=== PATIENT | male | born 1930 | race Caucasian/White ===

== ENCOUNTER 2018-02-24 16:57 | Inpatient (IN) | payer MEDICARE ==
[~2018-02-24] VITALS: Ht 167.6 cm; Wt 59.0 kg
[2018-02-24 17:44] LABS: BASO % 0 % (0-3); EOS # 0.1 x10^3/uL (0.0-0.7); EOS % 2 % (0-3); HEMOGLOBIN 12.1 g/dL (13.0-17.5); LYMPH # 0.5 x10^3/uL (1.0-4.8); LYMPH % 10 % (24-48); MEAN CORPUSCULAR HEMOGLOBIN 33 pg (25-35); MEAN CORPUSCULAR HGB CONC 34 g/dL (31-37); MEAN CORPUSCULAR VOLUME 99 fL (79-100); MONO # 0.5 x10^3/uL (0.0-1.1); MONO % 10 % (0-9); NEUT # 4.2 x10^3uL (1.8-7.7); NEUT % 78 % (31-73); PLATELET COUNT 171 x10^3/uL (140-400); RED BLOOD COUNT 3.63 x10^6/uL (4.30-5.70); RED CELL DISTRIBUTION WIDTH 13.7 % (11.5-14.5); WHITE BLOOD COUNT 5.3 x10^3/uL (4.0-11.0)
--- NOTE | 2018-02-24 17:44 | PHYS DOC ---
Adult General Chief Complaint Chief Complaint: PSYCH EVALUATION HPI HPI 88-year-old male presents for medical clearance for psychiatric admission. The patient is reportedly being admitted for behavior problems from his care facility. The patient and his family deny any medical complaints or concerns at this time. The patient is aware of his surroundings questions. He denies any pain or medical concerns other than some mild congestion. Review of Systems Review of Systems Constitutional: Denies fever or chills [] Eyes: Denies change in visual acuity, redness, or eye pain [] HENT: Denies nasal congestion or sore throat [] Respiratory: Denies cough or shortness of breath [] Cardiovascular: No additional information not addressed in HPI [] GI: Denies abdominal pain, nausea, vomiting, bloody stools or diarrhea [] : Denies dysuria or hematuria [] Musculoskeletal: Denies back pain or joint pain [] Integument: Denies rash or skin lesions [] Neurologic: Denies headache, focal weakness or sensory changes [] Endocrine: Denies polyuria or polydipsia [] All other systems were reviewed and found to be within normal limits, except as documented in this note. Allergies Allergies Allergies Coded Allergies Type Severity Reaction Last Updated Verified Penicillins Allergy Unknown 02/24/18 Yes erythromycin base Allergy Unknown 02/24/18 Yes Physical Exam Physical Exam Constitutional: Well developed, well nourished, no acute distress, non-toxic appearance. [] HENT: Normocephalic, atraumatic, bilateral external ears normal, oropharynx moist, no oral exudates, nose normal. [] Eyes: PERRLA, EOMI, conjunctiva normal, no discharge. [] Neck: Normal range of motion, no tenderness, supple, no stridor. [] Cardiovascular:Heart rate regular rhythm, no murmur [] Lungs & Thorax: Bilateral breath sounds clear to auscultation [] Abdomen: Bowel sounds normal, soft, no tenderness, no masses, no pulsatile masses. [] Skin: Warm, dry, no erythema, no rash. [] Back: No tenderness. [] Extremities: No tenderness, no cyanosis, no clubbing, ROM intact, no edema. [] Neurologic: Alert and oriented X 3, normal motor function, normal sensory function, no focal deficits noted. [] Psychologic: Affect normal, judgement normal, mood normal. [] EKG EKG Sinus rhythm, rate except G2, right bundle-branch block, no ST elevations or depressions.[] Radiology/Procedures Radiology/Procedures [] Course & Med Decision Making Course & Med Decision Making Pertinent Labs and Imaging studies reviewed. (See chart for details) Patient's labs show a UTI. The patient does not specifically mention increased symptoms, but I will treat anyway with 500mg PO of levofloxacin due to his other medication allergies. [] Dragon Disclaimer Dragon Disclaimer This electronic medical record was generated, in whole or in part, using a voice recognition dictation system. Departure Departure: Referrals: NON,STAFF (PCP) ANTELMO HARRIS DO February 24, 2018 17:44
[2018-02-24 17:54] LABS: BILIRUBIN,URINE NEG (NEG); CLARITY,URINE CLOUDY; COLOR,URINE YELLOW; GLUCOSE,URINE NEG (NEG)
[2018-02-24 17:55] LABS: BACTERIA,URINE FEW /HPF (0-FEW); NITRITE,URINE POS (NEG); SQUAMOUS EPITHELIAL CELL,UR OCC /LPF; UROBILINOGEN,URINE 0.2 mg/dL (0.2 mg/dL); WBC,URINE TNTC /HPF (0-4)
[2018-02-24 18:00] LABS: ALBUMIN 2.3 g/dL (3.4-5.0); ALBUMIN/GLOBULIN RATIO 0.5 (1.0-1.7); CALCIUM 8.8 mg/dL (8.5-10.1); CREATININE 1.5 mg/dL (0.7-1.3); GFR 44.1; POTASSIUM 5.2 mmol/L (3.5-5.1); TOTAL BILIRUBIN 0.5 mg/dL (0.2-1.0); TOTAL PROTEIN 7.1 g/dL (6.4-8.2)
[2018-02-24] MEDS ORDERED: levoFLOXacin 500 MG TABLET PO ONE (18:15)
[2018-02-24 20:01] VITALS: BP 195/75
--- NOTE | 2018-02-24 20:54 | PDOC ---
Exam Note: Stevenson Note: Please also refer to the separate dictated note~for this date of service dictated separately.~Patient seen individually. Discussed the patient with Nursing staff reviewed the chart.~Reviewed interim history and current functioning. Reviewed vital signs,~Labs/ Radiology~and current medications noted below. Continue current treatment with the changes noted in the dictated addendum note Assessment: Vital Signs: Vital Signs Date Time Temp Pulse Resp B/P (MAP) Pulse Ox O2 Delivery O2 Flow Rate FiO2 02/24/18 20:01 98.7 72 18 195/75 (115) 93 02/24/18 18:31 Room Air Labs: Laboratory Tests Test 02/24/18 17:20 02/24/18 17:28 White Blood Count 5.3 x10^3/uL (4.0-11.0) Red Blood Count 3.63 x10^6/uL (4.30-5.70) L Hemoglobin 12.1 g/dL (13.0-17.5) L Hematocrit 36.0 % (39.0-53.0) L Mean Corpuscular Volume 99 fL (79-100) Mean Corpuscular Hemoglobin 33 pg (25-35) Mean Corpuscular Hemoglobin Concent 34 g/dL (31-37) Red Cell Distribution Width 13.7 % (11.5-14.5) Platelet Count 171 x10^3/uL (140-400) Neutrophils (%) (Auto) 78 % (31-73) H Lymphocytes (%) (Auto) 10 % (24-48) L Monocytes (%) (Auto) 10 % (0-9) H Eosinophils (%) (Auto) 2 % (0-3) Basophils (%) (Auto) 0 % (0-3) Neutrophils # (Auto) 4.2 x10^3uL (1.8-7.7) Lymphocytes # (Auto) 0.5 x10^3/uL (1.0-4.8) L Monocytes # (Auto) 0.5 x10^3/uL (0.0-1.1) Eosinophils # (Auto) 0.1 x10^3/uL (0.0-0.7) Basophils # (Auto) 0.0 x10^3/uL (0.0-0.2) Sodium Level 142 mmol/L (136-145) Potassium Level 5.2 mmol/L (3.5-5.1) H Chloride Level 105 mmol/L (98-107) Carbon Dioxide Level 33 mmol/L (21-32) H Anion Gap 4 (6-14) L Blood Urea Nitrogen 44 mg/dL (8-26) H Creatinine 1.5 mg/dL (0.7-1.3) H Estimated GFR (Cockcroft-Gault) 44.1 BUN/Creatinine Ratio 29 (6-20) H Glucose Level 194 mg/dL (70-99) H Calcium Level 8.8 mg/dL (8.5-10.1) Magnesium Level 2.0 mg/dL (1.8-2.4) Total Bilirubin 0.5 mg/dL (0.2-1.0) Aspartate Amino Transferase (AST) 29 U/L (15-37) Alanine Aminotransferase (ALT) 24 U/L (16-63) Alkaline Phosphatase 54 U/L (46-116) Total Protein 7.1 g/dL (6.4-8.2) Albumin 2.3 g/dL (3.4-5.0) L Albumin/Globulin Ratio 0.5 (1.0-1.7) L Urine Collection Type Unknown Urine Color Yellow Urine Clarity Cloudy Urine pH 6.5 Urine Specific [place] 1.020 Urine Protein >100 mg/dl (NEG-TRACE) Urine Glucose (UA) Neg mg/dL (NEG) Urine Ketones (Stick) Neg mg/dL (NEG) Urine Blood Small (NEG) Urine Nitrite Pos (NEG) Urine Bilirubin Neg (NEG) Urine Urobilinogen Dipstick 0.2 mg/dL (0.2 mg/dL) Urine Leukocyte Esterase Small (NEG) Urine RBC 6-10 /HPF (0-2) Urine WBC Tntc /HPF (0-4) Urine Squamous Epithelial Cells Occ /LPF Urine Bacteria Few /HPF (0-FEW) Urine Mucus Slight /LPF Current Medications: Meds: Current Medications Levofloxacin (Levaquin) 500 mg 1X ONCE PO Last administered on 02/24/18at 18:22 ; Start 02/24/18 at 18:15; Stop 02/24/18 at 18:17; Status DC I have reviewed the current psychotropics carefully including drug interactions. Risk benefit ratio favors no change other than as noted in my dictated progress note. Diagnosis: Problems: (1) UTI (urinary tract infection) (2) Psychiatric care ABELINO BOND MD February 24, 2018 20:53
[2018-02-24] MEDS ORDERED: SERT25TA PO (23:11)
[2018-02-24] MEDS ORDERED: ACET325T21 PO (23:11)
[2018-02-24] MEDS ORDERED: POLY15DR20 OP (23:11)
[2018-02-24] MEDS ORDERED: PANT40TA3 PO (23:11)
[2018-02-24] MEDS ORDERED: ISOS30TA4 PO (23:11)
[2018-02-24] MEDS ORDERED: FINA5TAB PO (23:11)
[2018-02-24] MEDS ORDERED: POTA20TA84 PO (23:11)
[2018-02-24] MEDS ORDERED: ASPI81TA50 PO (23:11)
[2018-02-24] MEDS ORDERED: PRED5DRO16 EACHEYE (23:11)
[2018-02-24] MEDS ORDERED: HYDR26CR TP (23:11)
[2018-02-24] MEDS ORDERED: CHOL10003 PO (23:11)
[2018-02-24] MEDS ORDERED: GANC5GEL OP (23:11)
[2018-02-24] MEDS ORDERED: CARV6.252 PO (23:11)
[2018-02-24] MEDS ORDERED: LOSA50TA6 PO (23:11)
[2018-02-24] MEDS ORDERED: BETA15OI TP (23:11)
[2018-02-24] MEDS ORDERED: DIPH25CA58 PO (23:11)
[2018-02-24] MEDS ORDERED: ATOR40TA59 PO (23:11)
[2018-02-24] MEDS ORDERED: SENN-87 PO (23:11)
[2018-02-24] MEDS ORDERED: GUAI12003 PO (23:11)
[2018-02-24] MEDS ORDERED: FERR325T14 PO (23:11)
[2018-02-24] MEDS ORDERED: DONE5TAB56 PO (23:11)
[2018-02-24] MEDS ORDERED: TAMS0.4C2 PO (23:11)
[2018-02-24] MEDS ORDERED: TORS20TA2 PO (23:11)
[2018-02-24] MEDS ORDERED: POLY17PO5 PO (23:11)
[2018-02-24] MEDS ORDERED: CLOP75TA57 PO (23:11)
[2018-02-24] MEDS ORDERED: FLUT16SP21 NS (23:11)
[2018-02-24] MEDS ORDERED: MAG HYDROX/AL HYDROX/SIMETH 30 ML ORAL.SUSP PO PRN (23:15)
[2018-02-24] MEDS ORDERED: METHYL SALICYLATE/MENTHOL TOPICAL OINTMENT 29GM TUBE. TP PRN (23:15)
[2018-02-24] MEDS ORDERED: MAGNESIUM HYDROXIDE 2,400 MG/30 ML ORAL.SUSP. PO PRN (23:15)
[2018-02-25] MEDS ORDERED: POLYVINYL ALCOHOL 1.4% OPHTH SOLUTION 15ML BOTTLE. OU PRN (00:15)
[2018-02-25] MEDS ORDERED: ACETAMINOPHEN 325 MG TABLET PO PRN (00:15)
[2018-02-25] MEDS ORDERED: GANCICLOVIR OP SCH (00:15)
[2018-02-25] MEDS ORDERED: BETAMETHASONE AUGMENTED 0.05% TP PRN (00:15)
[2018-02-25] MEDS ORDERED: HYDROCORTISONE 2.5% RECTAL CREAM 30GM TUBE. RC PRN (00:30)
[2018-02-25] MEDS ORDERED: BETAMETHASONE DIPROP 0.05% TP PRN (07:45)
[2018-02-25] MEDS: CHOLECALCIFEROL (VITAMIN D3) 1,000 UNIT TABLET PO SCH (08:01)
[2018-02-25] MEDS: POLYETHYLENE GLYCOL 3350 17 GM PACKET. PO SCH ×2 (08:01→19:20)
[2018-02-25] MEDS: DONEPEZIL HCL 5 MG TABLET. PO SCH (08:01)
[2018-02-25] MEDS: TAMSULOSIN 0.4 MG CAP.ER.24H. PO SCH (08:02)
[2018-02-25] MEDS: LOSARTAN 50 MG TABLET. PO SCH (08:02)
[2018-02-25] MEDS: SENNOSIDES 8.6 MG TABLET PO SCH (08:02)
[2018-02-25] MEDS: CARVEDILOL 6.25 MG TABLET PO SCH ×2 (08:02→17:00)
[2018-02-25] MEDS: PANTOPRAZOLE 40 MG TABLET. PO SCH (08:03)
[2018-02-25] MEDS: SERTRALINE 25 MG TABLET. PO SCH (08:04)
[2018-02-25] MEDS: ASPIRIN 81 MG TAB.CHEW PO SCH (08:04)
[2018-02-25] MEDS: FERROUS SULFATE 325 MG TABLET. PO SCH (08:04)
[2018-02-25] MEDS: FINASTERIDE 5 MG TABLET PO SCH (08:04)
[2018-02-25] MEDS: ISOSORBIDE MONONITRATE ER 30 MG TAB.ER.24H PO SCH (08:04)
[2018-02-25 08:38] LABS: BASO % 0 % (0-3); EOS # 0.1 x10^3/uL (0.0-0.7); EOS % 2 % (0-3); HEMATOCRIT 33.2 % (39.0-53.0); HEMOGLOBIN 11.2 g/dL (13.0-17.5); LYMPH # 0.5 x10^3/uL (1.0-4.8); LYMPH % 11 % (24-48); MEAN CORPUSCULAR HEMOGLOBIN 33 pg (25-35); MEAN CORPUSCULAR HGB CONC 34 g/dL (31-37); MEAN CORPUSCULAR VOLUME 99 fL (79-100); MONO # 0.5 x10^3/uL (0.0-1.1); MONO % 9 % (0-9); NEUT # 3.8 x10^3uL (1.8-7.7); NEUT % 78 % (31-73); PLATELET COUNT 165 x10^3/uL (140-400); RED BLOOD COUNT 3.37 x10^6/uL (4.30-5.70); WHITE BLOOD COUNT 4.9 x10^3/uL (4.0-11.0)
[2018-02-25] MEDS: FLUTICASONE 50MCG/NASAL SPRAY 16GM BOTTLE. NS SCH (08:54)
[2018-02-25] MEDS: TORSEMIDE 20 MG TABLET. PO SCH (08:54)
[2018-02-25] MEDS: prednisoLONE ACETATE 1% OPHTH SUSPENSION 5ML BOTTLE. OU SCH (08:54)
[2018-02-25 08:57] LABS: ALBUMIN 2.2 g/dL (3.4-5.0); ALBUMIN/GLOBULIN RATIO 0.5 (1.0-1.7); CALCIUM 8.7 mg/dL (8.5-10.1); CREATININE 1.3 mg/dL (0.7-1.3); MAGNESIUM 1.9 mg/dL (1.8-2.4); POTASSIUM 4.5 mmol/L (3.5-5.1); TOTAL BILIRUBIN 0.4 mg/dL (0.2-1.0); TOTAL PROTEIN 6.8 g/dL (6.4-8.2)
[2018-02-25] MEDS ORDERED: CLOPIDOGREL BISULFATE 75 MG TABLET PO SCH (09:00)
[2018-02-25] MEDS ORDERED: FOSFOMYCIN TROMETHAMINE 3 GM PACKET PO ONE (10:00)
[2018-02-25 11:07] LABS: THYROID STIM HORMONE (TSH) 3.756 uIU/mL (0.358-3.740)
[2018-02-25 11:11] VITALS: BP 172/82
[2018-02-25 13:09] LABS: T3 TOTAL 56 ng/dL (71-180); THYROXINE 5.3 ug/dL (4.5-12.0)
--- NOTE | 2018-02-25 14:11 | PDOC1 ---
History of Present Illness Reason for Visit: Dementia w/ behaviors History of Present Illness Pt sent to [facility] for evaluation in [facility] (from [place]) due to some behaviors. He was intentionally spilling water, yelling at staff, defecating in hallway, kicked a AUTOMOTIVE [employer]IST. This was all relatively new behavior according to the report. Pt seen today at 1145. He is demented but has no complaints. Specifically denies chest pain, SOA, cough, leg pain, dizziness, or n/v. About an hour after I saw pt, his nurse called to say there was some bright red blood in his stool when he had a BM. Pt was not having any complaints. There was no report of visible external hemorrhoids. Chief Complaint: PSYCH EVALUATION Allergies: Coded Allergies: Penicillins (Verified Allergy, Unknown, 02/24/18) azithromycin (Verified Allergy, Unknown, 02/24/18) erythromycin base (Verified Allergy, Unknown, 02/24/18) Past Medical History Cardiac: CAD, syncope, Other (Vtach) Pulmonary: COPD Endocrine: Diabetes Dermatology: Other (Glaucoma, macular degeneration) Past Surgical History: No pertinent history Family History: No pertinent hx Past Social History Smoke: No Alcohol: none Drugs: None Lives: Residential Review of Systems Review Of Systems Fourteen system , review of systems has been reviewed. See HPI for pertinent positives and negative responses, other fitzgerald all other systems are negative, non pertinent or non contributory Medications Current Medications Levofloxacin (Levaquin) 500 mg 1X ONCE PO Last administered on 02/24/18at 18:22 ; Start 02/24/18 at 18:15; Stop 02/25/18 at 00:01; Status DC Acetaminophen (Tylenol) 650 mg PRN Q6HRS PRN PO PAIN / TEMP; Start 02/24/18 at 23:15 Multi-Ingredient Ointment (Analgesic [place]aman) 1 samy PRN QID PRN TP MUSCLE PAIN; Start 02/24/18 at 23:15 Al Hydroxide/Mg Hydroxide (Mylanta Plus Xs) 15 ml PRN AFTMEALHC PRN PO DYSPEPSIA; Start 02/24/18 at 23:15 Magnesium Hydroxide (Milk Of Magnesia) 2,400 mg PRN QHS PRN PO CONSTIPATION; Start 02/24/18 at 23:15 Fosfomycin Tromethamine (Monurol) 3 gm 1X ONCE PO Last administered on at 08:54; Start 02/25/18 at 10:00; Stop 02/25/18 at 10:01; Status DC Acetaminophen (Tylenol) 325 mg PRN Q6HRS PRN PO PAIN; Start 02/25/18 at 00:15 Betamethasone Dipropion Augmented (Diprolene-Af) 15 samy PRN BID PRN TP RASH; Start 02/25/18 at 00:15; Stop 02/25/18 at 07:33; Status DC Vitamin D (Vitamin D3) 1,000 unit DAILY PO Last administered on 02/25/18at 08:01 ; Start 02/25/18 at 09:00 Clopidogrel Bisulfate (Plavix) 75 mg DAILY PO Last administered on 02/25/18at 08 :02; Start 02/25/18 at 09:00 Donepezil HCl (Aricept) 5 mg DAILY PO Last administered on 02/25/18at 08:01; Start 02/25/18 at 09:00 Ferrous Sulfate (Feosol) 325 mg DAILY PO Last administered on 02/25/18at 08:04; Start 02/25/18 at 09:00 Isosorbide Mononitrate (Imdur) 15 mg DAILY PO Last administered on 02/25/18at 08 :04; Start 02/25/18 at 09:00 Losartan Potassium (Cozaar) 50 mg DAILY PO Last administered on 02/25/18at 08:02 ; Start 02/25/18 at 09:00 Artificial Tears (Artificial Tears) 1 drop PRN QID PRN OU DRY EYE; Start at 00:15 Prednisolone Acetate (Pred Forte) 1 drop DAILY OU Last administered on at 08:54; Start 02/25/18 at 09:00 Tamsulosin HCl (Flomax) 0.4 mg DAILY PO Last administered on 02/25/18at 08:02; Start 02/25/18 at 09:00 Aspirin (Children'S Aspirin) 81 mg DAILYWBKFT PO Last administered on at 08:04; Start 02/25/18 at 08:00 Atorvastatin Calcium (Lipitor) 40 mg QHS PO ; Start 02/25/18 at 21:00 Carvedilol (Coreg) 6.25 mg BIDWMEALS PO Last administered on 02/25/18at 08:02; Start 02/25/18 at 08:00 Finasteride (Proscar) 5 mg DAILY PO Last administered on 02/25/18at 08:04; Start 02/25/18 at 09:00 Fluticasone Propionate (Flonase) 2 spray DAILY NS Last administered on at 08:54; Start 02/25/18 at 09:00 Non-Formulary Medication (Ganciclovir (Zirgan)) 5 gm 5 time daily OP ; Start 10/03 at 00:15; Status UNV Guaifenesin (Mucinex Er) 1,200 mg BID PO Last administered on 02/25/18 08:03; Start 02/25/18 at 09:00 Hydrocortisone (Proctosol-Hc) 1 samy PRN BID PRN RC HEMORRHOIDS; Start 02/25/18 at 00:30 Pantoprazole Sodium (Protonix) 40 mg DAILYAC PO Last administered on 02/25/18at 08:03; Start 02/25/18 at 07:30 Polyethylene Glycol (miraLAX) 17 gm BID PO Last administered on 02/25/18at 08:01 ; Start 02/25/18 at 09:00 Sennosides (Senna) 17.2 mg DAILY PO Last administered on 02/25/18at 08:02; Start 02/25/18 at 09:00 Torsemide (Demadex) 40 mg DAILY PO Last administered on 02/25/18at 08:54; Start 02/25/18 at 09:00 Sertraline HCl (Zoloft) 25 mg DAILY PO Last administered on 02/25/18at 08:04; Start 02/25/18 at 09:00 Betamethasone Dipropionate (Diprosone) 1 samy PRN BID PRN TP RASH; Start at 07:45 Active Scripts Active Reported Losartan Potassium 50 Mg Tablet 50 Mg PO DAILY Zirgan (Ganciclovir) 5 Gm Gel..gram. 5 Gm OP 5 TIME DAILY Carvedilol 6.25 Mg Tablet 6.25 Mg PO BIDWMEALS Diprolene 0.05% Ointment (Betamethasone/Propylene Glyc) 15 Gm Oint...g. 15 Gm TP PRN BID PRN Zoloft (Sertraline Hcl) 25 Mg Tablet 25 Mg PO DAILY Polyvinyl Alcohol 15 Ml Drops 1 Drop OP PRN QID PRN K-Tab ER (Potassium Chloride) 20 Meq Tablet.er 20 Meq PO DAILY Protonix (Pantoprazole Sodium) 40 Mg Tablet.dr 40 Mg PO DAILY Atorvastatin Calcium 40 Mg Tablet 40 Mg PO DAILY Tamsulosin Hcl 0.4 Mg Cap.er.24h 0.4 Mg PO DAILY Proscar (Finasteride) 5 Mg Tablet 5 Mg PO DAILY Senna Lax (Sennosides) 8.6 Mg Tablet 17.2 Mg PO DAILY Plavix (Clopidogrel Bisulfate) 75 Mg Tablet 75 Mg PO DAILY Ferrous Sulfate 325 Mg Tablet 325 Mg PO DAILY Acetaminophen 325 Mg Tablet 325 Mg PO PRN Q6HRS PRN Vitamin D3 (Cholecalciferol (Vitamin D3)) 1,000 Unit Tablet 1,000 Unit PO DAILY Aspir-Low (Aspirin) 81 Mg Tablet.dr 81 Mg PO DAILY Miralax (Polyethylene Glycol 3350) 17 Gm Powd.pack 17 Gm PO BID Prednisolone Acetate 5 Ml Drops.susp 1 Drop EACHEYE DAILY Benadryl (Diphenhydramine Hcl) 25 Mg Capsule 25 Mg PO PRN Q6HRS PRN Mucinex (Guaifenesin) 1,200 Mg Tbmp.12hr 1,200 Mg PO BID Fluticasone Propionate Nasal [place] (Fluticasone Propionate) 16 Gm [place].susp 2 Spr NS BID Preparation H (Hydrocortisone) 26 Gm Cream..g. 26 Gm TP PRN BID PRN Isosorbide Mononitrate Er (Isosorbide Mononitrate) 30 Mg Tab.er.24h 15 Mg PO DAILY Torsemide 20 Mg Tablet 40 Mg PO DAILY Aricept (Donepezil Hcl) 5 Mg Tablet 5 Mg PO DAILY Exam Vital Signs Vital Signs Date Time Temp Pulse Resp B/P (MAP) Pulse Ox O2 Delivery O2 Flow Rate FiO2 02/25/18 11:11 97.0 100 16 172/82 (112) Room Air 02/24/18 20:01 93 General Appearance: Alert, Cooperative, No acute distress, Other (Oriented x 2 (not time)) HEENT: Atraumatic, PERRLA, EOMI, Mucous membr. moist/pink, Other (Neck without JVD or LAD) Respiratory: Clear to auscultation, Normal air movement Heart: Regular rate, Normal S1, No murmurs Abdominal: Normal bowel sounds, Soft, No tenderness, No hepatospenomegaly, No masses Extremities: No edema, Normal pulses, No tenderness/swelling Skin: No rashes Neuro: Other (No focal findings, pt wheels himself around very well w/ his feet ) Psych/Mental Status: Mood NL Assessment/Plan Assessment/Plan 1. Dementia w/ behaviors: Per Dr. Bill. 2. BRBPR: Hemoccult. Serial Hgb q 8. Hold Plavix. Pt is DNR, would need to get family approval for transfer if appears to be more significant than internal hemorrhoidal bleeding. 3. DM: Cont home meds, ACHS accuchecks. 4. CAD: Cont home meds. 5. DVT proph: No pharmacologic prophylaxis, pt is low risk due to wheeling himself w/ WC. 6. COPD: Stable, on RA. COnt home meds. 7. UTI: Culture pending. Monurol 3 g PO x 1 given already. 8. HTN: Labile. Cont home BP meds, monitor. COURSE Allergies Coded Allergies Type Severity Reaction Last Updated Verified Penicillins Allergy Unknown 02/24/18 Yes azithromycin Allergy Unknown 02/24/18 Yes erythromycin base Allergy Unknown 02/24/18 Yes Laboratory Tests Test 02/24/18 17:20 02/24/18 17:28 02/25/18 07:40 White Blood Count 5.3 x10^3/uL (4.0-11.0) 4.9 x10^3/uL (4.0-11.0) Red Blood Count 3.63 x10^6/uL (4.30-5.70) 3.37 x10^6/uL (4.30-5.70) Hemoglobin 12.1 g/dL (13.0-17.5) 11.2 g/dL (13.0-17.5) Hematocrit 36.0 % (39.0-53.0) 33.2 % (39.0-53.0) Mean Corpuscular Volume 99 fL (79-100) 99 fL (79-100) Mean Corpuscular Hemoglobin 33 pg (25-35) 33 pg (25-35) Mean Corpuscular Hemoglobin Concent 34 g/dL (31-37) 34 g/dL (31-37) Red Cell Distribution Width 13.7 % (11.5-14.5) 14.0 % (11.5-14.5) Platelet Count 171 x10^3/uL (140-400) 165 x10^3/uL (140-400) Neutrophils (%) (Auto) 78 % (31-73) 78 % (31-73) Lymphocytes (%) (Auto) 10 % (24-48) 11 % (24-48) Monocytes (%) (Auto) 10 % (0-9) 9 % (0-9) Eosinophils (%) (Auto) 2 % (0-3) 2 % (0-3) Basophils (%) (Auto) 0 % (0-3) 0 % (0-3) Neutrophils # (Auto) 4.2 x10^3uL (1.8-7.7) 3.8 x10^3uL (1.8-7.7) Lymphocytes # (Auto) 0.5 x10^3/uL (1.0-4.8) 0.5 x10^3/uL (1.0-4.8) Monocytes # (Auto) 0.5 x10^3/uL (0.0-1.1) 0.5 x10^3/uL (0.0-1.1) Eosinophils # (Auto) 0.1 x10^3/uL (0.0-0.7) 0.1 x10^3/uL (0.0-0.7) Basophils # (Auto) 0.0 x10^3/uL (0.0-0.2) 0.0 x10^3/uL (0.0-0.2) Sodium Level 142 mmol/L (136-145) 142 mmol/L (136-145) Potassium Level 5.2 mmol/L (3.5-5.1) 4.5 mmol/L (3.5-5.1) Chloride Level 105 mmol/L (98-107) 105 mmol/L (98-107) Carbon Dioxide Level 33 mmol/L (21-32) 30 mmol/L (21-32) Anion Gap 4 (6-14) 7 (6-14) Blood Urea Nitrogen 44 mg/dL (8-26) 41 mg/dL (8-26) Creatinine 1.5 mg/dL (0.7-1.3) 1.3 mg/dL (0.7-1.3) Estimated GFR (Cockcroft-Gault) 44.1 52.0 BUN/Creatinine Ratio 29 (6-20) 32 (6-20) Glucose Level 194 mg/dL (70-99) 169 mg/dL (70-99) Calcium Level 8.8 mg/dL (8.5-10.1) 8.7 mg/dL (8.5-10.1) Magnesium Level 2.0 mg/dL (1.8-2.4) 1.9 mg/dL (1.8-2.4) Total Bilirubin 0.5 mg/dL (0.2-1.0) 0.4 mg/dL (0.2-1.0) Aspartate Amino Transf (AST/SGOT) 29 U/L (15-37) 26 U/L (15-37) Alanine Aminotransferase (ALT/SGPT) 24 U/L (16-63) 22 U/L (16-63) Alkaline Phosphatase 54 U/L (46-116) 49 U/L (46-116) Total Protein 7.1 g/dL (6.4-8.2) 6.8 g/dL (6.4-8.2) Albumin 2.3 g/dL (3.4-5.0) 2.2 g/dL (3.4-5.0) Albumin/Globulin Ratio 0.5 (1.0-1.7) 0.5 (1.0-1.7) Urine Collection Type Unknown Urine Color Yellow Urine Clarity Cloudy Urine pH 6.5 Urine Specific [place] 1.020 Urine Protein >100 mg/dl (NEG-TRACE) Urine Glucose (UA) Neg mg/dL (NEG) Urine Ketones (Stick) Neg mg/dL (NEG) Urine Blood Small (NEG) Urine Nitrite Pos (NEG) Urine Bilirubin Neg (NEG) Urine Urobilinogen Dipstick 0.2 mg/dL (0.2 mg/dL) Urine Leukocyte Esterase Small (NEG) Urine RBC 6-10 /HPF (0-2) Urine WBC Tntc /HPF (0-4) Urine Squamous Epithelial Cells Occ /LPF Urine Bacteria Few /HPF (0-FEW) Urine Mucus Slight /LPF Iron Level 79 ug/dL (65-175) Total Iron Binding Capacity 145 ug/dL (250-450) Iron Saturation 54 % (15-34) Triglycerides Level 63 mg/dL (0-150) Cholesterol Level 139 mg/dL (0-200) LDL Cholesterol, Calculated 79 mg/dL (0-100) VLDL Cholesterol, Calculated 12 mg/dL (0-40) Non-HDL Cholesterol Calculated 91 mg/dL (0-129) HDL Cholesterol 48 mg/dL (40-60) Cholesterol/HDL Ratio 2.0 Thyroid Stimulating Hormone (TSH) 3.756 uIU/mL (0.358-3.740) Thyroxine (T4) 5.3 ug/dL (4.5-12.0) Total Triiodothyronine 56 ng/dL (71-180) Current Medications Medications (Trade) Dose Ordered Sig/Rusty Route PRN Reason Start Time Stop Time Status Last Admin Dose Admin Levofloxacin (Levaquin) 500 mg 1X ONCE PO 02/24/18 18:15 02/25/18 00:01 DC 02/24/18 18:22 Acetaminophen (Tylenol) 650 mg PRN Q6HRS PRN PO PAIN / TEMP 02/24/18 23:15 Multi-Ingredient Ointment (Analgesic Beaman) 1 samy PRN QID PRN TP MUSCLE PAIN 02/24/18 23:15 Al Hydroxide/Mg Hydroxide (Mylanta Plus Xs) 15 ml PRN AFTMEALHC PRN PO DYSPEPSIA 02/24/18 23:15 Magnesium Hydroxide (Milk Of Magnesia) 2,400 mg PRN QHS PRN PO CONSTIPATION 02/24/18 23:15 Fosfomycin Tromethamine (Monurol) 3 gm 1X ONCE PO 02/25/18 10:00 02/25/18 10:01 DC 02/25/18 08:54 Acetaminophen (Tylenol) 325 mg PRN Q6HRS PRN PO PAIN 02/25/18 00:15 Betamethasone Dipropion Augmented (Diprolene-Af) 15 samy PRN BID PRN TP RASH 02/25/18 00:15 02/25/18 07:33 DC Vitamin D (Vitamin D3) 1,000 unit DAILY PO 02/25/18 09:00 02/25/18 08:01 Clopidogrel Bisulfate (Plavix) 75 mg DAILY PO 02/25/18 09:00 02/25/18 08:02 Donepezil HCl (Aricept) 5 mg DAILY PO 02/25/18 09:00 02/25/18 08:01 Ferrous Sulfate (Feosol) 325 mg DAILY PO 02/25/18 09:00 02/25/18 08:04 Isosorbide Mononitrate (Imdur) 15 mg DAILY PO 02/25/18 09:00 02/25/18 08:04 Losartan Potassium (Cozaar) 50 mg DAILY PO 02/25/18 09:00 02/25/18 08:02 Artificial Tears (Artificial Tears) 1 drop PRN QID PRN OU DRY EYE 02/25/18 00:15 Prednisolone Acetate (Pred Forte) 1 drop DAILY OU 02/25/18 09:00 02/25/18 08:54 Tamsulosin HCl (Flomax) 0.4 mg DAILY PO 02/25/18 09:00 02/25/18 08:02 Aspirin (Children'S Aspirin) 81 mg DAILYWBKFT PO 02/25/18 08:00 02/25/18 08:04 Atorvastatin Calcium (Lipitor) 40 mg QHS PO 02/25/18 21:00 Carvedilol (Coreg) 6.25 mg BIDWMEALS PO 02/25/18 08:00 02/25/18 08:02 Finasteride (Proscar) 5 mg DAILY PO 02/25/18 09:00 02/25/18 08:04 Fluticasone Propionate (Flonase) 2 spray DAILY NS 02/25/18 09:00 02/25/18 08:54 Non-Formulary Medication (Ganciclovir (Zirgan)) 5 gm 5 time daily OP 02/25/18 00:15 UNV Guaifenesin (Mucinex Er) 1,200 mg BID PO 02/25/18 09:00 02/25/18 08:03 Hydrocortisone (Proctosol-Hc) 1 samy PRN BID PRN RC HEMORRHOIDS 02/25/18 00:30 Pantoprazole Sodium (Protonix) 40 mg DAILYAC PO 02/25/18 07:30 02/25/18 08:03 Polyethylene Glycol (miraLAX) 17 gm BID PO 02/25/18 09:00 02/25/18 08:01 Sennosides (Senna) 17.2 mg DAILY PO 02/25/18 09:00 02/25/18 08:02 Torsemide (Demadex) 40 mg DAILY PO 02/25/18 09:00 02/25/18 08:54 Sertraline HCl (Zoloft) 25 mg DAILY PO 02/25/18 09:00 02/25/18 08:04 Betamethasone Dipropionate (Diprosone) 1 samy PRN BID PRN TP RASH 02/25/18 07:45 Vital Signs Date Time Temp Pulse Resp B/P (MAP) Pulse Ox O2 Delivery O2 Flow Rate FiO2 02/25/18 11:11 97.0 100 16 172/82 (112) Room Air 02/24/18 20:01 93 EKG: NSR, RBBB, RVH AMINAH MESA MD February 25, 2018 14:11
[2018-02-25 16:10] VITALS: BP 156/67
[2018-02-25 17:07] LABS: HEMOGLOBIN A1C 7.6 % (4.8-5.6)
[2018-02-25] MEDS: ATORVASTATIN CALCIUM 20 MG TABLET PO SCH (19:46)
[2018-02-25] MEDS: MIRTAZAPINE 7.5 MG TABLET. PO SCH (20:28)
--- NOTE | 2018-02-25 22:34 | HP ---
ADMIT DATE: 02/24/2018 ADMISSION HISTORY AND EVALUATION The patient was referred through the Emergency Room at [facility], where he presented from the half-way. This note covers elements not covered in my initial note 02/25/2018. The patient was seen individually evening of 02/25/2018. Discussed with nursing staff, reviewed the chart. Previously had discussed the patient with the nursing staff several times on 02/24/2018 and 02/25/2018 to review symptoms prompting this referral for inpatient psychiatric hospitalization. IDENTIFYING DATA: The patient is an 88-year-old male referred to us from [facility] on account of increasing agitation, anxiety, irritability, mood lability and some short term memory deficits. The patient was urinating and defecating on the floor, cursing at staff, spilling water on purpose, kicking staff. He had failed outpatient psychiatric interventions. Behaviors were deemed dangerous, unmanageable, referred for inpatient psychiatric stabilization. CHIEF COMPLAINT: "I need something to help me sleep. I can take Benadryl." HISTORY OF PRESENT ILLNESS: The patient has a history of increasing irritability, mood lability and agitation. He appeared depressed, though he minimizes this. He has had some short term memory deficits and behaviors have included the urination and defecation on the floor, cursing at staff, spilling water on purpose, kicking staff amongst other things. No active suicidal or homicidal ideation. No clear history of bipolar disorder. PAST PSYCHIATRIC HISTORY: As above. PAST MEDICAL HISTORY: Positive for COPD, coronary artery disease, history of syncope, ventricular tachycardia, diabetes mellitus, glaucoma, CHF, BPH with urinary retention, hyperlipidemia, anemia, Accu-Cheks daily. In the ER, UA was positive and he received Levaquin and since admission, he has received a dosage of Monurol per Dr. Gallo. DIET: No added salt, thin liquids. He takes his medications whole, ambulates in wheelchair. DRUG ALLERGIES: PENICILLIN, ERYTHROMYCIN. CODE STATUS: DNR. FAMILY HISTORY: Noncontributory. SOCIAL HISTORY: No alcohol, drug abuse, physical, sexual or elder abuse history is noted. He is not known to be a perpetrator. REACTION TO HOSPITALIZATION: The patient accepting of it. ASSETS: Supportive living at the half-way. MENTAL STATUS EXAM: The patient was seen individually. He is seated in a wheelchair, oriented to self, situation. Speech has some latency, coherent. Abstraction fair, computation somewhat impaired, language function intact. Mood and affect somewhat dysphoric. Attention span short. Language function intact. No active suicidal or homicidal ideation. He does have some short-term memory deficits. IMPRESSION: Major depressive disorder, recurrent, severe; anxiety disorder, unspecified; mild cognitive impairment versus major neurocognitive disorder; early Alzheimer, vascular with depression. Rest as noted above. PLAN: Admit to Geropsychiatry Unit at [facility]. I will see the patient daily individually from a psychiatric standpoint. Medical followup per Dr. Cole/Dr. Gallo. Treat the urinary tract infection. Start Remeron 7.5 mg at bedtime to help with his insomnia. Continue Zoloft and Aricept. Make further adjustments as clinically indicated. MAN Kunal BOND MD DR: CRISTY/mechelle JOB#: [id number] / [id number]
--- NOTE | 2018-02-25 22:58 | PDOC ---
Exam Note: [place] Note: Please also refer to the separate dictated note~for this date of service dictated separately.~Patient seen individually. Discussed the patient with Nursing staff reviewed the chart.~Reviewed interim history and current functioning. Reviewed vital signs,~Labs/ Radiology~and current medications noted below. Continue current treatment with the changes noted in the dictated addendum note Assessment: Vital Signs: Vital Signs Date Time Temp Pulse Resp B/P (MAP) Pulse Ox O2 Delivery O2 Flow Rate FiO2 02/25/18 17:00 78 156/67 02/25/18 16:10 97.8 17 96 02/25/18 11:11 Room Air I&O Intake and Output 02/25/18 07:00 Intake Total 120 ml Output Total 2 ml Balance 118 ml Intake Oral 120 ml Output Urine Total 2 ml # Bowel Movements 2 Labs: Laboratory Tests Test 02/25/18 07:40 02/25/18 14:55 02/25/18 21:50 White Blood Count 4.9 x10^3/uL (4.0-11.0) Red Blood Count 3.37 x10^6/uL (4.30-5.70) L Hemoglobin 11.2 g/dL (13.0-17.5) L 10.2 g/dL (13.0-17.5) L 10.2 g/dL (13.0-17.5) L Hematocrit 33.2 % (39.0-53.0) L Mean Corpuscular Volume 99 fL (79-100) Mean Corpuscular Hemoglobin 33 pg (25-35) Mean Corpuscular Hemoglobin Concent 34 g/dL (31-37) Red Cell Distribution Width 14.0 % (11.5-14.5) Platelet Count 165 x10^3/uL (140-400) Neutrophils (%) (Auto) 78 % (31-73) H Lymphocytes (%) (Auto) 11 % (24-48) L Monocytes (%) (Auto) 9 % (0-9) Eosinophils (%) (Auto) 2 % (0-3) Basophils (%) (Auto) 0 % (0-3) Neutrophils # (Auto) 3.8 x10^3uL (1.8-7.7) Lymphocytes # (Auto) 0.5 x10^3/uL (1.0-4.8) L Monocytes # (Auto) 0.5 x10^3/uL (0.0-1.1) Eosinophils # (Auto) 0.1 x10^3/uL (0.0-0.7) Basophils # (Auto) 0.0 x10^3/uL (0.0-0.2) Sodium Level 142 mmol/L (136-145) Potassium Level 4.5 mmol/L (3.5-5.1) Chloride Level 105 mmol/L (98-107) Carbon Dioxide Level 30 mmol/L (21-32) Anion Gap 7 (6-14) Blood Urea Nitrogen 41 mg/dL (8-26) H Creatinine 1.3 mg/dL (0.7-1.3) Estimated GFR (Cockcroft-Gault) 52.0 BUN/Creatinine Ratio 32 (6-20) H Glucose Level 169 mg/dL (70-99) H Hemoglobin A1c 7.6 % (4.8-5.6) H Calcium Level 8.7 mg/dL (8.5-10.1) Magnesium Level 1.9 mg/dL (1.8-2.4) Iron Level 79 ug/dL (65-175) Total Iron Binding Capacity 145 ug/dL (250-450) L Iron Saturation 54 % (15-34) H Total Bilirubin 0.4 mg/dL (0.2-1.0) Aspartate Amino Transferase (AST) 26 U/L (15-37) Alanine Aminotransferase (ALT) 22 U/L (16-63) Alkaline Phosphatase 49 U/L (46-116) Total Protein 6.8 g/dL (6.4-8.2) Albumin 2.2 g/dL (3.4-5.0) L Albumin/Globulin Ratio 0.5 (1.0-1.7) L Triglycerides Level 63 mg/dL (0-150) Cholesterol Level 139 mg/dL (0-200) LDL Cholesterol, Calculated 79 mg/dL (0-100) VLDL Cholesterol, Calculated 12 mg/dL (0-40) Non-HDL Cholesterol Calculated 91 mg/dL (0-129) HDL Cholesterol 48 mg/dL (40-60) Cholesterol/HDL Ratio 2.0 Thyroid Stimulating Hormone (TSH) 3.756 uIU/mL (0.358-3.740) Thyroxine (T4) 5.3 ug/dL (4.5-12.0) Total Triiodothyronine (TT3) 56 ng/dL (71-180) L Rapid Plasma Reagin Pending Current Medications: Meds: Current Medications Levofloxacin (Levaquin) 500 mg 1X ONCE PO Last administered on 02/24/18at 18:22 ; Start 02/24/18 at 18:15; Stop 02/25/18 at 00:01; Status DC Acetaminophen (Tylenol) 650 mg PRN Q6HRS PRN PO PAIN / TEMP; Start 02/24/18 at 23:15 Multi-Ingredient Ointment (Analgesic [place]) 1 samy PRN QID PRN TP MUSCLE PAIN; Start 02/24/18 at 23:15 Al Hydroxide/Mg Hydroxide (Mylanta Plus Xs) 15 ml PRN AFTMEALHC PRN PO DYSPEPSIA; Start 02/24/18 at 23:15 Magnesium Hydroxide (Milk Of Magnesia) 2,400 mg PRN QHS PRN PO CONSTIPATION; Start 02/24/18 at 23:15 Fosfomycin Tromethamine (Monurol) 3 gm 1X ONCE PO Last administered on at 08:54; Start 02/25/18 at 10:00; Stop 02/25/18 at 10:01; Status DC Acetaminophen (Tylenol) 325 mg PRN Q6HRS PRN PO PAIN; Start 02/25/18 at 00:15 Betamethasone Dipropion Augmented (Diprolene-Af) 15 samy PRN BID PRN TP RASH; Start 02/25/18 at 00:15; Stop 02/25/18 at 07:33; Status DC Vitamin D (Vitamin D3) 1,000 unit DAILY PO Last administered on 02/25/18at 08:01 ; Start 02/25/18 at 09:00 Clopidogrel Bisulfate (Plavix) 75 mg DAILY PO Last administered on 02/25/18at 08 :02; Start 02/25/18 at 09:00; Stop 02/25/18 at 14:01; Status DC Donepezil HCl (Aricept) 5 mg DAILY PO Last administered on 02/25/18at 08:01; Start 02/25/18 at 09:00 Ferrous Sulfate (Feosol) 325 mg DAILY PO Last administered on 02/25/18at 08:04; Start 02/25/18 at 09:00 Isosorbide Mononitrate (Imdur) 15 mg DAILY PO Last administered on 02/25/18 08 :04; Start 02/25/18 at 09:00 Losartan Potassium (Cozaar) 50 mg DAILY PO Last administered on 02/25/18at 08:02 ; Start 02/25/18 at 09:00 Artificial Tears (Artificial Tears) 1 drop PRN QID PRN OU DRY EYE; Start at 00:15 Prednisolone Acetate (Pred Forte) 1 drop DAILY OU Last administered on at 08:54; Start 02/25/18 at 09:00 Tamsulosin HCl (Flomax) 0.4 mg DAILY PO Last administered on 02/25/18at 08:02; Start 02/25/18 at 09:00 Aspirin (Children'S Aspirin) 81 mg DAILYWBKFT PO Last administered on at 08:04; Start 02/25/18 at 08:00 Atorvastatin Calcium (Lipitor) 40 mg QHS PO Last administered on 02/25/18at 19: 46; Start 02/25/18 at 21:00 Carvedilol (Coreg) 6.25 mg BIDWMEALS PO Last administered on 02/25/18 17:00; Start 02/25/18 at 08:00 Finasteride (Proscar) 5 mg DAILY PO Last administered on 02/25/18at 08:04; Start 02/25/18 at 09:00 Fluticasone Propionate (Flonase) 2 spray DAILY NS Last administered on at 08:54; Start 02/25/18 at 09:00 Non-Formulary Medication (Ganciclovir (Zirgan)) 5 gm 5 time daily OP ; Start 10/03 at 00:15; Status UNV Guaifenesin (Mucinex Er) 1,200 mg BID PO Last administered on 02/25/18 19:20; Start 02/25/18 at 09:00 Hydrocortisone (Proctosol-Hc) 1 samy PRN BID PRN RC HEMORRHOIDS; Start 02/25/18 at 00:30 Pantoprazole Sodium (Protonix) 40 mg DAILYAC PO Last administered on 02/25/18at 08:03; Start 02/25/18 at 07:30 Polyethylene Glycol (miraLAX) 17 gm BID PO Last administered on 02/25/18at 19:20 ; Start 02/25/18 at 09:00 Sennosides (Senna) 17.2 mg DAILY PO Last administered on 02/25/18at 08:02; Start 02/25/18 at 09:00 Torsemide (Demadex) 40 mg DAILY PO Last administered on 02/25/18at 08:54; Start 02/25/18 at 09:00 Sertraline HCl (Zoloft) 25 mg DAILY PO Last administered on 02/25/18at 08:04; Start 02/25/18 at 09:00 Betamethasone Dipropionate (Diprosone) 1 samy PRN BID PRN TP RASH; Start at 07:45 Mirtazapine (Remeron) 7.5 mg QHS PO Last administered on 02/25/18at 20:28; Start 02/25/18 at 21:00 Active Scripts Active Reported Losartan Potassium 50 Mg Tablet 50 Mg PO DAILY Zirgan (Ganciclovir) 5 Gm Gel..gram. 5 Gm OP 5 TIME DAILY Carvedilol 6.25 Mg Tablet 6.25 Mg PO BIDWMEALS Diprolene 0.05% Ointment (Betamethasone/Propylene Glyc) 15 Gm Oint...g. 15 Gm TP PRN BID PRN Zoloft (Sertraline Hcl) 25 Mg Tablet 25 Mg PO DAILY Polyvinyl Alcohol 15 Ml Drops 1 Drop OP PRN QID PRN K-Tab ER (Potassium Chloride) 20 Meq Tablet.er 20 Meq PO DAILY Protonix (Pantoprazole Sodium) 40 Mg Tablet.dr 40 Mg PO DAILY Atorvastatin Calcium 40 Mg Tablet 40 Mg PO DAILY Tamsulosin Hcl 0.4 Mg Cap.er.24h 0.4 Mg PO DAILY Proscar (Finasteride) 5 Mg Tablet 5 Mg PO DAILY Senna Lax (Sennosides) 8.6 Mg Tablet 17.2 Mg PO DAILY Plavix (Clopidogrel Bisulfate) 75 Mg Tablet 75 Mg PO DAILY Ferrous Sulfate 325 Mg Tablet 325 Mg PO DAILY Acetaminophen 325 Mg Tablet 325 Mg PO PRN Q6HRS PRN Vitamin D3 (Cholecalciferol (Vitamin D3)) 1,000 Unit Tablet 1,000 Unit PO DAILY Aspir-Low (Aspirin) 81 Mg Tablet.dr 81 Mg PO DAILY Miralax (Polyethylene Glycol 3350) 17 Gm Powd.pack 17 Gm PO BID Prednisolone Acetate 5 Ml Drops.susp 1 Drop EACHEYE DAILY Benadryl (Diphenhydramine Hcl) 25 Mg Capsule 25 Mg PO PRN Q6HRS PRN Mucinex (Guaifenesin) 1,200 Mg Tbmp.12hr 1,200 Mg PO BID Fluticasone Propionate Nasal [place] (Fluticasone Propionate) 16 Gm [place].susp 2 Spr NS BID Preparation H (Hydrocortisone) 26 Gm Cream..g. 26 Gm TP PRN BID PRN Isosorbide Mononitrate Er (Isosorbide Mononitrate) 30 Mg Tab.er.24h 15 Mg PO DAILY Torsemide 20 Mg Tablet 40 Mg PO DAILY Aricept (Donepezil Hcl) 5 Mg Tablet 5 Mg PO DAILY I have reviewed the current psychotropics carefully including drug interactions. Risk benefit ratio favors no change other than as noted in my dictated progress note. 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
[2018-02-26 05:18] VITALS: BP 145/58
[2018-02-26] MEDS: PANTOPRAZOLE 40 MG TABLET. PO SCH ×2 (07:30→07:59)
[2018-02-26] MEDS: SERTRALINE 25 MG TABLET. PO SCH ×2 (07:57→09:00)
[2018-02-26] MEDS: ISOSORBIDE MONONITRATE ER 30 MG TAB.ER.24H PO SCH ×2 (07:58→09:00)
[2018-02-26] MEDS: SENNOSIDES 8.6 MG TABLET PO SCH ×2 (07:59→09:00)
[2018-02-26] MEDS: FINASTERIDE 5 MG TABLET PO SCH ×2 (07:59→09:00)
[2018-02-26] MEDS: CARVEDILOL 6.25 MG TABLET PO SCH ×3 (07:59→17:00)
[2018-02-26] MEDS: LOSARTAN 50 MG TABLET. PO SCH (07:59)
[2018-02-26] MEDS: CHOLECALCIFEROL (VITAMIN D3) 1,000 UNIT TABLET PO SCH ×2 (08:00→09:00)
[2018-02-26] MEDS: FERROUS SULFATE 325 MG TABLET. PO SCH ×2 (08:00→09:00)
[2018-02-26] MEDS: ASPIRIN 81 MG TAB.CHEW PO SCH (08:00)
[2018-02-26] MEDS: TORSEMIDE 20 MG TABLET. PO SCH ×2 (08:00→09:00)
[2018-02-26] MEDS: DONEPEZIL HCL 5 MG TABLET. PO SCH ×2 (08:00→09:00)
[2018-02-26] MEDS: TAMSULOSIN 0.4 MG CAP.ER.24H. PO SCH ×2 (08:00→09:00)
[2018-02-26] MEDS: POLYETHYLENE GLYCOL 3350 17 GM PACKET. PO SCH ×2 (08:01→20:24)
[2018-02-26] MEDS: prednisoLONE ACETATE 1% OPHTH SUSPENSION 5ML BOTTLE. OU SCH (09:00)
[2018-02-26] MEDS: FLUTICASONE 50MCG/NASAL SPRAY 16GM BOTTLE. NS SCH (09:00)
[2018-02-26] MEDS: ATORVASTATIN CALCIUM 20 MG TABLET PO SCH (20:23)
[2018-02-26] MEDS: DOXYCYCLINE HYCLATE 100 MG TABLET PO SCH (20:23)
[2018-02-26] MEDS: MIRTAZAPINE 7.5 MG TABLET. PO SCH (20:24)
--- NOTE | 2018-02-26 20:56 | PDOC ---
Exam Note: [place] Note: Please also refer to the separate dictated note~for this date of service dictated separately.~Patient seen individually. Discussed the patient with Nursing staff reviewed the chart.~Reviewed interim history and current functioning. Reviewed vital signs,~Labs/ Radiology~and current medications noted below. Continue current treatment with the changes noted in the dictated addendum note Assessment: Vital Signs: Vital Signs Date Time Temp Pulse Resp B/P (MAP) Pulse Ox O2 Delivery O2 Flow Rate FiO2 02/26/18 16:51 98.3 68 16 97 02/26/18 08:00 145/58 02/25/18 11:11 Room Air I&O Intake and Output 02/26/18 07:00 Intake Total 840 ml Balance 840 ml Intake Oral 840 ml # Voids 1 Labs: Laboratory Tests Test 02/25/18 21:50 02/26/18 08:14 02/26/18 14:37 Hemoglobin 10.2 g/dL (13.0-17.5) L 10.7 g/dL (13.0-17.5) L 11.1 g/dL (13.0-17.5) L Current Medications: Meds: Current Medications Levofloxacin (Levaquin) 500 mg 1X ONCE PO Last administered on 02/24/18at 18:22 ; Start 02/24/18 at 18:15; Stop 02/25/18 at 00:01; Status DC Acetaminophen (Tylenol) 650 mg PRN Q6HRS PRN PO PAIN / TEMP; Start 02/24/18 at 23:15 Multi-Ingredient Ointment (Analgesic [place]) 1 samy PRN QID PRN TP MUSCLE PAIN; Start 02/24/18 at 23:15 Al Hydroxide/Mg Hydroxide (Mylanta Plus Xs) 15 ml PRN AFTMEALHC PRN PO DYSPEPSIA; Start 02/24/18 at 23:15 Magnesium Hydroxide (Milk Of Magnesia) 2,400 mg PRN QHS PRN PO CONSTIPATION; Start 02/24/18 at 23:15 Fosfomycin Tromethamine (Monurol) 3 gm 1X ONCE PO Last administered on at 08:54; Start 02/25/18 at 10:00; Stop 02/25/18 at 10:01; Status DC Acetaminophen (Tylenol) 325 mg PRN Q6HRS PRN PO PAIN; Start 02/25/18 at 00:15 Betamethasone Dipropion Augmented (Diprolene-Af) 15 samy PRN BID PRN TP RASH; Start 02/25/18 at 00:15; Stop 02/25/18 at 07:33; Status DC Vitamin D (Vitamin D3) 1,000 unit DAILY PO Last administered on 02/25/18at 08:01 ; Start 02/25/18 at 09:00 Clopidogrel Bisulfate (Plavix) 75 mg DAILY PO Last administered on 02/25/18at 08 :02; Start 02/25/18 at 09:00; Stop 02/25/18 at 14:01; Status DC Donepezil HCl (Aricept) 5 mg DAILY PO Last administered on 02/25/18at 08:01; Start 02/25/18 at 09:00 Ferrous Sulfate (Feosol) 325 mg DAILY PO Last administered on 02/25/18at 08:04; Start 02/25/18 at 09:00 Isosorbide Mononitrate (Imdur) 15 mg DAILY PO Last administered on 02/25/18at 08 :04; Start 02/25/18 at 09:00 Losartan Potassium (Cozaar) 50 mg DAILY PO Last administered on 02/26/18at 07:59 ; Start 02/25/18 at 09:00 Artificial Tears (Artificial Tears) 1 drop PRN QID PRN OU DRY EYE; Start at 00:15 Prednisolone Acetate (Pred Forte) 1 drop DAILY OU Last administered on at 08:54; Start 02/25/18 at 09:00 Tamsulosin HCl (Flomax) 0.4 mg DAILY PO Last administered on 02/25/18at 08:02; Start 02/25/18 at 09:00 Aspirin (Children'S Aspirin) 81 mg DAILYWBKFT PO Last administered on 08:04; Start 02/25/18 at 08:00 Atorvastatin Calcium (Lipitor) 40 mg QHS PO Last administered on 02/26/18at 20: 23; Start 02/25/18 at 21:00 Carvedilol (Coreg) 6.25 mg BIDWMEALS PO Last administered on 02/25/18at 17:00; Start 02/25/18 at 08:00 Finasteride (Proscar) 5 mg DAILY PO Last administered on 02/25/18at 08:04; Start 02/25/18 at 09:00 Fluticasone Propionate (Flonase) 2 spray DAILY NS Last administered on at 08:54; Start 02/25/18 at 09:00 Non-Formulary Medication (Ganciclovir (Zirgan)) 5 gm 5 time daily OP ; Start 10/03 at 00:15; Status UNV Guaifenesin (Mucinex Er) 1,200 mg BID PO Last administered on 02/26/18 20:23; Start 02/25/18 at 09:00 Hydrocortisone (Proctosol-Hc) 1 samy PRN BID PRN RC HEMORRHOIDS; Start 02/25/18 at 00:30 Pantoprazole Sodium (Protonix) 40 mg DAILYAC PO Last administered on 02/25/18at 08:03; Start 02/25/18 at 07:30 Polyethylene Glycol (miraLAX) 17 gm BID PO Last administered on 02/25/18 19:20 ; Start 02/25/18 at 09:00 Sennosides (Senna) 17.2 mg DAILY PO Last administered on 02/25/18at 08:02; Start 02/25/18 at 09:00 Torsemide (Demadex) 40 mg DAILY PO Last administered on 02/25/18at 08:54; Start 02/25/18 at 09:00 Sertraline HCl (Zoloft) 25 mg DAILY PO Last administered on 02/25/18at 08:04; Start 02/25/18 at 09:00 Betamethasone Dipropionate (Diprosone) 1 samy PRN BID PRN TP RASH; Start at 07:45 Mirtazapine (Remeron) 7.5 mg QHS PO Last administered on 02/26/18 20:24; Start 02/25/18 at 21:00 Doxycycline Hyclate (Vibra-Tab) 100 mg BID PO Last administered on 02/26/18at 20 :23; Start 02/26/18 at 21:00; Stop 03/05/18 at 23:59 Active Scripts Active Reported Losartan Potassium 50 Mg Tablet 50 Mg PO DAILY Zirgan (Ganciclovir) 5 Gm Gel..gram. 5 Gm OP 5 TIME DAILY Carvedilol 6.25 Mg Tablet 6.25 Mg PO BIDWMEALS Diprolene 0.05% Ointment (Betamethasone/Propylene Glyc) 15 Gm Oint...g. 15 Gm TP PRN BID PRN Zoloft (Sertraline Hcl) 25 Mg Tablet 25 Mg PO DAILY Polyvinyl Alcohol 15 Ml Drops 1 Drop OP PRN QID PRN K-Tab ER (Potassium Chloride) 20 Meq Tablet.er 20 Meq PO DAILY Protonix (Pantoprazole Sodium) 40 Mg Tablet.dr 40 Mg PO DAILY Atorvastatin Calcium 40 Mg Tablet 40 Mg PO DAILY Tamsulosin Hcl 0.4 Mg Cap.er.24h 0.4 Mg PO DAILY Proscar (Finasteride) 5 Mg Tablet 5 Mg PO DAILY Senna Lax (Sennosides) 8.6 Mg Tablet 17.2 Mg PO DAILY Plavix (Clopidogrel Bisulfate) 75 Mg Tablet 75 Mg PO DAILY Ferrous Sulfate 325 Mg Tablet 325 Mg PO DAILY Acetaminophen 325 Mg Tablet 325 Mg PO PRN Q6HRS PRN Vitamin D3 (Cholecalciferol (Vitamin D3)) 1,000 Unit Tablet 1,000 Unit PO DAILY Aspir-Low (Aspirin) 81 Mg Tablet.dr 81 Mg PO DAILY Miralax (Polyethylene Glycol 3350) 17 Gm Powd.pack 17 Gm PO BID Prednisolone Acetate 5 Ml Drops.susp 1 Drop EACHEYE DAILY Benadryl (Diphenhydramine Hcl) 25 Mg Capsule 25 Mg PO PRN Q6HRS PRN Mucinex (Guaifenesin) 1,200 Mg Tbmp.12hr 1,200 Mg PO BID Fluticasone Propionate Nasal [place] (Fluticasone Propionate) 16 Gm [place].susp 2 Spr NS BID Preparation H (Hydrocortisone) 26 Gm Cream..g. 26 Gm TP PRN BID PRN Isosorbide Mononitrate Er (Isosorbide Mononitrate) 30 Mg Tab.er.24h 15 Mg PO DAILY Torsemide 20 Mg Tablet 40 Mg PO DAILY Aricept (Donepezil Hcl) 5 Mg Tablet 5 Mg PO DAILY I have reviewed the current psychotropics carefully including drug interactions. Risk benefit ratio favors no change other than as noted in my dictated progress note. 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
[2018-02-27 05:55] VITALS: BP 158/61
[2018-02-27] MEDS: PANTOPRAZOLE 40 MG TABLET. PO SCH (10:35)
[2018-02-27] MEDS: FERROUS SULFATE 325 MG TABLET. PO SCH (10:35)
[2018-02-27] MEDS: POLYETHYLENE GLYCOL 3350 17 GM PACKET. PO SCH ×2 (10:35→21:00)
[2018-02-27] MEDS: FLUTICASONE 50MCG/NASAL SPRAY 16GM BOTTLE. NS SCH (10:35)
[2018-02-27] MEDS: prednisoLONE ACETATE 1% OPHTH SUSPENSION 5ML BOTTLE. OU SCH (10:35)
[2018-02-27] MEDS: DONEPEZIL HCL 5 MG TABLET. PO SCH (10:36)
[2018-02-27] MEDS: CHOLECALCIFEROL (VITAMIN D3) 1,000 UNIT TABLET PO SCH (10:36)
[2018-02-27] MEDS: DOXYCYCLINE HYCLATE 100 MG TABLET PO SCH ×2 (10:36→21:00)
[2018-02-27] MEDS: TORSEMIDE 20 MG TABLET. PO SCH (10:36)
[2018-02-27] MEDS: FINASTERIDE 5 MG TABLET PO SCH (10:36)
[2018-02-27] MEDS: SERTRALINE 25 MG TABLET. PO SCH (10:36)
[2018-02-27] MEDS: TAMSULOSIN 0.4 MG CAP.ER.24H. PO SCH (10:37)
[2018-02-27] MEDS: ASPIRIN 81 MG TAB.CHEW PO SCH (10:37)
[2018-02-27] MEDS: SENNOSIDES 8.6 MG TABLET PO SCH (10:37)
[2018-02-27 10:43] VITALS: BP 136/51
[2018-02-27] MEDS: CARVEDILOL 6.25 MG TABLET PO SCH ×3 (10:44→17:13)
[2018-02-27] MEDS: LOSARTAN 50 MG TABLET. PO SCH (10:45)
[2018-02-27] MEDS: ISOSORBIDE MONONITRATE ER 30 MG TAB.ER.24H PO SCH (10:46)
[2018-02-27 15:54] VITALS: BP 175/70
--- NOTE | 2018-02-27 20:55 | PDOC ---
Exam Note: [place] Note: Please also refer to the separate dictated note~for this date of service dictated separately.~Patient seen individually. Discussed the patient with Nursing staff reviewed the chart.~Reviewed interim history and current functioning. Reviewed vital signs,~Labs/ Radiology~and current medications noted below. Continue current treatment with the changes noted in the dictated addendum note Assessment: Vital Signs: Vital Signs Date Time Temp Pulse Resp B/P (MAP) Pulse Ox O2 Delivery O2 Flow Rate FiO2 02/27/18 17:00 60 175/70 02/27/18 15:54 97.8 20 100 02/25/18 11:11 Room Air I&O Intake and Output 02/27/18 07:00 Intake Total 120 ml Balance 120 ml Intake Oral 120 ml Labs: Laboratory Tests Test 02/26/18 22:32 Hemoglobin 10.9 g/dL (13.0-17.5) L Current Medications: Meds: Current Medications Levofloxacin (Levaquin) 500 mg 1X ONCE PO Last administered on 02/24/18at 18:22 ; Start 02/24/18 at 18:15; Stop 02/25/18 at 00:01; Status DC Acetaminophen (Tylenol) 650 mg PRN Q6HRS PRN PO PAIN / TEMP; Start 02/24/18 at 23:15 Multi-Ingredient Ointment (Analgesic [place]) 1 samy PRN QID PRN TP MUSCLE PAIN; Start 02/24/18 at 23:15 Al Hydroxide/Mg Hydroxide (Mylanta Plus Xs) 15 ml PRN AFTMEALHC PRN PO DYSPEPSIA; Start 02/24/18 at 23:15 Magnesium Hydroxide (Milk Of Magnesia) 2,400 mg PRN QHS PRN PO CONSTIPATION; Start 02/24/18 at 23:15 Fosfomycin Tromethamine (Monurol) 3 gm 1X ONCE PO Last administered on at 08:54; Start 02/25/18 at 10:00; Stop 02/25/18 at 10:01; Status DC Acetaminophen (Tylenol) 325 mg PRN Q6HRS PRN PO PAIN; Start 02/25/18 at 00:15 Betamethasone Dipropion Augmented (Diprolene-Af) 15 samy PRN BID PRN TP RASH; Start 02/25/18 at 00:15; Stop 02/25/18 at 07:33; Status DC Vitamin D (Vitamin D3) 1,000 unit DAILY PO Last administered on 02/27/18 10:36 ; Start 02/25/18 at 09:00 Clopidogrel Bisulfate (Plavix) 75 mg DAILY PO Last administered on 02/25/18at 08 :02; Start 02/25/18 at 09:00; Stop 02/25/18 at 14:01; Status DC Donepezil HCl (Aricept) 5 mg DAILY PO Last administered on 02/27/18 10:36; Start 02/25/18 at 09:00 Ferrous Sulfate (Feosol) 325 mg DAILY PO Last administered on 02/27/18 10:35; Start 02/25/18 at 09:00 Isosorbide Mononitrate (Imdur) 15 mg DAILY PO Last administered on 02/27/18 10 :46; Start 02/25/18 at 09:00 Losartan Potassium (Cozaar) 50 mg DAILY PO Last administered on 02/27/18 10:45 ; Start 02/25/18 at 09:00 Artificial Tears (Artificial Tears) 1 drop PRN QID PRN OU DRY EYE; Start at 00:15 Prednisolone Acetate (Pred Forte) 1 drop DAILY OU Last administered on 10:35; Start 02/25/18 at 09:00 Tamsulosin HCl (Flomax) 0.4 mg DAILY PO Last administered on 02/27/18 10:37; Start 02/25/18 at 09:00 Aspirin (Children'S Aspirin) 81 mg DAILYWBKFT PO Last administered on 10:37; Start 02/25/18 at 08:00 Atorvastatin Calcium (Lipitor) 40 mg QHS PO Last administered on 02/26/18 20: 23; Start 02/25/18 at 21:00 Carvedilol (Coreg) 6.25 mg BIDWMEALS PO Last administered on 02/27/18 10:44; Start 02/25/18 at 08:00 Finasteride (Proscar) 5 mg DAILY PO Last administered on 02/27/18 10:36; Start 02/25/18 at 09:00 Fluticasone Propionate (Flonase) 2 spray DAILY NS Last administered on 5/14/ 18at 10:35; Start 02/25/18 at 09:00 Non-Formulary Medication (Ganciclovir (Zirgan)) 5 gm 5 time daily OP ; Start 10/03 at 00:15; Status UNV Guaifenesin (Mucinex Er) 1,200 mg BID PO Last administered on 02/27/18at 10:36; Start 02/25/18 at 09:00 Hydrocortisone (Proctosol-Hc) 1 samy PRN BID PRN RC HEMORRHOIDS; Start 02/25/18 at 00:30 Pantoprazole Sodium (Protonix) 40 mg DAILYAC PO Last administered on 02/27/18at 10:35; Start 02/25/18 at 07:30 Polyethylene Glycol (miraLAX) 17 gm BID PO Last administered on 02/27/18 10:35 ; Start 02/25/18 at 09:00 Sennosides (Senna) 17.2 mg DAILY PO Last administered on 02/27/18at 10:37; Start 02/25/18 at 09:00 Torsemide (Demadex) 40 mg DAILY PO Last administered on 02/27/18at 10:36; Start 02/25/18 at 09:00 Sertraline HCl (Zoloft) 25 mg DAILY PO Last administered on 02/27/18at 10:36; Start 02/25/18 at 09:00 Betamethasone Dipropionate (Diprosone) 1 samy PRN BID PRN TP RASH; Start at 07:45 Mirtazapine (Remeron) 7.5 mg QHS PO Last administered on 02/26/18at 20:24; Start 02/25/18 at 21:00 Doxycycline Hyclate (Vibra-Tab) 100 mg BID PO Last administered on 02/27/18at 10 :36; Start 02/26/18 at 21:00; Stop 03/05/18 at 23:59 Lactobacillus Rhamnosus (Culturelle) 1 cap BID PO ; Start 02/27/18 at 21:00 Active Scripts Active Reported Losartan Potassium 50 Mg Tablet 50 Mg PO DAILY Zirgan (Ganciclovir) 5 Gm Gel..gram. 5 Gm OP 5 TIME DAILY Carvedilol 6.25 Mg Tablet 6.25 Mg PO BIDWMEALS Diprolene 0.05% Ointment (Betamethasone/Propylene Glyc) 15 Gm Oint...g. 15 Gm TP PRN BID PRN Zoloft (Sertraline Hcl) 25 Mg Tablet 25 Mg PO DAILY Polyvinyl Alcohol 15 Ml Drops 1 Drop OP PRN QID PRN K-Tab ER (Potassium Chloride) 20 Meq Tablet.er 20 Meq PO DAILY Protonix (Pantoprazole Sodium) 40 Mg Tablet.dr 40 Mg PO DAILY Atorvastatin Calcium 40 Mg Tablet 40 Mg PO DAILY Tamsulosin Hcl 0.4 Mg Cap.er.24h 0.4 Mg PO DAILY Proscar (Finasteride) 5 Mg Tablet 5 Mg PO DAILY Senna Lax (Sennosides) 8.6 Mg Tablet 17.2 Mg PO DAILY Plavix (Clopidogrel Bisulfate) 75 Mg Tablet 75 Mg PO DAILY Ferrous Sulfate 325 Mg Tablet 325 Mg PO DAILY Acetaminophen 325 Mg Tablet 325 Mg PO PRN Q6HRS PRN Vitamin D3 (Cholecalciferol (Vitamin D3)) 1,000 Unit Tablet 1,000 Unit PO DAILY Aspir-Low (Aspirin) 81 Mg Tablet.dr 81 Mg PO DAILY Miralax (Polyethylene Glycol 3350) 17 Gm Powd.pack 17 Gm PO BID Prednisolone Acetate 5 Ml Drops.susp 1 Drop EACHEYE DAILY Benadryl (Diphenhydramine Hcl) 25 Mg Capsule 25 Mg PO PRN Q6HRS PRN Mucinex (Guaifenesin) 1,200 Mg Tbmp.12hr 1,200 Mg PO BID Fluticasone Propionate Nasal [place] (Fluticasone Propionate) 16 Gm [place].susp 2 Spr NS BID Preparation H (Hydrocortisone) 26 Gm Cream..g. 26 Gm TP PRN BID PRN Isosorbide Mononitrate Er (Isosorbide Mononitrate) 30 Mg Tab.er.24h 15 Mg PO DAILY Torsemide 20 Mg Tablet 40 Mg PO DAILY Aricept (Donepezil Hcl) 5 Mg Tablet 5 Mg PO DAILY I have reviewed the current psychotropics carefully including drug interactions. Risk benefit ratio favors no change other than as noted in my dictated progress note. 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
[2018-02-27] MEDS: ATORVASTATIN CALCIUM 20 MG TABLET PO SCH (21:00)
[2018-02-27] MEDS: LACTOBACILLUS RHAMNOSUS GG 1 CAPSULE. PO SCH (21:00)
[2018-02-27] MEDS: MIRTAZAPINE 7.5 MG TABLET. PO SCH (21:00)
--- NOTE | 2018-02-28 00:48 | PN ---
DATE: 02/26/2018 This is a late entry, 02/26/2018, covers the elements not covered in my initial note, 02/26/2018. SUBJECTIVE: I met with the patient in the evening. The patient has had a difficult and horrible day per nursing report. Hemoglobin is around 10. He has been keeping his head on the table refusing to interact, refused his a.m. medications, repeatedly stating family does not care about him. Slept well at night. REVIEW OF SYSTEMS: Ambulation impaired, in wheelchair. No CV, , pulmonary, eye, ENT system symptoms on review. Reliability poor. MENTAL STATUS EXAM: Oriented to himself. Insight, judgment, recent memory is impaired. Otherwise, orientation is reasonable. No suicidal or homicidal ideation. Mood and affect are depressed. LABORATORY DATA: Reviewed. IMPRESSION: Major depressive disorder, recurrent with psychotic features; anxiety disorder, unspecified, mild cognitive impairment versus major neurocognitive disorder, Alzheimer, vascular with depression. PLAN: Continue current psychotropics from initial note, may need to increase Zoloft gradually, currently at 25 mg a day. MAN Kunal BOND MD DR: CRISTY/mechelle JOB#: [id number] / [id number]
[2018-02-28 07:58] VITALS: BP 139/65
[2018-02-28] MEDS: FLUTICASONE 50MCG/NASAL SPRAY 16GM BOTTLE. NS SCH ×2 (09:00→09:30)
[2018-02-28] MEDS: FERROUS SULFATE 325 MG TABLET. PO SCH (09:18)
[2018-02-28] MEDS: POLYETHYLENE GLYCOL 3350 17 GM PACKET. PO SCH ×2 (09:18→21:37)
[2018-02-28] MEDS: TORSEMIDE 20 MG TABLET. PO SCH (09:18)
[2018-02-28] MEDS: DOXYCYCLINE HYCLATE 100 MG TABLET PO SCH ×2 (09:18→21:36)
[2018-02-28] MEDS: PANTOPRAZOLE 40 MG TABLET. PO SCH (09:18)
[2018-02-28] MEDS: SERTRALINE 25 MG TABLET. PO SCH (09:18)
[2018-02-28] MEDS: CHOLECALCIFEROL (VITAMIN D3) 1,000 UNIT TABLET PO SCH (09:18)
[2018-02-28] MEDS: DONEPEZIL HCL 5 MG TABLET. PO SCH (09:18)
[2018-02-28] MEDS: FINASTERIDE 5 MG TABLET PO SCH (09:18)
[2018-02-28] MEDS: TAMSULOSIN 0.4 MG CAP.ER.24H. PO SCH (09:20)
[2018-02-28] MEDS: SENNOSIDES 8.6 MG TABLET PO SCH (09:20)
[2018-02-28] MEDS: ISOSORBIDE MONONITRATE ER 30 MG TAB.ER.24H PO SCH (09:20)
[2018-02-28] MEDS: LACTOBACILLUS RHAMNOSUS GG 1 CAPSULE. PO SCH ×2 (09:20→21:37)
[2018-02-28] MEDS: ASPIRIN 81 MG TAB.CHEW PO SCH (09:20)
[2018-02-28] MEDS: CARVEDILOL 6.25 MG TABLET PO SCH ×2 (09:21→16:56)
[2018-02-28] MEDS: LOSARTAN 50 MG TABLET. PO SCH (09:21)
[2018-02-28] MEDS: prednisoLONE ACETATE 1% OPHTH SUSPENSION 5ML BOTTLE. OU SCH (09:30)
[2018-02-28 16:37] VITALS: BP 144/52
--- NOTE | 2018-02-28 20:16 | RAD ---
EXAM: Chest, single view. HISTORY: Cough. COMPARISON: None. FINDINGS: A frontal view of the chest is obtained. There are small left greater than right pleural effusions. There is trace pulmonary congestion. The heart is normal in size. There is evidence of prior CABG. There are calcified granulomas. IMPRESSION: 1. Suspected trace pulmonary congestion with small pleural effusions. 2. CABG. Electronically signed by: Luli Rios MD (02/28/2018 8:13 PM) [facility]
--- NOTE | 2018-02-28 20:23 | PDOC ---
Exam Note: Stevenson Note: Please also refer to the separate dictated note~for this date of service dictated separately.~Patient seen individually. Discussed the patient with Nursing staff reviewed the chart.~Reviewed interim history and current functioning. Reviewed vital signs,~Labs/ Radiology~and current medications noted below. Continue current treatment with the changes noted in the dictated addendum note Assessment: Vital Signs: Vital Signs Date Time Temp Pulse Resp B/P (MAP) Pulse Ox O2 Delivery O2 Flow Rate FiO2 02/28/18 16:56 63 144/52 02/28/18 16:37 97.6 22 97 02/25/18 11:11 Room Air I&O Intake and Output 02/28/18 07:00 Intake Total 600 ml Balance 600 ml Intake Oral 600 ml # Bowel Movements 1 Current Medications: Meds: Current Medications Levofloxacin (Levaquin) 500 mg 1X ONCE PO Last administered on 02/24/18at 18:22 ; Start 02/24/18 at 18:15; Stop 02/25/18 at 00:01; Status DC Acetaminophen (Tylenol) 650 mg PRN Q6HRS PRN PO PAIN / TEMP; Start 02/24/18 at 23:15 Multi-Ingredient Ointment (Analgesic [place]) 1 samy PRN QID PRN TP MUSCLE PAIN; Start 02/24/18 at 23:15 Al Hydroxide/Mg Hydroxide (Mylanta Plus Xs) 15 ml PRN AFTMEALHC PRN PO DYSPEPSIA; Start 02/24/18 at 23:15 Magnesium Hydroxide (Milk Of Magnesia) 2,400 mg PRN QHS PRN PO CONSTIPATION; Start 02/24/18 at 23:15 Fosfomycin Tromethamine (Monurol) 3 gm 1X ONCE PO Last administered on at 08:54; Start 02/25/18 at 10:00; Stop 02/25/18 at 10:01; Status DC Acetaminophen (Tylenol) 325 mg PRN Q6HRS PRN PO PAIN; Start 02/25/18 at 00:15 Betamethasone Dipropion Augmented (Diprolene-Af) 15 samy PRN BID PRN TP RASH; Start 02/25/18 at 00:15; Stop 02/25/18 at 07:33; Status DC Vitamin D (Vitamin D3) 1,000 unit DAILY PO Last administered on 02/28/18 09:18 ; Start 02/25/18 at 09:00 Clopidogrel Bisulfate (Plavix) 75 mg DAILY PO Last administered on 02/25/18 08 :02; Start 02/25/18 at 09:00; Stop 02/25/18 at 14:01; Status DC Donepezil HCl (Aricept) 5 mg DAILY PO Last administered on 02/28/18 09:18; Start 02/25/18 at 09:00 Ferrous Sulfate (Feosol) 325 mg DAILY PO Last administered on 02/28/18 09:18; Start 02/25/18 at 09:00 Isosorbide Mononitrate (Imdur) 15 mg DAILY PO Last administered on 02/28/18 09 :20; Start 02/25/18 at 09:00 Losartan Potassium (Cozaar) 50 mg DAILY PO Last administered on 02/28/18 09:21 ; Start 02/25/18 at 09:00 Artificial Tears (Artificial Tears) 1 drop PRN QID PRN OU DRY EYE; Start at 00:15 Prednisolone Acetate (Pred Forte) 1 drop DAILY OU Last administered on 09:30; Start 02/25/18 at 09:00 Tamsulosin HCl (Flomax) 0.4 mg DAILY PO Last administered on 02/28/18 09:20; Start 02/25/18 at 09:00 Aspirin (Children'S Aspirin) 81 mg DAILYWBKFT PO Last administered on 09:20; Start 02/25/18 at 08:00 Atorvastatin Calcium (Lipitor) 40 mg QHS PO Last administered on 02/26/18 20: 23; Start 02/25/18 at 21:00 Carvedilol (Coreg) 6.25 mg BIDWMEALS PO Last administered on 02/28/18 16:56; Start 02/25/18 at 08:00 Finasteride (Proscar) 5 mg DAILY PO Last administered on 02/28/18 09:18; Start 02/25/18 at 09:00 Fluticasone Propionate (Flonase) 2 spray DAILY NS Last administered on at 10:35; Start 02/25/18 at 09:00 Non-Formulary Medication (Ganciclovir (Zirgan)) 5 gm 5 time daily OP ; Start 10/03 at 00:15; Status UNV Guaifenesin (Mucinex Er) 1,200 mg BID PO Last administered on 02/28/18at 09:20; Start 02/25/18 at 09:00 Hydrocortisone (Proctosol-Hc) 1 samy PRN BID PRN RC HEMORRHOIDS; Start 02/25/18 at 00:30 Pantoprazole Sodium (Protonix) 40 mg DAILYAC PO Last administered on 02/28/18at 09:18; Start 02/25/18 at 07:30 Polyethylene Glycol (miraLAX) 17 gm BID PO Last administered on 02/28/18at 09:18 ; Start 02/25/18 at 09:00 Sennosides (Senna) 17.2 mg DAILY PO Last administered on 02/28/18at 09:20; Start 02/25/18 at 09:00 Torsemide (Demadex) 40 mg DAILY PO Last administered on 02/28/18at 09:18; Start 02/25/18 at 09:00 Sertraline HCl (Zoloft) 25 mg DAILY PO Last administered on 02/28/18at 09:18; Start 02/25/18 at 09:00; Stop 02/28/18 at 19:19; Status DC Betamethasone Dipropionate (Diprosone) 1 samy PRN BID PRN TP RASH; Start at 07:45 Mirtazapine (Remeron) 7.5 mg QHS PO Last administered on 02/26/18at 20:24; Start 02/25/18 at 21:00 Doxycycline Hyclate (Vibra-Tab) 100 mg BID PO Last administered on 02/28/18at 09 :18; Start 02/26/18 at 21:00; Stop 03/05/18 at 23:59 Lactobacillus Rhamnosus (Culturelle) 1 cap BID PO Last administered on at 09:20; Start 02/27/18 at 21:00 Sertraline HCl (Zoloft) 50 mg DAILY PO ; Start 03/01/18 at 09:00 Active Scripts Active Reported Losartan Potassium 50 Mg Tablet 50 Mg PO DAILY Zirgan (Ganciclovir) 5 Gm Gel..gram. 5 Gm OP 5 TIME DAILY Carvedilol 6.25 Mg Tablet 6.25 Mg PO BIDWMEALS Diprolene 0.05% Ointment (Betamethasone/Propylene Glyc) 15 Gm Oint...g. 15 Gm TP PRN BID PRN Zoloft (Sertraline Hcl) 25 Mg Tablet 25 Mg PO DAILY Polyvinyl Alcohol 15 Ml Drops 1 Drop OP PRN QID PRN K-Tab ER (Potassium Chloride) 20 Meq Tablet.er 20 Meq PO DAILY Protonix (Pantoprazole Sodium) 40 Mg Tablet.dr 40 Mg PO DAILY Atorvastatin Calcium 40 Mg Tablet 40 Mg PO DAILY Tamsulosin Hcl 0.4 Mg Cap.er.24h 0.4 Mg PO DAILY Proscar (Finasteride) 5 Mg Tablet 5 Mg PO DAILY Senna Lax (Sennosides) 8.6 Mg Tablet 17.2 Mg PO DAILY Plavix (Clopidogrel Bisulfate) 75 Mg Tablet 75 Mg PO DAILY Ferrous Sulfate 325 Mg Tablet 325 Mg PO DAILY Acetaminophen 325 Mg Tablet 325 Mg PO PRN Q6HRS PRN Vitamin D3 (Cholecalciferol (Vitamin D3)) 1,000 Unit Tablet 1,000 Unit PO DAILY Aspir-Low (Aspirin) 81 Mg Tablet.dr 81 Mg PO DAILY Miralax (Polyethylene Glycol 3350) 17 Gm Powd.pack 17 Gm PO BID Prednisolone Acetate 5 Ml Drops.susp 1 Drop EACHEYE DAILY Benadryl (Diphenhydramine Hcl) 25 Mg Capsule 25 Mg PO PRN Q6HRS PRN Mucinex (Guaifenesin) 1,200 Mg Tbmp.12hr 1,200 Mg PO BID Fluticasone Propionate Nasal [place] (Fluticasone Propionate) 16 Gm [place].susp 2 Spr NS BID Preparation H (Hydrocortisone) 26 Gm Cream..g. 26 Gm TP PRN BID PRN Isosorbide Mononitrate Er (Isosorbide Mononitrate) 30 Mg Tab.er.24h 15 Mg PO DAILY Torsemide 20 Mg Tablet 40 Mg PO DAILY Aricept (Donepezil Hcl) 5 Mg Tablet 5 Mg PO DAILY I have reviewed the current psychotropics carefully including drug interactions. Risk benefit ratio favors no change other than as noted in my dictated progress note. 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
[2018-02-28] MEDS: ATORVASTATIN CALCIUM 20 MG TABLET PO SCH (21:36)
[2018-02-28] MEDS: MIRTAZAPINE 7.5 MG TABLET. PO SCH (21:36)
[2018-03-01 05:58] VITALS: BP 82/34
[2018-03-01 07:46] VITALS: BP 134/69
[2018-03-01 07:56] LABS: HEMATOCRIT 28.4 % (39.0-53.0); HEMOGLOBIN 9.6 g/dL (13.0-17.5); RED BLOOD COUNT 2.84 x10^6/uL (4.30-5.70); RED CELL DISTRIBUTION WIDTH 13.8 % (11.5-14.5); WHITE BLOOD COUNT 7.2 x10^3/uL (4.0-11.0)
[2018-03-01] MEDS: CARVEDILOL 6.25 MG TABLET PO SCH ×2 (08:00→17:00)
[2018-03-01 08:17] LABS: ALBUMIN 2.2 g/dL (3.4-5.0); ALBUMIN/GLOBULIN RATIO 0.5 (1.0-1.7); CALCIUM 8.5 mg/dL (8.5-10.1); CREATININE 1.6 mg/dL (0.7-1.3); GFR 40.9; POTASSIUM 4.1 mmol/L (3.5-5.1); TOTAL BILIRUBIN 0.5 mg/dL (0.2-1.0); TOTAL PROTEIN 6.7 g/dL (6.4-8.2)
[2018-03-01] MEDS: LOSARTAN 50 MG TABLET. PO SCH (09:00)
[2018-03-01] MEDS: TORSEMIDE 20 MG TABLET. PO SCH (09:00)
[2018-03-01] MEDS: ISOSORBIDE MONONITRATE ER 30 MG TAB.ER.24H PO SCH (09:00)
[2018-03-01] MEDS: prednisoLONE ACETATE 1% OPHTH SUSPENSION 5ML BOTTLE. OU SCH (09:00)
[2018-03-01] MEDS: POLYETHYLENE GLYCOL 3350 17 GM PACKET. PO SCH ×2 (09:59→19:18)
[2018-03-01] MEDS: FLUTICASONE 50MCG/NASAL SPRAY 16GM BOTTLE. NS SCH (09:59)
[2018-03-01] MEDS: FERROUS SULFATE 325 MG TABLET. PO SCH (09:59)
[2018-03-01] MEDS: DONEPEZIL HCL 5 MG TABLET. PO SCH (10:00)
[2018-03-01] MEDS: FINASTERIDE 5 MG TABLET PO SCH (10:00)
[2018-03-01] MEDS: DOXYCYCLINE HYCLATE 100 MG TABLET PO SCH ×2 (10:00→19:17)
[2018-03-01] MEDS: TAMSULOSIN 0.4 MG CAP.ER.24H. PO SCH (10:00)
[2018-03-01] MEDS: CHOLECALCIFEROL (VITAMIN D3) 1,000 UNIT TABLET PO SCH (10:00)
[2018-03-01] MEDS: PANTOPRAZOLE 40 MG TABLET. PO SCH (10:00)
[2018-03-01] MEDS: ASPIRIN 81 MG TAB.CHEW PO SCH (10:00)
[2018-03-01] MEDS: LACTOBACILLUS RHAMNOSUS GG 1 CAPSULE. PO SCH ×2 (10:00→19:17)
[2018-03-01] MEDS: SENNOSIDES 8.6 MG TABLET PO SCH (10:00)
[2018-03-01] MEDS: SERTRALINE 50 MG TABLET. PO SCH (10:02)
[2018-03-01 18:27] VITALS: BP 124/62
[2018-03-01] MEDS: MIRTAZAPINE 7.5 MG TABLET. PO SCH (19:18)
[2018-03-01] MEDS: ATORVASTATIN CALCIUM 20 MG TABLET PO SCH (19:18)
--- NOTE | 2018-03-01 22:19 | PDOC ---
Exam Note: [place] Note: Please also refer to the separate dictated note~for this date of service dictated separately.~Patient seen individually. Discussed the patient with Nursing staff reviewed the chart.~Reviewed interim history and current functioning. Reviewed vital signs,~Labs/ Radiology~and current medications noted below. Continue current treatment with the changes noted in the dictated addendum note Assessment: Vital Signs: Vital Signs Date Time Temp Pulse Resp B/P (MAP) Pulse Ox O2 Delivery O2 Flow Rate FiO2 03/01/18 18:27 97.6 62 16 124/62 (82) 100 03/01/18 05:58 2.0 02/25/18 11:11 Room Air I&O Intake and Output 03/01/18 07:00 Intake Total 1440 ml Balance 1440 ml Intake Oral 1440 ml # Bowel Movements 2 Labs: Laboratory Tests Test 03/01/18 07:21 White Blood Count 7.2 x10^3/uL (4.0-11.0) Red Blood Count 2.84 x10^6/uL (4.30-5.70) L Hemoglobin 9.6 g/dL (13.0-17.5) L Hematocrit 28.4 % (39.0-53.0) L Mean Corpuscular Volume 100 fL (79-100) Mean Corpuscular Hemoglobin 34 pg (25-35) Mean Corpuscular Hemoglobin Concent 34 g/dL (31-37) Red Cell Distribution Width 13.8 % (11.5-14.5) Platelet Count 150 x10^3/uL (140-400) Sodium Level 139 mmol/L (136-145) Potassium Level 4.1 mmol/L (3.5-5.1) Chloride Level 101 mmol/L (98-107) Carbon Dioxide Level 34 mmol/L (21-32) H Anion Gap 4 (6-14) L Blood Urea Nitrogen 51 mg/dL (8-26) H Creatinine 1.6 mg/dL (0.7-1.3) H Estimated GFR (Cockcroft-Gault) 40.9 BUN/Creatinine Ratio 32 (6-20) H Glucose Level 264 mg/dL (70-99) H Calcium Level 8.5 mg/dL (8.5-10.1) Total Bilirubin 0.5 mg/dL (0.2-1.0) Aspartate Amino Transferase (AST) 21 U/L (15-37) Alanine Aminotransferase (ALT) 18 U/L (16-63) Alkaline Phosphatase 39 U/L (46-116) L Total Protein 6.7 g/dL (6.4-8.2) Albumin 2.2 g/dL (3.4-5.0) L Albumin/Globulin Ratio 0.5 (1.0-1.7) L Current Medications: Meds: Current Medications Levofloxacin (Levaquin) 500 mg 1X ONCE PO Last administered on 02/24/18at 18:22 ; Start 02/24/18 at 18:15; Stop 02/25/18 at 00:01; Status DC Acetaminophen (Tylenol) 650 mg PRN Q6HRS PRN PO PAIN / TEMP; Start 02/24/18 at 23:15 Multi-Ingredient Ointment (Analgesic [place]) 1 samy PRN QID PRN TP MUSCLE PAIN; Start 02/24/18 at 23:15 Al Hydroxide/Mg Hydroxide (Mylanta Plus Xs) 15 ml PRN AFTMEALHC PRN PO DYSPEPSIA; Start 02/24/18 at 23:15 Magnesium Hydroxide (Milk Of Magnesia) 2,400 mg PRN QHS PRN PO CONSTIPATION; Start 02/24/18 at 23:15 Fosfomycin Tromethamine (Monurol) 3 gm 1X ONCE PO Last administered on at 08:54; Start 02/25/18 at 10:00; Stop 02/25/18 at 10:01; Status DC Acetaminophen (Tylenol) 325 mg PRN Q6HRS PRN PO PAIN; Start 02/25/18 at 00:15 Betamethasone Dipropion Augmented (Diprolene-Af) 15 samy PRN BID PRN TP RASH; Start 02/25/18 at 00:15; Stop 02/25/18 at 07:33; Status DC Vitamin D (Vitamin D3) 1,000 unit DAILY PO Last administered on 03/01/18at 10:00 ; Start 02/25/18 at 09:00 Clopidogrel Bisulfate (Plavix) 75 mg DAILY PO Last administered on 02/25/18at 08 :02; Start 02/25/18 at 09:00; Stop 02/25/18 at 14:01; Status DC Donepezil HCl (Aricept) 5 mg DAILY PO Last administered on 03/01/18 10:00; Start 02/25/18 at 09:00 Ferrous Sulfate (Feosol) 325 mg DAILY PO Last administered on 03/01/18at 09:59; Start 02/25/18 at 09:00 Isosorbide Mononitrate (Imdur) 15 mg DAILY PO Last administered on 02/28/18 09 :20; Start 02/25/18 at 09:00 Losartan Potassium (Cozaar) 50 mg DAILY PO Last administered on 02/28/18 09:21 ; Start 02/25/18 at 09:00; Stop 03/01/18 at 18:30; Status DC Artificial Tears (Artificial Tears) 1 drop PRN QID PRN OU DRY EYE; Start at 00:15 Prednisolone Acetate (Pred Forte) 1 drop DAILY OU Last administered on at 09:00; Start 02/25/18 at 09:00 Tamsulosin HCl (Flomax) 0.4 mg DAILY PO Last administered on 03/01/18at 10:00; Start 02/25/18 at 09:00 Aspirin (Children'S Aspirin) 81 mg DAILYWBKFT PO Last administered on at 10:00; Start 02/25/18 at 08:00 Atorvastatin Calcium (Lipitor) 40 mg QHS PO Last administered on 03/01/18 19: 18; Start 02/25/18 at 21:00 Carvedilol (Coreg) 6.25 mg BIDWMEALS PO Last administered on 02/28/18at 16:56; Start 02/25/18 at 08:00 Finasteride (Proscar) 5 mg DAILY PO Last administered on 03/01/18at 10:00; Start 02/25/18 at 09:00 Fluticasone Propionate (Flonase) 2 spray DAILY NS Last administered on at 09:59; Start 02/25/18 at 09:00 Non-Formulary Medication (Ganciclovir (Zirgan)) 5 gm 5 time daily OP ; Start 10/03 at 00:15; Status UNV Guaifenesin (Mucinex Er) 1,200 mg BID PO Last administered on 03/01/18 19:18; Start 02/25/18 at 09:00 Hydrocortisone (Proctosol-Hc) 1 samy PRN BID PRN RC HEMORRHOIDS; Start 02/25/18 at 00:30 Pantoprazole Sodium (Protonix) 40 mg DAILYAC PO Last administered on 03/01/18at 10:00; Start 02/25/18 at 07:30 Polyethylene Glycol (miraLAX) 17 gm BID PO Last administered on 03/01/18 19:18 ; Start 02/25/18 at 09:00 Sennosides (Senna) 17.2 mg DAILY PO Last administered on 03/01/18at 10:00; Start 02/25/18 at 09:00 Torsemide (Demadex) 40 mg DAILY PO Last administered on 02/28/18at 09:18; Start 02/25/18 at 09:00; Stop 03/01/18 at 18:30; Status DC Sertraline HCl (Zoloft) 25 mg DAILY PO Last administered on 02/28/18at 09:18; Start 02/25/18 at 09:00; Stop 02/28/18 at 19:19; Status DC Betamethasone Dipropionate (Diprosone) 1 samy PRN BID PRN TP RASH; Start at 07:45 Mirtazapine (Remeron) 7.5 mg QHS PO Last administered on 03/01/18at 19:18; Start 02/25/18 at 21:00 Doxycycline Hyclate (Vibra-Tab) 100 mg BID PO Last administered on 03/01/18at 19 :17; Start 02/26/18 at 21:00; Stop 03/05/18 at 23:59 Lactobacillus Rhamnosus (Culturelle) 1 cap BID PO Last administered on at 19:17; Start 02/27/18 at 21:00 Sertraline HCl (Zoloft) 50 mg DAILY PO Last administered on 03/01/18at 10:02; Start 03/01/18 at 09:00 Losartan Potassium (Cozaar) 25 mg DAILY PO ; Start 03/02/18 at 09:00 Torsemide (Demadex) 20 mg DAILY PO ; Start 03/02/18 at 09:00 Active Scripts Active Reported Losartan Potassium 50 Mg Tablet 50 Mg PO DAILY Zirgan (Ganciclovir) 5 Gm Gel..gram. 5 Gm OP 5 TIME DAILY Carvedilol 6.25 Mg Tablet 6.25 Mg PO BIDWMEALS Diprolene 0.05% Ointment (Betamethasone/Propylene Glyc) 15 Gm Oint...g. 15 Gm TP PRN BID PRN Zoloft (Sertraline Hcl) 25 Mg Tablet 25 Mg PO DAILY Polyvinyl Alcohol 15 Ml Drops 1 Drop OP PRN QID PRN K-Tab ER (Potassium Chloride) 20 Meq Tablet.er 20 Meq PO DAILY Protonix (Pantoprazole Sodium) 40 Mg Tablet.dr 40 Mg PO DAILY Atorvastatin Calcium 40 Mg Tablet 40 Mg PO DAILY Tamsulosin Hcl 0.4 Mg Cap.er.24h 0.4 Mg PO DAILY Proscar (Finasteride) 5 Mg Tablet 5 Mg PO DAILY Senna Lax (Sennosides) 8.6 Mg Tablet 17.2 Mg PO DAILY Plavix (Clopidogrel Bisulfate) 75 Mg Tablet 75 Mg PO DAILY Ferrous Sulfate 325 Mg Tablet 325 Mg PO DAILY Acetaminophen 325 Mg Tablet 325 Mg PO PRN Q6HRS PRN Vitamin D3 (Cholecalciferol (Vitamin D3)) 1,000 Unit Tablet 1,000 Unit PO DAILY Aspir-Low (Aspirin) 81 Mg Tablet.dr 81 Mg PO DAILY Miralax (Polyethylene Glycol 3350) 17 Gm Powd.pack 17 Gm PO BID Prednisolone Acetate 5 Ml Drops.susp 1 Drop EACHEYE DAILY Benadryl (Diphenhydramine Hcl) 25 Mg Capsule 25 Mg PO PRN Q6HRS PRN Mucinex (Guaifenesin) 1,200 Mg Tbmp.12hr 1,200 Mg PO BID Fluticasone Propionate Nasal [place] (Fluticasone Propionate) 16 Gm [place].susp 2 Spr NS BID Preparation H (Hydrocortisone) 26 Gm Cream..g. 26 Gm TP PRN BID PRN Isosorbide Mononitrate Er (Isosorbide Mononitrate) 30 Mg Tab.er.24h 15 Mg PO DAILY Torsemide 20 Mg Tablet 40 Mg PO DAILY Aricept (Donepezil Hcl) 5 Mg Tablet 5 Mg PO DAILY I have reviewed the current psychotropics carefully including drug interactions. Risk benefit ratio favors no change other than as noted in my dictated progress note. 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
--- NOTE | 2018-03-02 04:11 | PN ---
DATE: 02/28/2018 PSYCHIATRIC PROGRESS NOTE This is a late entry of 02/28, covers elements not covered in my initial note of 02/28. SUBJECTIVE: I met with the patient in the evening. The patient refused his medications the night before, slept 9-3/4 hours. During the day, he is noted by the nursing staff to be "grouchy." He took his medications in the morning, remains somewhat depressed, angry, irritable, labile at times. REVIEW OF SYSTEMS: Ambulation impaired. No CV, , pulmonary, eye, ENT system symptoms on review. MENTAL STATUS EXAMINATION: The patient appeared somewhat tired, oriented to himself and situation. Speech, moderate latency, often responses monosyllabic. Abstraction fair. Computation impaired. Language function intact. Attention span short. Mood and affect somewhat depressed, anxious. No active suicidal or homicidal ideation. LABORATORY DATA: Reviewed. IMPRESSION: Major depressive disorder, recurrent; anxiety disorder, unspecified; cognitive disorder, unspecified; impulse control disorder, unspecified. PLAN: Increase Zoloft to 50 mg a day after 3 days of 25 mg, maintain Remeron 7.5 mg at bedtime; Aricept 5 mg a day and may increase this gradually. ABELINO OBND MD DR: CRISTY/mechelle JOB#: [id number] / [id number]
[2018-03-02 06:10] VITALS: BP 162/64
[2018-03-02] MEDS: TAMSULOSIN 0.4 MG CAP.ER.24H. PO SCH (09:02)
[2018-03-02] MEDS: DOXYCYCLINE HYCLATE 100 MG TABLET PO SCH ×4 (09:02→23:44)
[2018-03-02] MEDS: DONEPEZIL HCL 5 MG TABLET. PO SCH (09:02)
[2018-03-02] MEDS: POLYETHYLENE GLYCOL 3350 17 GM PACKET. PO SCH ×4 (09:02→23:45)
[2018-03-02] MEDS: LACTOBACILLUS RHAMNOSUS GG 1 CAPSULE. PO SCH ×3 (09:02→21:00)
[2018-03-02] MEDS: PANTOPRAZOLE 40 MG TABLET. PO SCH (09:03)
[2018-03-02] MEDS: CHOLECALCIFEROL (VITAMIN D3) 1,000 UNIT TABLET PO SCH (09:03)
[2018-03-02] MEDS: FERROUS SULFATE 325 MG TABLET. PO SCH (09:03)
[2018-03-02] MEDS: FINASTERIDE 5 MG TABLET PO SCH (09:03)
[2018-03-02] MEDS: ASPIRIN 81 MG TAB.CHEW PO SCH (09:03)
[2018-03-02] MEDS: SENNOSIDES 8.6 MG TABLET PO SCH (09:03)
[2018-03-02] MEDS: SERTRALINE 50 MG TABLET. PO SCH (09:03)
[2018-03-02] MEDS: ISOSORBIDE MONONITRATE ER 30 MG TAB.ER.24H PO SCH (09:05)
[2018-03-02] MEDS: CARVEDILOL 6.25 MG TABLET PO SCH ×3 (09:05→20:38)
[2018-03-02] MEDS: FLUTICASONE 50MCG/NASAL SPRAY 16GM BOTTLE. NS SCH (09:07)
[2018-03-02] MEDS: LOSARTAN 25 MG TABLET. PO SCH (09:07)
[2018-03-02] MEDS: TORSEMIDE 20 MG TABLET. PO SCH (09:07)
[2018-03-02] MEDS: prednisoLONE ACETATE 1% OPHTH SUSPENSION 5ML BOTTLE. OU SCH (09:07)
[2018-03-02 16:52] VITALS: BP 154/59
--- NOTE | 2018-03-02 20:21 | PDOC ---
Exam Note: [place] Note: Please also refer to the separate dictated note~for this date of service dictated separately.~Patient seen individually. Discussed the patient with Nursing staff reviewed the chart.~Reviewed interim history and current functioning. Reviewed vital signs,~Labs/ Radiology~and current medications noted below. Continue current treatment with the changes noted in the dictated addendum note Assessment: Vital Signs: Vital Signs Date Time Temp Pulse Resp B/P (MAP) Pulse Ox O2 Delivery O2 Flow Rate FiO2 03/02/18 17:00 63 154/59 03/02/18 16:52 98.5 16 100 Nasal Cannula 2.0 I&O Intake and Output 03/02/18 07:00 Intake Total 1800 ml Balance 1800 ml Intake Oral 1800 ml # Voids 1 # Bowel Movements 1 Labs: Laboratory Tests Test 03/02/18 07:34 03/02/18 12:04 Glucose (Fingerstick) 165 mg/dL (70-99) H 182 mg/dL (70-99) H Current Medications: Meds: Current Medications Levofloxacin (Levaquin) 500 mg 1X ONCE PO Last administered on 02/24/18at 18:22 ; Start 02/24/18 at 18:15; Stop 02/25/18 at 00:01; Status DC Acetaminophen (Tylenol) 650 mg PRN Q6HRS PRN PO PAIN / TEMP; Start 02/24/18 at 23:15 Multi-Ingredient Ointment (Analgesic [place]) 1 samy PRN QID PRN TP MUSCLE PAIN; Start 02/24/18 at 23:15 Al Hydroxide/Mg Hydroxide (Mylanta Plus Xs) 15 ml PRN AFTMEALHC PRN PO DYSPEPSIA; Start 02/24/18 at 23:15 Magnesium Hydroxide (Milk Of Magnesia) 2,400 mg PRN QHS PRN PO CONSTIPATION; Start 02/24/18 at 23:15 Fosfomycin Tromethamine (Monurol) 3 gm 1X ONCE PO Last administered on at 08:54; Start 02/25/18 at 10:00; Stop 02/25/18 at 10:01; Status DC Acetaminophen (Tylenol) 325 mg PRN Q6HRS PRN PO PAIN; Start 02/25/18 at 00:15 Betamethasone Dipropion Augmented (Diprolene-Af) 15 samy PRN BID PRN TP RASH; Start 02/25/18 at 00:15; Stop 02/25/18 at 07:33; Status DC Vitamin D (Vitamin D3) 1,000 unit DAILY PO Last administered on 03/02/18at 09:03 ; Start 02/25/18 at 09:00 Clopidogrel Bisulfate (Plavix) 75 mg DAILY PO Last administered on 02/25/18at 08 :02; Start 02/25/18 at 09:00; Stop 02/25/18 at 14:01; Status DC Donepezil HCl (Aricept) 5 mg DAILY PO Last administered on 03/02/18at 09:02; Start 02/25/18 at 09:00; Stop 03/02/18 at 18:42; Status DC Ferrous Sulfate (Feosol) 325 mg DAILY PO Last administered on 03/02/18at 09:03; Start 02/25/18 at 09:00 Isosorbide Mononitrate (Imdur) 15 mg DAILY PO Last administered on 03/02/18at 09 :05; Start 02/25/18 at 09:00 Losartan Potassium (Cozaar) 50 mg DAILY PO Last administered on 02/28/18at 09:21 ; Start 02/25/18 at 09:00; Stop 03/01/18 at 18:30; Status DC Artificial Tears (Artificial Tears) 1 drop PRN QID PRN OU DRY EYE; Start at 00:15 Prednisolone Acetate (Pred Forte) 1 drop DAILY OU Last administered on at 09:07; Start 02/25/18 at 09:00 Tamsulosin HCl (Flomax) 0.4 mg DAILY PO Last administered on 03/02/18at 09:02; Start 02/25/18 at 09:00 Aspirin (Children'S Aspirin) 81 mg DAILYWBKFT PO Last administered on at 09:03; Start 02/25/18 at 08:00 Atorvastatin Calcium (Lipitor) 40 mg QHS PO Last administered on 03/01/18at 19: 18; Start 02/25/18 at 21:00 Carvedilol (Coreg) 6.25 mg BIDWMEALS PO Last administered on 03/02/18at 09:05; Start 02/25/18 at 08:00 Finasteride (Proscar) 5 mg DAILY PO Last administered on 03/02/18at 09:03; Start 02/25/18 at 09:00 Fluticasone Propionate (Flonase) 2 spray DAILY NS Last administered on at 09:07; Start 02/25/18 at 09:00 Non-Formulary Medication (Ganciclovir (Zirgan)) 5 gm 5 time daily OP ; Start 10/03 at 00:15; Status UNV Guaifenesin (Mucinex Er) 1,200 mg BID PO Last administered on 03/02/18at 09:05; Start 02/25/18 at 09:00 Hydrocortisone (Proctosol-Hc) 1 samy PRN BID PRN RC HEMORRHOIDS; Start 02/25/18 at 00:30 Pantoprazole Sodium (Protonix) 40 mg DAILYAC PO Last administered on 03/02/18at 09:03; Start 02/25/18 at 07:30 Polyethylene Glycol (miraLAX) 17 gm BID PO Last administered on 03/02/18at 09:02 ; Start 02/25/18 at 09:00 Sennosides (Senna) 17.2 mg DAILY PO Last administered on 03/02/18at 09:03; Start 02/25/18 at 09:00 Torsemide (Demadex) 40 mg DAILY PO Last administered on 02/28/18at 09:18; Start 02/25/18 at 09:00; Stop 03/01/18 at 18:30; Status DC Sertraline HCl (Zoloft) 25 mg DAILY PO Last administered on 02/28/18at 09:18; Start 02/25/18 at 09:00; Stop 02/28/18 at 19:19; Status DC Betamethasone Dipropionate (Diprosone) 1 samy PRN BID PRN TP RASH; Start at 07:45 Mirtazapine (Remeron) 7.5 mg QHS PO Last administered on 03/01/18at 19:18; Start 02/25/18 at 21:00 Doxycycline Hyclate (Vibra-Tab) 100 mg BID PO Last administered on 03/02/18at 09 :02; Start 02/26/18 at 21:00; Stop 03/05/18 at 23:59 Lactobacillus Rhamnosus (Culturelle) 1 cap BID PO Last administered on at 09:02; Start 02/27/18 at 21:00 Sertraline HCl (Zoloft) 50 mg DAILY PO Last administered on 03/02/18at 09:03; Start 03/01/18 at 09:00 Losartan Potassium (Cozaar) 25 mg DAILY PO Last administered on 03/02/18at 09:07 ; Start 03/02/18 at 09:00 Torsemide (Demadex) 20 mg DAILY PO Last administered on 03/02/18at 09:07; Start 03/02/18 at 09:00 Donepezil HCl (Aricept) 10 mg DAILY PO ; Start 03/03/18 at 09:00 Active Scripts Active Reported Losartan Potassium 50 Mg Tablet 50 Mg PO DAILY Zirgan (Ganciclovir) 5 Gm Gel..gram. 5 Gm OP 5 TIME DAILY Carvedilol 6.25 Mg Tablet 6.25 Mg PO BIDWMEALS Diprolene 0.05% Ointment (Betamethasone/Propylene Glyc) 15 Gm Oint...g. 15 Gm TP PRN BID PRN Zoloft (Sertraline Hcl) 25 Mg Tablet 25 Mg PO DAILY Polyvinyl Alcohol 15 Ml Drops 1 Drop OP PRN QID PRN K-Tab ER (Potassium Chloride) 20 Meq Tablet.er 20 Meq PO DAILY Protonix (Pantoprazole Sodium) 40 Mg Tablet.dr 40 Mg PO DAILY Atorvastatin Calcium 40 Mg Tablet 40 Mg PO DAILY Tamsulosin Hcl 0.4 Mg Cap.er.24h 0.4 Mg PO DAILY Proscar (Finasteride) 5 Mg Tablet 5 Mg PO DAILY Senna Lax (Sennosides) 8.6 Mg Tablet 17.2 Mg PO DAILY Plavix (Clopidogrel Bisulfate) 75 Mg Tablet 75 Mg PO DAILY Ferrous Sulfate 325 Mg Tablet 325 Mg PO DAILY Acetaminophen 325 Mg Tablet 325 Mg PO PRN Q6HRS PRN Vitamin D3 (Cholecalciferol (Vitamin D3)) 1,000 Unit Tablet 1,000 Unit PO DAILY Aspir-Low (Aspirin) 81 Mg Tablet.dr 81 Mg PO DAILY Miralax (Polyethylene Glycol 3350) 17 Gm Powd.pack 17 Gm PO BID Prednisolone Acetate 5 Ml Drops.susp 1 Drop EACHEYE DAILY Benadryl (Diphenhydramine Hcl) 25 Mg Capsule 25 Mg PO PRN Q6HRS PRN Mucinex (Guaifenesin) 1,200 Mg Tbmp.12hr 1,200 Mg PO BID Fluticasone Propionate Nasal [place] (Fluticasone Propionate) 16 Gm [place].susp 2 Spr NS BID Preparation H (Hydrocortisone) 26 Gm Cream..g. 26 Gm TP PRN BID PRN Isosorbide Mononitrate Er (Isosorbide Mononitrate) 30 Mg Tab.er.24h 15 Mg PO DAILY Torsemide 20 Mg Tablet 40 Mg PO DAILY Aricept (Donepezil Hcl) 5 Mg Tablet 5 Mg PO DAILY I have reviewed the current psychotropics carefully including drug interactions. Risk benefit ratio favors no change other than as noted in my dictated progress note. 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
[2018-03-02] MEDS: MIRTAZAPINE 7.5 MG TABLET. PO SCH ×3 (20:23→23:45)
[2018-03-02] MEDS: ATORVASTATIN CALCIUM 20 MG TABLET PO SCH ×2 (20:23→23:45)
[2018-03-03 05:39] VITALS: BP 142/60
[2018-03-03] MEDS: SENNOSIDES 8.6 MG TABLET PO SCH (10:19)
[2018-03-03] MEDS: DOXYCYCLINE HYCLATE 100 MG TABLET PO SCH ×2 (10:19→20:59)
[2018-03-03] MEDS: FERROUS SULFATE 325 MG TABLET. PO SCH (10:19)
[2018-03-03] MEDS: FINASTERIDE 5 MG TABLET PO SCH (10:19)
[2018-03-03] MEDS: PANTOPRAZOLE 40 MG TABLET. PO SCH (10:19)
[2018-03-03] MEDS: POLYETHYLENE GLYCOL 3350 17 GM PACKET. PO SCH ×2 (10:19→21:00)
[2018-03-03] MEDS: TAMSULOSIN 0.4 MG CAP.ER.24H. PO SCH (10:19)
[2018-03-03] MEDS: LACTOBACILLUS RHAMNOSUS GG 1 CAPSULE. PO SCH ×2 (10:19→20:59)
[2018-03-03] MEDS: CHOLECALCIFEROL (VITAMIN D3) 1,000 UNIT TABLET PO SCH (10:19)
[2018-03-03] MEDS: SERTRALINE 50 MG TABLET. PO SCH (10:20)
[2018-03-03] MEDS: TORSEMIDE 20 MG TABLET. PO SCH (10:20)
[2018-03-03] MEDS: ASPIRIN 81 MG TAB.CHEW PO SCH (10:20)
[2018-03-03] MEDS: CARVEDILOL 6.25 MG TABLET PO SCH ×2 (10:20→16:48)
[2018-03-03] MEDS: ISOSORBIDE MONONITRATE ER 30 MG TAB.ER.24H PO SCH (10:22)
[2018-03-03] MEDS: LOSARTAN 25 MG TABLET. PO SCH (10:23)
[2018-03-03] MEDS: FLUTICASONE 50MCG/NASAL SPRAY 16GM BOTTLE. NS SCH (10:25)
[2018-03-03] MEDS: prednisoLONE ACETATE 1% OPHTH SUSPENSION 5ML BOTTLE. OU SCH (10:25)
[2018-03-03] MEDS: DONEPEZIL HCL 10 MG TABLET PO SCH (10:47)
[2018-03-03 16:25] VITALS: BP 93/50
[2018-03-03] MEDS: MIRTAZAPINE 7.5 MG TABLET. PO SCH (20:59)
[2018-03-03 21:06] LABS: FECAL OB PT POSITIVE (NEG)
--- NOTE | 2018-03-04 03:06 | PN ---
DATE: 02/27/2018 This late entry 02/27/2018 covers elements not covered in my initial note 02/27/2018. SUBJECTIVE: I met with the patient in the evening. The patient slept 7-1/4 hours, remains irritable, grouchy, demanding per nursing report. REVIEW OF SYSTEMS: Positive for tiredness. No CV, , pulmonary, eye system symptoms on review. MENTAL STATUS EXAM: Oriented to himself and situation. Speech moderate latency, often responses monosyllabic. Abstraction fair, computation impaired, language function intact, attention span short. Mood and affect remain somewhat labile, withdrawn. LABORATORY DATA: Reviewed. IMPRESSION: Major depressive disorder; anxiety disorder, unspecified; major neurocognitive disorder, early Alzheimer, vascular with depression. PLAN: Continue psychotropics mentioned in my initial note, may need to increase Zoloft gradually. MAN Kunal BOND MD DR: CRISTY/mechelle JOB#: [id number] / [id number]
--- NOTE | 2018-03-04 03:19 | PN ---
DATE: 03/02/2018 This is a late entry for 03/02/2018 covers elements not covered in my initial note of 03/02/2018. SUBJECTIVE: I met with the patient in the evening. The patient slept 8-1/2 hours, was more compliant with treatment the night before and the morning he was demanding, irritable, stayed in bed, refused to eat all day. REVIEW OF SYSTEMS: No CV, , pulmonary, eye system symptoms on review. Complains of being tired. MENTAL STATUS EXAM: Oriented to himself and situation. Speech has some latency, coherent, often responses monosyllabic. Abstraction fair, computation impaired. Mood and affect remains depressed. LABORATORY DATA: Reviewed. IMPRESSION: Unchanged from initial note. PLAN: Increase Aricept to 10 mg a day. Continue rest unchanged including Zoloft 50 mg a day. MAN Kunal BOND MD DR: CRISTY/mechelle JOB#: [id number] / [id number]
--- NOTE | 2018-03-04 03:40 | PN ---
DATE: 03/01/2018 This late entry of 03/01/2018 covers elements not covered in my initial note 03/01/2018. SUBJECTIVE: I met with the patient in the evening. The patient remains somewhat withdrawn. He was staffed at a treatment team meeting with the entire team and the patient's son, Jonathon, and daughter, Leonarda, attended the conference. Sleeping about 8 hours. Appetite 60%. He has been demanding at times, irritable, BP was low at 80/40, repeat was 130/69, refused his bedtime medications. Reviewed his history of being hospitalized in December and then being in a prison care, then was in assisted living and long-term care. He was inpatient at [facility] in January of this year. Family believes he gets more irritable when he is incontinent and not taken to the restroom. We will start him on two hour toileting schedule. REVIEW OF SYSTEMS: Positive for tiredness, impaired ambulation. No CV, , pulmonary, eye, ENT system symptoms on review. MENTAL STATUS EXAM: Oriented to himself and situation. Speech moderate latency, often responses monosyllabic. Abstraction fair, computation impaired. Mood and affect is depressed. LABORATORY DATA: Reviewed. IMPRESSION: Unchanged from initial note. PLAN: Continue current psychotropics. Adjust as clinically indicated with changes noted above. MAN Kunal BOND MD DR: CRISTY/mechelle JOB#: [id number] / [id number]
[2018-03-04 06:15] VITALS: BP 140/53
[2018-03-04] MEDS: CARVEDILOL 6.25 MG TABLET PO SCH ×2 (08:00→17:00)
[2018-03-04] MEDS: ASPIRIN 81 MG TAB.CHEW PO SCH (08:00)
[2018-03-04] MEDS: PANTOPRAZOLE 40 MG TABLET. PO SCH (08:15)
[2018-03-04] MEDS: LACTOBACILLUS RHAMNOSUS GG 1 CAPSULE. PO SCH ×2 (08:16→19:49)
[2018-03-04] MEDS: FLUTICASONE 50MCG/NASAL SPRAY 16GM BOTTLE. NS SCH (08:16)
[2018-03-04] MEDS: DONEPEZIL HCL 10 MG TABLET PO SCH (08:17)
[2018-03-04] MEDS: TAMSULOSIN 0.4 MG CAP.ER.24H. PO SCH (08:18)
[2018-03-04] MEDS: CHOLECALCIFEROL (VITAMIN D3) 1,000 UNIT TABLET PO SCH (08:18)
[2018-03-04] MEDS: FINASTERIDE 5 MG TABLET PO SCH (08:19)
[2018-03-04] MEDS: POLYETHYLENE GLYCOL 3350 17 GM PACKET. PO SCH ×2 (08:21→19:49)
[2018-03-04] MEDS: SENNOSIDES 8.6 MG TABLET PO SCH (08:21)
[2018-03-04] MEDS: FERROUS SULFATE 325 MG TABLET. PO SCH (08:22)
[2018-03-04] MEDS: ISOSORBIDE MONONITRATE ER 30 MG TAB.ER.24H PO SCH (08:22)
[2018-03-04] MEDS: LOSARTAN 25 MG TABLET. PO SCH (08:23)
[2018-03-04] MEDS: DOXYCYCLINE HYCLATE 100 MG TABLET PO SCH ×2 (08:24→19:49)
[2018-03-04] MEDS: buPROPion XL 150 MG TAB.ER.24H PO SCH (08:28)
[2018-03-04] MEDS: prednisoLONE ACETATE 1% OPHTH SUSPENSION 5ML BOTTLE. OU SCH (08:28)
[2018-03-04] MEDS: TORSEMIDE 20 MG TABLET. PO SCH (08:28)
[2018-03-04 19:31] VITALS: BP 149/65
[2018-03-04] MEDS: MIRTAZAPINE 7.5 MG TABLET. PO SCH (19:49)
[2018-03-04] MEDS: ATORVASTATIN CALCIUM 20 MG TABLET PO SCH (19:49)
--- NOTE | 2018-03-04 22:52 | PDOC ---
Exam Note: Stevenson Note: Late entry for date of service March 03, 2018. Please also refer to the separate dictated note~for this date of service dictated separately.~Patient seen individually. Discussed the patient with Nursing staff reviewed the chart.~ Reviewed interim history and current functioning. Reviewed vital signs,~Labs/ Radiology~and current medications noted below. Continue current treatment with the changes noted in the dictated addendum note Assessment: Vital Signs: VS - Last 72 Hours, by Label Date Time Temp Pulse Resp B/P (MAP) Pulse Ox O2 Delivery O2 Flow Rate FiO2 03/04/18 19:31 61 149/65 (93) 03/04/18 17:00 51 90/58 03/04/18 16:40 97.2 51 20 100 03/04/18 08:23 51 90/58 03/04/18 08:22 51 90/58 03/04/18 08:00 51 90/58 03/04/18 06:15 98.6 56 16 140/53 (82) 99 2.0 03/03/18 16:48 65 93/50 03/03/18 16:25 97.8 65 16 93/50 (64) 100 2.0 03/03/18 10:23 62 142/60 03/03/18 10:22 62 142/60 03/03/18 10:20 62 142/60 03/03/18 05:39 97.8 62 16 142/60 (87) 99 03/02/18 16:52 98.5 63 16 154/59 (90) 100 Nasal Cannula 2.0 03/02/18 09:07 64 162/64 03/02/18 09:05 64 162/64 03/02/18 09:05 64 162/64 03/02/18 06:10 97.3 64 18 162/64 (96) 97 Vital Signs Date Time Temp Pulse Resp B/P (MAP) Pulse Ox O2 Delivery O2 Flow Rate FiO2 03/04/18 19:31 61 149/65 (93) 03/04/18 16:40 97.2 20 100 03/04/18 06:15 2.0 03/02/18 16:52 Nasal Cannula I&O Intake and Output 03/04/18 07:00 Intake Total 960 ml Balance 960 ml Intake Oral 960 ml # Bowel Movements 4 Labs: Laboratory Tests Test 03/04/18 07:47 Glucose (Fingerstick) 140 mg/dL (70-99) H Current Medications: Meds: Current Medications Levofloxacin (Levaquin) 500 mg 1X ONCE PO Last administered on 02/24/18at 18:22 ; Start 02/24/18 at 18:15; Stop 02/25/18 at 00:01; Status DC Acetaminophen (Tylenol) 650 mg PRN Q6HRS PRN PO PAIN / TEMP; Start 02/24/18 at 23:15 Multi-Ingredient Ointment (Analgesic [place]) 1 samy PRN QID PRN TP MUSCLE PAIN; Start 02/24/18 at 23:15 Al Hydroxide/Mg Hydroxide (Mylanta Plus Xs) 15 ml PRN AFTMEALHC PRN PO DYSPEPSIA; Start 02/24/18 at 23:15 Magnesium Hydroxide (Milk Of Magnesia) 2,400 mg PRN QHS PRN PO CONSTIPATION; Start 02/24/18 at 23:15 Fosfomycin Tromethamine (Monurol) 3 gm 1X ONCE PO Last administered on at 08:54; Start 02/25/18 at 10:00; Stop 02/25/18 at 10:01; Status DC Acetaminophen (Tylenol) 325 mg PRN Q6HRS PRN PO PAIN; Start 02/25/18 at 00:15 Betamethasone Dipropion Augmented (Diprolene-Af) 15 samy PRN BID PRN TP RASH; Start 02/25/18 at 00:15; Stop 02/25/18 at 07:33; Status DC Vitamin D (Vitamin D3) 1,000 unit DAILY PO Last administered on 03/04/18at 08:18 ; Start 02/25/18 at 09:00 Clopidogrel Bisulfate (Plavix) 75 mg DAILY PO Last administered on 02/25/18at 08 :02; Start 02/25/18 at 09:00; Stop 02/25/18 at 14:01; Status DC Donepezil HCl (Aricept) 5 mg DAILY PO Last administered on 03/02/18at 09:02; Start 02/25/18 at 09:00; Stop 03/02/18 at 18:42; Status DC Ferrous Sulfate (Feosol) 325 mg DAILY PO Last administered on 03/04/18at 08:22; Start 02/25/18 at 09:00 Isosorbide Mononitrate (Imdur) 15 mg DAILY PO Last administered on 03/03/18at 10 :22; Start 02/25/18 at 09:00 Losartan Potassium (Cozaar) 50 mg DAILY PO Last administered on 02/28/18at 09:21 ; Start 02/25/18 at 09:00; Stop 03/01/18 at 18:30; Status DC Artificial Tears (Artificial Tears) 1 drop PRN QID PRN OU DRY EYE; Start at 00:15 Prednisolone Acetate (Pred Forte) 1 drop DAILY OU Last administered on at 08:28; Start 02/25/18 at 09:00 Tamsulosin HCl (Flomax) 0.4 mg DAILY PO Last administered on 03/04/18at 08:18; Start 02/25/18 at 09:00 Aspirin (Children'S Aspirin) 81 mg DAILYWBKFT PO Last administered on 10:20; Start 02/25/18 at 08:00 Atorvastatin Calcium (Lipitor) 40 mg QHS PO Last administered on 03/04/18at 19: 49; Start 02/25/18 at 21:00 Carvedilol (Coreg) 6.25 mg BIDWMEALS PO Last administered on 03/03/18 10:20; Start 02/25/18 at 08:00 Finasteride (Proscar) 5 mg DAILY PO Last administered on 03/04/18at 08:19; Start 02/25/18 at 09:00 Fluticasone Propionate (Flonase) 2 spray DAILY NS Last administered on at 08:16; Start 02/25/18 at 09:00 Non-Formulary Medication (Ganciclovir (Zirgan)) 5 gm 5 time daily OP ; Start 10/03 at 00:15; Status UNV Guaifenesin (Mucinex Er) 1,200 mg BID PO Last administered on 03/04/18at 19:49; Start 02/25/18 at 09:00 Hydrocortisone (Proctosol-Hc) 1 samy PRN BID PRN RC HEMORRHOIDS; Start 02/25/18 at 00:30 Pantoprazole Sodium (Protonix) 40 mg DAILYAC PO Last administered on 03/04/18at 08:15; Start 02/25/18 at 07:30 Polyethylene Glycol (miraLAX) 17 gm BID PO Last administered on 03/04/18at 19:49 ; Start 02/25/18 at 09:00 Sennosides (Senna) 17.2 mg DAILY PO Last administered on 03/03/18 10:19; Start 02/25/18 at 09:00 Torsemide (Demadex) 40 mg DAILY PO Last administered on 02/28/18 09:18; Start 02/25/18 at 09:00; Stop 03/01/18 at 18:30; Status DC Sertraline HCl (Zoloft) 25 mg DAILY PO Last administered on 02/28/18 09:18; Start 02/25/18 at 09:00; Stop 02/28/18 at 19:19; Status DC Betamethasone Dipropionate (Diprosone) 1 samy PRN BID PRN TP RASH; Start at 07:45 Mirtazapine (Remeron) 7.5 mg QHS PO Last administered on 03/04/18at 19:49; Start 02/25/18 at 21:00 Doxycycline Hyclate (Vibra-Tab) 100 mg BID PO Last administered on 03/04/18at 19 :49; Start 02/26/18 at 21:00; Stop 03/05/18 at 23:59 Lactobacillus Rhamnosus (Culturelle) 1 cap BID PO Last administered on at 19:49; Start 02/27/18 at 21:00 Sertraline HCl (Zoloft) 50 mg DAILY PO Last administered on 03/03/18at 10:20; Start 03/01/18 at 09:00; Stop 03/03/18 at 19:31; Status DC Losartan Potassium (Cozaar) 25 mg DAILY PO Last administered on 03/03/18at 10:23 ; Start 03/02/18 at 09:00 Torsemide (Demadex) 20 mg DAILY PO Last administered on 03/04/18at 08:28; Start 03/02/18 at 09:00 Donepezil HCl (Aricept) 10 mg DAILY PO Last administered on 03/04/18at 08:17; Start 03/03/18 at 09:00 Bupropion HCl (Wellbutrin Xl) 150 mg DAILY PO Last administered on 03/04/18at 08 :28; Start 03/04/18 at 09:00 Olanzapine (ZyPREXA ZYDIS) 1.25 mg PRN Q2HR PRN PO PSYCHOSIS; Start 03/04/18 at 19:30 Active Scripts Active Reported Losartan Potassium 50 Mg Tablet 50 Mg PO DAILY Zirgan (Ganciclovir) 5 Gm Gel..gram. 5 Gm OP 5 TIME DAILY Carvedilol 6.25 Mg Tablet 6.25 Mg PO BIDWMEALS Diprolene 0.05% Ointment (Betamethasone/Propylene Glyc) 15 Gm Oint...g. 15 Gm TP PRN BID PRN Zoloft (Sertraline Hcl) 25 Mg Tablet 25 Mg PO DAILY Polyvinyl Alcohol 15 Ml Drops 1 Drop OP PRN QID PRN K-Tab ER (Potassium Chloride) 20 Meq Tablet.er 20 Meq PO DAILY Protonix (Pantoprazole Sodium) 40 Mg Tablet.dr 40 Mg PO DAILY Atorvastatin Calcium 40 Mg Tablet 40 Mg PO DAILY Tamsulosin Hcl 0.4 Mg Cap.er.24h 0.4 Mg PO DAILY Proscar (Finasteride) 5 Mg Tablet 5 Mg PO DAILY Senna Lax (Sennosides) 8.6 Mg Tablet 17.2 Mg PO DAILY Plavix (Clopidogrel Bisulfate) 75 Mg Tablet 75 Mg PO DAILY Ferrous Sulfate 325 Mg Tablet 325 Mg PO DAILY Acetaminophen 325 Mg Tablet 325 Mg PO PRN Q6HRS PRN Vitamin D3 (Cholecalciferol (Vitamin D3)) 1,000 Unit Tablet 1,000 Unit PO DAILY Aspir-Low (Aspirin) 81 Mg Tablet.dr 81 Mg PO DAILY Miralax (Polyethylene Glycol 3350) 17 Gm Powd.pack 17 Gm PO BID Prednisolone Acetate 5 Ml Drops.susp 1 Drop EACHEYE DAILY Benadryl (Diphenhydramine Hcl) 25 Mg Capsule 25 Mg PO PRN Q6HRS PRN Mucinex (Guaifenesin) 1,200 Mg Tbmp.12hr 1,200 Mg PO BID Fluticasone Propionate Nasal [place] (Fluticasone Propionate) 16 Gm [place].susp 2 Spr NS BID Preparation H (Hydrocortisone) 26 Gm Cream..g. 26 Gm TP PRN BID PRN Isosorbide Mononitrate Er (Isosorbide Mononitrate) 30 Mg Tab.er.24h 15 Mg PO DAILY Torsemide 20 Mg Tablet 40 Mg PO DAILY Aricept (Donepezil Hcl) 5 Mg Tablet 5 Mg PO DAILY I have reviewed the current psychotropics carefully including drug interactions. Risk benefit ratio favors no change other than as noted in my dictated progress note. 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
--- NOTE | 2018-03-04 23:21 | PDOC ---
Exam Note: [place] Note: Please also refer to the separate dictated note~for this date of service dictated separately.~Patient seen individually. Discussed the patient with Nursing staff reviewed the chart.~Reviewed interim history and current functioning. Reviewed vital signs,~Labs/ Radiology~and current medications noted below. Continue current treatment with the changes noted in the dictated addendum note Assessment: Vital Signs: Vital Signs Date Time Temp Pulse Resp B/P (MAP) Pulse Ox O2 Delivery O2 Flow Rate FiO2 03/04/18 19:31 61 149/65 (93) 03/04/18 16:40 97.2 20 100 03/04/18 06:15 2.0 03/02/18 16:52 Nasal Cannula I&O Intake and Output 03/04/18 07:00 Intake Total 960 ml Balance 960 ml Intake Oral 960 ml # Bowel Movements 4 Labs: Laboratory Tests Test 03/04/18 07:47 Glucose (Fingerstick) 140 mg/dL (70-99) H Current Medications: Meds: Current Medications Levofloxacin (Levaquin) 500 mg 1X ONCE PO Last administered on 02/24/18at 18:22 ; Start 02/24/18 at 18:15; Stop 02/25/18 at 00:01; Status DC Acetaminophen (Tylenol) 650 mg PRN Q6HRS PRN PO PAIN / TEMP; Start 02/24/18 at 23:15 Multi-Ingredient Ointment (Analgesic [place]) 1 samy PRN QID PRN TP MUSCLE PAIN; Start 02/24/18 at 23:15 Al Hydroxide/Mg Hydroxide (Mylanta Plus Xs) 15 ml PRN AFTMEALHC PRN PO DYSPEPSIA; Start 02/24/18 at 23:15 Magnesium Hydroxide (Milk Of Magnesia) 2,400 mg PRN QHS PRN PO CONSTIPATION; Start 02/24/18 at 23:15 Fosfomycin Tromethamine (Monurol) 3 gm 1X ONCE PO Last administered on at 08:54; Start 02/25/18 at 10:00; Stop 02/25/18 at 10:01; Status DC Acetaminophen (Tylenol) 325 mg PRN Q6HRS PRN PO PAIN; Start 02/25/18 at 00:15 Betamethasone Dipropion Augmented (Diprolene-Af) 15 samy PRN BID PRN TP RASH; Start 02/25/18 at 00:15; Stop 02/25/18 at 07:33; Status DC Vitamin D (Vitamin D3) 1,000 unit DAILY PO Last administered on 03/04/18at 08:18 ; Start 02/25/18 at 09:00 Clopidogrel Bisulfate (Plavix) 75 mg DAILY PO Last administered on 02/25/18at 08 :02; Start 02/25/18 at 09:00; Stop 02/25/18 at 14:01; Status DC Donepezil HCl (Aricept) 5 mg DAILY PO Last administered on 03/02/18at 09:02; Start 02/25/18 at 09:00; Stop 03/02/18 at 18:42; Status DC Ferrous Sulfate (Feosol) 325 mg DAILY PO Last administered on 03/04/18at 08:22; Start 02/25/18 at 09:00 Isosorbide Mononitrate (Imdur) 15 mg DAILY PO Last administered on 03/03/18at 10 :22; Start 02/25/18 at 09:00 Losartan Potassium (Cozaar) 50 mg DAILY PO Last administered on 02/28/18at 09:21 ; Start 02/25/18 at 09:00; Stop 03/01/18 at 18:30; Status DC Artificial Tears (Artificial Tears) 1 drop PRN QID PRN OU DRY EYE; Start at 00:15 Prednisolone Acetate (Pred Forte) 1 drop DAILY OU Last administered on at 08:28; Start 02/25/18 at 09:00 Tamsulosin HCl (Flomax) 0.4 mg DAILY PO Last administered on 03/04/18at 08:18; Start 02/25/18 at 09:00 Aspirin (Children'S Aspirin) 81 mg DAILYWBKFT PO Last administered on at 10:20; Start 02/25/18 at 08:00 Atorvastatin Calcium (Lipitor) 40 mg QHS PO Last administered on 03/04/18at 19: 49; Start 02/25/18 at 21:00 Carvedilol (Coreg) 6.25 mg BIDWMEALS PO Last administered on 03/03/18at 10:20; Start 02/25/18 at 08:00 Finasteride (Proscar) 5 mg DAILY PO Last administered on 03/04/18 08:19; Start 02/25/18 at 09:00 Fluticasone Propionate (Flonase) 2 spray DAILY NS Last administered on at 08:16; Start 02/25/18 at 09:00 Non-Formulary Medication (Ganciclovir (Zirgan)) 5 gm 5 time daily OP ; Start 10/03 at 00:15; Status UNV Guaifenesin (Mucinex Er) 1,200 mg BID PO Last administered on 03/04/18at 19:49; Start 02/25/18 at 09:00 Hydrocortisone (Proctosol-Hc) 1 samy PRN BID PRN RC HEMORRHOIDS; Start 02/25/18 at 00:30 Pantoprazole Sodium (Protonix) 40 mg DAILYAC PO Last administered on 03/04/18at 08:15; Start 02/25/18 at 07:30 Polyethylene Glycol (miraLAX) 17 gm BID PO Last administered on 03/04/18at 19:49 ; Start 02/25/18 at 09:00 Sennosides (Senna) 17.2 mg DAILY PO Last administered on 03/03/18at 10:19; Start 02/25/18 at 09:00 Torsemide (Demadex) 40 mg DAILY PO Last administered on 02/28/18at 09:18; Start 02/25/18 at 09:00; Stop 03/01/18 at 18:30; Status DC Sertraline HCl (Zoloft) 25 mg DAILY PO Last administered on 02/28/18at 09:18; Start 02/25/18 at 09:00; Stop 02/28/18 at 19:19; Status DC Betamethasone Dipropionate (Diprosone) 1 samy PRN BID PRN TP RASH; Start at 07:45 Mirtazapine (Remeron) 7.5 mg QHS PO Last administered on 03/04/18at 19:49; Start 02/25/18 at 21:00 Doxycycline Hyclate (Vibra-Tab) 100 mg BID PO Last administered on 03/04/18at 19 :49; Start 02/26/18 at 21:00; Stop 03/05/18 at 23:59 Lactobacillus Rhamnosus (Culturelle) 1 cap BID PO Last administered on at 19:49; Start 02/27/18 at 21:00 Sertraline HCl (Zoloft) 50 mg DAILY PO Last administered on 03/03/18at 10:20; Start 03/01/18 at 09:00; Stop 03/03/18 at 19:31; Status DC Losartan Potassium (Cozaar) 25 mg DAILY PO Last administered on 03/03/18at 10:23 ; Start 03/02/18 at 09:00 Torsemide (Demadex) 20 mg DAILY PO Last administered on 03/04/18at 08:28; Start 03/02/18 at 09:00 Donepezil HCl (Aricept) 10 mg DAILY PO Last administered on 03/04/18at 08:17; Start 03/03/18 at 09:00 Bupropion HCl (Wellbutrin Xl) 150 mg DAILY PO Last administered on 03/04/18at 08 :28; Start 03/04/18 at 09:00 Olanzapine (ZyPREXA ZYDIS) 1.25 mg PRN Q2HR PRN PO PSYCHOSIS; Start 03/04/18 at 19:30 Active Scripts Active Reported Losartan Potassium 50 Mg Tablet 50 Mg PO DAILY Zirgan (Ganciclovir) 5 Gm Gel..gram. 5 Gm OP 5 TIME DAILY Carvedilol 6.25 Mg Tablet 6.25 Mg PO BIDWMEALS Diprolene 0.05% Ointment (Betamethasone/Propylene Glyc) 15 Gm Oint...g. 15 Gm TP PRN BID PRN Zoloft (Sertraline Hcl) 25 Mg Tablet 25 Mg PO DAILY Polyvinyl Alcohol 15 Ml Drops 1 Drop OP PRN QID PRN K-Tab ER (Potassium Chloride) 20 Meq Tablet.er 20 Meq PO DAILY Protonix (Pantoprazole Sodium) 40 Mg Tablet.dr 40 Mg PO DAILY Atorvastatin Calcium 40 Mg Tablet 40 Mg PO DAILY Tamsulosin Hcl 0.4 Mg Cap.er.24h 0.4 Mg PO DAILY Proscar (Finasteride) 5 Mg Tablet 5 Mg PO DAILY Senna Lax (Sennosides) 8.6 Mg Tablet 17.2 Mg PO DAILY Plavix (Clopidogrel Bisulfate) 75 Mg Tablet 75 Mg PO DAILY Ferrous Sulfate 325 Mg Tablet 325 Mg PO DAILY Acetaminophen 325 Mg Tablet 325 Mg PO PRN Q6HRS PRN Vitamin D3 (Cholecalciferol (Vitamin D3)) 1,000 Unit Tablet 1,000 Unit PO DAILY Aspir-Low (Aspirin) 81 Mg Tablet.dr 81 Mg PO DAILY Miralax (Polyethylene Glycol 3350) 17 Gm Powd.pack 17 Gm PO BID Prednisolone Acetate 5 Ml Drops.susp 1 Drop EACHEYE DAILY Benadryl (Diphenhydramine Hcl) 25 Mg Capsule 25 Mg PO PRN Q6HRS PRN Mucinex (Guaifenesin) 1,200 Mg Tbmp.12hr 1,200 Mg PO BID Fluticasone Propionate Nasal [place] (Fluticasone Propionate) 16 Gm [place].susp 2 Spr NS BID Preparation H (Hydrocortisone) 26 Gm Cream..g. 26 Gm TP PRN BID PRN Isosorbide Mononitrate Er (Isosorbide Mononitrate) 30 Mg Tab.er.24h 15 Mg PO DAILY Torsemide 20 Mg Tablet 40 Mg PO DAILY Aricept (Donepezil Hcl) 5 Mg Tablet 5 Mg PO DAILY I have reviewed the current psychotropics carefully including drug interactions. Risk benefit ratio favors no change other than as noted in my dictated progress note. 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
[2018-03-05 06:09] VITALS: BP 172/74
[2018-03-05] MEDS: PANTOPRAZOLE 40 MG TABLET. PO SCH ×2 (07:30→13:15)
[2018-03-05] MEDS: CARVEDILOL 6.25 MG TABLET PO SCH ×3 (08:00→14:06)
[2018-03-05] MEDS: ASPIRIN 81 MG TAB.CHEW PO SCH ×2 (08:00→13:14)
[2018-03-05] MEDS: DOXYCYCLINE HYCLATE 100 MG TABLET PO SCH ×3 (09:00→19:28)
[2018-03-05] MEDS: LACTOBACILLUS RHAMNOSUS GG 1 CAPSULE. PO SCH ×3 (09:00→19:29)
[2018-03-05] MEDS: FLUTICASONE 50MCG/NASAL SPRAY 16GM BOTTLE. NS SCH ×2 (09:00→13:18)
[2018-03-05] MEDS: TORSEMIDE 20 MG TABLET. PO SCH ×2 (09:00→13:14)
[2018-03-05] MEDS: DONEPEZIL HCL 10 MG TABLET PO SCH ×2 (09:00→13:13)
[2018-03-05] MEDS: SENNOSIDES 8.6 MG TABLET PO SCH ×2 (09:00→13:14)
[2018-03-05] MEDS: LOSARTAN 25 MG TABLET. PO SCH ×2 (09:00→13:15)
[2018-03-05] MEDS: TAMSULOSIN 0.4 MG CAP.ER.24H. PO SCH ×2 (09:00→13:14)
[2018-03-05] MEDS: prednisoLONE ACETATE 1% OPHTH SUSPENSION 5ML BOTTLE. OU SCH ×2 (09:00→13:17)
[2018-03-05] MEDS: POLYETHYLENE GLYCOL 3350 17 GM PACKET. PO SCH ×3 (09:00→19:29)
[2018-03-05] MEDS: FERROUS SULFATE 325 MG TABLET. PO SCH ×2 (09:00→13:14)
[2018-03-05] MEDS: FINASTERIDE 5 MG TABLET PO SCH ×2 (09:00→13:14)
[2018-03-05] MEDS: CHOLECALCIFEROL (VITAMIN D3) 1,000 UNIT TABLET PO SCH (13:15)
[2018-03-05] MEDS: buPROPion XL 150 MG TAB.ER.24H PO SCH (13:15)
[2018-03-05] MEDS: ISOSORBIDE MONONITRATE ER 30 MG TAB.ER.24H PO SCH (13:16)
[2018-03-05 15:42] VITALS: BP 118/55
[2018-03-05] MEDS: ATORVASTATIN CALCIUM 20 MG TABLET PO SCH (19:29)
[2018-03-05] MEDS: MIRTAZAPINE 7.5 MG TABLET. PO SCH (19:29)
--- NOTE | 2018-03-05 20:52 | PDOC ---
Exam Note: [place] Note: Please also refer to the separate dictated note~for this date of service dictated separately.~Patient seen individually. Discussed the patient with Nursing staff reviewed the chart.~Reviewed interim history and current functioning. Reviewed vital signs,~Labs/ Radiology~and current medications noted below. Continue current treatment with the changes noted in the dictated addendum note Assessment: Vital Signs: Vital Signs Date Time Temp Pulse Resp B/P (MAP) Pulse Ox O2 Delivery O2 Flow Rate FiO2 03/05/18 15:42 97.8 64 18 118/55 (76) 96 03/05/18 06:09 2.0 03/02/18 16:52 Nasal Cannula I&O Intake and Output 03/05/18 07:00 Intake Total 840 ml Balance 840 ml Intake Oral 840 ml # Voids 2 Labs: Laboratory Tests Test 03/05/18 07:33 Glucose (Fingerstick) 170 mg/dL (70-99) H Current Medications: Meds: Current Medications Levofloxacin (Levaquin) 500 mg 1X ONCE PO Last administered on 02/24/18at 18:22 ; Start 02/24/18 at 18:15; Stop 02/25/18 at 00:01; Status DC Acetaminophen (Tylenol) 650 mg PRN Q6HRS PRN PO PAIN / TEMP; Start 02/24/18 at 23:15 Multi-Ingredient Ointment (Analgesic [place]) 1 samy PRN QID PRN TP MUSCLE PAIN; Start 02/24/18 at 23:15 Al Hydroxide/Mg Hydroxide (Mylanta Plus Xs) 15 ml PRN AFTMEALHC PRN PO DYSPEPSIA; Start 02/24/18 at 23:15 Magnesium Hydroxide (Milk Of Magnesia) 2,400 mg PRN QHS PRN PO CONSTIPATION; Start 02/24/18 at 23:15 Fosfomycin Tromethamine (Monurol) 3 gm 1X ONCE PO Last administered on at 08:54; Start 02/25/18 at 10:00; Stop 02/25/18 at 10:01; Status DC Acetaminophen (Tylenol) 325 mg PRN Q6HRS PRN PO PAIN; Start 02/25/18 at 00:15 Betamethasone Dipropion Augmented (Diprolene-Af) 15 samy PRN BID PRN TP RASH; Start 02/25/18 at 00:15; Stop 02/25/18 at 07:33; Status DC Vitamin D (Vitamin D3) 1,000 unit DAILY PO Last administered on 03/05/18at 13:15 ; Start 02/25/18 at 09:00 Clopidogrel Bisulfate (Plavix) 75 mg DAILY PO Last administered on 02/25/18at 08 :02; Start 02/25/18 at 09:00; Stop 02/25/18 at 14:01; Status DC Donepezil HCl (Aricept) 5 mg DAILY PO Last administered on 03/02/18at 09:02; Start 02/25/18 at 09:00; Stop 03/02/18 at 18:42; Status DC Ferrous Sulfate (Feosol) 325 mg DAILY PO Last administered on 03/04/18at 08:22; Start 02/25/18 at 09:00 Isosorbide Mononitrate (Imdur) 15 mg DAILY PO Last administered on 03/05/18at 13 :16; Start 02/25/18 at 09:00 Losartan Potassium (Cozaar) 50 mg DAILY PO Last administered on 02/28/18at 09:21 ; Start 02/25/18 at 09:00; Stop 03/01/18 at 18:30; Status DC Artificial Tears (Artificial Tears) 1 drop PRN QID PRN OU DRY EYE; Start at 00:15 Prednisolone Acetate (Pred Forte) 1 drop DAILY OU Last administered on at 08:28; Start 02/25/18 at 09:00 Tamsulosin HCl (Flomax) 0.4 mg DAILY PO Last administered on 03/04/18at 08:18; Start 02/25/18 at 09:00 Aspirin (Children'S Aspirin) 81 mg DAILYWBKFT PO Last administered on at 10:20; Start 02/25/18 at 08:00 Atorvastatin Calcium (Lipitor) 40 mg QHS PO Last administered on 03/05/18at 19: 29; Start 02/25/18 at 21:00 Carvedilol (Coreg) 6.25 mg BIDWMEALS PO Last administered on 03/03/18at 10:20; Start 02/25/18 at 08:00 Finasteride (Proscar) 5 mg DAILY PO Last administered on 03/04/18 08:19; Start 02/25/18 at 09:00 Fluticasone Propionate (Flonase) 2 spray DAILY NS Last administered on at 08:16; Start 02/25/18 at 09:00 Non-Formulary Medication (Ganciclovir (Zirgan)) 5 gm 5 time daily OP ; Start 10/03 at 00:15; Status UNV Guaifenesin (Mucinex Er) 1,200 mg BID PO Last administered on 03/05/18 19:29; Start 02/25/18 at 09:00 Hydrocortisone (Proctosol-Hc) 1 samy PRN BID PRN RC HEMORRHOIDS; Start 02/25/18 at 00:30 Pantoprazole Sodium (Protonix) 40 mg DAILYAC PO Last administered on 03/04/18at 08:15; Start 02/25/18 at 07:30 Polyethylene Glycol (miraLAX) 17 gm BID PO Last administered on 03/05/18 19:29 ; Start 02/25/18 at 09:00 Sennosides (Senna) 17.2 mg DAILY PO Last administered on 03/03/18at 10:19; Start 02/25/18 at 09:00 Torsemide (Demadex) 40 mg DAILY PO Last administered on 02/28/18 09:18; Start 02/25/18 at 09:00; Stop 03/01/18 at 18:30; Status DC Sertraline HCl (Zoloft) 25 mg DAILY PO Last administered on 02/28/18 09:18; Start 02/25/18 at 09:00; Stop 02/28/18 at 19:19; Status DC Betamethasone Dipropionate (Diprosone) 1 samy PRN BID PRN TP RASH; Start at 07:45 Mirtazapine (Remeron) 7.5 mg QHS PO Last administered on 03/05/18 19:29; Start 02/25/18 at 21:00 Doxycycline Hyclate (Vibra-Tab) 100 mg BID PO Last administered on 03/05/18 19 :28; Start 02/26/18 at 21:00; Stop 03/05/18 at 23:59 Lactobacillus Rhamnosus (Culturelle) 1 cap BID PO Last administered on 5/20/ 18at 19:29; Start 02/27/18 at 21:00 Sertraline HCl (Zoloft) 50 mg DAILY PO Last administered on 03/03/18at 10:20; Start 03/01/18 at 09:00; Stop 03/03/18 at 19:31; Status DC Losartan Potassium (Cozaar) 25 mg DAILY PO Last administered on 03/03/18at 10:23 ; Start 03/02/18 at 09:00 Torsemide (Demadex) 20 mg DAILY PO Last administered on 03/04/18at 08:28; Start 03/02/18 at 09:00 Donepezil HCl (Aricept) 10 mg DAILY PO Last administered on 03/04/18at 08:17; Start 03/03/18 at 09:00 Bupropion HCl (Wellbutrin Xl) 150 mg DAILY PO Last administered on 03/05/18at 13 :15; Start 03/04/18 at 09:00 Olanzapine (ZyPREXA ZYDIS) 1.25 mg PRN Q2HR PRN PO PSYCHOSIS; Start 03/04/18 at 19:30 Active Scripts Active Reported Losartan Potassium 50 Mg Tablet 50 Mg PO DAILY Zirgan (Ganciclovir) 5 Gm Gel..gram. 5 Gm OP 5 TIME DAILY Carvedilol 6.25 Mg Tablet 6.25 Mg PO BIDWMEALS Diprolene 0.05% Ointment (Betamethasone/Propylene Glyc) 15 Gm Oint...g. 15 Gm TP PRN BID PRN Zoloft (Sertraline Hcl) 25 Mg Tablet 25 Mg PO DAILY Polyvinyl Alcohol 15 Ml Drops 1 Drop OP PRN QID PRN K-Tab ER (Potassium Chloride) 20 Meq Tablet.er 20 Meq PO DAILY Protonix (Pantoprazole Sodium) 40 Mg Tablet.dr 40 Mg PO DAILY Atorvastatin Calcium 40 Mg Tablet 40 Mg PO DAILY Tamsulosin Hcl 0.4 Mg Cap.er.24h 0.4 Mg PO DAILY Proscar (Finasteride) 5 Mg Tablet 5 Mg PO DAILY Senna Lax (Sennosides) 8.6 Mg Tablet 17.2 Mg PO DAILY Plavix (Clopidogrel Bisulfate) 75 Mg Tablet 75 Mg PO DAILY Ferrous Sulfate 325 Mg Tablet 325 Mg PO DAILY Acetaminophen 325 Mg Tablet 325 Mg PO PRN Q6HRS PRN Vitamin D3 (Cholecalciferol (Vitamin D3)) 1,000 Unit Tablet 1,000 Unit PO DAILY Aspir-Low (Aspirin) 81 Mg Tablet.dr 81 Mg PO DAILY Miralax (Polyethylene Glycol 3350) 17 Gm Powd.pack 17 Gm PO BID Prednisolone Acetate 5 Ml Drops.susp 1 Drop EACHEYE DAILY Benadryl (Diphenhydramine Hcl) 25 Mg Capsule 25 Mg PO PRN Q6HRS PRN Mucinex (Guaifenesin) 1,200 Mg Tbmp.12hr 1,200 Mg PO BID Fluticasone Propionate Nasal [place] (Fluticasone Propionate) 16 Gm [place].susp 2 Spr NS BID Preparation H (Hydrocortisone) 26 Gm Cream..g. 26 Gm TP PRN BID PRN Isosorbide Mononitrate Er (Isosorbide Mononitrate) 30 Mg Tab.er.24h 15 Mg PO DAILY Torsemide 20 Mg Tablet 40 Mg PO DAILY Aricept (Donepezil Hcl) 5 Mg Tablet 5 Mg PO DAILY I have reviewed the current psychotropics carefully including drug interactions. Risk benefit ratio favors no change other than as noted in my dictated progress note. 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
[2018-03-06 06:09] VITALS: BP 108/53
--- NOTE | 2018-03-06 07:32 | PN ---
DATE: 03/03/2018 This late entry 03/03/2018 covers elements not covered in my initial note 03/03/2018. Met with the patient in the evening. The patient was quite noncompliant with antibiotics the previous night, and at night, he was demanding. Refused all medications during the day on 03/03/2018. Behaviors have been waxing and waning. He has been withdrawn at times. REVIEW OF SYSTEMS: Ambulation impaired, in wheelchair. No CV, , pulmonary, eye, ENT system symptoms on review. Reliability poor. MENTAL STATUS EXAM: Oriented to herself and situation. Speech moderate latency, often responses monosyllabic. Abstraction fair, computation impaired, language function intact. Mood and affect withdrawn. LABORATORY DATA: Reviewed. IMPRESSION: Unchanged from initial note. PLAN: Change Zoloft to Wellbutrin XL 150 mg a day. Rest unchanged. MAN Kunal BOND MD DR: CRISTY/mechelle JOB#: [id number] / [id number]
[2018-03-06] MEDS: CARVEDILOL 6.25 MG TABLET PO SCH ×2 (08:00→17:00)
[2018-03-06] MEDS: PANTOPRAZOLE 40 MG TABLET. PO SCH (08:03)
[2018-03-06] MEDS: POLYETHYLENE GLYCOL 3350 17 GM PACKET. PO SCH ×2 (08:03→20:15)
[2018-03-06] MEDS: buPROPion XL 150 MG TAB.ER.24H PO SCH (08:04)
[2018-03-06] MEDS: ASPIRIN 81 MG TAB.CHEW PO SCH (08:04)
[2018-03-06] MEDS: SENNOSIDES 8.6 MG TABLET PO SCH (08:04)
[2018-03-06] MEDS: FINASTERIDE 5 MG TABLET PO SCH (08:04)
[2018-03-06] MEDS: LACTOBACILLUS RHAMNOSUS GG 1 CAPSULE. PO SCH ×2 (08:05→20:15)
[2018-03-06] MEDS: TAMSULOSIN 0.4 MG CAP.ER.24H. PO SCH (08:05)
[2018-03-06] MEDS: DONEPEZIL HCL 10 MG TABLET PO SCH (08:05)
[2018-03-06] MEDS: FERROUS SULFATE 325 MG TABLET. PO SCH (08:05)
[2018-03-06] MEDS: CHOLECALCIFEROL (VITAMIN D3) 1,000 UNIT TABLET PO SCH (08:05)
[2018-03-06] MEDS: TORSEMIDE 20 MG TABLET. PO SCH (08:05)
[2018-03-06] MEDS: LOSARTAN 25 MG TABLET. PO SCH (08:07)
[2018-03-06] MEDS: ISOSORBIDE MONONITRATE ER 30 MG TAB.ER.24H PO SCH (08:07)
[2018-03-06] MEDS: FLUTICASONE 50MCG/NASAL SPRAY 16GM BOTTLE. NS SCH (08:08)
[2018-03-06] MEDS: prednisoLONE ACETATE 1% OPHTH SUSPENSION 5ML BOTTLE. OU SCH (08:09)
[2018-03-06 11:30] LABS: BASO % 1 % (0-3); EOS # 0.1 x10^3/uL (0.0-0.7); EOS % 3 % (0-3); HEMATOCRIT 28.7 % (39.0-53.0); HEMOGLOBIN 9.7 g/dL (13.0-17.5); LYMPH # 0.5 x10^3/uL (1.0-4.8); LYMPH % 10 % (24-48); MEAN CORPUSCULAR HEMOGLOBIN 34 pg (25-35); MEAN CORPUSCULAR HGB CONC 34 g/dL (31-37); MEAN CORPUSCULAR VOLUME 99 fL (79-100); MONO # 0.5 x10^3/uL (0.0-1.1); MONO % 9 % (0-9); NEUT # 4.3 x10^3uL (1.8-7.7); NEUT % 78 % (31-73); PLATELET COUNT 191 x10^3/uL (140-400); RED BLOOD COUNT 2.89 x10^6/uL (4.30-5.70); RED CELL DISTRIBUTION WIDTH 13.6 % (11.5-14.5); WHITE BLOOD COUNT 5.5 x10^3/uL (4.0-11.0)
[2018-03-06 11:43] LABS: ALBUMIN 2.1 g/dL (3.4-5.0); ALBUMIN/GLOBULIN RATIO 0.5 (1.0-1.7); CALCIUM 8.7 mg/dL (8.5-10.1); CREATININE 1.5 mg/dL (0.7-1.3); GFR 44.1; POTASSIUM 4.8 mmol/L (3.5-5.1); TOTAL BILIRUBIN 0.6 mg/dL (0.2-1.0); TOTAL PROTEIN 6.7 g/dL (6.4-8.2)
--- NOTE | 2018-03-06 13:13 | PN ---
DATE: 03/04/2018 PSYCHIATRIC PROGRESS NOTE This is a late entry 03/04/2018, covers elements not covered in my initial note. SUBJECTIVE: I met with the patient in the evening. The patient slept 8 hours, trying to stand up, anxious, had blood in the stool. Defer to Dr. Cole. Blood pressure was somewhat low, pushing his wheelchair backward, gets agitated. REVIEW OF SYSTEMS: Ambulation impaired, in wheelchair. No CV, , pulmonary, eye, ENT system symptoms on review. Reliability poor. MENTAL STATUS EXAM: Oriented to himself situation. Insight limited, judgment marginal, language function intact. Mood and affect somewhat depressed. No suicidal or homicidal ideation. LABORATORY DATA: Reviewed. IMPRESSION: Major depressive disorder, recurrent; major neurocognitive disorder, early Alzheimer, vascular with depression, delusions. PLAN: Continue current psychotropics, Wellbutrin, Aricept and Remeron. Start Zyprexa 1.25 mg q.2 hours p.r.n. psychosis, agitation 7.5 mg in 24 hours. MAN Kunal BOND MD DR: CRISTY/mechelle JOB#: [id number] / [id number]
[2018-03-06 14:17] LABS: FECAL OB PT POSITIVE (NEG)
[2018-03-06 16:21] VITALS: BP 133/58
[2018-03-06] MEDS: MIRTAZAPINE 7.5 MG TABLET. PO SCH (20:15)
[2018-03-06] MEDS: ATORVASTATIN CALCIUM 20 MG TABLET PO SCH (20:15)
--- NOTE | 2018-03-06 20:51 | PDOC ---
Exam Note: [place] Note: Please also refer to the separate dictated note~for this date of service dictated separately.~Patient seen individually. Discussed the patient with Nursing staff reviewed the chart.~Reviewed interim history and current functioning. Reviewed vital signs,~Labs/ Radiology~and current medications noted below. Continue current treatment with the changes noted in the dictated addendum note Assessment: Vital Signs: Vital Signs Date Time Temp Pulse Resp B/P (MAP) Pulse Ox O2 Delivery O2 Flow Rate FiO2 03/06/18 17:00 63 133/58 03/06/18 16:21 97.7 16 93 03/06/18 06:09 Room Air 03/05/18 06:09 2.0 I&O Intake and Output 03/06/18 07:00 Intake Total 860 ml Output Total 200 ml Balance 660 ml Intake Oral 860 ml Output Urine Total 200 ml # Bowel Movements 1 Labs: Laboratory Tests Test 03/06/18 07:27 03/06/18 11:22 03/06/18 14:00 Glucose (Fingerstick) 163 mg/dL (70-99) H White Blood Count 5.5 x10^3/uL (4.0-11.0) Red Blood Count 2.89 x10^6/uL (4.30-5.70) L Hemoglobin 9.7 g/dL (13.0-17.5) L Hematocrit 28.7 % (39.0-53.0) L Mean Corpuscular Volume 99 fL (79-100) Mean Corpuscular Hemoglobin 34 pg (25-35) Mean Corpuscular Hemoglobin Concent 34 g/dL (31-37) Red Cell Distribution Width 13.6 % (11.5-14.5) Platelet Count 191 x10^3/uL (140-400) Neutrophils (%) (Auto) 78 % (31-73) H Lymphocytes (%) (Auto) 10 % (24-48) L Monocytes (%) (Auto) 9 % (0-9) Eosinophils (%) (Auto) 3 % (0-3) Basophils (%) (Auto) 1 % (0-3) Neutrophils # (Auto) 4.3 x10^3uL (1.8-7.7) Lymphocytes # (Auto) 0.5 x10^3/uL (1.0-4.8) L Monocytes # (Auto) 0.5 x10^3/uL (0.0-1.1) Eosinophils # (Auto) 0.1 x10^3/uL (0.0-0.7) Basophils # (Auto) 0.0 x10^3/uL (0.0-0.2) Sodium Level 142 mmol/L (136-145) Potassium Level 4.8 mmol/L (3.5-5.1) Chloride Level 103 mmol/L (98-107) Carbon Dioxide Level 36 mmol/L (21-32) H Anion Gap 3 (6-14) L Blood Urea Nitrogen 56 mg/dL (8-26) H Creatinine 1.5 mg/dL (0.7-1.3) H Estimated GFR (Cockcroft-Gault) 44.1 BUN/Creatinine Ratio 37 (6-20) H Glucose Level 218 mg/dL (70-99) H Calcium Level 8.7 mg/dL (8.5-10.1) Total Bilirubin 0.6 mg/dL (0.2-1.0) Aspartate Amino Transferase (AST) 26 U/L (15-37) Alanine Aminotransferase (ALT) 22 U/L (16-63) Alkaline Phosphatase 50 U/L (46-116) Total Protein 6.7 g/dL (6.4-8.2) Albumin 2.1 g/dL (3.4-5.0) L Albumin/Globulin Ratio 0.5 (1.0-1.7) L Stool Occult Blood Positive (NEG) Current Medications: Meds: Current Medications Levofloxacin (Levaquin) 500 mg 1X ONCE PO Last administered on 02/24/18at 18:22 ; Start 02/24/18 at 18:15; Stop 02/25/18 at 00:01; Status DC Acetaminophen (Tylenol) 650 mg PRN Q6HRS PRN PO PAIN / TEMP; Start 02/24/18 at 23:15 Multi-Ingredient Ointment (Analgesic [place]) 1 samy PRN QID PRN TP MUSCLE PAIN; Start 02/24/18 at 23:15 Al Hydroxide/Mg Hydroxide (Mylanta Plus Xs) 15 ml PRN AFTMEALHC PRN PO DYSPEPSIA; Start 02/24/18 at 23:15 Magnesium Hydroxide (Milk Of Magnesia) 2,400 mg PRN QHS PRN PO CONSTIPATION; Start 02/24/18 at 23:15 Fosfomycin Tromethamine (Monurol) 3 gm 1X ONCE PO Last administered on at 08:54; Start 02/25/18 at 10:00; Stop 02/25/18 at 10:01; Status DC Acetaminophen (Tylenol) 325 mg PRN Q6HRS PRN PO PAIN; Start 02/25/18 at 00:15 Betamethasone Dipropion Augmented (Diprolene-Af) 15 samy PRN BID PRN TP RASH; Start 02/25/18 at 00:15; Stop 02/25/18 at 07:33; Status DC Vitamin D (Vitamin D3) 1,000 unit DAILY PO Last administered on 03/06/18at 08:05 ; Start 02/25/18 at 09:00 Clopidogrel Bisulfate (Plavix) 75 mg DAILY PO Last administered on 02/25/18at 08 :02; Start 02/25/18 at 09:00; Stop 02/25/18 at 14:01; Status DC Donepezil HCl (Aricept) 5 mg DAILY PO Last administered on 03/02/18at 09:02; Start 02/25/18 at 09:00; Stop 03/02/18 at 18:42; Status DC Ferrous Sulfate (Feosol) 325 mg DAILY PO Last administered on 03/06/18at 08:05; Start 02/25/18 at 09:00 Isosorbide Mononitrate (Imdur) 15 mg DAILY PO Last administered on 03/05/18at 13 :16; Start 02/25/18 at 09:00 Losartan Potassium (Cozaar) 50 mg DAILY PO Last administered on 02/28/18at 09:21 ; Start 02/25/18 at 09:00; Stop 03/01/18 at 18:30; Status DC Artificial Tears (Artificial Tears) 1 drop PRN QID PRN OU DRY EYE; Start at 00:15 Prednisolone Acetate (Pred Forte) 1 drop DAILY OU Last administered on at 08:09; Start 02/25/18 at 09:00 Tamsulosin HCl (Flomax) 0.4 mg DAILY PO Last administered on 03/06/18at 08:05; Start 02/25/18 at 09:00 Aspirin (Children'S Aspirin) 81 mg DAILYWBKFT PO Last administered on at 08:04; Start 02/25/18 at 08:00; Stop 03/06/18 at 16:42; Status DC Atorvastatin Calcium (Lipitor) 40 mg QHS PO Last administered on 03/06/18at 20: 15; Start 02/25/18 at 21:00 Carvedilol (Coreg) 6.25 mg BIDWMEALS PO Last administered on 03/06/18at 17:00; Start 02/25/18 at 08:00 Finasteride (Proscar) 5 mg DAILY PO Last administered on 03/06/18at 08:04; Start 02/25/18 at 09:00 Fluticasone Propionate (Flonase) 2 spray DAILY NS Last administered on at 08:08; Start 02/25/18 at 09:00 Non-Formulary Medication (Ganciclovir (Zirgan)) 5 gm 5 time daily OP ; Start 10/03 at 00:15; Status UNV Guaifenesin (Mucinex Er) 1,200 mg BID PO Last administered on 03/06/18at 20:14; Start 02/25/18 at 09:00 Hydrocortisone (Proctosol-Hc) 1 samy PRN BID PRN RC HEMORRHOIDS; Start 02/25/18 at 00:30 Pantoprazole Sodium (Protonix) 40 mg DAILYAC PO Last administered on 03/06/18at 08:03; Start 02/25/18 at 07:30 Polyethylene Glycol (miraLAX) 17 gm BID PO Last administered on 03/06/18at 20:15 ; Start 02/25/18 at 09:00 Sennosides (Senna) 17.2 mg DAILY PO Last administered on 03/06/18at 08:04; Start 02/25/18 at 09:00 Torsemide (Demadex) 40 mg DAILY PO Last administered on 02/28/18at 09:18; Start 02/25/18 at 09:00; Stop 03/01/18 at 18:30; Status DC Sertraline HCl (Zoloft) 25 mg DAILY PO Last administered on 02/28/18at 09:18; Start 02/25/18 at 09:00; Stop 02/28/18 at 19:19; Status DC Betamethasone Dipropionate (Diprosone) 1 samy PRN BID PRN TP RASH; Start at 07:45 Mirtazapine (Remeron) 7.5 mg QHS PO Last administered on 03/06/18at 20:15; Start 02/25/18 at 21:00 Doxycycline Hyclate (Vibra-Tab) 100 mg BID PO Last administered on 03/05/18at 19 :28; Start 02/26/18 at 21:00; Stop 03/05/18 at 23:59; Status DC Lactobacillus Rhamnosus (Culturelle) 1 cap BID PO Last administered on at 20:15; Start 02/27/18 at 21:00 Sertraline HCl (Zoloft) 50 mg DAILY PO Last administered on 03/03/18at 10:20; Start 03/01/18 at 09:00; Stop 03/03/18 at 19:31; Status DC Losartan Potassium (Cozaar) 25 mg DAILY PO Last administered on 03/03/18at 10:23 ; Start 03/02/18 at 09:00; Stop 03/06/18 at 16:42; Status DC Torsemide (Demadex) 20 mg DAILY PO Last administered on 03/06/18at 08:05; Start 03/02/18 at 09:00; Stop 03/06/18 at 16:42; Status DC Donepezil HCl (Aricept) 10 mg DAILY PO Last administered on 03/06/18at 08:05; Start 03/03/18 at 09:00 Bupropion HCl (Wellbutrin Xl) 150 mg DAILY PO Last administered on 03/06/18at 08 :04; Start 03/04/18 at 09:00 Olanzapine (ZyPREXA ZYDIS) 1.25 mg PRN Q2HR PRN PO PSYCHOSIS; Start 03/04/18 at 19:30 Active Scripts Active Reported Losartan Potassium 50 Mg Tablet 50 Mg PO DAILY Zirgan (Ganciclovir) 5 Gm Gel..gram. 5 Gm OP 5 TIME DAILY Carvedilol 6.25 Mg Tablet 6.25 Mg PO BIDWMEALS Diprolene 0.05% Ointment (Betamethasone/Propylene Glyc) 15 Gm Oint...g. 15 Gm TP PRN BID PRN Zoloft (Sertraline Hcl) 25 Mg Tablet 25 Mg PO DAILY Polyvinyl Alcohol 15 Ml Drops 1 Drop OP PRN QID PRN K-Tab ER (Potassium Chloride) 20 Meq Tablet.er 20 Meq PO DAILY Protonix (Pantoprazole Sodium) 40 Mg Tablet.dr 40 Mg PO DAILY Atorvastatin Calcium 40 Mg Tablet 40 Mg PO DAILY Tamsulosin Hcl 0.4 Mg Cap.er.24h 0.4 Mg PO DAILY Proscar (Finasteride) 5 Mg Tablet 5 Mg PO DAILY Senna Lax (Sennosides) 8.6 Mg Tablet 17.2 Mg PO DAILY Plavix (Clopidogrel Bisulfate) 75 Mg Tablet 75 Mg PO DAILY Ferrous Sulfate 325 Mg Tablet 325 Mg PO DAILY Acetaminophen 325 Mg Tablet 325 Mg PO PRN Q6HRS PRN Vitamin D3 (Cholecalciferol (Vitamin D3)) 1,000 Unit Tablet 1,000 Unit PO DAILY Aspir-Low (Aspirin) 81 Mg Tablet.dr 81 Mg PO DAILY Miralax (Polyethylene Glycol 3350) 17 Gm Powd.pack 17 Gm PO BID Prednisolone Acetate 5 Ml Drops.susp 1 Drop EACHEYE DAILY Benadryl (Diphenhydramine Hcl) 25 Mg Capsule 25 Mg PO PRN Q6HRS PRN Mucinex (Guaifenesin) 1,200 Mg Tbmp.12hr 1,200 Mg PO BID Fluticasone Propionate Nasal [place] (Fluticasone Propionate) 16 Gm [place].susp 2 Spr NS BID Preparation H (Hydrocortisone) 26 Gm Cream..g. 26 Gm TP PRN BID PRN Isosorbide Mononitrate Er (Isosorbide Mononitrate) 30 Mg Tab.er.24h 15 Mg PO DAILY Torsemide 20 Mg Tablet 40 Mg PO DAILY Aricept (Donepezil Hcl) 5 Mg Tablet 5 Mg PO DAILY I have reviewed the current psychotropics carefully including drug interactions. Risk benefit ratio favors no change other than as noted in my dictated progress note. 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
--- NOTE | 2018-03-07 00:18 | PN ---
DATE: 03/05/2018 PSYCHIATRIC PROGRESS NOTE This late entry 03/05/2018 covers elements not covered in my initial note of 03/05/2018. SUBJECTIVE: Met with the patient in the evening. The patient slept 6 hours previous evening. We will repeat a UA after his doxycycline has done for the MRSA UTI. The day before, he had a very difficult day with marked agitation, but on 03/05/2018, he has spent much time in bed, has done better, less aggressive. REVIEW OF SYSTEMS: No CV, , pulmonary, eye, ENT system symptoms on review. He does admit to being tired, met with him in his room. MENTAL STATUS EXAM: The patient is oriented to himself, situation. Speech moderate latency, often responses monosyllabic. Abstraction fair, computation is impaired, language function intact. Short term memory is impaired. Mood and affect is somewhat withdrawn, but less irritable. LABORATORY DATA: Reviewed. IMPRESSION: Major depressive disorder with possible psychotic features; major neurocognitive disorder, Alzheimer, vascular with delusion, depression. Rest unchanged. PLAN: Continue current psychotropics including Wellbutrin 150 mg p.o. a.m. ____ which we may need to increase. ABELINO BOND MD DR: CRISTY/mechelle JOB#: [id number] / [id number]
--- NOTE | 2018-03-07 04:00 | PN ---
DATE: 03/06/2018 SUBJECTIVE: The patient was seen today, met with the staff, chart reviewed and also covering for Dr. Bill. The patient continues to have problems with increased confusion, depression, irritability and multiple physical complaints. The patient also exhibits increased psychomotor activity and restlessness. OBSERVATION: VITAL SIGNS: Temperature 97.8, blood pressure 108/53, pulse 64, respiration 18, O2 sat 98% and slept about 5 hours last night. MEDICATIONS: Reviewed. Currently on Zyprexa 1.25 mg every 2 hours p.r.n., bupropion 150 mg daily, Aricept 10 mg daily, mirtazapine 7.5 mg at night. The patient is also receiving Coreg, aspirin, Protonix, ferrous sulfate, Flomax, Proscar, Imdur, Flonase, Lipitor and torsemide. The patient is not having any side effects. The patient is able to hold a conversation, tend to ramble at times with tangential thinking and high level of anxiety. The patient is not expressing any suicidal or homicidal thoughts and no overt psychotic symptoms. ASSESSMENT: Major depression, single episode, moderate and major neurocognitive disorder, most likely Alzheimer's and vascular with depression. PLAN: To continue with the treatment. MANOLO MCDUFFIE MD DR: MANDA/mechelle JOB#: [id number] / [id number]
[2018-03-07 06:29] VITALS: BP 136/59
[2018-03-07] MEDS: POLYETHYLENE GLYCOL 3350 17 GM PACKET. PO SCH ×3 (09:00→19:58)
[2018-03-07] MEDS: TAMSULOSIN 0.4 MG CAP.ER.24H. PO SCH (09:06)
[2018-03-07] MEDS: LACTOBACILLUS RHAMNOSUS GG 1 CAPSULE. PO SCH ×2 (09:09→19:58)
[2018-03-07] MEDS: FERROUS SULFATE 325 MG TABLET. PO SCH (09:10)
[2018-03-07] MEDS: DONEPEZIL HCL 10 MG TABLET PO SCH (09:10)
[2018-03-07] MEDS: FINASTERIDE 5 MG TABLET PO SCH (09:10)
[2018-03-07] MEDS: SENNOSIDES 8.6 MG TABLET PO SCH (09:10)
[2018-03-07] MEDS: buPROPion XL 150 MG TAB.ER.24H PO SCH (09:12)
[2018-03-07] MEDS: FLUTICASONE 50MCG/NASAL SPRAY 16GM BOTTLE. NS SCH (09:12)
[2018-03-07] MEDS: CHOLECALCIFEROL (VITAMIN D3) 1,000 UNIT TABLET PO SCH (09:12)
[2018-03-07] MEDS: prednisoLONE ACETATE 1% OPHTH SUSPENSION 5ML BOTTLE. OU SCH (09:13)
[2018-03-07] MEDS: PANTOPRAZOLE 40 MG TABLET. PO SCH (09:13)
[2018-03-07 09:46] LABS: FECAL OB PT NEGATIVE (NEG)
[2018-03-07 10:07] VITALS: BP 130/52
[2018-03-07 14:23] VITALS: BP 158/61
[2018-03-07] MEDS: CARVEDILOL 6.25 MG TABLET PO SCH ×2 (14:29→17:00)
[2018-03-07] MEDS: ISOSORBIDE MONONITRATE ER 30 MG TAB.ER.24H PO SCH (14:30)
[2018-03-07 16:50] VITALS: BP 124/55
--- NOTE | 2018-03-07 17:17 | EKG ---
[address] [address] Test Date: 2018-02-24 Test Time: 17:13:58 Pat Name: ABDIRASHID GALARZA Department: Room: [facility] Gender: Nipple Maker: : [id number] Requested By: ANTELMO HARRIS Order Number: [id number] Reading MD: Mariano Pierson MD Measurements Intervals [place] Rate: P: VA: QRS: QRSD: T: QT: QTc: Interpretive Statements POOR QUALITY STUDY SR RBBB PAC'S PVC Electronically Signed On 03-08-2018 13:40:00 CDT by Mariano Pierson MD
[2018-03-07] MEDS: MIRTAZAPINE 7.5 MG TABLET. PO SCH (19:58)
[2018-03-07] MEDS: ATORVASTATIN CALCIUM 20 MG TABLET PO SCH (19:58)
[2018-03-08] MEDS: CHOLECALCIFEROL (VITAMIN D3) 1,000 UNIT TABLET PO SCH (07:58)
[2018-03-08] MEDS: DONEPEZIL HCL 10 MG TABLET PO SCH (07:58)
[2018-03-08] MEDS: CARVEDILOL 6.25 MG TABLET PO SCH ×2 (07:59→17:27)
[2018-03-08] MEDS: FINASTERIDE 5 MG TABLET PO SCH (07:59)
[2018-03-08] MEDS: ISOSORBIDE MONONITRATE ER 30 MG TAB.ER.24H PO SCH (08:00)
[2018-03-08] MEDS: buPROPion XL 150 MG TAB.ER.24H PO SCH (08:00)
[2018-03-08] MEDS: LACTOBACILLUS RHAMNOSUS GG 1 CAPSULE. PO SCH ×2 (08:00→20:06)
[2018-03-08] MEDS: TAMSULOSIN 0.4 MG CAP.ER.24H. PO SCH (08:00)
[2018-03-08] MEDS: PANTOPRAZOLE 40 MG TABLET. PO SCH (08:00)
[2018-03-08] MEDS: POLYETHYLENE GLYCOL 3350 17 GM PACKET. PO SCH ×2 (08:01→20:08)
[2018-03-08] MEDS: SENNOSIDES 8.6 MG TABLET PO SCH (08:01)
[2018-03-08] MEDS: prednisoLONE ACETATE 1% OPHTH SUSPENSION 5ML BOTTLE. OU SCH (08:04)
[2018-03-08] MEDS: FERROUS SULFATE 325 MG TABLET. PO SCH (08:04)
[2018-03-08] MEDS: FLUTICASONE 50MCG/NASAL SPRAY 16GM BOTTLE. NS SCH (08:04)
[2018-03-08 12:48] LABS: BACTERIA,URINE 0 /HPF (0-FEW); BILIRUBIN,URINE NEG (NEG); CLARITY,URINE CLEAR; COLOR,URINE YELLOW; GLUCOSE,URINE NEG (NEG); NITRITE,URINE NEG (NEG); RBC,URINE 0 /HPF (0-2); UROBILINOGEN,URINE 0.2 mg/dL (0.2 mg/dL); WBC,URINE 0 /HPF (0-4)
[2018-03-08 16:46] VITALS: BP 113/63
[2018-03-08] MEDS: ATORVASTATIN CALCIUM 20 MG TABLET PO SCH (20:06)
[2018-03-08] MEDS: MIRTAZAPINE 7.5 MG TABLET. PO SCH (20:07)
--- NOTE | 2018-03-08 20:12 | PDOC ---
Exam Note: Stevenson Note: Late entry for date of service March 07, 2018. Please also refer to the separate dictated note~for this date of service dictated separately.~Patient seen individually. Discussed the patient with Nursing staff reviewed the chart.~ Reviewed interim history and current functioning. Reviewed vital signs,~Labs/ Radiology~and current medications noted below. Continue current treatment with the changes noted in the dictated addendum note Assessment: Vital Signs: VS - Last 72 Hours, by Label Date Time Temp Pulse Resp B/P (MAP) Pulse Ox O2 Delivery O2 Flow Rate FiO2 03/08/18 17:27 52 113/63 03/08/18 16:46 97.9 52 16 113/63 (80) 95 03/08/18 08:00 60 124/55 03/08/18 07:59 60 124/55 03/07/18 17:00 60 124/55 03/07/18 16:50 97.2 60 16 124/55 (78) 98 Room Air 03/07/18 14:30 61 158/61 03/07/18 14:29 61 158/61 03/07/18 14:23 61 158/61 (93) 2.0 03/07/18 10:07 68 130/52 (78) Nasal Cannula 2.0 03/07/18 06:29 97.3 53 18 136/59 (84) 03/06/18 17:00 63 133/58 03/06/18 16:21 97.7 63 16 133/58 (83) 93 03/06/18 08:07 64 108/53 03/06/18 08:07 64 108/53 03/06/18 08:00 64 108/53 03/06/18 06:09 97.8 64 18 108/53 (71) 93 Room Air Vital Signs Date Time Temp Pulse Resp B/P (MAP) Pulse Ox O2 Delivery O2 Flow Rate FiO2 03/08/18 17:27 52 113/63 03/08/18 16:46 97.9 16 95 03/07/18 16:50 Room Air 03/07/18 14:23 2.0 I&O Intake and Output 03/08/18 07:00 Intake Total 1080 ml Balance 1080 ml Intake Oral 1080 ml # Bowel Movements 2 Labs: Laboratory Tests Test 03/08/18 07:46 03/08/18 12:00 Glucose (Fingerstick) 156 mg/dL (70-99) H Urine Collection Type Unknown Urine Color Yellow Urine Clarity Clear Urine pH 6.0 Urine Specific [place] 1.010 Urine Protein 100 mg/dl (NEG-TRACE) Urine Glucose (UA) Neg mg/dL (NEG) Urine Ketones (Stick) Neg mg/dL (NEG) Urine Blood Neg (NEG) Urine Nitrite Neg (NEG) Urine Bilirubin Neg (NEG) Urine Urobilinogen Dipstick 0.2 mg/dL (0.2 mg/dL) Urine Leukocyte Esterase Neg (NEG) Urine RBC 0 /HPF (0-2) Urine WBC 0 /HPF (0-4) Urine Squamous Epithelial Cells None /LPF Urine Bacteria 0 /HPF (0-FEW) Current Medications: Meds: Current Medications Levofloxacin (Levaquin) 500 mg 1X ONCE PO Last administered on 02/24/18at 18:22 ; Start 02/24/18 at 18:15; Stop 02/25/18 at 00:01; Status DC Acetaminophen (Tylenol) 650 mg PRN Q6HRS PRN PO PAIN / TEMP; Start 02/24/18 at 23:15 Multi-Ingredient Ointment (Analgesic [place]) 1 samy PRN QID PRN TP MUSCLE PAIN; Start 02/24/18 at 23:15 Al Hydroxide/Mg Hydroxide (Mylanta Plus Xs) 15 ml PRN AFTMEALHC PRN PO DYSPEPSIA; Start 02/24/18 at 23:15 Magnesium Hydroxide (Milk Of Magnesia) 2,400 mg PRN QHS PRN PO CONSTIPATION; Start 02/24/18 at 23:15 Fosfomycin Tromethamine (Monurol) 3 gm 1X ONCE PO Last administered on at 08:54; Start 02/25/18 at 10:00; Stop 02/25/18 at 10:01; Status DC Acetaminophen (Tylenol) 325 mg PRN Q6HRS PRN PO PAIN; Start 02/25/18 at 00:15 Betamethasone Dipropion Augmented (Diprolene-Af) 15 samy PRN BID PRN TP RASH; Start 02/25/18 at 00:15; Stop 02/25/18 at 07:33; Status DC Vitamin D (Vitamin D3) 1,000 unit DAILY PO Last administered on 03/08/18at 07:58 ; Start 02/25/18 at 09:00 Clopidogrel Bisulfate (Plavix) 75 mg DAILY PO Last administered on 02/25/18at 08 :02; Start 02/25/18 at 09:00; Stop 02/25/18 at 14:01; Status DC Donepezil HCl (Aricept) 5 mg DAILY PO Last administered on 03/02/18at 09:02; Start 02/25/18 at 09:00; Stop 03/02/18 at 18:42; Status DC Ferrous Sulfate (Feosol) 325 mg DAILY PO Last administered on 03/08/18at 08:04; Start 02/25/18 at 09:00 Isosorbide Mononitrate (Imdur) 15 mg DAILY PO Last administered on 03/08/18at 08 :00; Start 02/25/18 at 09:00 Losartan Potassium (Cozaar) 50 mg DAILY PO Last administered on 02/28/18at 09:21 ; Start 02/25/18 at 09:00; Stop 03/01/18 at 18:30; Status DC Artificial Tears (Artificial Tears) 1 drop PRN QID PRN OU DRY EYE; Start at 00:15 Prednisolone Acetate (Pred Forte) 1 drop DAILY OU Last administered on at 08:04; Start 02/25/18 at 09:00 Tamsulosin HCl (Flomax) 0.4 mg DAILY PO Last administered on 03/08/18at 08:00; Start 02/25/18 at 09:00 Aspirin (Children'S Aspirin) 81 mg DAILYWBKFT PO Last administered on at 08:04; Start 02/25/18 at 08:00; Stop 03/06/18 at 16:42; Status DC Atorvastatin Calcium (Lipitor) 40 mg QHS PO Last administered on 03/08/18at 20: 06; Start 02/25/18 at 21:00 Carvedilol (Coreg) 6.25 mg BIDWMEALS PO Last administered on 03/08/18at 17:27; Start 02/25/18 at 08:00 Finasteride (Proscar) 5 mg DAILY PO Last administered on 03/08/18at 07:59; Start 02/25/18 at 09:00 Fluticasone Propionate (Flonase) 2 spray DAILY NS Last administered on at 08:04; Start 02/25/18 at 09:00 Non-Formulary Medication (Ganciclovir (Zirgan)) 5 gm 5 time daily OP ; Start 10/03 at 00:15; Status UNV Guaifenesin (Mucinex Er) 1,200 mg BID PO Last administered on 03/08/18at 20:06; Start 02/25/18 at 09:00 Hydrocortisone (Proctosol-Hc) 1 samy PRN BID PRN RC HEMORRHOIDS; Start 02/25/18 at 00:30 Pantoprazole Sodium (Protonix) 40 mg DAILYAC PO Last administered on 03/08/18at 08:00; Start 02/25/18 at 07:30 Polyethylene Glycol (miraLAX) 17 gm BID PO Last administered on 03/08/18at 08:01 ; Start 02/25/18 at 09:00 Sennosides (Senna) 17.2 mg DAILY PO Last administered on 03/08/18at 08:01; Start 02/25/18 at 09:00 Torsemide (Demadex) 40 mg DAILY PO Last administered on 02/28/18at 09:18; Start 02/25/18 at 09:00; Stop 03/01/18 at 18:30; Status DC Sertraline HCl (Zoloft) 25 mg DAILY PO Last administered on 02/28/18at 09:18; Start 02/25/18 at 09:00; Stop 02/28/18 at 19:19; Status DC Betamethasone Dipropionate (Diprosone) 1 samy PRN BID PRN TP RASH; Start at 07:45 Mirtazapine (Remeron) 7.5 mg QHS PO Last administered on 03/08/18at 20:07; Start 02/25/18 at 21:00 Doxycycline Hyclate (Vibra-Tab) 100 mg BID PO Last administered on 03/05/18at 19 :28; Start 02/26/18 at 21:00; Stop 03/05/18 at 23:59; Status DC Lactobacillus Rhamnosus (Culturelle) 1 cap BID PO Last administered on at 20:06; Start 02/27/18 at 21:00 Sertraline HCl (Zoloft) 50 mg DAILY PO Last administered on 03/03/18at 10:20; Start 03/01/18 at 09:00; Stop 03/03/18 at 19:31; Status DC Losartan Potassium (Cozaar) 25 mg DAILY PO Last administered on 03/03/18at 10:23 ; Start 03/02/18 at 09:00; Stop 03/06/18 at 16:42; Status DC Torsemide (Demadex) 20 mg DAILY PO Last administered on 03/06/18at 08:05; Start 03/02/18 at 09:00; Stop 03/06/18 at 16:42; Status DC Donepezil HCl (Aricept) 10 mg DAILY PO Last administered on 03/08/18at 07:58; Start 03/03/18 at 09:00 Bupropion HCl (Wellbutrin Xl) 150 mg DAILY PO Last administered on 03/08/18at 08 :00; Start 03/04/18 at 09:00; Stop 03/08/18 at 18:43; Status DC Olanzapine (ZyPREXA ZYDIS) 1.25 mg PRN Q2HR PRN PO PSYCHOSIS Last administered on 03/08/18at 13:11; Start 03/04/18 at 19:30 Bupropion HCl (Wellbutrin Xl) 300 mg DAILY PO ; Start 03/09/18 at 09:00 Active Scripts Active Reported Losartan Potassium 50 Mg Tablet 50 Mg PO DAILY Zirgan (Ganciclovir) 5 Gm Gel..gram. 5 Gm OP 5 TIME DAILY Carvedilol 6.25 Mg Tablet 6.25 Mg PO BIDWMEALS Diprolene 0.05% Ointment (Betamethasone/Propylene Glyc) 15 Gm Oint...g. 15 Gm TP PRN BID PRN Zoloft (Sertraline Hcl) 25 Mg Tablet 25 Mg PO DAILY Polyvinyl Alcohol 15 Ml Drops 1 Drop OP PRN QID PRN K-Tab ER (Potassium Chloride) 20 Meq Tablet.er 20 Meq PO DAILY Protonix (Pantoprazole Sodium) 40 Mg Tablet.dr 40 Mg PO DAILY Atorvastatin Calcium 40 Mg Tablet 40 Mg PO DAILY Tamsulosin Hcl 0.4 Mg Cap.er.24h 0.4 Mg PO DAILY Proscar (Finasteride) 5 Mg Tablet 5 Mg PO DAILY Senna Lax (Sennosides) 8.6 Mg Tablet 17.2 Mg PO DAILY Plavix (Clopidogrel Bisulfate) 75 Mg Tablet 75 Mg PO DAILY Ferrous Sulfate 325 Mg Tablet 325 Mg PO DAILY Acetaminophen 325 Mg Tablet 325 Mg PO PRN Q6HRS PRN Vitamin D3 (Cholecalciferol (Vitamin D3)) 1,000 Unit Tablet 1,000 Unit PO DAILY Aspir-Low (Aspirin) 81 Mg Tablet.dr 81 Mg PO DAILY Miralax (Polyethylene Glycol 3350) 17 Gm Powd.pack 17 Gm PO BID Prednisolone Acetate 5 Ml Drops.susp 1 Drop EACHEYE DAILY Benadryl (Diphenhydramine Hcl) 25 Mg Capsule 25 Mg PO PRN Q6HRS PRN Mucinex (Guaifenesin) 1,200 Mg Tbmp.12hr 1,200 Mg PO BID Fluticasone Propionate Nasal [place] (Fluticasone Propionate) 16 Gm [place].susp 2 Spr NS BID Preparation H (Hydrocortisone) 26 Gm Cream..g. 26 Gm TP PRN BID PRN Isosorbide Mononitrate Er (Isosorbide Mononitrate) 30 Mg Tab.er.24h 15 Mg PO DAILY Torsemide 20 Mg Tablet 40 Mg PO DAILY Aricept (Donepezil Hcl) 5 Mg Tablet 5 Mg PO DAILY I have reviewed the current psychotropics carefully including drug interactions. Risk benefit ratio favors no change other than as noted in my dictated progress note. 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
--- NOTE | 2018-03-08 20:37 | PDOC ---
Exam Note: [place] Note: Please also refer to the separate dictated note~for this date of service dictated separately.~Patient seen individually. Discussed the patient with Nursing staff reviewed the chart.~Reviewed interim history and current functioning. Reviewed vital signs,~Labs/ Radiology~and current medications noted below. Continue current treatment with the changes noted in the dictated addendum note Assessment: Vital Signs: Vital Signs Date Time Temp Pulse Resp B/P (MAP) Pulse Ox O2 Delivery O2 Flow Rate FiO2 03/08/18 17:27 52 113/63 03/08/18 16:46 97.9 16 95 03/07/18 16:50 Room Air 03/07/18 14:23 2.0 I&O Intake and Output 03/08/18 07:00 Intake Total 1080 ml Balance 1080 ml Intake Oral 1080 ml # Bowel Movements 2 Labs: Laboratory Tests Test 03/08/18 07:46 03/08/18 12:00 Glucose (Fingerstick) 156 mg/dL (70-99) H Urine Collection Type Unknown Urine Color Yellow Urine Clarity Clear Urine pH 6.0 Urine Specific [place] 1.010 Urine Protein 100 mg/dl (NEG-TRACE) Urine Glucose (UA) Neg mg/dL (NEG) Urine Ketones (Stick) Neg mg/dL (NEG) Urine Blood Neg (NEG) Urine Nitrite Neg (NEG) Urine Bilirubin Neg (NEG) Urine Urobilinogen Dipstick 0.2 mg/dL (0.2 mg/dL) Urine Leukocyte Esterase Neg (NEG) Urine RBC 0 /HPF (0-2) Urine WBC 0 /HPF (0-4) Urine Squamous Epithelial Cells None /LPF Urine Bacteria 0 /HPF (0-FEW) Current Medications: Meds: Current Medications Levofloxacin (Levaquin) 500 mg 1X ONCE PO Last administered on 02/24/18at 18:22 ; Start 02/24/18 at 18:15; Stop 02/25/18 at 00:01; Status DC Acetaminophen (Tylenol) 650 mg PRN Q6HRS PRN PO PAIN / TEMP; Start 02/24/18 at 23:15 Multi-Ingredient Ointment (Analgesic [place]) 1 samy PRN QID PRN TP MUSCLE PAIN; Start 02/24/18 at 23:15 Al Hydroxide/Mg Hydroxide (Mylanta Plus Xs) 15 ml PRN AFTMEALHC PRN PO DYSPEPSIA; Start 02/24/18 at 23:15 Magnesium Hydroxide (Milk Of Magnesia) 2,400 mg PRN QHS PRN PO CONSTIPATION; Start 02/24/18 at 23:15 Fosfomycin Tromethamine (Monurol) 3 gm 1X ONCE PO Last administered on at 08:54; Start 02/25/18 at 10:00; Stop 02/25/18 at 10:01; Status DC Acetaminophen (Tylenol) 325 mg PRN Q6HRS PRN PO PAIN; Start 02/25/18 at 00:15 Betamethasone Dipropion Augmented (Diprolene-Af) 15 samy PRN BID PRN TP RASH; Start 02/25/18 at 00:15; Stop 02/25/18 at 07:33; Status DC Vitamin D (Vitamin D3) 1,000 unit DAILY PO Last administered on 03/08/18at 07:58 ; Start 02/25/18 at 09:00 Clopidogrel Bisulfate (Plavix) 75 mg DAILY PO Last administered on 02/25/18at 08 :02; Start 02/25/18 at 09:00; Stop 02/25/18 at 14:01; Status DC Donepezil HCl (Aricept) 5 mg DAILY PO Last administered on 03/02/18at 09:02; Start 02/25/18 at 09:00; Stop 03/02/18 at 18:42; Status DC Ferrous Sulfate (Feosol) 325 mg DAILY PO Last administered on 03/08/18at 08:04; Start 02/25/18 at 09:00 Isosorbide Mononitrate (Imdur) 15 mg DAILY PO Last administered on 03/08/18at 08 :00; Start 02/25/18 at 09:00 Losartan Potassium (Cozaar) 50 mg DAILY PO Last administered on 02/28/18at 09:21 ; Start 02/25/18 at 09:00; Stop 03/01/18 at 18:30; Status DC Artificial Tears (Artificial Tears) 1 drop PRN QID PRN OU DRY EYE; Start at 00:15 Prednisolone Acetate (Pred Forte) 1 drop DAILY OU Last administered on at 08:04; Start 02/25/18 at 09:00 Tamsulosin HCl (Flomax) 0.4 mg DAILY PO Last administered on 03/08/18 08:00; Start 02/25/18 at 09:00 Aspirin (Children'S Aspirin) 81 mg DAILYWBKFT PO Last administered on at 08:04; Start 02/25/18 at 08:00; Stop 03/06/18 at 16:42; Status DC Atorvastatin Calcium (Lipitor) 40 mg QHS PO Last administered on 03/08/18 20: 06; Start 02/25/18 at 21:00 Carvedilol (Coreg) 6.25 mg BIDWMEALS PO Last administered on 03/08/18 17:27; Start 02/25/18 at 08:00 Finasteride (Proscar) 5 mg DAILY PO Last administered on 03/08/18 07:59; Start 02/25/18 at 09:00 Fluticasone Propionate (Flonase) 2 spray DAILY NS Last administered on 08:04; Start 02/25/18 at 09:00 Non-Formulary Medication (Ganciclovir (Zirgan)) 5 gm 5 time daily OP ; Start 10/03 at 00:15; Status UNV Guaifenesin (Mucinex Er) 1,200 mg BID PO Last administered on 03/08/18 20:06; Start 02/25/18 at 09:00 Hydrocortisone (Proctosol-Hc) 1 samy PRN BID PRN RC HEMORRHOIDS; Start 02/25/18 at 00:30 Pantoprazole Sodium (Protonix) 40 mg DAILYAC PO Last administered on 03/08/18 08:00; Start 02/25/18 at 07:30 Polyethylene Glycol (miraLAX) 17 gm BID PO Last administered on 03/08/18 08:01 ; Start 02/25/18 at 09:00 Sennosides (Senna) 17.2 mg DAILY PO Last administered on 03/08/18at 08:01; Start 02/25/18 at 09:00 Torsemide (Demadex) 40 mg DAILY PO Last administered on 02/28/18 09:18; Start 02/25/18 at 09:00; Stop 03/01/18 at 18:30; Status DC Sertraline HCl (Zoloft) 25 mg DAILY PO Last administered on 5/15/18at 09:18; Start 02/25/18 at 09:00; Stop 02/28/18 at 19:19; Status DC Betamethasone Dipropionate (Diprosone) 1 samy PRN BID PRN TP RASH; Start at 07:45 Mirtazapine (Remeron) 7.5 mg QHS PO Last administered on 03/08/18at 20:07; Start 02/25/18 at 21:00 Doxycycline Hyclate (Vibra-Tab) 100 mg BID PO Last administered on 03/05/18at 19 :28; Start 02/26/18 at 21:00; Stop 03/05/18 at 23:59; Status DC Lactobacillus Rhamnosus (Culturelle) 1 cap BID PO Last administered on at 20:06; Start 02/27/18 at 21:00 Sertraline HCl (Zoloft) 50 mg DAILY PO Last administered on 03/03/18at 10:20; Start 03/01/18 at 09:00; Stop 03/03/18 at 19:31; Status DC Losartan Potassium (Cozaar) 25 mg DAILY PO Last administered on 03/03/18at 10:23 ; Start 03/02/18 at 09:00; Stop 03/06/18 at 16:42; Status DC Torsemide (Demadex) 20 mg DAILY PO Last administered on 03/06/18at 08:05; Start 03/02/18 at 09:00; Stop 03/06/18 at 16:42; Status DC Donepezil HCl (Aricept) 10 mg DAILY PO Last administered on 03/08/18at 07:58; Start 03/03/18 at 09:00 Bupropion HCl (Wellbutrin Xl) 150 mg DAILY PO Last administered on 03/08/18at 08 :00; Start 03/04/18 at 09:00; Stop 03/08/18 at 18:43; Status DC Olanzapine (ZyPREXA ZYDIS) 1.25 mg PRN Q2HR PRN PO PSYCHOSIS Last administered on 03/08/18at 13:11; Start 03/04/18 at 19:30 Bupropion HCl (Wellbutrin Xl) 300 mg DAILY PO ; Start 03/09/18 at 09:00 Active Scripts Active Reported Losartan Potassium 50 Mg Tablet 50 Mg PO DAILY Zirgan (Ganciclovir) 5 Gm Gel..gram. 5 Gm OP 5 TIME DAILY Carvedilol 6.25 Mg Tablet 6.25 Mg PO BIDWMEALS Diprolene 0.05% Ointment (Betamethasone/Propylene Glyc) 15 Gm Oint...g. 15 Gm TP PRN BID PRN Zoloft (Sertraline Hcl) 25 Mg Tablet 25 Mg PO DAILY Polyvinyl Alcohol 15 Ml Drops 1 Drop OP PRN QID PRN K-Tab ER (Potassium Chloride) 20 Meq Tablet.er 20 Meq PO DAILY Protonix (Pantoprazole Sodium) 40 Mg Tablet.dr 40 Mg PO DAILY Atorvastatin Calcium 40 Mg Tablet 40 Mg PO DAILY Tamsulosin Hcl 0.4 Mg Cap.er.24h 0.4 Mg PO DAILY Proscar (Finasteride) 5 Mg Tablet 5 Mg PO DAILY Senna Lax (Sennosides) 8.6 Mg Tablet 17.2 Mg PO DAILY Plavix (Clopidogrel Bisulfate) 75 Mg Tablet 75 Mg PO DAILY Ferrous Sulfate 325 Mg Tablet 325 Mg PO DAILY Acetaminophen 325 Mg Tablet 325 Mg PO PRN Q6HRS PRN Vitamin D3 (Cholecalciferol (Vitamin D3)) 1,000 Unit Tablet 1,000 Unit PO DAILY Aspir-Low (Aspirin) 81 Mg Tablet.dr 81 Mg PO DAILY Miralax (Polyethylene Glycol 3350) 17 Gm Powd.pack 17 Gm PO BID Prednisolone Acetate 5 Ml Drops.susp 1 Drop EACHEYE DAILY Benadryl (Diphenhydramine Hcl) 25 Mg Capsule 25 Mg PO PRN Q6HRS PRN Mucinex (Guaifenesin) 1,200 Mg Tbmp.12hr 1,200 Mg PO BID Fluticasone Propionate Nasal [place] (Fluticasone Propionate) 16 Gm [place].susp 2 Spr NS BID Preparation H (Hydrocortisone) 26 Gm Cream..g. 26 Gm TP PRN BID PRN Isosorbide Mononitrate Er (Isosorbide Mononitrate) 30 Mg Tab.er.24h 15 Mg PO DAILY Torsemide 20 Mg Tablet 40 Mg PO DAILY Aricept (Donepezil Hcl) 5 Mg Tablet 5 Mg PO DAILY I have reviewed the current psychotropics carefully including drug interactions. Risk benefit ratio favors no change other than as noted in my dictated progress note. 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
[2018-03-08 22:28] LABS: FECAL OB PT NEGATIVE (NEG)
--- NOTE | 2018-03-08 23:14 | PN ---
DATE: 03/07/2018 This is a late entry, 03/07/2018, covers the elements not covered in my initial note, 03/07/2018. SUBJECTIVE: I met with the patient in the evening. The patient slept 6-1/2 hours previous evening. I have received further information from the daughter about the patient's history and she describes his personality as being "manipulative." Often on the unit, he professes that he cannot do things for himself, but in fact, when nurses challenge him to do it and withdraw preferring him to do it himself, he is able to do it quite well. He was able to put his shoes on, sat himself up, able to do other ADLs as well. REVIEW OF SYSTEMS: Ambulation impaired, in wheelchair. Hearing is poor. Has hearing aids. No CV, , pulmonary, eye system symptoms on review. MENTAL STATUS EXAM: Oriented to himself and situation. Speech has some latency, often responses monosyllabic. Abstraction fair, computation impaired, language function intact, attention span short. Mood and affect showing improvement. LABORATORY DATA: Reviewed. IMPRESSION: Major depressive disorder with psychotic features in partial remission; cognitive disorder, unspecified; these are his current diagnoses. Rest unchanged from admission. PLAN: Continue current psychotropics including Wellbutrin-XL 150 mg a day. We will increase the Aricept from 5 mg a day to 10 mg a day. Continue Remeron 7.5 mg at bedtime, Zyprexa p.r.n. Per information from social service staff, consideration is being given to transferring him to an assisted living or skilled care. MAN Kunal BOND MD DR: CRISTY/mechelle JOB#: [id number] / [id number]
[2018-03-09 05:52] VITALS: BP 124/45
[2018-03-09 09:00] VITALS: BP 100/60
[2018-03-09] MEDS: POLYETHYLENE GLYCOL 3350 17 GM PACKET. PO SCH ×2 (09:00→21:29)
[2018-03-09] MEDS: LACTOBACILLUS RHAMNOSUS GG 1 CAPSULE. PO SCH ×2 (09:22→21:26)
[2018-03-09] MEDS: FERROUS SULFATE 325 MG TABLET. PO SCH (09:22)
[2018-03-09] MEDS: DONEPEZIL HCL 10 MG TABLET PO SCH (09:22)
[2018-03-09] MEDS: SENNOSIDES 8.6 MG TABLET PO SCH (09:23)
[2018-03-09] MEDS: TAMSULOSIN 0.4 MG CAP.ER.24H. PO SCH (09:24)
[2018-03-09] MEDS: CARVEDILOL 6.25 MG TABLET PO SCH ×2 (09:24→16:18)
[2018-03-09] MEDS: FINASTERIDE 5 MG TABLET PO SCH (09:24)
[2018-03-09] MEDS: ISOSORBIDE MONONITRATE ER 30 MG TAB.ER.24H PO SCH (09:24)
[2018-03-09] MEDS: CHOLECALCIFEROL (VITAMIN D3) 1,000 UNIT TABLET PO SCH (09:24)
[2018-03-09] MEDS: PANTOPRAZOLE 40 MG TABLET. PO SCH (09:25)
[2018-03-09] MEDS: FLUTICASONE 50MCG/NASAL SPRAY 16GM BOTTLE. NS SCH (09:25)
[2018-03-09] MEDS: prednisoLONE ACETATE 1% OPHTH SUSPENSION 5ML BOTTLE. OU SCH (09:26)
[2018-03-09] MEDS: buPROPion XL 300 MG TAB.ER.24H. PO SCH (09:26)
--- NOTE | 2018-03-09 14:39 | PN ---
DATE: 03/07/2018 PSYCHIATRIC PROGRESS NOTE This late entry 03/07/2018 covers elements not covered in my initial note. MAN Kunal BOND MD DR: Adelina JOB#: [id number] / [id number]
[2018-03-09] MEDS ORDERED: VITS A & D/LANOLIN TOPICAL OINTMENT 56GM TUBE. TP PRN (15:45)
[2018-03-09 16:11] VITALS: BP 112/48
--- NOTE | 2018-03-09 20:53 | PDOC ---
Exam Note: [place] Note: Please also refer to the separate dictated note~for this date of service dictated separately.~Patient seen individually. Discussed the patient with Nursing staff reviewed the chart.~Reviewed interim history and current functioning. Reviewed vital signs,~Labs/ Radiology~and current medications noted below. Continue current treatment with the changes noted in the dictated addendum note Assessment: Vital Signs: Vital Signs Date Time Temp Pulse Resp B/P (MAP) Pulse Ox O2 Delivery O2 Flow Rate FiO2 03/09/18 16:18 61 112/48 03/09/18 16:11 97.4 18 99 2.0 03/09/18 09:00 Room Air I&O Intake and Output 03/09/18 07:00 Intake Total 240 ml Balance 240 ml Intake Oral 240 ml Labs: Laboratory Tests Test 03/08/18 22:15 03/09/18 07:24 Stool Occult Blood Negative (NEG) Glucose (Fingerstick) 146 mg/dL (70-99) H Current Medications: Meds: Current Medications Levofloxacin (Levaquin) 500 mg 1X ONCE PO Last administered on 02/24/18at 18:22 ; Start 02/24/18 at 18:15; Stop 02/25/18 at 00:01; Status DC Acetaminophen (Tylenol) 650 mg PRN Q6HRS PRN PO PAIN / TEMP; Start 02/24/18 at 23:15 Multi-Ingredient Ointment (Analgesic [place]) 1 samy PRN QID PRN TP MUSCLE PAIN; Start 02/24/18 at 23:15 Al Hydroxide/Mg Hydroxide (Mylanta Plus Xs) 15 ml PRN AFTMEALHC PRN PO DYSPEPSIA; Start 02/24/18 at 23:15 Magnesium Hydroxide (Milk Of Magnesia) 2,400 mg PRN QHS PRN PO CONSTIPATION; Start 02/24/18 at 23:15 Fosfomycin Tromethamine (Monurol) 3 gm 1X ONCE PO Last administered on at 08:54; Start 02/25/18 at 10:00; Stop 02/25/18 at 10:01; Status DC Acetaminophen (Tylenol) 325 mg PRN Q6HRS PRN PO PAIN; Start 02/25/18 at 00:15 Betamethasone Dipropion Augmented (Diprolene-Af) 15 samy PRN BID PRN TP RASH; Start 02/25/18 at 00:15; Stop 02/25/18 at 07:33; Status DC Vitamin D (Vitamin D3) 1,000 unit DAILY PO Last administered on 03/09/18 09:24 ; Start 02/25/18 at 09:00 Clopidogrel Bisulfate (Plavix) 75 mg DAILY PO Last administered on 02/25/18at 08 :02; Start 02/25/18 at 09:00; Stop 02/25/18 at 14:01; Status DC Donepezil HCl (Aricept) 5 mg DAILY PO Last administered on 03/02/18 09:02; Start 02/25/18 at 09:00; Stop 03/02/18 at 18:42; Status DC Ferrous Sulfate (Feosol) 325 mg DAILY PO Last administered on 03/09/18 09:22; Start 02/25/18 at 09:00 Isosorbide Mononitrate (Imdur) 15 mg DAILY PO Last administered on 03/09/18 09 :24; Start 02/25/18 at 09:00 Losartan Potassium (Cozaar) 50 mg DAILY PO Last administered on 02/28/18 09:21 ; Start 02/25/18 at 09:00; Stop 03/01/18 at 18:30; Status DC Artificial Tears (Artificial Tears) 1 drop PRN QID PRN OU DRY EYE; Start at 00:15 Prednisolone Acetate (Pred Forte) 1 drop DAILY OU Last administered on at 09:26; Start 02/25/18 at 09:00 Tamsulosin HCl (Flomax) 0.4 mg DAILY PO Last administered on 03/09/18 09:24; Start 02/25/18 at 09:00 Aspirin (Children'S Aspirin) 81 mg DAILYWBKFT PO Last administered on at 08:04; Start 02/25/18 at 08:00; Stop 03/06/18 at 16:42; Status DC Atorvastatin Calcium (Lipitor) 40 mg QHS PO Last administered on 03/08/18 20: 06; Start 02/25/18 at 21:00 Carvedilol (Coreg) 6.25 mg BIDWMEALS PO Last administered on 03/09/18 09:24; Start 02/25/18 at 08:00 Finasteride (Proscar) 5 mg DAILY PO Last administered on 03/09/18 09:24; Start 02/25/18 at 09:00 Fluticasone Propionate (Flonase) 2 spray DAILY NS Last administered on 09:25; Start 02/25/18 at 09:00 Non-Formulary Medication (Ganciclovir (Zirgan)) 5 gm 5 time daily OP ; Start 10/03 at 00:15; Status UNV Guaifenesin (Mucinex Er) 1,200 mg BID PO Last administered on 03/09/18 09:24; Start 02/25/18 at 09:00 Hydrocortisone (Proctosol-Hc) 1 samy PRN BID PRN RC HEMORRHOIDS; Start 02/25/18 at 00:30 Pantoprazole Sodium (Protonix) 40 mg DAILYAC PO Last administered on 03/09/18at 09:25; Start 02/25/18 at 07:30 Polyethylene Glycol (miraLAX) 17 gm BID PO Last administered on 03/08/18at 08:01 ; Start 02/25/18 at 09:00 Sennosides (Senna) 17.2 mg DAILY PO Last administered on 03/09/18at 09:23; Start 02/25/18 at 09:00 Torsemide (Demadex) 40 mg DAILY PO Last administered on 02/28/18at 09:18; Start 02/25/18 at 09:00; Stop 03/01/18 at 18:30; Status DC Sertraline HCl (Zoloft) 25 mg DAILY PO Last administered on 02/28/18at 09:18; Start 02/25/18 at 09:00; Stop 02/28/18 at 19:19; Status DC Betamethasone Dipropionate (Diprosone) 1 samy PRN BID PRN TP RASH; Start at 07:45 Mirtazapine (Remeron) 7.5 mg QHS PO Last administered on 03/08/18at 20:07; Start 02/25/18 at 21:00 Doxycycline Hyclate (Vibra-Tab) 100 mg BID PO Last administered on 03/05/18at 19 :28; Start 02/26/18 at 21:00; Stop 03/05/18 at 23:59; Status DC Lactobacillus Rhamnosus (Culturelle) 1 cap BID PO Last administered on at 09:22; Start 02/27/18 at 21:00 Sertraline HCl (Zoloft) 50 mg DAILY PO Last administered on 03/03/18at 10:20; Start 03/01/18 at 09:00; Stop 03/03/18 at 19:31; Status DC Losartan Potassium (Cozaar) 25 mg DAILY PO Last administered on 03/03/18at 10:23 ; Start 03/02/18 at 09:00; Stop 03/06/18 at 16:42; Status DC Torsemide (Demadex) 20 mg DAILY PO Last administered on 03/06/18at 08:05; Start 03/02/18 at 09:00; Stop 03/06/18 at 16:42; Status DC Donepezil HCl (Aricept) 10 mg DAILY PO Last administered on 03/09/18at 09:22; Start 03/03/18 at 09:00 Bupropion HCl (Wellbutrin Xl) 150 mg DAILY PO Last administered on 03/08/18at 08 :00; Start 03/04/18 at 09:00; Stop 03/08/18 at 18:43; Status DC Olanzapine (ZyPREXA ZYDIS) 1.25 mg PRN Q2HR PRN PO PSYCHOSIS Last administered on 03/08/18at 13:11; Start 03/04/18 at 19:30 Bupropion HCl (Wellbutrin Xl) 300 mg DAILY PO Last administered on 03/09/18at 09 :26; Start 03/09/18 at 09:00 Vitamin A/Vitamin D (Vitamin A & D Ointment) 1 samy BID TP ; Start 03/09/18 at 21 :00 Vitamin A/Vitamin D (Vitamin A & D Ointment) 1 samy PRN Q1HR PRN TP SKIN PROTECTION; Start 03/09/18 at 15:45 Active Scripts Active Reported Losartan Potassium 50 Mg Tablet 50 Mg PO DAILY Zirgan (Ganciclovir) 5 Gm Gel..gram. 5 Gm OP 5 TIME DAILY Carvedilol 6.25 Mg Tablet 6.25 Mg PO BIDWMEALS Diprolene 0.05% Ointment (Betamethasone/Propylene Glyc) 15 Gm Oint...g. 15 Gm TP PRN BID PRN Zoloft (Sertraline Hcl) 25 Mg Tablet 25 Mg PO DAILY Polyvinyl Alcohol 15 Ml Drops 1 Drop OP PRN QID PRN K-Tab ER (Potassium Chloride) 20 Meq Tablet.er 20 Meq PO DAILY Protonix (Pantoprazole Sodium) 40 Mg Tablet.dr 40 Mg PO DAILY Atorvastatin Calcium 40 Mg Tablet 40 Mg PO DAILY Tamsulosin Hcl 0.4 Mg Cap.er.24h 0.4 Mg PO DAILY Proscar (Finasteride) 5 Mg Tablet 5 Mg PO DAILY Senna Lax (Sennosides) 8.6 Mg Tablet 17.2 Mg PO DAILY Plavix (Clopidogrel Bisulfate) 75 Mg Tablet 75 Mg PO DAILY Ferrous Sulfate 325 Mg Tablet 325 Mg PO DAILY Acetaminophen 325 Mg Tablet 325 Mg PO PRN Q6HRS PRN Vitamin D3 (Cholecalciferol (Vitamin D3)) 1,000 Unit Tablet 1,000 Unit PO DAILY Aspir-Low (Aspirin) 81 Mg Tablet.dr 81 Mg PO DAILY Miralax (Polyethylene Glycol 3350) 17 Gm Powd.pack 17 Gm PO BID Prednisolone Acetate 5 Ml Drops.susp 1 Drop EACHEYE DAILY Benadryl (Diphenhydramine Hcl) 25 Mg Capsule 25 Mg PO PRN Q6HRS PRN Mucinex (Guaifenesin) 1,200 Mg Tbmp.12hr 1,200 Mg PO BID Fluticasone Propionate Nasal [place] (Fluticasone Propionate) 16 Gm [place].susp 2 Spr NS BID Preparation H (Hydrocortisone) 26 Gm Cream..g. 26 Gm TP PRN BID PRN Isosorbide Mononitrate Er (Isosorbide Mononitrate) 30 Mg Tab.er.24h 15 Mg PO DAILY Torsemide 20 Mg Tablet 40 Mg PO DAILY Aricept (Donepezil Hcl) 5 Mg Tablet 5 Mg PO DAILY I have reviewed the current psychotropics carefully including drug interactions. Risk benefit ratio favors no change other than as noted in my dictated progress note. 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
[2018-03-09] MEDS: VITS A & D/LANOLIN TOPICAL OINTMENT 56GM TUBE. TP SCH (21:00)
[2018-03-09] MEDS: ATORVASTATIN CALCIUM 20 MG TABLET PO SCH (21:26)
[2018-03-09] MEDS: MIRTAZAPINE 7.5 MG TABLET. PO SCH (21:27)
[2018-03-10 05:58] VITALS: BP 159/66
[2018-03-10] MEDS: ISOSORBIDE MONONITRATE ER 30 MG TAB.ER.24H PO SCH (08:02)
[2018-03-10] MEDS: FERROUS SULFATE 325 MG TABLET. PO SCH (08:02)
[2018-03-10] MEDS: buPROPion XL 300 MG TAB.ER.24H. PO SCH (08:02)
[2018-03-10] MEDS: POLYETHYLENE GLYCOL 3350 17 GM PACKET. PO SCH ×2 (08:02→19:39)
[2018-03-10] MEDS: PANTOPRAZOLE 40 MG TABLET. PO SCH (08:02)
[2018-03-10] MEDS: FINASTERIDE 5 MG TABLET PO SCH (08:03)
[2018-03-10] MEDS: LACTOBACILLUS RHAMNOSUS GG 1 CAPSULE. PO SCH ×2 (08:03→19:39)
[2018-03-10] MEDS: DONEPEZIL HCL 10 MG TABLET PO SCH (08:03)
[2018-03-10] MEDS: SENNOSIDES 8.6 MG TABLET PO SCH (08:03)
[2018-03-10] MEDS: CARVEDILOL 6.25 MG TABLET PO SCH ×2 (08:03→17:00)
[2018-03-10] MEDS: TAMSULOSIN 0.4 MG CAP.ER.24H. PO SCH (08:03)
[2018-03-10] MEDS: CHOLECALCIFEROL (VITAMIN D3) 1,000 UNIT TABLET PO SCH (08:03)
[2018-03-10] MEDS: prednisoLONE ACETATE 1% OPHTH SUSPENSION 5ML BOTTLE. OU SCH (08:15)
[2018-03-10] MEDS: FLUTICASONE 50MCG/NASAL SPRAY 16GM BOTTLE. NS SCH (08:16)
[2018-03-10] MEDS: VITS A & D/LANOLIN TOPICAL OINTMENT 56GM TUBE. TP SCH ×2 (09:00→19:39)
[2018-03-10 16:27] VITALS: BP 106/56
[2018-03-10] MEDS: MIRTAZAPINE 7.5 MG TABLET. PO SCH (19:39)
[2018-03-10] MEDS: ATORVASTATIN CALCIUM 20 MG TABLET PO SCH (19:39)
--- NOTE | 2018-03-10 19:57 | PDOC ---
Exam Note: [place] Note: Please also refer to the separate dictated note~for this date of service dictated separately.~Patient seen individually. Discussed the patient with Nursing staff reviewed the chart.~Reviewed interim history and current functioning. Reviewed vital signs,~Labs/ Radiology~and current medications noted below. Continue current treatment with the changes noted in the dictated addendum note Assessment: Vital Signs: Vital Signs Date Time Temp Pulse Resp B/P (MAP) Pulse Ox O2 Delivery O2 Flow Rate FiO2 03/10/18 17:00 58 106/56 03/10/18 16:27 97.6 16 93 Room Air 2.0 I&O Intake and Output 03/10/18 07:00 Intake Total 1800 ml Balance 1800 ml Intake Oral 1800 ml # Bowel Movements 1 Labs: Laboratory Tests Test 03/10/18 07:24 03/10/18 11:32 Glucose (Fingerstick) 173 mg/dL (70-99) H 254 mg/dL (70-99) H Current Medications: Meds: Current Medications Levofloxacin (Levaquin) 500 mg 1X ONCE PO Last administered on 02/24/18at 18:22 ; Start 02/24/18 at 18:15; Stop 02/25/18 at 00:01; Status DC Acetaminophen (Tylenol) 650 mg PRN Q6HRS PRN PO PAIN / TEMP; Start 02/24/18 at 23:15 Multi-Ingredient Ointment (Analgesic [place]) 1 samy PRN QID PRN TP MUSCLE PAIN; Start 02/24/18 at 23:15 Al Hydroxide/Mg Hydroxide (Mylanta Plus Xs) 15 ml PRN AFTMEALHC PRN PO DYSPEPSIA; Start 02/24/18 at 23:15 Magnesium Hydroxide (Milk Of Magnesia) 2,400 mg PRN QHS PRN PO CONSTIPATION; Start 02/24/18 at 23:15 Fosfomycin Tromethamine (Monurol) 3 gm 1X ONCE PO Last administered on at 08:54; Start 02/25/18 at 10:00; Stop 02/25/18 at 10:01; Status DC Acetaminophen (Tylenol) 325 mg PRN Q6HRS PRN PO PAIN; Start 02/25/18 at 00:15 Betamethasone Dipropion Augmented (Diprolene-Af) 15 samy PRN BID PRN TP RASH; Start 02/25/18 at 00:15; Stop 02/25/18 at 07:33; Status DC Vitamin D (Vitamin D3) 1,000 unit DAILY PO Last administered on 03/10/18 08:03 ; Start 02/25/18 at 09:00 Clopidogrel Bisulfate (Plavix) 75 mg DAILY PO Last administered on 02/25/18 08 :02; Start 02/25/18 at 09:00; Stop 02/25/18 at 14:01; Status DC Donepezil HCl (Aricept) 5 mg DAILY PO Last administered on 03/02/18 09:02; Start 02/25/18 at 09:00; Stop 03/02/18 at 18:42; Status DC Ferrous Sulfate (Feosol) 325 mg DAILY PO Last administered on 03/10/18 08:02; Start 02/25/18 at 09:00 Isosorbide Mononitrate (Imdur) 15 mg DAILY PO Last administered on 03/10/18 08 :02; Start 02/25/18 at 09:00 Losartan Potassium (Cozaar) 50 mg DAILY PO Last administered on 02/28/18 09:21 ; Start 02/25/18 at 09:00; Stop 03/01/18 at 18:30; Status DC Artificial Tears (Artificial Tears) 1 drop PRN QID PRN OU DRY EYE Last administered on 03/10/18 19:39; Start 02/25/18 at 00:15 Prednisolone Acetate (Pred Forte) 1 drop DAILY OU Last administered on 08:15; Start 02/25/18 at 09:00 Tamsulosin HCl (Flomax) 0.4 mg DAILY PO Last administered on 03/10/18 08:03; Start 02/25/18 at 09:00 Aspirin (Children'S Aspirin) 81 mg DAILYWBKFT PO Last administered on 08:04; Start 02/25/18 at 08:00; Stop 03/06/18 at 16:42; Status DC Atorvastatin Calcium (Lipitor) 40 mg QHS PO Last administered on 03/10/18 19: 39; Start 02/25/18 at 21:00 Carvedilol (Coreg) 6.25 mg BIDWMEALS PO Last administered on 03/10/18 08:03; Start 02/25/18 at 08:00 Finasteride (Proscar) 5 mg DAILY PO Last administered on 03/10/18 08:03; Start 02/25/18 at 09:00 Fluticasone Propionate (Flonase) 2 spray DAILY NS Last administered on 08:16; Start 02/25/18 at 09:00 Non-Formulary Medication (Ganciclovir (Zirgan)) 5 gm 5 time daily OP ; Start 10/03 at 00:15; Status UNV Guaifenesin (Mucinex Er) 1,200 mg BID PO Last administered on 03/10/18 19:39; Start 02/25/18 at 09:00 Hydrocortisone (Proctosol-Hc) 1 samy PRN BID PRN RC HEMORRHOIDS; Start 02/25/18 at 00:30 Pantoprazole Sodium (Protonix) 40 mg DAILYAC PO Last administered on 03/10/18 08:02; Start 02/25/18 at 07:30 Polyethylene Glycol (miraLAX) 17 gm BID PO Last administered on 03/10/18 19:39 ; Start 02/25/18 at 09:00 Sennosides (Senna) 17.2 mg DAILY PO Last administered on 03/10/18 08:03; Start 02/25/18 at 09:00 Torsemide (Demadex) 40 mg DAILY PO Last administered on 02/28/18 09:18; Start 02/25/18 at 09:00; Stop 03/01/18 at 18:30; Status DC Sertraline HCl (Zoloft) 25 mg DAILY PO Last administered on 02/28/18 09:18; Start 02/25/18 at 09:00; Stop 02/28/18 at 19:19; Status DC Betamethasone Dipropionate (Diprosone) 1 samy PRN BID PRN TP RASH; Start at 07:45 Mirtazapine (Remeron) 7.5 mg QHS PO Last administered on 03/10/18 19:39; Start 02/25/18 at 21:00 Doxycycline Hyclate (Vibra-Tab) 100 mg BID PO Last administered on 03/05/18 19 :28; Start 02/26/18 at 21:00; Stop 03/05/18 at 23:59; Status DC Lactobacillus Rhamnosus (Culturelle) 1 cap BID PO Last administered on at 19:39; Start 02/27/18 at 21:00 Sertraline HCl (Zoloft) 50 mg DAILY PO Last administered on 03/03/18at 10:20; Start 03/01/18 at 09:00; Stop 03/03/18 at 19:31; Status DC Losartan Potassium (Cozaar) 25 mg DAILY PO Last administered on 03/03/18at 10:23 ; Start 03/02/18 at 09:00; Stop 03/06/18 at 16:42; Status DC Torsemide (Demadex) 20 mg DAILY PO Last administered on 03/06/18at 08:05; Start 03/02/18 at 09:00; Stop 03/06/18 at 16:42; Status DC Donepezil HCl (Aricept) 10 mg DAILY PO Last administered on 03/10/18at 08:03; Start 03/03/18 at 09:00 Bupropion HCl (Wellbutrin Xl) 150 mg DAILY PO Last administered on 03/08/18at 08 :00; Start 03/04/18 at 09:00; Stop 03/08/18 at 18:43; Status DC Olanzapine (ZyPREXA ZYDIS) 1.25 mg PRN Q2HR PRN PO PSYCHOSIS Last administered on 03/08/18 13:11; Start 03/04/18 at 19:30 Bupropion HCl (Wellbutrin Xl) 300 mg DAILY PO Last administered on 03/10/18at 08 :02; Start 03/09/18 at 09:00 Vitamin A/Vitamin D (Vitamin A & D Ointment) 1 samy BID TP Last administered on 03/10/18at 19:39; Start 03/09/18 at 21:00 Vitamin A/Vitamin D (Vitamin A & D Ointment) 1 samy PRN Q1HR PRN TP SKIN PROTECTION; Start 03/09/18 at 15:45 Active Scripts Active Reported Losartan Potassium 50 Mg Tablet 50 Mg PO DAILY Zirgan (Ganciclovir) 5 Gm Gel..gram. 5 Gm OP 5 TIME DAILY Carvedilol 6.25 Mg Tablet 6.25 Mg PO BIDWMEALS Diprolene 0.05% Ointment (Betamethasone/Propylene Glyc) 15 Gm Oint...g. 15 Gm TP PRN BID PRN Zoloft (Sertraline Hcl) 25 Mg Tablet 25 Mg PO DAILY Polyvinyl Alcohol 15 Ml Drops 1 Drop OP PRN QID PRN K-Tab ER (Potassium Chloride) 20 Meq Tablet.er 20 Meq PO DAILY Protonix (Pantoprazole Sodium) 40 Mg Tablet.dr 40 Mg PO DAILY Atorvastatin Calcium 40 Mg Tablet 40 Mg PO DAILY Tamsulosin Hcl 0.4 Mg Cap.er.24h 0.4 Mg PO DAILY Proscar (Finasteride) 5 Mg Tablet 5 Mg PO DAILY Senna Lax (Sennosides) 8.6 Mg Tablet 17.2 Mg PO DAILY Plavix (Clopidogrel Bisulfate) 75 Mg Tablet 75 Mg PO DAILY Ferrous Sulfate 325 Mg Tablet 325 Mg PO DAILY Acetaminophen 325 Mg Tablet 325 Mg PO PRN Q6HRS PRN Vitamin D3 (Cholecalciferol (Vitamin D3)) 1,000 Unit Tablet 1,000 Unit PO DAILY Aspir-Low (Aspirin) 81 Mg Tablet.dr 81 Mg PO DAILY Miralax (Polyethylene Glycol 3350) 17 Gm Powd.pack 17 Gm PO BID Prednisolone Acetate 5 Ml Drops.susp 1 Drop [place]ACHE[place] DAILY Benadryl (Diphenhydramine Hcl) 25 Mg Capsule 25 Mg PO PRN Q6HRS PRN Mucinex (Guaifenesin) 1,200 Mg Tbmp.12hr 1,200 Mg PO BID Fluticasone Propionate Nasal [place] (Fluticasone Propionate) 16 Gm [place].susp 2 Spr NS BID Preparation H (Hydrocortisone) 26 Gm Cream..g. 26 Gm TP PRN BID PRN Isosorbide Mononitrate Er (Isosorbide Mononitrate) 30 Mg Tab.er.24h 15 Mg PO DAILY Torsemide 20 Mg Tablet 40 Mg PO DAILY Aricept (Donepezil Hcl) 5 Mg Tablet 5 Mg PO DAILY I have reviewed the current psychotropics carefully including drug interactions. Risk benefit ratio favors no change other than as noted in my dictated progress note. 

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
[2018-03-11] MEDS: PANTOPRAZOLE 40 MG TABLET. PO SCH ×3 (07:30→14:56)
[2018-03-11] MEDS: buPROPion XL 300 MG TAB.ER.24H. PO SCH ×2 (07:31→09:00)
[2018-03-11] MEDS: POLYETHYLENE GLYCOL 3350 17 GM PACKET. PO SCH ×4 (07:31→21:00)
[2018-03-11] MEDS: FINASTERIDE 5 MG TABLET PO SCH ×2 (07:32→09:00)
[2018-03-11] MEDS: FERROUS SULFATE 325 MG TABLET. PO SCH ×2 (07:32→09:00)
[2018-03-11] MEDS: CHOLECALCIFEROL (VITAMIN D3) 1,000 UNIT TABLET PO SCH ×2 (07:32→09:00)
[2018-03-11] MEDS: LACTOBACILLUS RHAMNOSUS GG 1 CAPSULE. PO SCH ×4 (07:32→21:00)
[2018-03-11] MEDS: TAMSULOSIN 0.4 MG CAP.ER.24H. PO SCH ×2 (07:32→09:00)
[2018-03-11] MEDS: DONEPEZIL HCL 10 MG TABLET PO SCH ×2 (07:32→09:00)
[2018-03-11] MEDS: CARVEDILOL 6.25 MG TABLET PO SCH ×3 (07:32→17:00)
[2018-03-11] MEDS: SENNOSIDES 8.6 MG TABLET PO SCH ×2 (07:32→09:00)
[2018-03-11] MEDS: ISOSORBIDE MONONITRATE ER 30 MG TAB.ER.24H PO SCH (07:33)
[2018-03-11] MEDS: VITS A & D/LANOLIN TOPICAL OINTMENT 56GM TUBE. TP SCH ×2 (07:52→20:57)
[2018-03-11] MEDS: prednisoLONE ACETATE 1% OPHTH SUSPENSION 5ML BOTTLE. OU SCH ×2 (07:53→09:00)
[2018-03-11] MEDS: FLUTICASONE 50MCG/NASAL SPRAY 16GM BOTTLE. NS SCH ×2 (07:53→09:00)
[2018-03-11 15:59] VITALS: BP 163/65
[2018-03-11] MEDS: MIRTAZAPINE 7.5 MG TABLET. PO SCH ×2 (20:53→21:00)
[2018-03-11] MEDS: ATORVASTATIN CALCIUM 20 MG TABLET PO SCH ×2 (20:53→21:00)
--- NOTE | 2018-03-11 23:28 | PDOC ---
Exam Note: [place] Note: Please also refer to the separate dictated note~for this date of service dictated separately.~Patient seen individually. Discussed the patient with Nursing staff reviewed the chart.~Reviewed interim history and current functioning. Reviewed vital signs,~Labs/ Radiology~and current medications noted below. Continue current treatment with the changes noted in the dictated addendum note Assessment: Vital Signs: Vital Signs Date Time Temp Pulse Resp B/P (MAP) Pulse Ox O2 Delivery O2 Flow Rate FiO2 03/11/18 17:00 88 163/65 03/11/18 15:59 97.6 20 99 Room Air 03/10/18 16:27 2.0 I&O Intake and Output 03/11/18 07:00 Intake Total 960 ml Balance 960 ml Intake Oral 960 ml # Bowel Movements 2 Current Medications: Meds: Current Medications Levofloxacin (Levaquin) 500 mg 1X ONCE PO Last administered on 02/24/18at 18:22 ; Start 02/24/18 at 18:15; Stop 02/25/18 at 00:01; Status DC Acetaminophen (Tylenol) 650 mg PRN Q6HRS PRN PO PAIN / TEMP; Start 02/24/18 at 23:15 Multi-Ingredient Ointment (Analgesic [place]) 1 samy PRN QID PRN TP MUSCLE PAIN; Start 02/24/18 at 23:15 Al Hydroxide/Mg Hydroxide (Mylanta Plus Xs) 15 ml PRN AFTMEALHC PRN PO DYSPEPSIA; Start 02/24/18 at 23:15 Magnesium Hydroxide (Milk Of Magnesia) 2,400 mg PRN QHS PRN PO CONSTIPATION; Start 02/24/18 at 23:15 Fosfomycin Tromethamine (Monurol) 3 gm 1X ONCE PO Last administered on at 08:54; Start 02/25/18 at 10:00; Stop 02/25/18 at 10:01; Status DC Acetaminophen (Tylenol) 325 mg PRN Q6HRS PRN PO PAIN; Start 02/25/18 at 00:15 Betamethasone Dipropion Augmented (Diprolene-Af) 15 samy PRN BID PRN TP RASH; Start 02/25/18 at 00:15; Stop 02/25/18 at 07:33; Status DC Vitamin D (Vitamin D3) 1,000 unit DAILY PO Last administered on 03/10/18 08:03 ; Start 02/25/18 at 09:00 Clopidogrel Bisulfate (Plavix) 75 mg DAILY PO Last administered on 02/25/18 08 :02; Start 02/25/18 at 09:00; Stop 02/25/18 at 14:01; Status DC Donepezil HCl (Aricept) 5 mg DAILY PO Last administered on 03/02/18 09:02; Start 02/25/18 at 09:00; Stop 03/02/18 at 18:42; Status DC Ferrous Sulfate (Feosol) 325 mg DAILY PO Last administered on 03/10/18 08:02; Start 02/25/18 at 09:00 Isosorbide Mononitrate (Imdur) 15 mg DAILY PO Last administered on 03/10/18 08 :02; Start 02/25/18 at 09:00 Losartan Potassium (Cozaar) 50 mg DAILY PO Last administered on 02/28/18 09:21 ; Start 02/25/18 at 09:00; Stop 03/01/18 at 18:30; Status DC Artificial Tears (Artificial Tears) 1 drop PRN QID PRN OU DRY EYE Last administered on 03/10/18 19:39; Start 02/25/18 at 00:15 Prednisolone Acetate (Pred Forte) 1 drop DAILY OU Last administered on 08:15; Start 02/25/18 at 09:00 Tamsulosin HCl (Flomax) 0.4 mg DAILY PO Last administered on 03/10/18 08:03; Start 02/25/18 at 09:00 Aspirin (Children'S Aspirin) 81 mg DAILYWBKFT PO Last administered on at 08:04; Start 02/25/18 at 08:00; Stop 03/06/18 at 16:42; Status DC Atorvastatin Calcium (Lipitor) 40 mg QHS PO Last administered on 03/10/18 19: 39; Start 02/25/18 at 21:00 Carvedilol (Coreg) 6.25 mg BIDWMEALS PO Last administered on 03/10/18 08:03; Start 02/25/18 at 08:00 Finasteride (Proscar) 5 mg DAILY PO Last administered on 5/25/18at 08:03; Start 02/25/18 at 09:00 Fluticasone Propionate (Flonase) 2 spray DAILY NS Last administered on 08:16; Start 02/25/18 at 09:00 Non-Formulary Medication (Ganciclovir (Zirgan)) 5 gm 5 time daily OP ; Start 10/03 at 00:15; Status UNV Guaifenesin (Mucinex Er) 1,200 mg BID PO Last administered on 03/10/18 19:39; Start 02/25/18 at 09:00 Hydrocortisone (Proctosol-Hc) 1 samy PRN BID PRN RC HEMORRHOIDS; Start 02/25/18 at 00:30 Pantoprazole Sodium (Protonix) 40 mg DAILYAC PO Last administered on 03/11/18at 14:56; Start 02/25/18 at 07:30 Polyethylene Glycol (miraLAX) 17 gm BID PO Last administered on 03/10/18 19:39 ; Start 02/25/18 at 09:00 Sennosides (Senna) 17.2 mg DAILY PO Last administered on 03/10/18 08:03; Start 02/25/18 at 09:00 Torsemide (Demadex) 40 mg DAILY PO Last administered on 02/28/18 09:18; Start 02/25/18 at 09:00; Stop 03/01/18 at 18:30; Status DC Sertraline HCl (Zoloft) 25 mg DAILY PO Last administered on 02/28/18 09:18; Start 02/25/18 at 09:00; Stop 02/28/18 at 19:19; Status DC Betamethasone Dipropionate (Diprosone) 1 samy PRN BID PRN TP RASH; Start at 07:45 Mirtazapine (Remeron) 7.5 mg QHS PO Last administered on 03/10/18 19:39; Start 02/25/18 at 21:00 Doxycycline Hyclate (Vibra-Tab) 100 mg BID PO Last administered on 03/05/18 19 :28; Start 02/26/18 at 21:00; Stop 03/05/18 at 23:59; Status DC Lactobacillus Rhamnosus (Culturelle) 1 cap BID PO Last administered on 5/25/ 18at 19:39; Start 02/27/18 at 21:00 Sertraline HCl (Zoloft) 50 mg DAILY PO Last administered on 03/03/18at 10:20; Start 03/01/18 at 09:00; Stop 03/03/18 at 19:31; Status DC Losartan Potassium (Cozaar) 25 mg DAILY PO Last administered on 03/03/18at 10:23 ; Start 03/02/18 at 09:00; Stop 03/06/18 at 16:42; Status DC Torsemide (Demadex) 20 mg DAILY PO Last administered on 03/06/18at 08:05; Start 03/02/18 at 09:00; Stop 03/06/18 at 16:42; Status DC Donepezil HCl (Aricept) 10 mg DAILY PO Last administered on 03/10/18at 08:03; Start 03/03/18 at 09:00 Bupropion HCl (Wellbutrin Xl) 150 mg DAILY PO Last administered on 03/08/18at 08 :00; Start 03/04/18 at 09:00; Stop 03/08/18 at 18:43; Status DC Olanzapine (ZyPREXA ZYDIS) 1.25 mg PRN Q2HR PRN PO PSYCHOSIS Last administered on 03/08/18at 13:11; Start 03/04/18 at 19:30 Bupropion HCl (Wellbutrin Xl) 300 mg DAILY PO Last administered on 03/10/18at 08 :02; Start 03/09/18 at 09:00 Vitamin A/Vitamin D (Vitamin A & D Ointment) 1 samy BID TP Last administered on 03/11/18at 20:57; Start 03/09/18 at 21:00 Vitamin A/Vitamin D (Vitamin A & D Ointment) 1 samy PRN Q1HR PRN TP SKIN PROTECTION; Start 03/09/18 at 15:45 Aripiprazole (Abilify) 2.5 mg DAILY PO ; Start 03/12/18 at 09:00 Active Scripts Active Reported Losartan Potassium 50 Mg Tablet 50 Mg PO DAILY Zirgan (Ganciclovir) 5 Gm Gel..gram. 5 Gm OP 5 TIME DAILY Carvedilol 6.25 Mg Tablet 6.25 Mg PO BIDWMEALS Diprolene 0.05% Ointment (Betamethasone/Propylene Glyc) 15 Gm Oint...g. 15 Gm TP PRN BID PRN Zoloft (Sertraline Hcl) 25 Mg Tablet 25 Mg PO DAILY Polyvinyl Alcohol 15 Ml Drops 1 Drop OP PRN QID PRN K-Tab ER (Potassium Chloride) 20 Meq Tablet.er 20 Meq PO DAILY Protonix (Pantoprazole Sodium) 40 Mg Tablet.dr 40 Mg PO DAILY Atorvastatin Calcium 40 Mg Tablet 40 Mg PO DAILY Tamsulosin Hcl 0.4 Mg Cap.er.24h 0.4 Mg PO DAILY Proscar (Finasteride) 5 Mg Tablet 5 Mg PO DAILY Senna Lax (Sennosides) 8.6 Mg Tablet 17.2 Mg PO DAILY Plavix (Clopidogrel Bisulfate) 75 Mg Tablet 75 Mg PO DAILY Ferrous Sulfate 325 Mg Tablet 325 Mg PO DAILY Acetaminophen 325 Mg Tablet 325 Mg PO PRN Q6HRS PRN Vitamin D3 (Cholecalciferol (Vitamin D3)) 1,000 Unit Tablet 1,000 Unit PO DAILY Aspir-Low (Aspirin) 81 Mg Tablet.dr 81 Mg PO DAILY Miralax (Polyethylene Glycol 3350) 17 Gm Powd.pack 17 Gm PO BID Prednisolone Acetate 5 Ml Drops.susp 1 Drop EACHEYE DAILY Benadryl (Diphenhydramine Hcl) 25 Mg Capsule 25 Mg PO PRN Q6HRS PRN Mucinex (Guaifenesin) 1,200 Mg Tbmp.12hr 1,200 Mg PO BID Fluticasone Propionate Nasal [place] (Fluticasone Propionate) 16 Gm [place].susp 2 Spr NS BID Preparation H (Hydrocortisone) 26 Gm Cream..g. 26 Gm TP PRN BID PRN Isosorbide Mononitrate Er (Isosorbide Mononitrate) 30 Mg Tab.er.24h 15 Mg PO DAILY Torsemide 20 Mg Tablet 40 Mg PO DAILY Aricept (Donepezil Hcl) 5 Mg Tablet 5 Mg PO DAILY I have reviewed the current psychotropics carefully including drug interactions. Risk benefit ratio favors no change other than as noted in my dictated progress note. 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
[2018-03-12 06:26] VITALS: BP 166/64
[2018-03-12] MEDS: TAMSULOSIN 0.4 MG CAP.ER.24H. PO SCH (07:21)
[2018-03-12] MEDS: POLYETHYLENE GLYCOL 3350 17 GM PACKET. PO SCH ×2 (07:21→20:10)
[2018-03-12] MEDS: CARVEDILOL 6.25 MG TABLET PO SCH ×2 (07:21→18:14)
[2018-03-12] MEDS: buPROPion XL 300 MG TAB.ER.24H. PO SCH (07:21)
[2018-03-12] MEDS: CHOLECALCIFEROL (VITAMIN D3) 1,000 UNIT TABLET PO SCH (07:22)
[2018-03-12] MEDS: FERROUS SULFATE 325 MG TABLET. PO SCH (07:22)
[2018-03-12] MEDS: SENNOSIDES 8.6 MG TABLET PO SCH (07:22)
[2018-03-12] MEDS: FINASTERIDE 5 MG TABLET PO SCH (07:22)
[2018-03-12] MEDS: DONEPEZIL HCL 10 MG TABLET PO SCH (07:22)
[2018-03-12] MEDS: ISOSORBIDE MONONITRATE ER 30 MG TAB.ER.24H PO SCH (07:23)
[2018-03-12] MEDS: LACTOBACILLUS RHAMNOSUS GG 1 CAPSULE. PO SCH ×2 (07:23→20:11)
[2018-03-12] MEDS: FLUTICASONE 50MCG/NASAL SPRAY 16GM BOTTLE. NS SCH (07:24)
[2018-03-12] MEDS: prednisoLONE ACETATE 1% OPHTH SUSPENSION 5ML BOTTLE. OU SCH (07:24)
[2018-03-12] MEDS: VITS A & D/LANOLIN TOPICAL OINTMENT 56GM TUBE. TP SCH ×2 (07:25→20:12)
[2018-03-12] MEDS: ARIPiprazole 5 MG TABLET PO SCH (07:50)
[2018-03-12 16:53] VITALS: BP 173/66
[2018-03-12] MEDS: MIRTAZAPINE 7.5 MG TABLET. PO SCH (20:10)
[2018-03-12] MEDS: ATORVASTATIN CALCIUM 20 MG TABLET PO SCH (20:10)
[2018-03-12] MEDS: ACETAMINOPHEN 325 MG TABLET PO PRN (20:24)
--- NOTE | 2018-03-12 21:03 | PDOC ---
Exam Note: [place] Note: Please also refer to the separate dictated note~for this date of service dictated separately.~Patient seen individually. Discussed the patient with Nursing staff reviewed the chart.~Reviewed interim history and current functioning. Reviewed vital signs,~Labs/ Radiology~and current medications noted below. Continue current treatment with the changes noted in the dictated addendum note Assessment: Vital Signs: Vital Signs Date Time Temp Pulse Resp B/P (MAP) Pulse Ox O2 Delivery O2 Flow Rate FiO2 03/12/18 18:14 61 173/66 03/12/18 16:53 97.8 20 100 2.0 03/11/18 15:59 Room Air I&O Intake and Output 03/12/18 07:00 Intake Total 120 ml Balance 120 ml Intake Oral 120 ml Labs: Laboratory Tests Test 03/12/18 07:21 Glucose (Fingerstick) 112 mg/dL (70-99) H Current Medications: Meds: Current Medications Levofloxacin (Levaquin) 500 mg 1X ONCE PO Last administered on 02/24/18at 18:22 ; Start 02/24/18 at 18:15; Stop 02/25/18 at 00:01; Status DC Acetaminophen (Tylenol) 650 mg PRN Q6HRS PRN PO PAIN / TEMP Last administered on 03/12/18at 20:24; Start 02/24/18 at 23:15 Multi-Ingredient Ointment (Analgesic [place]) 1 samy PRN QID PRN TP MUSCLE PAIN; Start 02/24/18 at 23:15 Al Hydroxide/Mg Hydroxide (Mylanta Plus Xs) 15 ml PRN AFTMEALHC PRN PO DYSPEPSIA; Start 02/24/18 at 23:15 Magnesium Hydroxide (Milk Of Magnesia) 2,400 mg PRN QHS PRN PO CONSTIPATION; Start 02/24/18 at 23:15 Fosfomycin Tromethamine (Monurol) 3 gm 1X ONCE PO Last administered on at 08:54; Start 02/25/18 at 10:00; Stop 02/25/18 at 10:01; Status DC Acetaminophen (Tylenol) 325 mg PRN Q6HRS PRN PO PAIN; Start 02/25/18 at 00:15 Betamethasone Dipropion Augmented (Diprolene-Af) 15 samy PRN BID PRN TP RASH; Start 02/25/18 at 00:15; Stop 02/25/18 at 07:33; Status DC Vitamin D (Vitamin D3) 1,000 unit DAILY PO Last administered on 03/12/18 07:22 ; Start 02/25/18 at 09:00 Clopidogrel Bisulfate (Plavix) 75 mg DAILY PO Last administered on 02/25/18 08 :02; Start 02/25/18 at 09:00; Stop 02/25/18 at 14:01; Status DC Donepezil HCl (Aricept) 5 mg DAILY PO Last administered on 03/02/18 09:02; Start 02/25/18 at 09:00; Stop 03/02/18 at 18:42; Status DC Ferrous Sulfate (Feosol) 325 mg DAILY PO Last administered on 03/12/18 07:22; Start 02/25/18 at 09:00 Isosorbide Mononitrate (Imdur) 15 mg DAILY PO Last administered on 03/12/18 07 :23; Start 02/25/18 at 09:00 Losartan Potassium (Cozaar) 50 mg DAILY PO Last administered on 02/28/18 09:21 ; Start 02/25/18 at 09:00; Stop 03/01/18 at 18:30; Status DC Artificial Tears (Artificial Tears) 1 drop PRN QID PRN OU DRY EYE Last administered on 03/10/18 19:39; Start 02/25/18 at 00:15 Prednisolone Acetate (Pred Forte) 1 drop DAILY OU Last administered on 07:24; Start 02/25/18 at 09:00 Tamsulosin HCl (Flomax) 0.4 mg DAILY PO Last administered on 03/12/18 07:21; Start 02/25/18 at 09:00 Aspirin (Children'S Aspirin) 81 mg DAILYWBKFT PO Last administered on 08:04; Start 02/25/18 at 08:00; Stop 03/06/18 at 16:42; Status DC Atorvastatin Calcium (Lipitor) 40 mg QHS PO Last administered on 03/12/18 20: 10; Start 02/25/18 at 21:00 Carvedilol (Coreg) 6.25 mg BIDWMEALS PO Last administered on 5/27/18at 18:14; Start 02/25/18 at 08:00 Finasteride (Proscar) 5 mg DAILY PO Last administered on 03/12/18at 07:22; Start 02/25/18 at 09:00 Fluticasone Propionate (Flonase) 2 spray DAILY NS Last administered on at 07:24; Start 02/25/18 at 09:00 Non-Formulary Medication (Ganciclovir (Zirgan)) 5 gm 5 time daily OP ; Start 10/03 at 00:15; Status UNV Guaifenesin (Mucinex Er) 1,200 mg BID PO Last administered on 03/12/18at 20:10; Start 02/25/18 at 09:00 Hydrocortisone (Proctosol-Hc) 1 samy PRN BID PRN RC HEMORRHOIDS; Start 02/25/18 at 00:30 Pantoprazole Sodium (Protonix) 40 mg DAILYAC PO Last administered on 03/11/18at 14:56; Start 02/25/18 at 07:30 Polyethylene Glycol (miraLAX) 17 gm BID PO Last administered on 03/12/18at 20:10 ; Start 02/25/18 at 09:00 Sennosides (Senna) 17.2 mg DAILY PO Last administered on 03/12/18at 07:22; Start 02/25/18 at 09:00 Torsemide (Demadex) 40 mg DAILY PO Last administered on 02/28/18at 09:18; Start 02/25/18 at 09:00; Stop 03/01/18 at 18:30; Status DC Sertraline HCl (Zoloft) 25 mg DAILY PO Last administered on 02/28/18at 09:18; Start 02/25/18 at 09:00; Stop 02/28/18 at 19:19; Status DC Betamethasone Dipropionate (Diprosone) 1 samy PRN BID PRN TP RASH; Start at 07:45 Mirtazapine (Remeron) 7.5 mg QHS PO Last administered on 03/12/18at 20:10; Start 02/25/18 at 21:00 Doxycycline Hyclate (Vibra-Tab) 100 mg BID PO Last administered on 03/05/18at 19 :28; Start 02/26/18 at 21:00; Stop 03/05/18 at 23:59; Status DC Lactobacillus Rhamnosus (Culturelle) 1 cap BID PO Last administered on at 20:11; Start 02/27/18 at 21:00 Sertraline HCl (Zoloft) 50 mg DAILY PO Last administered on 03/03/18at 10:20; Start 03/01/18 at 09:00; Stop 03/03/18 at 19:31; Status DC Losartan Potassium (Cozaar) 25 mg DAILY PO Last administered on 03/03/18at 10:23 ; Start 03/02/18 at 09:00; Stop 03/06/18 at 16:42; Status DC Torsemide (Demadex) 20 mg DAILY PO Last administered on 03/06/18at 08:05; Start 03/02/18 at 09:00; Stop 03/06/18 at 16:42; Status DC Donepezil HCl (Aricept) 10 mg DAILY PO Last administered on 03/12/18at 07:22; Start 03/03/18 at 09:00 Bupropion HCl (Wellbutrin Xl) 150 mg DAILY PO Last administered on 03/08/18at 08 :00; Start 03/04/18 at 09:00; Stop 03/08/18 at 18:43; Status DC Olanzapine (ZyPREXA ZYDIS) 1.25 mg PRN Q2HR PRN PO PSYCHOSIS Last administered on 03/08/18at 13:11; Start 03/04/18 at 19:30 Bupropion HCl (Wellbutrin Xl) 300 mg DAILY PO Last administered on 03/12/18at 07 :21; Start 03/09/18 at 09:00 Vitamin A/Vitamin D (Vitamin A & D Ointment) 1 samy BID TP Last administered on 03/12/18at 20:12; Start 03/09/18 at 21:00 Vitamin A/Vitamin D (Vitamin A & D Ointment) 1 samy PRN Q1HR PRN TP SKIN PROTECTION; Start 03/09/18 at 15:45 Aripiprazole (Abilify) 2.5 mg DAILY PO Last administered on 03/12/18at 07:50; Start 03/12/18 at 09:00 Active Scripts Active Reported Losartan Potassium 50 Mg Tablet 50 Mg PO DAILY Zirgan (Ganciclovir) 5 Gm Gel..gram. 5 Gm OP 5 TIME DAILY Carvedilol 6.25 Mg Tablet 6.25 Mg PO BIDWMEALS Diprolene 0.05% Ointment (Betamethasone/Propylene Glyc) 15 Gm Oint...g. 15 Gm TP PRN BID PRN Zoloft (Sertraline Hcl) 25 Mg Tablet 25 Mg PO DAILY Polyvinyl Alcohol 15 Ml Drops 1 Drop OP PRN QID PRN K-Tab ER (Potassium Chloride) 20 Meq Tablet.er 20 Meq PO DAILY Protonix (Pantoprazole Sodium) 40 Mg Tablet.dr 40 Mg PO DAILY Atorvastatin Calcium 40 Mg Tablet 40 Mg PO DAILY Tamsulosin Hcl 0.4 Mg Cap.er.24h 0.4 Mg PO DAILY Proscar (Finasteride) 5 Mg Tablet 5 Mg PO DAILY Senna Lax (Sennosides) 8.6 Mg Tablet 17.2 Mg PO DAILY Plavix (Clopidogrel Bisulfate) 75 Mg Tablet 75 Mg PO DAILY Ferrous Sulfate 325 Mg Tablet 325 Mg PO DAILY Acetaminophen 325 Mg Tablet 325 Mg PO PRN Q6HRS PRN Vitamin D3 (Cholecalciferol (Vitamin D3)) 1,000 Unit Tablet 1,000 Unit PO DAILY Aspir-Low (Aspirin) 81 Mg Tablet.dr 81 Mg PO DAILY Miralax (Polyethylene Glycol 3350) 17 Gm Powd.pack 17 Gm PO BID Prednisolone Acetate 5 Ml Drops.susp 1 Drop EACHEYE DAILY Benadryl (Diphenhydramine Hcl) 25 Mg Capsule 25 Mg PO PRN Q6HRS PRN Mucinex (Guaifenesin) 1,200 Mg Tbmp.12hr 1,200 Mg PO BID Fluticasone Propionate Nasal [place] (Fluticasone Propionate) 16 Gm [place].susp 2 Spr NS BID Preparation H (Hydrocortisone) 26 Gm Cream..g. 26 Gm TP PRN BID PRN Isosorbide Mononitrate Er (Isosorbide Mononitrate) 30 Mg Tab.er.24h 15 Mg PO DAILY Torsemide 20 Mg Tablet 40 Mg PO DAILY Aricept (Donepezil Hcl) 5 Mg Tablet 5 Mg PO DAILY I have reviewed the current psychotropics carefully including drug interactions. Risk benefit ratio favors no change other than as noted in my dictated progress note. Diagnosis: Problems: (1) UTI (urinary tract infection) (2) Psychiatric care (3) Anxiety disorder (4) Impulse control disorder (5) Major depressive disorder, recurrent episode (6) Mixed Alzheimer's and vascular dementia with behavior disturbances ABELINO BOND MD March 12, 2018 21:03
[2018-03-13 06:28] VITALS: BP 178/65
[2018-03-13] MEDS: LACTOBACILLUS RHAMNOSUS GG 1 CAPSULE. PO SCH ×2 (08:18→20:52)
[2018-03-13] MEDS: POLYETHYLENE GLYCOL 3350 17 GM PACKET. PO SCH (08:18)
[2018-03-13] MEDS: buPROPion XL 300 MG TAB.ER.24H. PO SCH (08:19)
[2018-03-13] MEDS: CHOLECALCIFEROL (VITAMIN D3) 1,000 UNIT TABLET PO SCH (08:19)
[2018-03-13] MEDS: ARIPiprazole 5 MG TABLET PO SCH (08:19)
[2018-03-13] MEDS: FERROUS SULFATE 325 MG TABLET. PO SCH (08:19)
[2018-03-13] MEDS: DONEPEZIL HCL 10 MG TABLET PO SCH (08:19)
[2018-03-13] MEDS: FINASTERIDE 5 MG TABLET PO SCH (08:20)
[2018-03-13] MEDS: SENNOSIDES 8.6 MG TABLET PO SCH (08:20)
[2018-03-13] MEDS: TAMSULOSIN 0.4 MG CAP.ER.24H. PO SCH (08:20)
[2018-03-13] MEDS: CARVEDILOL 6.25 MG TABLET PO SCH ×2 (08:20→18:41)
[2018-03-13] MEDS: FLUTICASONE 50MCG/NASAL SPRAY 16GM BOTTLE. NS SCH (08:21)
[2018-03-13] MEDS: PANTOPRAZOLE 40 MG TABLET. PO SCH (08:21)
[2018-03-13] MEDS: ISOSORBIDE MONONITRATE ER 30 MG TAB.ER.24H PO SCH (08:21)
[2018-03-13] MEDS: prednisoLONE ACETATE 1% OPHTH SUSPENSION 5ML BOTTLE. OU SCH (08:21)
[2018-03-13] MEDS: VITS A & D/LANOLIN TOPICAL OINTMENT 56GM TUBE. TP SCH ×2 (08:22→20:57)
[2018-03-13] MEDS ORDERED: LOPERAMIDE 2 MG CAPSULE PO PRN (10:30)
[2018-03-13 16:08] VITALS: BP 164/67
--- NOTE | 2018-03-13 20:46 | PDOC ---
Exam Note: Stevenson Note: Please also refer to the separate dictated note~for this date of service dictated separately.~Patient seen individually. Discussed the patient with Nursing staff reviewed the chart.~Reviewed interim history and current functioning. Reviewed vital signs,~Labs/ Radiology~and current medications noted below. Continue current treatment with the changes noted in the dictated addendum note Assessment: Vital Signs: Vital Signs Date Time Temp Pulse Resp B/P (MAP) Pulse Ox O2 Delivery O2 Flow Rate FiO2 03/13/18 18:41 62 164/67 03/13/18 16:08 97.3 16 100 0.5 03/11/18 15:59 Room Air I&O Intake and Output 03/13/18 07:00 Intake Total 960 ml Balance 960 ml Intake Oral 960 ml # Voids 1 # Bowel Movements 3 Labs: Laboratory Tests Test 03/13/18 07:36 Glucose (Fingerstick) 114 mg/dL (70-99) H Current Medications: Meds: Current Medications Levofloxacin (Levaquin) 500 mg 1X ONCE PO Last administered on 02/24/18at 18:22 ; Start 02/24/18 at 18:15; Stop 02/25/18 at 00:01; Status DC Acetaminophen (Tylenol) 650 mg PRN Q6HRS PRN PO PAIN / TEMP Last administered on 03/12/18at 20:24; Start 02/24/18 at 23:15 Multi-Ingredient Ointment (Analgesic [place]) 1 samy PRN QID PRN TP MUSCLE PAIN; Start 02/24/18 at 23:15 Al Hydroxide/Mg Hydroxide (Mylanta Plus Xs) 15 ml PRN AFTMEALHC PRN PO DYSPEPSIA; Start 02/24/18 at 23:15 Magnesium Hydroxide (Milk Of Magnesia) 2,400 mg PRN QHS PRN PO CONSTIPATION; Start 02/24/18 at 23:15 Fosfomycin Tromethamine (Monurol) 3 gm 1X ONCE PO Last administered on at 08:54; Start 02/25/18 at 10:00; Stop 02/25/18 at 10:01; Status DC Acetaminophen (Tylenol) 325 mg PRN Q6HRS PRN PO PAIN; Start 02/25/18 at 00:15 Betamethasone Dipropion Augmented (Diprolene-Af) 15 samy PRN BID PRN TP RASH; Start 02/25/18 at 00:15; Stop 02/25/18 at 07:33; Status DC Vitamin D (Vitamin D3) 1,000 unit DAILY PO Last administered on 03/13/18 08:19 ; Start 02/25/18 at 09:00 Clopidogrel Bisulfate (Plavix) 75 mg DAILY PO Last administered on 02/25/18 08 :02; Start 02/25/18 at 09:00; Stop 02/25/18 at 14:01; Status DC Donepezil HCl (Aricept) 5 mg DAILY PO Last administered on 03/02/18 09:02; Start 02/25/18 at 09:00; Stop 03/02/18 at 18:42; Status DC Ferrous Sulfate (Feosol) 325 mg DAILY PO Last administered on 03/13/18 08:19; Start 02/25/18 at 09:00 Isosorbide Mononitrate (Imdur) 15 mg DAILY PO Last administered on 03/13/18 08 :21; Start 02/25/18 at 09:00 Losartan Potassium (Cozaar) 50 mg DAILY PO Last administered on 02/28/18 09:21 ; Start 02/25/18 at 09:00; Stop 03/01/18 at 18:30; Status DC Artificial Tears (Artificial Tears) 1 drop PRN QID PRN OU DRY EYE Last administered on 03/10/18 19:39; Start 02/25/18 at 00:15 Prednisolone Acetate (Pred Forte) 1 drop DAILY OU Last administered on 08:21; Start 02/25/18 at 09:00 Tamsulosin HCl (Flomax) 0.4 mg DAILY PO Last administered on 03/13/18 08:20; Start 02/25/18 at 09:00 Aspirin (Children'S Aspirin) 81 mg DAILYWBKFT PO Last administered on at 08:04; Start 02/25/18 at 08:00; Stop 03/06/18 at 16:42; Status DC Atorvastatin Calcium (Lipitor) 40 mg QHS PO Last administered on 03/12/18at 20: 10; Start 02/25/18 at 21:00 Carvedilol (Coreg) 6.25 mg BIDWMEALS PO Last administered on 03/13/18at 18:41; Start 02/25/18 at 08:00 Finasteride (Proscar) 5 mg DAILY PO Last administered on 03/13/18at 08:20; Start 02/25/18 at 09:00 Fluticasone Propionate (Flonase) 2 spray DAILY NS Last administered on at 08:21; Start 02/25/18 at 09:00 Non-Formulary Medication (Ganciclovir (Zirgan)) 5 gm 5 time daily OP ; Start 10/03 at 00:15; Status UNV Guaifenesin (Mucinex Er) 1,200 mg BID PO Last administered on 03/13/18at 08:20; Start 02/25/18 at 09:00 Hydrocortisone (Proctosol-Hc) 1 samy PRN BID PRN RC HEMORRHOIDS; Start 02/25/18 at 00:30 Pantoprazole Sodium (Protonix) 40 mg DAILYAC PO Last administered on 03/13/18at 08:21; Start 02/25/18 at 07:30 Polyethylene Glycol (miraLAX) 17 gm BID PO Last administered on 03/13/18at 08:18 ; Start 02/25/18 at 09:00; Stop 03/13/18 at 10:11; Status DC Sennosides (Senna) 17.2 mg DAILY PO Last administered on 03/13/18at 08:20; Start 02/25/18 at 09:00 Torsemide (Demadex) 40 mg DAILY PO Last administered on 02/28/18at 09:18; Start 02/25/18 at 09:00; Stop 03/01/18 at 18:30; Status DC Sertraline HCl (Zoloft) 25 mg DAILY PO Last administered on 02/28/18at 09:18; Start 02/25/18 at 09:00; Stop 02/28/18 at 19:19; Status DC Betamethasone Dipropionate (Diprosone) 1 samy PRN BID PRN TP RASH; Start at 07:45 Mirtazapine (Remeron) 7.5 mg QHS PO Last administered on 03/12/18at 20:10; Start 02/25/18 at 21:00 Doxycycline Hyclate (Vibra-Tab) 100 mg BID PO Last administered on 03/05/18 19 :28; Start 02/26/18 at 21:00; Stop 03/05/18 at 23:59; Status DC Lactobacillus Rhamnosus (Culturelle) 1 cap BID PO Last administered on at 08:18; Start 02/27/18 at 21:00 Sertraline HCl (Zoloft) 50 mg DAILY PO Last administered on 03/03/18at 10:20; Start 03/01/18 at 09:00; Stop 03/03/18 at 19:31; Status DC Losartan Potassium (Cozaar) 25 mg DAILY PO Last administered on 03/03/18at 10:23 ; Start 03/02/18 at 09:00; Stop 03/06/18 at 16:42; Status DC Torsemide (Demadex) 20 mg DAILY PO Last administered on 03/06/18at 08:05; Start 03/02/18 at 09:00; Stop 03/06/18 at 16:42; Status DC Donepezil HCl (Aricept) 10 mg DAILY PO Last administered on 03/13/18at 08:19; Start 03/03/18 at 09:00 Bupropion HCl (Wellbutrin Xl) 150 mg DAILY PO Last administered on 03/08/18at 08 :00; Start 03/04/18 at 09:00; Stop 03/08/18 at 18:43; Status DC Olanzapine (ZyPREXA ZYDIS) 1.25 mg PRN Q2HR PRN PO PSYCHOSIS Last administered on 03/08/18at 13:11; Start 03/04/18 at 19:30 Bupropion HCl (Wellbutrin Xl) 300 mg DAILY PO Last administered on 03/13/18at 08 :19; Start 03/09/18 at 09:00 Vitamin A/Vitamin D (Vitamin A & D Ointment) 1 samy BID TP Last administered on 03/13/18at 08:22; Start 03/09/18 at 21:00 Vitamin A/Vitamin D (Vitamin A & D Ointment) 1 samy PRN Q1HR PRN TP SKIN PROTECTION; Start 03/09/18 at 15:45 Aripiprazole (Abilify) 2.5 mg DAILY PO Last administered on 03/13/18at 08:19; Start 03/12/18 at 09:00 Polyethylene Glycol (miraLAX) 17 gm PRN BID PRN PO CONSTIPATION; Start at 09:00 Loperamide HCl (Imodium) 2 mg PRN Q15MIN PRN PO DIARRHEA Last administered on at 10:48; Start 03/13/18 at 10:30 Active Scripts Active Reported Losartan Potassium 50 Mg Tablet 50 Mg PO DAILY Zirgan (Ganciclovir) 5 Gm Gel..gram. 5 Gm OP 5 TIME DAILY Carvedilol 6.25 Mg Tablet 6.25 Mg PO BIDWMEALS Diprolene 0.05% Ointment (Betamethasone/Propylene Glyc) 15 Gm Oint...g. 15 Gm TP PRN BID PRN Zoloft (Sertraline Hcl) 25 Mg Tablet 25 Mg PO DAILY Polyvinyl Alcohol 15 Ml Drops 1 Drop OP PRN QID PRN K-Tab ER (Potassium Chloride) 20 Meq Tablet.er 20 Meq PO DAILY Protonix (Pantoprazole Sodium) 40 Mg Tablet.dr 40 Mg PO DAILY Atorvastatin Calcium 40 Mg Tablet 40 Mg PO DAILY Tamsulosin Hcl 0.4 Mg Cap.er.24h 0.4 Mg PO DAILY Proscar (Finasteride) 5 Mg Tablet 5 Mg PO DAILY Senna Lax (Sennosides) 8.6 Mg Tablet 17.2 Mg PO DAILY Plavix (Clopidogrel Bisulfate) 75 Mg Tablet 75 Mg PO DAILY Ferrous Sulfate 325 Mg Tablet 325 Mg PO DAILY Acetaminophen 325 Mg Tablet 325 Mg PO PRN Q6HRS PRN Vitamin D3 (Cholecalciferol (Vitamin D3)) 1,000 Unit Tablet 1,000 Unit PO DAILY Aspir-Low (Aspirin) 81 Mg Tablet.dr 81 Mg PO DAILY Miralax (Polyethylene Glycol 3350) 17 Gm Powd.pack 17 Gm PO BID Prednisolone Acetate 5 Ml Drops.susp 1 Drop EACHEYE DAILY Benadryl (Diphenhydramine Hcl) 25 Mg Capsule 25 Mg PO PRN Q6HRS PRN Mucinex (Guaifenesin) 1,200 Mg Tbmp.12hr 1,200 Mg PO BID Fluticasone Propionate Nasal [place] (Fluticasone Propionate) 16 Gm [place].susp 2 Spr NS BID Preparation H (Hydrocortisone) 26 Gm Cream..g. 26 Gm TP PRN BID PRN Isosorbide Mononitrate Er (Isosorbide Mononitrate) 30 Mg Tab.er.24h 15 Mg PO DAILY Torsemide 20 Mg Tablet 40 Mg PO DAILY Aricept (Donepezil Hcl) 5 Mg Tablet 5 Mg PO DAILY I have reviewed the current psychotropics carefully including drug interactions. Risk benefit ratio favors no change other than as noted in my dictated progress note. 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
[2018-03-13] MEDS: ATORVASTATIN CALCIUM 20 MG TABLET PO SCH (20:52)
[2018-03-13] MEDS: MIRTAZAPINE 7.5 MG TABLET. PO SCH (20:52)
--- NOTE | 2018-03-13 22:30 | PN ---
DATE: 03/10/2018 PSYCHIATRIC PROGRESS NOTE This is a late entry 03/10/2018, covers elements not covered in my initial note. SUBJECTIVE: I met with the patient in the evening. The patient slept 8-1/2 hours, is doing better, somewhat irritable at times. REVIEW OF SYSTEMS: No CV, , pulmonary, eye, ENT system symptoms on review. Gait unsteady in wheelchair. MENTAL STATUS EXAM: Oriented to himself and situation. Speech coherent, abstraction fair, computation impaired, language function intact, attention span short. Mood and affect showing improvement at times. LABORATORY DATA: Reviewed. IMPRESSION: Major depressive disorder with psychotic features; major neurocognitive disorder, early Alzheimer, vascular with delusion, depression. Rest unchanged. PLAN: Continue psychotropics mentioned in my initial note. MAN Kunal BOND MD DR: CRISTY/mechelle JOB#: [id number] / [id number]
--- NOTE | 2018-03-13 22:33 | PN ---
DATE: 03/11/2018 PSYCHIATRIC PROGRESS NOTE This is a late entry 03/11/2018, covers elements not covered in my initial note. SUBJECTIVE: The patient slept 7 hours, gets anxious, restless, withdrawn, depressed. Refuses certain meals. Per nursing report reportedly he wants to "get rid of myself." When I questioned him directly denied suicidal ideation, slept 7 hours previous evening, appetite poor, trying to throw himself out of his wheelchair onto the floor. Oxygen was pulled off by the patient, 95% sats on room air. We will continue unchanged. REVIEW OF SYSTEMS: Ambulation impaired, in wheelchair. No CV, , pulmonary, eye, ENT system symptoms on review. Reliability poor. MENTAL STATUS EXAM: Oriented to himself and situation. Speech coherent, abstraction fair, computation impaired, language function intact. Mood and affect showing improvement. IMPRESSION: Unchanged from initial note. PLAN: Start Abilify 2.5 mg a day to augment Wellbutrin as an antidepressant. Adjust further as clinically indicated. MAN Kunal BOND MD DR: CRISTY/mechelle JOB#: [id number] / [id number]
[2018-03-14 06:24] VITALS: BP 130/74
[2018-03-14] MEDS ORDERED: POLYETHYLENE GLYCOL 3350 17 GM PACKET. PO PRN (09:00)
[2018-03-14] MEDS: ARIPiprazole 5 MG TABLET PO SCH (09:21)
[2018-03-14] MEDS: SENNOSIDES 8.6 MG TABLET PO SCH (09:21)
[2018-03-14] MEDS: buPROPion XL 300 MG TAB.ER.24H. PO SCH (09:22)
[2018-03-14] MEDS: FERROUS SULFATE 325 MG TABLET. PO SCH (09:22)
[2018-03-14] MEDS: CARVEDILOL 6.25 MG TABLET PO SCH ×2 (09:22→17:00)
[2018-03-14] MEDS: FINASTERIDE 5 MG TABLET PO SCH (09:22)
[2018-03-14] MEDS: CHOLECALCIFEROL (VITAMIN D3) 1,000 UNIT TABLET PO SCH (09:22)
[2018-03-14] MEDS: ISOSORBIDE MONONITRATE ER 30 MG TAB.ER.24H PO SCH (09:23)
[2018-03-14] MEDS: PANTOPRAZOLE 40 MG TABLET. PO SCH (09:24)
[2018-03-14] MEDS: TAMSULOSIN 0.4 MG CAP.ER.24H. PO SCH (09:24)
[2018-03-14] MEDS: LACTOBACILLUS RHAMNOSUS GG 1 CAPSULE. PO SCH ×2 (09:24→19:58)
[2018-03-14] MEDS: DONEPEZIL HCL 10 MG TABLET PO SCH (09:24)
[2018-03-14] MEDS: FLUTICASONE 50MCG/NASAL SPRAY 16GM BOTTLE. NS SCH (09:25)
[2018-03-14] MEDS: VITS A & D/LANOLIN TOPICAL OINTMENT 56GM TUBE. TP SCH ×2 (09:27→19:59)
[2018-03-14] MEDS: prednisoLONE ACETATE 1% OPHTH SUSPENSION 5ML BOTTLE. OU SCH (09:27)
[2018-03-14 16:19] VITALS: BP 123/65
[2018-03-14] MEDS: ATORVASTATIN CALCIUM 20 MG TABLET PO SCH (19:58)
[2018-03-14] MEDS: MIRTAZAPINE 7.5 MG TABLET. PO SCH (19:58)
--- NOTE | 2018-03-14 20:50 | PDOC ---
Exam Note: Stevenson Note: Please also refer to the separate dictated note~for this date of service dictated separately.~Patient seen individually. Discussed the patient with Nursing staff reviewed the chart.~Reviewed interim history and current functioning. Reviewed vital signs,~Labs/ Radiology~and current medications noted below. Continue current treatment with the changes noted in the dictated addendum note Assessment: Vital Signs: Vital Signs Date Time Temp Pulse Resp B/P (MAP) Pulse Ox O2 Delivery O2 Flow Rate FiO2 03/14/18 17:00 96 123/65 03/14/18 16:19 97.7 20 98 03/13/18 16:08 0.5 03/11/18 15:59 Room Air I&O Intake and Output 03/14/18 07:00 Intake Total 1440 ml Balance 1440 ml Intake Oral 1440 ml # Bowel Movements 1 Labs: Laboratory Tests Test 03/14/18 07:40 Glucose (Fingerstick) 127 mg/dL (70-99) H Current Medications: Meds: Current Medications Levofloxacin (Levaquin) 500 mg 1X ONCE PO Last administered on 02/24/18at 18:22 ; Start 02/24/18 at 18:15; Stop 02/25/18 at 00:01; Status DC Acetaminophen (Tylenol) 650 mg PRN Q6HRS PRN PO PAIN / TEMP Last administered on 03/12/18at 20:24; Start 02/24/18 at 23:15 Multi-Ingredient Ointment (Analgesic [place]) 1 samy PRN QID PRN TP MUSCLE PAIN; Start 02/24/18 at 23:15 Al Hydroxide/Mg Hydroxide (Mylanta Plus Xs) 15 ml PRN AFTMEALHC PRN PO DYSPEPSIA; Start 02/24/18 at 23:15 Magnesium Hydroxide (Milk Of Magnesia) 2,400 mg PRN QHS PRN PO CONSTIPATION; Start 02/24/18 at 23:15 Fosfomycin Tromethamine (Monurol) 3 gm 1X ONCE PO Last administered on at 08:54; Start 02/25/18 at 10:00; Stop 02/25/18 at 10:01; Status DC Acetaminophen (Tylenol) 325 mg PRN Q6HRS PRN PO PAIN; Start 02/25/18 at 00:15 Betamethasone Dipropion Augmented (Diprolene-Af) 15 samy PRN BID PRN TP RASH; Start 02/25/18 at 00:15; Stop 02/25/18 at 07:33; Status DC Vitamin D (Vitamin D3) 1,000 unit DAILY PO Last administered on 03/14/18 09:22 ; Start 02/25/18 at 09:00 Clopidogrel Bisulfate (Plavix) 75 mg DAILY PO Last administered on 02/25/18 08 :02; Start 02/25/18 at 09:00; Stop 02/25/18 at 14:01; Status DC Donepezil HCl (Aricept) 5 mg DAILY PO Last administered on 03/02/18 09:02; Start 02/25/18 at 09:00; Stop 03/02/18 at 18:42; Status DC Ferrous Sulfate (Feosol) 325 mg DAILY PO Last administered on 03/14/18 09:22; Start 02/25/18 at 09:00 Isosorbide Mononitrate (Imdur) 15 mg DAILY PO Last administered on 03/14/18 09 :23; Start 02/25/18 at 09:00 Losartan Potassium (Cozaar) 50 mg DAILY PO Last administered on 02/28/18 09:21 ; Start 02/25/18 at 09:00; Stop 03/01/18 at 18:30; Status DC Artificial Tears (Artificial Tears) 1 drop PRN QID PRN OU DRY EYE Last administered on 03/10/18 19:39; Start 02/25/18 at 00:15 Prednisolone Acetate (Pred Forte) 1 drop DAILY OU Last administered on 09:27; Start 02/25/18 at 09:00 Tamsulosin HCl (Flomax) 0.4 mg DAILY PO Last administered on 03/14/18 09:24; Start 02/25/18 at 09:00 Aspirin (Children'S Aspirin) 81 mg DAILYWBKFT PO Last administered on 08:04; Start 02/25/18 at 08:00; Stop 03/06/18 at 16:42; Status DC Atorvastatin Calcium (Lipitor) 40 mg QHS PO Last administered on 03/14/18 19: 58; Start 02/25/18 at 21:00 Carvedilol (Coreg) 6.25 mg BIDWMEALS PO Last administered on 03/14/18at 17:00; Start 02/25/18 at 08:00 Finasteride (Proscar) 5 mg DAILY PO Last administered on 03/14/18at 09:22; Start 02/25/18 at 09:00 Fluticasone Propionate (Flonase) 2 spray DAILY NS Last administered on at 09:25; Start 02/25/18 at 09:00 Non-Formulary Medication (Ganciclovir (Zirgan)) 5 gm 5 time daily OP ; Start 10/03 at 00:15; Status UNV Guaifenesin (Mucinex Er) 1,200 mg BID PO Last administered on 03/14/18at 19:59; Start 02/25/18 at 09:00 Hydrocortisone (Proctosol-Hc) 1 samy PRN BID PRN RC HEMORRHOIDS; Start 02/25/18 at 00:30 Pantoprazole Sodium (Protonix) 40 mg DAILYAC PO Last administered on 03/14/18at 09:24; Start 02/25/18 at 07:30 Polyethylene Glycol (miraLAX) 17 gm BID PO Last administered on 03/13/18at 08:18 ; Start 02/25/18 at 09:00; Stop 03/13/18 at 10:11; Status DC Sennosides (Senna) 17.2 mg DAILY PO Last administered on 03/14/18at 09:21; Start 02/25/18 at 09:00 Torsemide (Demadex) 40 mg DAILY PO Last administered on 02/28/18at 09:18; Start 02/25/18 at 09:00; Stop 03/01/18 at 18:30; Status DC Sertraline HCl (Zoloft) 25 mg DAILY PO Last administered on 02/28/18at 09:18; Start 02/25/18 at 09:00; Stop 02/28/18 at 19:19; Status DC Betamethasone Dipropionate (Diprosone) 1 samy PRN BID PRN TP RASH; Start at 07:45 Mirtazapine (Remeron) 7.5 mg QHS PO Last administered on 03/14/18at 19:58; Start 02/25/18 at 21:00 Doxycycline Hyclate (Vibra-Tab) 100 mg BID PO Last administered on 03/05/18 19 :28; Start 02/26/18 at 21:00; Stop 03/05/18 at 23:59; Status DC Lactobacillus Rhamnosus (Culturelle) 1 cap BID PO Last administered on 19:58; Start 02/27/18 at 21:00 Sertraline HCl (Zoloft) 50 mg DAILY PO Last administered on 03/03/18 10:20; Start 03/01/18 at 09:00; Stop 03/03/18 at 19:31; Status DC Losartan Potassium (Cozaar) 25 mg DAILY PO Last administered on 03/03/18 10:23 ; Start 03/02/18 at 09:00; Stop 03/06/18 at 16:42; Status DC Torsemide (Demadex) 20 mg DAILY PO Last administered on 03/06/18 08:05; Start 03/02/18 at 09:00; Stop 03/06/18 at 16:42; Status DC Donepezil HCl (Aricept) 10 mg DAILY PO Last administered on 03/14/18at 09:24; Start 03/03/18 at 09:00 Bupropion HCl (Wellbutrin Xl) 150 mg DAILY PO Last administered on 03/08/18 08 :00; Start 03/04/18 at 09:00; Stop 03/08/18 at 18:43; Status DC Olanzapine (ZyPREXA ZYDIS) 1.25 mg PRN Q2HR PRN PO PSYCHOSIS Last administered on 03/08/18 13:11; Start 03/04/18 at 19:30 Bupropion HCl (Wellbutrin Xl) 300 mg DAILY PO Last administered on 03/14/18at 09 :22; Start 03/09/18 at 09:00 Vitamin A/Vitamin D (Vitamin A & D Ointment) 1 samy BID TP Last administered on 03/14/18 19:59; Start 03/09/18 at 21:00 Vitamin A/Vitamin D (Vitamin A & D Ointment) 1 samy PRN Q1HR PRN TP SKIN PROTECTION; Start 03/09/18 at 15:45 Aripiprazole (Abilify) 2.5 mg DAILY PO Last administered on 03/14/18at 09:21; Start 03/12/18 at 09:00 Polyethylene Glycol (miraLAX) 17 gm PRN BID PRN PO CONSTIPATION; Start at 09:00 Loperamide HCl (Imodium) 2 mg PRN Q15MIN PRN PO DIARRHEA Last administered on at 10:48; Start 03/13/18 at 10:30 Active Scripts Active Reported Losartan Potassium 50 Mg Tablet 50 Mg PO DAILY Zirgan (Ganciclovir) 5 Gm Gel..gram. 5 Gm OP 5 TIME DAILY Carvedilol 6.25 Mg Tablet 6.25 Mg PO BIDWMEALS Diprolene 0.05% Ointment (Betamethasone/Propylene Glyc) 15 Gm Oint...g. 15 Gm TP PRN BID PRN Zoloft (Sertraline Hcl) 25 Mg Tablet 25 Mg PO DAILY Polyvinyl Alcohol 15 Ml Drops 1 Drop OP PRN QID PRN K-Tab ER (Potassium Chloride) 20 Meq Tablet.er 20 Meq PO DAILY Protonix (Pantoprazole Sodium) 40 Mg Tablet.dr 40 Mg PO DAILY Atorvastatin Calcium 40 Mg Tablet 40 Mg PO DAILY Tamsulosin Hcl 0.4 Mg Cap.er.24h 0.4 Mg PO DAILY Proscar (Finasteride) 5 Mg Tablet 5 Mg PO DAILY Senna Lax (Sennosides) 8.6 Mg Tablet 17.2 Mg PO DAILY Plavix (Clopidogrel Bisulfate) 75 Mg Tablet 75 Mg PO DAILY Ferrous Sulfate 325 Mg Tablet 325 Mg PO DAILY Acetaminophen 325 Mg Tablet 325 Mg PO PRN Q6HRS PRN Vitamin D3 (Cholecalciferol (Vitamin D3)) 1,000 Unit Tablet 1,000 Unit PO DAILY Aspir-Low (Aspirin) 81 Mg Tablet.dr 81 Mg PO DAILY Miralax (Polyethylene Glycol 3350) 17 Gm Powd.pack 17 Gm PO BID Prednisolone Acetate 5 Ml Drops.susp 1 Drop EACHEYE DAILY Benadryl (Diphenhydramine Hcl) 25 Mg Capsule 25 Mg PO PRN Q6HRS PRN Mucinex (Guaifenesin) 1,200 Mg Tbmp.12hr 1,200 Mg PO BID Fluticasone Propionate Nasal [place] (Fluticasone Propionate) 16 Gm [place].susp 2 Spr NS BID Preparation H (Hydrocortisone) 26 Gm Cream..g. 26 Gm TP PRN BID PRN Isosorbide Mononitrate Er (Isosorbide Mononitrate) 30 Mg Tab.er.24h 15 Mg PO DAILY Torsemide 20 Mg Tablet 40 Mg PO DAILY Aricept (Donepezil Hcl) 5 Mg Tablet 5 Mg PO DAILY I have reviewed the current psychotropics carefully including drug interactions. Risk benefit ratio favors no change other than as noted in my dictated progress note. 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
[2018-03-15] MEDS: CARVEDILOL 6.25 MG TABLET PO SCH ×2 (05:52→17:00)
[2018-03-15] MEDS: ISOSORBIDE MONONITRATE ER 30 MG TAB.ER.24H PO SCH (05:53)
[2018-03-15 06:07] VITALS: BP 181/77
[2018-03-15 06:30] VITALS: BP 100/47
[2018-03-15] MEDS: TAMSULOSIN 0.4 MG CAP.ER.24H. PO SCH (08:44)
[2018-03-15] MEDS: FINASTERIDE 5 MG TABLET PO SCH (08:44)
[2018-03-15] MEDS: FERROUS SULFATE 325 MG TABLET. PO SCH (08:44)
[2018-03-15] MEDS: PANTOPRAZOLE 40 MG TABLET. PO SCH (08:45)
[2018-03-15] MEDS: SENNOSIDES 8.6 MG TABLET PO SCH (08:45)
[2018-03-15] MEDS: ARIPiprazole 5 MG TABLET PO SCH (08:45)
[2018-03-15] MEDS: CHOLECALCIFEROL (VITAMIN D3) 1,000 UNIT TABLET PO SCH (08:45)
[2018-03-15] MEDS: buPROPion XL 300 MG TAB.ER.24H. PO SCH (08:45)
[2018-03-15] MEDS: LACTOBACILLUS RHAMNOSUS GG 1 CAPSULE. PO SCH ×2 (08:45→20:29)
[2018-03-15] MEDS: DONEPEZIL HCL 10 MG TABLET PO SCH (08:46)
[2018-03-15] MEDS: FLUTICASONE 50MCG/NASAL SPRAY 16GM BOTTLE. NS SCH (08:47)
[2018-03-15] MEDS: prednisoLONE ACETATE 1% OPHTH SUSPENSION 5ML BOTTLE. OU SCH (08:47)
[2018-03-15] MEDS: VITS A & D/LANOLIN TOPICAL OINTMENT 56GM TUBE. TP SCH ×2 (08:47→20:30)
--- NOTE | 2018-03-15 12:33 | PN ---
DATE: 03/12/2018 PSYCHIATRIC PROGRESS NOTE This is a late entry 03/12/2018 covers elements not covered in my initial note 03/12/2018. SUBJECTIVE: I met with the patient in the evening. Overall, the patient has done much better, more compliant with his medications and meals. REVIEW OF SYSTEMS: Ambulation impaired, in wheelchair. No CV, , pulmonary, eye, ENT system symptoms on review. MENTAL STATUS EXAM: Oriented to himself and situation. Speech has some latency, coherent. Abstraction fair, computation impaired, language function intact, attention span short. Mood and affect remain somewhat withdrawn, labile, but latter is much improved. LABORATORY DATA: Reviewed. IMPRESSION: Major depressive disorder with psychotic features; cognitive disorder, unspecified. PLAN: Continue psychotropics mentioned in my initial note. MAN Kunal BOND MD DR: CRISTY/mechelle JOB#: [id number] / [id number]
--- NOTE | 2018-03-15 12:40 | PN ---
DATE: 03/13/2018 This is a late entry 03/13/2018, covers the elements not covered in my initial note. SUBJECTIVE: I met with the patient in the evening. He has done better during the day on 03/13/2018 and this is the second good day for him per nursing report, which is quite an improvement. Nursing staff wondered whether the addition of Abilify was helping his mood. REVIEW OF SYSTEMS: Ambulation impaired, in wheelchair. No CV, , pulmonary, eye, ENT system symptoms on review. MENTAL STATUS EXAM: Oriented to himself and situation. Speech moderate latency, often responses monosyllabic. Abstraction fair, computation impaired, language function intact. Mood and affect somewhat dysphoric, depressed, but improved. LABORATORY DATA: Reviewed. IMPRESSION: Unchanged from initial note. PLAN: Continue current psychotropics, Wellbutrin, Aricept, Remeron along with Abilify to augment the Wellbutrin. ABELINO BOND MD DR: CRISTY/mechelle JOB#: [id number] / [id number]
[2018-03-15 16:16] VITALS: BP 161/63
[2018-03-15] MEDS: ATORVASTATIN CALCIUM 20 MG TABLET PO SCH (20:30)
[2018-03-15] MEDS: MIRTAZAPINE 7.5 MG TABLET. PO SCH (20:30)
--- NOTE | 2018-03-15 21:05 | PDOC ---
Exam Note: Stevenson Note: Please also refer to the separate dictated note~for this date of service dictated separately.~Patient seen individually. Discussed the patient with Nursing staff reviewed the chart.~Reviewed interim history and current functioning. Reviewed vital signs,~Labs/ Radiology~and current medications noted below. Continue current treatment with the changes noted in the dictated addendum note Assessment: Vital Signs: Vital Signs Date Time Temp Pulse Resp B/P (MAP) Pulse Ox O2 Delivery O2 Flow Rate FiO2 03/15/18 17:00 54 161/63 03/15/18 16:16 97.2 16 96 Room Air 03/13/18 16:08 0.5 I&O Intake and Output 03/15/18 07:00 Intake Total 1100 ml Balance 1100 ml Intake Oral 1100 ml # Bowel Movements 2 Labs: Laboratory Tests Test 03/15/18 07:36 Glucose (Fingerstick) 122 mg/dL (70-99) H Current Medications: Meds: Current Medications Levofloxacin (Levaquin) 500 mg 1X ONCE PO Last administered on 02/24/18at 18:22 ; Start 02/24/18 at 18:15; Stop 02/25/18 at 00:01; Status DC Acetaminophen (Tylenol) 650 mg PRN Q6HRS PRN PO PAIN / TEMP Last administered on 03/12/18at 20:24; Start 02/24/18 at 23:15 Multi-Ingredient Ointment (Analgesic [place]) 1 samy PRN QID PRN TP MUSCLE PAIN; Start 02/24/18 at 23:15 Al Hydroxide/Mg Hydroxide (Mylanta Plus Xs) 15 ml PRN AFTMEALHC PRN PO DYSPEPSIA; Start 02/24/18 at 23:15 Magnesium Hydroxide (Milk Of Magnesia) 2,400 mg PRN QHS PRN PO CONSTIPATION; Start 02/24/18 at 23:15 Fosfomycin Tromethamine (Monurol) 3 gm 1X ONCE PO Last administered on at 08:54; Start 02/25/18 at 10:00; Stop 02/25/18 at 10:01; Status DC Acetaminophen (Tylenol) 325 mg PRN Q6HRS PRN PO PAIN; Start 02/25/18 at 00:15 Betamethasone Dipropion Augmented (Diprolene-Af) 15 samy PRN BID PRN TP RASH; Start 02/25/18 at 00:15; Stop 02/25/18 at 07:33; Status DC Vitamin D (Vitamin D3) 1,000 unit DAILY PO Last administered on 03/15/18 08:45 ; Start 02/25/18 at 09:00 Clopidogrel Bisulfate (Plavix) 75 mg DAILY PO Last administered on 02/25/18 08 :02; Start 02/25/18 at 09:00; Stop 02/25/18 at 14:01; Status DC Donepezil HCl (Aricept) 5 mg DAILY PO Last administered on 03/02/18 09:02; Start 02/25/18 at 09:00; Stop 03/02/18 at 18:42; Status DC Ferrous Sulfate (Feosol) 325 mg DAILY PO Last administered on 03/15/18 08:44; Start 02/25/18 at 09:00 Isosorbide Mononitrate (Imdur) 15 mg DAILY PO Last administered on 03/15/18 05 :53; Start 02/25/18 at 09:00 Losartan Potassium (Cozaar) 50 mg DAILY PO Last administered on 02/28/18 09:21 ; Start 02/25/18 at 09:00; Stop 03/01/18 at 18:30; Status DC Artificial Tears (Artificial Tears) 1 drop PRN QID PRN OU DRY EYE Last administered on 03/10/18 19:39; Start 02/25/18 at 00:15 Prednisolone Acetate (Pred Forte) 1 drop DAILY OU Last administered on 08:47; Start 02/25/18 at 09:00 Tamsulosin HCl (Flomax) 0.4 mg DAILY PO Last administered on 03/15/18 08:44; Start 02/25/18 at 09:00 Aspirin (Children'S Aspirin) 81 mg DAILYWBKFT PO Last administered on 08:04; Start 02/25/18 at 08:00; Stop 03/06/18 at 16:42; Status DC Atorvastatin Calcium (Lipitor) 40 mg QHS PO Last administered on 03/15/18 20: 30; Start 02/25/18 at 21:00 Carvedilol (Coreg) 6.25 mg BIDWMEALS PO Last administered on 03/15/18 05:52; Start 02/25/18 at 08:00 Finasteride (Proscar) 5 mg DAILY PO Last administered on 03/15/18at 08:44; Start 02/25/18 at 09:00 Fluticasone Propionate (Flonase) 2 spray DAILY NS Last administered on 08:47; Start 02/25/18 at 09:00 Non-Formulary Medication (Ganciclovir (Zirgan)) 5 gm 5 time daily OP ; Start 10/03 at 00:15; Status UNV Guaifenesin (Mucinex Er) 1,200 mg BID PO Last administered on 03/15/18at 20:30; Start 02/25/18 at 09:00 Hydrocortisone (Proctosol-Hc) 1 samy PRN BID PRN RC HEMORRHOIDS; Start 02/25/18 at 00:30 Pantoprazole Sodium (Protonix) 40 mg DAILYAC PO Last administered on 03/15/18at 08:45; Start 02/25/18 at 07:30 Polyethylene Glycol (miraLAX) 17 gm BID PO Last administered on 03/13/18at 08:18 ; Start 02/25/18 at 09:00; Stop 03/13/18 at 10:11; Status DC Sennosides (Senna) 17.2 mg DAILY PO Last administered on 03/15/18at 08:45; Start 02/25/18 at 09:00 Torsemide (Demadex) 40 mg DAILY PO Last administered on 02/28/18at 09:18; Start 02/25/18 at 09:00; Stop 03/01/18 at 18:30; Status DC Sertraline HCl (Zoloft) 25 mg DAILY PO Last administered on 02/28/18at 09:18; Start 02/25/18 at 09:00; Stop 02/28/18 at 19:19; Status DC Betamethasone Dipropionate (Diprosone) 1 samy PRN BID PRN TP RASH; Start at 07:45 Mirtazapine (Remeron) 7.5 mg QHS PO Last administered on 03/15/18at 20:30; Start 02/25/18 at 21:00 Doxycycline Hyclate (Vibra-Tab) 100 mg BID PO Last administered on 03/05/18 19 :28; Start 02/26/18 at 21:00; Stop 03/05/18 at 23:59; Status DC Lactobacillus Rhamnosus (Culturelle) 1 cap BID PO Last administered on 20:29; Start 02/27/18 at 21:00 Sertraline HCl (Zoloft) 50 mg DAILY PO Last administered on 03/03/18at 10:20; Start 03/01/18 at 09:00; Stop 03/03/18 at 19:31; Status DC Losartan Potassium (Cozaar) 25 mg DAILY PO Last administered on 03/03/18 10:23 ; Start 03/02/18 at 09:00; Stop 03/06/18 at 16:42; Status DC Torsemide (Demadex) 20 mg DAILY PO Last administered on 03/06/18at 08:05; Start 03/02/18 at 09:00; Stop 03/06/18 at 16:42; Status DC Donepezil HCl (Aricept) 10 mg DAILY PO Last administered on 03/15/18at 08:46; Start 03/03/18 at 09:00 Bupropion HCl (Wellbutrin Xl) 150 mg DAILY PO Last administered on 03/08/18at 08 :00; Start 03/04/18 at 09:00; Stop 03/08/18 at 18:43; Status DC Olanzapine (ZyPREXA ZYDIS) 1.25 mg PRN Q2HR PRN PO PSYCHOSIS Last administered on 03/08/18at 13:11; Start 03/04/18 at 19:30 Bupropion HCl (Wellbutrin Xl) 300 mg DAILY PO Last administered on 03/15/18 08 :45; Start 03/09/18 at 09:00 Vitamin A/Vitamin D (Vitamin A & D Ointment) 1 samy BID TP Last administered on 03/15/18 20:30; Start 03/09/18 at 21:00 Vitamin A/Vitamin D (Vitamin A & D Ointment) 1 samy PRN Q1HR PRN TP SKIN PROTECTION; Start 03/09/18 at 15:45 Aripiprazole (Abilify) 2.5 mg DAILY PO Last administered on 03/15/18at 08:45; Start 03/12/18 at 09:00 Polyethylene Glycol (miraLAX) 17 gm PRN BID PRN PO CONSTIPATION; Start at 09:00 Loperamide HCl (Imodium) 2 mg PRN Q15MIN PRN PO DIARRHEA Last administered on at 10:48; Start 03/13/18 at 10:30 Active Scripts Active Reported Losartan Potassium 50 Mg Tablet 50 Mg PO DAILY Zirgan (Ganciclovir) 5 Gm Gel..gram. 5 Gm OP 5 TIME DAILY Carvedilol 6.25 Mg Tablet 6.25 Mg PO BIDWMEALS Diprolene 0.05% Ointment (Betamethasone/Propylene Glyc) 15 Gm Oint...g. 15 Gm TP PRN BID PRN Zoloft (Sertraline Hcl) 25 Mg Tablet 25 Mg PO DAILY Polyvinyl Alcohol 15 Ml Drops 1 Drop OP PRN QID PRN K-Tab ER (Potassium Chloride) 20 Meq Tablet.er 20 Meq PO DAILY Protonix (Pantoprazole Sodium) 40 Mg Tablet.dr 40 Mg PO DAILY Atorvastatin Calcium 40 Mg Tablet 40 Mg PO DAILY Tamsulosin Hcl 0.4 Mg Cap.er.24h 0.4 Mg PO DAILY Proscar (Finasteride) 5 Mg Tablet 5 Mg PO DAILY Senna Lax (Sennosides) 8.6 Mg Tablet 17.2 Mg PO DAILY Plavix (Clopidogrel Bisulfate) 75 Mg Tablet 75 Mg PO DAILY Ferrous Sulfate 325 Mg Tablet 325 Mg PO DAILY Acetaminophen 325 Mg Tablet 325 Mg PO PRN Q6HRS PRN Vitamin D3 (Cholecalciferol (Vitamin D3)) 1,000 Unit Tablet 1,000 Unit PO DAILY Aspir-Low (Aspirin) 81 Mg Tablet.dr 81 Mg PO DAILY Miralax (Polyethylene Glycol 3350) 17 Gm Powd.pack 17 Gm PO BID Prednisolone Acetate 5 Ml Drops.susp 1 Drop EACHEYE DAILY Benadryl (Diphenhydramine Hcl) 25 Mg Capsule 25 Mg PO PRN Q6HRS PRN Mucinex (Guaifenesin) 1,200 Mg Tbmp.12hr 1,200 Mg PO BID Fluticasone Propionate Nasal [place] (Fluticasone Propionate) 16 Gm [place].susp 2 Spr NS BID Preparation H (Hydrocortisone) 26 Gm Cream..g. 26 Gm TP PRN BID PRN Isosorbide Mononitrate Er (Isosorbide Mononitrate) 30 Mg Tab.er.24h 15 Mg PO DAILY Torsemide 20 Mg Tablet 40 Mg PO DAILY Aricept (Donepezil Hcl) 5 Mg Tablet 5 Mg PO DAILY I have reviewed the current psychotropics carefully including drug interactions. Risk benefit ratio favors no change other than as noted in my dictated progress note. 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
[2018-03-16] MEDS: ACETAMINOPHEN 325 MG TABLET PO PRN (01:48)
--- NOTE | 2018-03-16 03:40 | PN ---
DATE: 03/14/2018 This is a late entry, 03/14/2018, covers the elements not covered in my initial note, 03/14/2018. SUBJECTIVE: I met with the patient in the evening. Overall, the patient is doing a little better and this is the third day in a row that he is much improved and more interactive. Appetite is good and he is not dropping off to sleep during the day. REVIEW OF SYSTEMS: Hard of hearing, impaired ambulation, in a wheelchair. No CV, , pulmonary, eye system symptoms on review. MENTAL STATUS EXAM: Oriented reasonably. Speech moderate latency. Abstraction fair, computation impaired, language function intact, attention span short. Mood and affect is improved. LABORATORY DATA: Reviewed. IMPRESSION: Unchanged from initial note, major depressive disorder with psychotic features in partial remission; major neurocognitive disorder, early Alzheimer, vascular with delusion, depression. PLAN: Continue psychotropics from my initial note. MAN Kunal BOND MD DR: CRISTY/mechelle JOB#: [id number] / [id number]
[2018-03-16 06:22] VITALS: BP 190/78
[2018-03-16] MEDS: ARIPiprazole 5 MG TABLET PO SCH (07:57)
[2018-03-16] MEDS: SENNOSIDES 8.6 MG TABLET PO SCH (07:57)
[2018-03-16] MEDS: FINASTERIDE 5 MG TABLET PO SCH (07:57)
[2018-03-16] MEDS: LACTOBACILLUS RHAMNOSUS GG 1 CAPSULE. PO SCH (07:57)
[2018-03-16] MEDS: PANTOPRAZOLE 40 MG TABLET. PO SCH (07:57)
[2018-03-16] MEDS: DONEPEZIL HCL 10 MG TABLET PO SCH (07:59)
[2018-03-16] MEDS: ISOSORBIDE MONONITRATE ER 30 MG TAB.ER.24H PO SCH (07:59)
[2018-03-16] MEDS: CARVEDILOL 6.25 MG TABLET PO SCH (07:59)
[2018-03-16] MEDS: buPROPion XL 300 MG TAB.ER.24H. PO SCH (07:59)
[2018-03-16] MEDS: TAMSULOSIN 0.4 MG CAP.ER.24H. PO SCH (08:00)
[2018-03-16] MEDS: CHOLECALCIFEROL (VITAMIN D3) 1,000 UNIT TABLET PO SCH (08:00)
[2018-03-16] MEDS: FERROUS SULFATE 325 MG TABLET. PO SCH (08:00)
[2018-03-16] MEDS: FLUTICASONE 50MCG/NASAL SPRAY 16GM BOTTLE. NS SCH (08:03)
[2018-03-16] MEDS: prednisoLONE ACETATE 1% OPHTH SUSPENSION 5ML BOTTLE. OU SCH (08:03)
[2018-03-16] MEDS: VITS A & D/LANOLIN TOPICAL OINTMENT 56GM TUBE. TP SCH (08:04)
[2018-03-16 11:45] VITALS: BP 93/50
[2018-03-16] MEDS ORDERED: NITROGLYCERIN SUBLINGUAL 0.4 MG BOTTLE OF 25. SL ONE ×2 (11:46→12:00)
--- NOTE | 2018-03-16 12:38 | EKG ---
[address] [address] Test Date: 2018-03-16 Test Time: 12:34:36 Pat Name: ABDIRASHID GALARZA Department: Room: [facility] 1 Gender: M [employer]: : [id number] Requested By: BEN HORTON Order Number: [id number] Reading MD: Measurements Intervals [place] Rate: 56 P: [place]: QRS: -124 QRSD: 138 T: -26 QT: 520 QTc: 505 Interpretive Statements IRREGULAR RHYTHM, NO P-WAVE FOUND RIGHT BUNDLE BRANCH BLOCK CONSIDER RIGHT VENTRICULAR HYPERTROPHY ABNORMAL ECG RI6.01 No previous ECG available for comparison
[2018-03-16 16:13] VITALS: BP 114/74
[2018-03-16 16:17] LABS: RED BLOOD COUNT 2.62 x10^6/uL (4.30-5.70); RED CELL DISTRIBUTION WIDTH 15.6 % (11.5-14.5); WHITE BLOOD COUNT 4.3 x10^3/uL (4.0-11.0)
[2018-03-16 16:32] LABS: ALBUMIN 2.5 g/dL (3.4-5.0); ALBUMIN/GLOBULIN RATIO 0.6 (1.0-1.7); CALCIUM 8.3 mg/dL (8.5-10.1); CREATININE 1.3 mg/dL (0.7-1.3); POTASSIUM 5.3 mmol/L (3.5-5.1); TOTAL BILIRUBIN 0.5 mg/dL (0.2-1.0)
[2018-03-16] MEDS ORDERED: DONE10TA7 PO (17:11)
[2018-03-16] MEDS ORDERED: ISOS30TA4 PO (17:16)
[2018-03-16] MEDS ORDERED: METH57CR8 TP (17:23)
[2018-03-16] MEDS ORDERED: [UNRECOGNIZED DRUG - CODE] TP (17:37)
[2018-03-16] MEDS ORDERED: MIRT15TA PO (17:39)
[2018-03-16] MEDS ORDERED: OLAN2.5T3 PO (17:41)
--- NOTE | 2018-03-16 20:28 | PDOC ---
Exam Note: [place] Note: Please also refer to the separate dictated note~for this date of service dictated separately.~Patient seen individually. Discussed the patient with Nursing staff reviewed the chart.~Reviewed interim history and current functioning. Reviewed vital signs,~Labs/ Radiology~and current medications noted below. Continue current treatment with the changes noted in the dictated addendum note Assessment: Vital Signs: Vital Signs Date Time Temp Pulse Resp B/P (MAP) Pulse Ox O2 Delivery O2 Flow Rate FiO2 03/16/18 16:13 97.5 53 20 114/74 (87) 100 Nasal Cannula 2.0 I&O Intake and Output 03/16/18 07:00 Intake Total 1200 ml Balance 1200 ml Intake Oral 1200 ml Labs: Laboratory Tests Test 03/16/18 07:46 03/16/18 16:05 Glucose (Fingerstick) 136 mg/dL (70-99) H White Blood Count 4.3 x10^3/uL (4.0-11.0) Red Blood Count 2.62 x10^6/uL (4.30-5.70) L Hemoglobin 9.0 g/dL (13.0-17.5) L Hematocrit 26.0 % (39.0-53.0) L Mean Corpuscular Volume 100 fL (79-100) Mean Corpuscular Hemoglobin 34 pg (25-35) Mean Corpuscular Hemoglobin Concent 34 g/dL (31-37) Red Cell Distribution Width 15.6 % (11.5-14.5) H Platelet Count 195 x10^3/uL (140-400) Sodium Level 137 mmol/L (136-145) Potassium Level 5.3 mmol/L (3.5-5.1) H Chloride Level 102 mmol/L (98-107) Carbon Dioxide Level 32 mmol/L (21-32) Anion Gap 3 (6-14) L Blood Urea Nitrogen 39 mg/dL (8-26) H Creatinine 1.3 mg/dL (0.7-1.3) Estimated GFR (Cockcroft-Gault) 52.0 BUN/Creatinine Ratio 30 (6-20) H Glucose Level 144 mg/dL (70-99) H Calcium Level 8.3 mg/dL (8.5-10.1) L Total Bilirubin 0.5 mg/dL (0.2-1.0) Aspartate Amino Transferase (AST) 26 U/L (15-37) Alanine Aminotransferase (ALT) 25 U/L (16-63) Alkaline Phosphatase 68 U/L (46-116) Troponin I Quantitative 0.546 ng/mL (0-0.055) H Total Protein 7.0 g/dL (6.4-8.2) Albumin 2.5 g/dL (3.4-5.0) L Albumin/Globulin Ratio 0.6 (1.0-1.7) L Current Medications: Meds: Current Medications Levofloxacin (Levaquin) 500 mg 1X ONCE PO Last administered on 02/24/18at 18:22 ; Start 02/24/18 at 18:15; Stop 02/25/18 at 00:01; Status DC Acetaminophen (Tylenol) 650 mg PRN Q6HRS PRN PO PAIN / TEMP Last administered on 03/12/18at 20:24; Start 02/24/18 at 23:15; Stop 03/16/18 at 18:20; Status DC Multi-Ingredient Ointment (Analgesic [place]) 1 carley PRN QID PRN TP MUSCLE PAIN; Start 02/24/18 at 23:15; Stop 03/16/18 at 18:20; Status DC Al Hydroxide/Mg Hydroxide (Mylanta Plus Xs) 15 ml PRN AFTMEALHC PRN PO DYSPEPSIA Last administered on 03/16/18at 05:31; Start 02/24/18 at 23:15; Stop at 18:20; Status DC Magnesium Hydroxide (Milk Of Magnesia) 2,400 mg PRN QHS PRN PO CONSTIPATION; Start 02/24/18 at 23:15; Stop 03/16/18 at 18:20; Status DC Fosfomycin Tromethamine (Monurol) 3 gm 1X ONCE PO Last administered on at 08:54; Start 02/25/18 at 10:00; Stop 02/25/18 at 10:01; Status DC Acetaminophen (Tylenol) 325 mg PRN Q6HRS PRN PO PAIN; Start 02/25/18 at 00:15; Stop 03/16/18 at 18:20; Status DC Betamethasone Dipropion Augmented (Diprolene-Af) 15 carley PRN BID PRN TP RASH; Start 02/25/18 at 00:15; Stop 02/25/18 at 07:33; Status DC Vitamin D (Vitamin D3) 1,000 unit DAILY PO Last administered on 03/16/18at 08:00 ; Start 02/25/18 at 09:00; Stop 03/16/18 at 18:20; Status DC Clopidogrel Bisulfate (Plavix) 75 mg DAILY PO Last administered on 02/25/18at 08 :02; Start 02/25/18 at 09:00; Stop 02/25/18 at 14:01; Status DC Donepezil HCl (Aricept) 5 mg DAILY PO Last administered on 03/02/18at 09:02; Start 02/25/18 at 09:00; Stop 03/02/18 at 18:42; Status DC Ferrous Sulfate (Feosol) 325 mg DAILY PO Last administered on 03/16/18at 08:00; Start 02/25/18 at 09:00; Stop 03/16/18 at 18:20; Status DC Isosorbide Mononitrate (Imdur) 15 mg DAILY PO Last administered on 03/16/18at 07 :59; Start 02/25/18 at 09:00; Stop 03/16/18 at 15:41; Status DC Losartan Potassium (Cozaar) 50 mg DAILY PO Last administered on 02/28/18at 09:21 ; Start 02/25/18 at 09:00; Stop 03/01/18 at 18:30; Status DC Artificial Tears (Artificial Tears) 1 drop PRN QID PRN OU DRY EYE Last administered on 03/10/18at 19:39; Start 02/25/18 at 00:15; Stop 03/16/18 at 18:20 ; Status DC Prednisolone Acetate (Pred Forte) 1 drop DAILY OU Last administered on at 08:03; Start 02/25/18 at 09:00; Stop 03/16/18 at 18:20; Status DC Tamsulosin HCl (Flomax) 0.4 mg DAILY PO Last administered on 03/16/18at 08:00; Start 02/25/18 at 09:00; Stop 03/16/18 at 18:20; Status DC Aspirin (Children'S Aspirin) 81 mg DAILYWBKFT PO Last administered on at 08:04; Start 02/25/18 at 08:00; Stop 03/06/18 at 16:42; Status DC Atorvastatin Calcium (Lipitor) 40 mg QHS PO Last administered on 03/15/18at 20: 30; Start 02/25/18 at 21:00; Stop 03/16/18 at 18:20; Status DC Carvedilol (Coreg) 6.25 mg BIDWMEALS PO Last administered on 03/16/18at 07:59; Start 02/25/18 at 08:00; Stop 03/16/18 at 18:20; Status DC Finasteride (Proscar) 5 mg DAILY PO Last administered on 03/16/18at 07:57; Start 02/25/18 at 09:00; Stop 03/16/18 at 18:20; Status DC Fluticasone Propionate (Flonase) 2 spray DAILY NS Last administered on at 08:03; Start 02/25/18 at 09:00; Stop 03/16/18 at 18:20; Status DC Non-Formulary Medication (Ganciclovir (Zirgan)) 5 gm 5 time daily OP ; Start 10/03 at 00:15; Status UNV Guaifenesin (Mucinex Er) 1,200 mg BID PO Last administered on 03/16/18at 07:57; Start 02/25/18 at 09:00; Stop 03/16/18 at 18:20; Status DC Hydrocortisone (Proctosol-Hc) 1 carley PRN BID PRN RC HEMORRHOIDS; Start 02/25/18 at 00:30; Stop 03/16/18 at 18:20; Status DC Pantoprazole Sodium (Protonix) 40 mg DAILYAC PO Last administered on 03/16/18at 07:57; Start 02/25/18 at 07:30; Stop 03/16/18 at 18:20; Status DC Polyethylene Glycol (miraLAX) 17 gm BID PO Last administered on 03/13/18at 08:18 ; Start 02/25/18 at 09:00; Stop 03/13/18 at 10:11; Status DC Sennosides (Senna) 17.2 mg DAILY PO Last administered on 03/16/18at 07:57; Start 02/25/18 at 09:00; Stop 03/16/18 at 18:20; Status DC Torsemide (Demadex) 40 mg DAILY PO Last administered on 02/28/18at 09:18; Start 02/25/18 at 09:00; Stop 03/01/18 at 18:30; Status DC Sertraline HCl (Zoloft) 25 mg DAILY PO Last administered on 02/28/18at 09:18; Start 02/25/18 at 09:00; Stop 02/28/18 at 19:19; Status DC Betamethasone Dipropionate (Diprosone) 1 carley PRN BID PRN TP RASH; Start at 07:45; Stop 03/16/18 at 18:20; Status DC Mirtazapine (Remeron) 7.5 mg QHS PO Last administered on 03/15/18at 20:30; Start 02/25/18 at 21:00; Stop 03/16/18 at 12:25; Status DC Doxycycline Hyclate (Vibra-Tab) 100 mg BID PO Last administered on 03/05/18at 19 :28; Start 02/26/18 at 21:00; Stop 03/05/18 at 23:59; Status DC Lactobacillus Rhamnosus (Culturelle) 1 cap BID PO Last administered on at 07:57; Start 02/27/18 at 21:00; Stop 03/16/18 at 18:20; Status DC Sertraline HCl (Zoloft) 50 mg DAILY PO Last administered on 03/03/18at 10:20; Start 03/01/18 at 09:00; Stop 03/03/18 at 19:31; Status DC Losartan Potassium (Cozaar) 25 mg DAILY PO Last administered on 03/03/18at 10:23 ; Start 03/02/18 at 09:00; Stop 03/06/18 at 16:42; Status DC Torsemide (Demadex) 20 mg DAILY PO Last administered on 03/06/18at 08:05; Start 03/02/18 at 09:00; Stop 03/06/18 at 16:42; Status DC Donepezil HCl (Aricept) 10 mg DAILY PO Last administered on 03/16/18at 07:59; Start 03/03/18 at 09:00; Stop 03/16/18 at 18:20; Status DC Bupropion HCl (Wellbutrin Xl) 150 mg DAILY PO Last administered on 03/08/18at 08 :00; Start 03/04/18 at 09:00; Stop 03/08/18 at 18:43; Status DC Olanzapine (ZyPREXA ZYDIS) 1.25 mg PRN Q2HR PRN PO PSYCHOSIS Last administered on 03/08/18at 13:11; Start 03/04/18 at 19:30; Stop 03/16/18 at 18:20; Status DC Bupropion HCl (Wellbutrin Xl) 300 mg DAILY PO Last administered on 03/16/18at 07 :59; Start 03/09/18 at 09:00; Stop 03/16/18 at 18:20; Status DC Vitamin A/Vitamin D (Vitamin A & D Ointment) 1 carley BID TP Last administered on 03/16/18at 08:04; Start 03/09/18 at 21:00; Stop 03/16/18 at 18:20; Status DC Vitamin A/Vitamin D (Vitamin A & D Ointment) 1 carley PRN Q1HR PRN TP SKIN PROTECTION; Start 03/09/18 at 15:45; Stop 03/16/18 at 18:20; Status DC Aripiprazole (Abilify) 2.5 mg DAILY PO Last administered on 03/16/18at 07:57; Start 03/12/18 at 09:00; Stop 03/16/18 at 18:20; Status DC Polyethylene Glycol (miraLAX) 17 gm PRN BID PRN PO CONSTIPATION; Start at 09:00; Stop 03/16/18 at 18:20; Status DC Loperamide HCl (Imodium) 2 mg PRN Q15MIN PRN PO DIARRHEA Last administered on at 10:48; Start 03/13/18 at 10:30; Stop 03/16/18 at 18:20; Status DC Nitroglycerin (Nitrostat) 0.4 mg 1X ONCE SL Last administered on 03/16/18at 12: 45; Start 03/16/18 at 12:00; Stop 03/16/18 at 12:01; Status DC Nitroglycerin (Nitrostat) 0.4 mg STK-MED ONCE SL Last administered on at 11:46; Start 5/31/18 at 11:46; Stop 03/16/18 at 11:47; Status DC Mirtazapine (Remeron) 15 mg QHS PO ; Start 03/16/18 at 21:00; Stop 03/16/18 at 21:00; Status DC Isosorbide Mononitrate (Imdur) 30 mg DAILY PO ; Start 03/17/18 at 09:00; Stop 03/17/18 at 09:00; Status DC Active Scripts Active Reported Zyprexa (Olanzapine) 2.5 Mg Tablet 1.25 Mg PO Q2HR PRN MDD 7.5/24hrs Remeron (Mirtazapine) 15 Mg Tablet 15 Mg PO HS Skin Repair Lotion (Vit A/Cheng Ac/Aloe V/Emu Oil) 570 Ml Lotion 1 Carley TP Q1HR PRN [place] Ultra Strength Crm (Methyl Salicylate/Menth/Camph) 57 Gm Cream..g. 28 Gm TP QID PRN MUSCLE PAIN Isosorbide Mononitrate Er (Isosorbide Mononitrate) 30 Mg Tab.er.24h 30 Mg PO DAILY Donepezil Hcl 10 Mg Tablet 10 Mg PO DAILY Zirgan (Ganciclovir) 5 Gm Gel..gram. 5 Gm OP 5 TIME DAILY Carvedilol 6.25 Mg Tablet 6.25 Mg PO BIDWMEALS Diprolene 0.05% Ointment (Betamethasone/Propylene Glyc) 15 Gm Oint...g. 15 Gm TP PRN BID PRN Zoloft (Sertraline Hcl) 25 Mg Tablet 25 Mg PO DAILY Polyvinyl Alcohol 15 Ml Drops 1 Drop OP PRN QID PRN K-Tab ER (Potassium Chloride) 20 Meq Tablet.er 20 Meq PO DAILY Protonix (Pantoprazole Sodium) 40 Mg Tablet.dr 40 Mg PO DAILY Atorvastatin Calcium 40 Mg Tablet 40 Mg PO DAILY Tamsulosin Hcl 0.4 Mg Cap.er.24h 0.4 Mg PO DAILY Proscar (Finasteride) 5 Mg Tablet 5 Mg PO DAILY Senna Lax (Sennosides) 8.6 Mg Tablet 17.2 Mg PO DAILY Ferrous Sulfate 325 Mg Tablet 325 Mg PO DAILY Acetaminophen 325 Mg Tablet 325 Mg PO PRN Q6HRS PRN Vitamin D3 (Cholecalciferol (Vitamin D3)) 1,000 Unit Tablet 1,000 Unit PO DAILY Miralax (Polyethylene Glycol 3350) 17 Gm Powd.pack 17 Gm PO BID Prednisolone Acetate 5 Ml Drops.susp 1 Drop EACHEYE DAILY Mucinex (Guaifenesin) 1,200 Mg Tbmp.12hr 1,200 Mg PO BID Fluticasone Propionate Nasal [place] (Fluticasone Propionate) 16 Gm [place].susp 2 Spr NS BID Preparation H (Hydrocortisone) 26 Gm Cream..g. 26 Gm TP PRN BID PRN Torsemide 20 Mg Tablet 40 Mg PO DAILY I have reviewed the current psychotropics carefully including drug interactions. Risk benefit ratio favors no change other than as noted in my dictated progress note. Diagnosis: Problems: (1) Anxiety disorder (2) Impulse control disorder (3) Major depressive disorder, recurrent episode (4) Mixed Alzheimer's and vascular dementia with behavior disturbances ABELINO BOND MD March 16, 2018 20:28
[2018-03-16] MEDS ORDERED: MIRTAZAPINE 15 MG TABLET PO SCH (21:00)
--- NOTE | 2018-03-16 23:16 | PN ---
DATE: 03/16/2018 SUBJECTIVE: The patient is an 88-year-old male patient, who I was asked to see as he developed an episode of chest pain during which he became very pale and apparently the pain has responded to sublingual nitroglycerin. He stated that he carries it with him, used walker, although when we asked him, he said that he has never used in over 2 years now. Apparently last night, his blood pressure was high and also complained of heartburn for which he was given Mylanta. By the time I saw him, he was participating with game with other resident and denied any further episode of chest pain or shortness of breath. PAST MEDICAL HISTORY: Significant for coronary artery disease, syncope. He has episodes of ventricular tachycardia, chronic obstructive pulmonary disease, type 2 diabetes, glaucoma and senile macular degeneration. PAST SURGICAL HISTORY: Unremarkable. PHYSICAL EXAMINATION: GENERAL: When I examined him, he looked well and was clearly in no apparent distress. He was pale, but no jaundice, cyanosis or thyromegaly. No jugular venous distension. No limb edema. VITAL SIGNS: His heart rate was 60, blood pressure was 164/82, temperature was 97.9, respiratory rate 24 and oxygen saturation was 98%. HEAD, EYES, EARS, NOSE AND THROAT: Normocephalic, atraumatic. NECK: Supple. HEART: Showed normal first and second heart sounds. No gallop, rub or murmur. CHEST: Clear to auscultation. No crepitation or rhonchi. ABDOMEN: Distended, soft, nontender. No guarding or rigidity. No organomegaly. Hernial orifice intact. Bowel sounds normal. NEUROLOGIC: He is hard of hearing, but otherwise all his cranial nerves are intact. He moves extremities without difficulty, although he is mostly wheelchair bound. He does walk with a walker with assistance. LABORATORY DATA: His most recent lab work showed a serum sodium 142, potassium 4.8, chloride 103, bicarbonate 36, anion gap of 3, BUN 56, creatinine 1.5. Estimated GFR was 44 mL per minute. His glucose was 219. Calcium was 8.7. Total bilirubin, AST, ALT and alkaline phosphatase were normal. Total protein 6.7. Albumin 2.1. White cell count was 5500. Hemoglobin 9.7, hematocrit 29, MCV 99 and platelet count of 191,000 with normal manual differential. He did have an EKG done today, which showed that he was in sinus bradycardia. In fact, he was in probably atrial fibrillation with slow ventricular response at a heart rate of 56 during the episode. His heart rate was down to the upper 40s. The EKG also showed that he has right bundle branch block. When compared to the previous EKG, there was not much difference as he did have also right bundle branch block and the only difference he was in sinus rhythm at that time. MEDICATIONS: The patient is currently on diphenhydramine 25 mg every 6 hours, Aricept 5 mg once a day, tamsulosin 0.4 mg at bedtime, ferrous sulfate 325 mg once a day, Plavix 75 mg daily, atorvastatin calcium 40 mg daily, isosorbide mononitrate 50 mg daily, carvedilol 6.25 mg twice a day, losartan potassium 50 mg daily. He is on aspirin 81 mg once a day, Tylenol 650 mg every 6 hours, sertraline 25 mg daily, potassium chloride 20 mEq once a day, furosemide 40 mg daily. He is on Mucinex 1200 mg twice a day, ____ 5 grams gel applied topically 5 times a day, Flonase 2 sprays to each nostril twice a day and prednisolone 1 drop to both eyes daily, polyvinyl alcohol 1 drop to both eyes 4 times a day, polyethylene glycol 17 grams twice a day, Senna 2 tablets once a day and Protonix 40 mg once a day, Diprolene 0.05% ointment applied topically twice a day, hydrocortisone for Preparation-H topically p.r.n. b.i.d., cholecalciferol 1000 international units once a day, Proscar 5 mg daily. ASSESSMENT AND PLAN: The patient probably has an episode of chest pain, likely due to angina associated with bradycardia. He did complain of heartburn last night and his blood pressure was high. Given his blood pressure was high and he has sinus bradycardia, we can increase his Imdur to 30 mg once a day. I will do at least 2 sets of cardiac enzyme and repeat all his labs including fasting lipid profile tomorrow and if the cardiac enzymes are elevated, we will consult the cardiology team. BEN HORTON MD DR: GEORGE/mechelle JOB#: [id number] / [id number]
[2018-03-17] MEDS ORDERED: ISOSORBIDE MONONITRATE ER 30 MG TAB.ER.24H PO SCH (09:00)
--- NOTE | 2018-03-17 23:27 | DS ---
DATE OF DISCHARGE: 03/16/2018 DISCHARGE SUMMARY/PSYCHIATRIC PROGRESS NOTE REASON FOR ADMISSION: Please refer to the admission history for details. Briefly, the patient is an 88-year-old male referred to us from [facility] by his primary care physician on account of worsening agitation, confusion, mood lability. He had been urinating and defecating on the floor, cursing at staff, spilling water on purpose, kicking staff. Behaviors were totally unmanageable at the facility resulting in this referral. SIGNIFICANT FINDINGS AND CLINICAL COURSE: Following admission, the patient was seen daily individually from a psychiatric standpoint by myself, followed medically per Dr. Cole/Dr. Gallo. He was quite depressed, withdrawn, appeared very confused, but the confusion was less than it seemed initially on the surface, especially once the mood symptoms improved. He was extremely depressed, irritable, labile, putting his head on the table, refusing to eat and drink frequently. Adjustments were made in his psychotropics and he seemed to respond quite significantly to a combination of Wellbutrin-XL 300 mg a day, augmented with Abilify 2.5 mg a day, Zyprexa was p.r.n., Aricept 10 mg a day, Remeron had been increased to 15 mg at bedtime. He was more interactive, coming out for activities and for meals, much less irritable, not aggressive. He was staffed at a treatment team meeting at length with the entire team morning of 03/16/2018. slide maker of 03/16/2018, he had a cardiac event with raised troponin levels, was transferred to the ICU per Dr. Cole. REVIEW OF SYSTEMS: Prior to discharge on 03/16/2018, hard of hearing. Ambulation in wheelchair. No CV, , pulmonary, eye, ENT system symptoms on review. MENTAL STATUS EXAM: Oriented to himself and situation. Speech has some latency, coherent. Abstraction fair, computation impaired, language function intact, attention span short. Mood and affect was improved. LABORATORY DATA: Reviewed. CONDITION AT DISCHARGE: Improved from a psychiatric standpoint, medically a little more compromised. FINAL DIAGNOSES: Major depressive disorder, recurrent with psychotic features, in partial remission; major neurocognitive disorder, early Alzheimer, vascular with delusion, depression, behavioral disturbance, latter in partial remission; anxiety disorder, unspecified; impulse control disorder, unspecified, raised troponin level. Rest unchanged from admission. DISCHARGE MEDICATIONS: Please refer to the MRAD. I would be happy to follow the patient in the ICU from a psychiatric standpoint if requested and medical followup with Dr. Cole. Time for discharge day management greater than 30 minutes. MAN Kunal BOND MD DR: CRISTY/mechelle JOB#: [id number] / [id number]
--- NOTE | 2018-03-18 02:02 | PN ---
DATE: 03/15/2018 This is a late entry 03/15/2018 covers the elements not covered in my initial note 03/15/2018. SUBJECTIVE: I met with the patient in the evening. The patient slept 7 hours. He has been pleasant, compliant, had a shower, which is an improvement for him. REVIEW OF SYSTEMS: Hard of hearing, impaired ambulation, in wheelchair. No CV, , pulmonary, eye, ENT system symptoms on review. MENTAL STATUS EXAM: Oriented to himself and situation. Speech coherent, abstraction fair, computation impaired, language function intact, attention span short. Mood and affect showing improvement. He is more oriented than he seems on the surface. Mood was improved, less depressed. LABORATORY DATA: Reviewed. IMPRESSION: Major depressive disorder, recurrent, in partial remission; major neurocognitive disorder, early Alzheimer, vascular with depression. Rest unchanged. PLAN: Continue current psychotropics including the augmentation of Wellbutrin with Abilify 2.5 mg a day. MAN Kunal BOND MD DR: CRISTY/mechelle JOB#: [id number] / [id number]
== END 2018-03-16 18:15 | disposition short-term general hospital (02) | DRG 885 ==
LOC: ER 16:57 → GEROPSY 18:52
PROVIDERS: ADMIT Psychiatry & Neurology Psychiatry; ATTEND Psychiatry & Neurology Psychiatry
DX: F33.3 Major depressive disorder, recurrent, severe with psychotic symptoms (principal); B95.62 Methicillin resistant Staphylococcus aureus infection as the cause of diseases classified elsewhere; E11.9 Type 2 diabetes mellitus without complications; F01.51 Vascular dementia, unspecified severity, with behavioral disturbance; I50.9 Heart failure, unspecified; I11.0 Hypertensive heart disease with heart failure; G30.9 Alzheimer's disease, unspecified; E78.5 Hyperlipidemia, unspecified; F09 Unspecified mental disorder due to known physiological condition; F02.81 Dementia in other diseases classified elsewhere, unspecified severity, with behavioral disturbance; N39.0 Urinary tract infection, site not specified; H91.90 Unspecified hearing loss, unspecified ear; F33.41 Major depressive disorder, recurrent, in partial remission; F41.9 Anxiety disorder, unspecified; F63.9 Impulse disorder, unspecified; H35.30 Unspecified macular degeneration; H40.9 Unspecified glaucoma; J44.9 Chronic obstructive pulmonary disease, unspecified; I25.10 Atherosclerotic heart disease of native coronary artery without angina pectoris; N40.0 Benign prostatic hyperplasia without lower urinary tract symptoms; Z66 Do not resuscitate; Z79.899 Other long term (current) drug therapy; Z88.1 Allergy status to other antibiotic agents; Z88.0 Allergy status to penicillin
CPT/HCPCS: 36415; 71045; 80053; 80061; 81001; 82274; 82306; 82607; 82947; 83036; 83540; 83550; 83735; 84436; 84443; 84480; 84484; 85018; 85025; 85027; 86593; 87086; 87186; 93005; 97110; 97116; 97530; 97535; 99285-25

== ENCOUNTER 2018-03-16 18:30 | Inpatient (IN) | payer MEDICARE ==
[2018-03-16] VITALS (7 sets, daily range): BP systolic 141–182; BP diastolic 64–78
[~2018-03-16] VITALS: Ht 167.6 cm; Wt 67.7 kg
[~2018-03-16 18:30] MED LIST: ACET325T21 PO; ASPI81TA50 PO; ATOR40TA59 PO; BETA15OI TP; CARV6.252 PO; CHOL10003 PO; CLOP75TA57 PO; DIPH25CA58 PO; DONE10TA7 PO; DONE5TAB56 PO; FERR325T14 PO; FINA5TAB PO; FLUT16SP21 NS; GANC5GEL OP; GUAI12003 PO; HYDR26CR TP; ISOS30TA4 PO; LOSA50TA6 PO; METH57CR8 TP; MIRT15TA PO; OLAN2.5T3 PO; PANT40TA3 PO; POLY15DR20 OP; POLY17PO5 PO; POTA20TA84 PO; PRED5DRO16 EACHEYE; SENN-87 PO; SERT25TA PO; TAMS0.4C2 PO; TORS20TA2 PO; [UNRECOGNIZED DRUG - CODE] TP
[2018-03-16] MEDS ORDERED: DEXTROSE 50% 25 GM / 50ML DISP.SYRIN. IV PRN (18:45)
[2018-03-16] MEDS ORDERED: BETAMETHASONE AUGMENTED 0.05% TP PRN (19:30)
[2018-03-16] MEDS ORDERED: POLYVINYL ALCOHOL 1.4% OPHTH SOLUTION 15ML BOTTLE. OU PRN (19:30)
[2018-03-16] MEDS ORDERED: GANCICLOVIR OP SCH (19:30)
[2018-03-16] MEDS ORDERED: ALOE V TP SCH (20:00)
[2018-03-16] MEDS ORDERED: VIT A TP SCH (20:00)
[2018-03-16] MEDS ORDERED: EMU OIL TP PRN (20:00)
[2018-03-16] MEDS ORDERED: ALOE V TP PRN (20:00)
[2018-03-16] MEDS ORDERED: METHYL SALICYLATE/MENTHOL TOPICAL OINTMENT 29GM TUBE. TP PRN (20:00)
[2018-03-16] MEDS ORDERED: VITE AC TP PRN (20:00)
[2018-03-16] MEDS ORDERED: VITE AC TP SCH (20:00)
[2018-03-16] MEDS ORDERED: VIT A TP PRN (20:00)
[2018-03-16] MEDS ORDERED: EMU OIL TP SCH (20:00)
[2018-03-16] MEDS ORDERED: PHENYLEPH/MINERAL OIL/PETROLAT RECTAL OINTMENT 28GM TUBE. RC PRN (20:00)
[2018-03-16] MEDS ORDERED: VITS A & D/LANOLIN TOPICAL OINTMENT 56GM TUBE. TP PRN (20:15)
[2018-03-16] MEDS: ATORVASTATIN CALCIUM 20 MG TABLET PO SCH (21:13)
[2018-03-16] MEDS: ACETAMINOPHEN 325 MG TABLET PO PRN (21:13)
[2018-03-16] MEDS: MIRTAZAPINE 15 MG TABLET PO SCH (21:13)
[2018-03-16] MEDS: IPRATRPIUM/ALBUTEROL 0.5/2.5MG 3 ML NEBU. NEB SCH (21:54)
[2018-03-17] VITALS (20 sets, daily range): BP systolic 125–186; BP diastolic 58–83
[2018-03-17] MEDS: IPRATRPIUM/ALBUTEROL 0.5/2.5MG 3 ML NEBU. NEB SCH ×4 (05:52→20:46)
[2018-03-17 06:26] LABS: ALBUMIN 2.4 g/dL (3.4-5.0); ALBUMIN/GLOBULIN RATIO 0.5 (1.0-1.7); CALCIUM 8.1 mg/dL (8.5-10.1); CREATININE 1.3 mg/dL (0.7-1.3); MAGNESIUM 2.6 mg/dL (1.8-2.4); POTASSIUM 5.3 mmol/L (3.5-5.1); TOTAL BILIRUBIN 0.5 mg/dL (0.2-1.0); TOTAL PROTEIN 7.1 g/dL (6.4-8.2)
[2018-03-17 06:27] LABS: BASO % 0 % (0-3); EOS # 0.1 x10^3/uL (0.0-0.7); EOS % 2 % (0-3); HEMATOCRIT 27.4 % (39.0-53.0); HEMOGLOBIN 9.3 g/dL (13.0-17.5); LYMPH # 0.3 x10^3/uL (1.0-4.8); LYMPH % 7 % (24-48); MEAN CORPUSCULAR HEMOGLOBIN 34 pg (25-35); MEAN CORPUSCULAR HGB CONC 34 g/dL (31-37); MEAN CORPUSCULAR VOLUME 101 fL (79-100); MONO # 0.4 x10^3/uL (0.0-1.1); MONO % 10 % (0-9); NEUT # 3.5 x10^3uL (1.8-7.7); NEUT % 81 % (31-73); PLATELET COUNT 179 x10^3/uL (140-400); RED BLOOD COUNT 2.72 x10^6/uL (4.30-5.70); RED CELL DISTRIBUTION WIDTH 15.9 % (11.5-14.5); WHITE BLOOD COUNT 4.4 x10^3/uL (4.0-11.0)
[2018-03-17] MEDS: CARVEDILOL 6.25 MG TABLET PO SCH ×2 (07:19→17:00)
[2018-03-17] MEDS: POTASSIUM CHLORIDE 20 MEQ TABLET.ER. PO SCH (07:28)
[2018-03-17] MEDS: INSULIN LISPRO 300 UNITS/3 ML INSULN.PEN. SQ SCH ×3 (07:52→17:00)
[2018-03-17] MEDS: POLYETHYLENE GLYCOL 3350 17 GM PACKET. PO SCH ×2 (07:54→19:57)
[2018-03-17] MEDS: SERTRALINE 25 MG TABLET. PO SCH (07:54)
[2018-03-17] MEDS: SENNOSIDES 8.6 MG TABLET PO SCH (07:54)
[2018-03-17] MEDS: TAMSULOSIN 0.4 MG CAP.ER.24H. PO SCH (07:55)
[2018-03-17] MEDS: ISOSORBIDE MONONITRATE ER 30 MG TAB.ER.24H PO SCH (07:55)
[2018-03-17] MEDS: FERROUS SULFATE 325 MG TABLET. PO SCH (07:55)
[2018-03-17] MEDS: CHOLECALCIFEROL (VITAMIN D3) 1,000 UNIT TABLET PO SCH (07:55)
[2018-03-17] MEDS: DONEPEZIL HCL 10 MG TABLET PO SCH (07:55)
[2018-03-17] MEDS: PANTOPRAZOLE 40 MG TABLET. PO SCH (07:55)
[2018-03-17] MEDS: FINASTERIDE 5 MG TABLET PO SCH (07:55)
[2018-03-17] MEDS ORDERED: ISOSORBIDE MONONITRATE ER 30 MG TAB.ER.24H PO SCH (09:00)
[2018-03-17] MEDS: FLUTICASONE 50MCG/NASAL SPRAY 16GM BOTTLE. NS SCH ×2 (09:00→19:58)
[2018-03-17] MEDS: prednisoLONE ACETATE 1% OPHTH SUSPENSION 5ML BOTTLE. OU SCH (09:00)
[2018-03-17] MEDS ORDERED: DONEPEZIL HCL 10 MG PO SCH (09:00)
--- NOTE | 2018-03-17 09:20 | PDOC2 ---
CONSULT Date of Admission DATE: 03/17/18 TIME: : Reason for Consult: chest pain, elevated troponin History of Present Illness Mr Stewart is an 88 year old male who was initially admitted to the [facility] for management of psychiatric behaviors. Yesterday while up with physical therapy he apparently developed chest pain which was improved with nitrates. He was started on Imdur and cardiac enzymes were ordered and found to be elevated so consult was called. He is a poor historian and most of the history is obtained from the chart and nursing staff. He does have history of coronary disease and bypass surgery but is unable to tell me when he last saw a photoengraving photographer. He currently denies any discomfort or dyspnea. He reports that prior to coming to the hospital he was walking 1-5 miles per day with his daughter. Nursing staff report that he had apparently been significantly short of breath with any ambulation. Prior medical records have been requested. Past Medical History Positive for COPD, coronary artery disease, history of syncope, ventricular tachycardia, diabetes mellitus, glaucoma, CHF, BPH with urinary retention, hyperlipidemia, anemia, UTI with MRSA for which he recently completed a course of antibiotics, dementia. Past Surgical History CABG Family History non contributory secondary to age Social History No alcohol, drug abuse, or smoking. Lived in assisted living prior to admission. Current Medications Current Medications Insulin Human Lispro (HumaLOG) 0-7 UNITS TIDWMEALS SQ ; Start 03/17/18 at 08:00 Dextrose 12.5 gm PRN Q15MIN PRN IV SEE COMMENTS; Start 03/16/18 at 18:45 Acetaminophen (Tylenol) 325 mg PRN Q6HRS PRN PO PAIN Last administered on at 21:13; Start 03/16/18 at 19:30 Betamethasone Dipropion Augmented (Diprolene-Af) 15 carley PRN BID PRN TP RASH; Start 03/16/18 at 19:30 Vitamin D (Vitamin D3) 1,000 unit DAILY PO Last administered on 03/17/18at 07:55 ; Start 03/17/18 at 09:00 Donepezil HCl (Aricept) 10 mg DAILY PO Last administered on 03/17/18at 07:55; Start 03/17/18 at 09:00 Ferrous Sulfate (Feosol) 325 mg DAILY PO Last administered on 03/17/18at 07:55; Start 03/17/18 at 09:00 Isosorbide Mononitrate (Imdur) 15 mg DAILY PO ; Start 03/17/18 at 09:00; Stop 03/17/18 at 09:00; Status DC Isosorbide Mononitrate (Imdur) 30 mg DAILY PO Last administered on 03/17/18at 07: 55; Start 03/17/18 at 09:00 Artificial Tears (Artificial Tears) 1 drop PRN QID PRN OU DRY EYE; Start at 19:30 Prednisolone Acetate (Pred Forte) 1 drop DAILY OU ; Start 03/17/18 at 09:00 Tamsulosin HCl (Flomax) 0.4 mg DAILY PO Last administered on 03/17/18at 07:55; Start 03/17/18 at 09:00 Atorvastatin Calcium (Lipitor) 40 mg QHS PO Last administered on 03/16/18at 21: 13; Start 03/16/18 at 21:00 Carvedilol (Coreg) 6.25 mg BIDWMEALS PO ; Start 03/17/18 at 08:00 Non-Formulary Medication (Donepezil Hcl ) 10 mg DAILY PO ; Start 03/17/18 at 09: 00; Stop 03/17/18 at 09:00; Status DC Finasteride (Proscar) 5 mg DAILY PO Last administered on 03/17/18at 07:55; Start 03/17/18 at 09:00 Fluticasone Propionate (Flonase) 2 spray BID NS ; Start 03/17/18 at 09:00 Non-Formulary Medication (Ganciclovir (Zirgan)) 5 gm 5 time daily OP ; Start at 19:30; Status UNV Guaifenesin (Mucinex Er) 1,200 mg BID PO Last administered on 03/17/18at 07:55; Start 03/16/18 at 21:00 Phenyleph/Shark Oil/Min Oil/Petrol (Preparation H) 1 carley PRN BID PRN RC RECTAL PAIN; Start 03/16/18 at 20:00 Multi-Ingredient Ointment (Analgesic Proctor) 1 carley PRN QID PRN TP MUSCLE PAIN; Start 03/16/18 at 20:00 Mirtazapine (Remeron) 15 mg QHS PO Last administered on 03/16/18at 21:13; Start 03/16/18 at 21:00 Olanzapine (ZyPREXA ZYDIS) 1.25 mg PRN Q2HR PRN PO AGITATION; Start 03/16/18 at 20:00 Pantoprazole Sodium (Protonix) 40 mg DAILYAC PO Last administered on 03/17/18at 07:55; Start 03/17/18 at 07:30 Polyethylene Glycol (miraLAX) 17 gm BID PO Last administered on 03/17/18at 07:54 ; Start 03/17/18 at 09:00 Potassium Chloride (Klor-Con) 20 meq DAILYWBKFT PO ; Start 03/17/18 at 08:00 Sennosides (Senna) 17.2 mg DAILY PO Last administered on 03/17/18at 07:54; Start 03/17/18 at 09:00 Sertraline HCl (Zoloft) 25 mg DAILY PO Last administered on 03/17/18at 07:54; Start 03/17/18 at 09:00 Torsemide (Demadex) 40 mg DAILY PO ; Start 03/17/18 at 09:00 Non-Formulary Medication (Vit A/Cheng Ac/ Aloe V/Emu Oil (Skin Repair Lotion)) 1 carley Q1HR TP ; Start 03/16/18 at 20:00; Stop 03/16/18 at 20:00; Status DC Albuterol/ Ipratropium (Duoneb) 3 ml RTQID NEB Last administered on 03/17/18at 05 :52; Start 03/16/18 at 20:00 Non-Formulary Medication (Vit A/Cheng Ac/ Aloe V/Emu Oil (Skin Repair Lotion)) 1 carley PRN Q1HR PRN TP DRY SKIN/IRRITATION; Start 03/16/18 at 20:00; Stop at 20:00; Status DC Vitamin A/Vitamin D (Vitamin A & D Ointment) 1 carley PRN Q1HR PRN TP SKIN PROTECTION; Start 03/16/18 at 20:15 Hydralazine HCl (Apresoline) 25 mg BID PO ; Start 03/17/18 at 09:30 Active Scripts Active Reported Zyprexa (Olanzapine) 2.5 Mg Tablet 1.25 Mg PO Q2HR PRN MDD 7.5/24hrs Remeron (Mirtazapine) 15 Mg Tablet 15 Mg PO HS Skin Repair Lotion (Vit A/Cheng Ac/Aloe V/Emu Oil) 570 Ml Lotion 1 Carley TP Q1HR PRN [place] Ultra Strength Crm (Methyl Salicylate/Menth/Camph) 57 Gm Cream..g. 28 Gm TP QID PRN MUSCLE PAIN Isosorbide Mononitrate Er (Isosorbide Mononitrate) 30 Mg Tab.er.24h 30 Mg PO DAILY Donepezil Hcl 10 Mg Tablet 10 Mg PO DAILY Zirgan (Ganciclovir) 5 Gm Gel..gram. 5 Gm OP 5 TIME DAILY Carvedilol 6.25 Mg Tablet 6.25 Mg PO BIDWMEALS Diprolene 0.05% Ointment (Betamethasone/Propylene Glyc) 15 Gm Oint...g. 15 Gm TP PRN BID PRN Zoloft (Sertraline Hcl) 25 Mg Tablet 25 Mg PO DAILY Polyvinyl Alcohol 15 Ml Drops 1 Drop OP PRN QID PRN K-Tab ER (Potassium Chloride) 20 Meq Tablet.er 20 Meq PO DAILY Protonix (Pantoprazole Sodium) 40 Mg Tablet.dr 40 Mg PO DAILY Atorvastatin Calcium 40 Mg Tablet 40 Mg PO DAILY Tamsulosin Hcl 0.4 Mg Cap.er.24h 0.4 Mg PO DAILY Proscar (Finasteride) 5 Mg Tablet 5 Mg PO DAILY Senna Lax (Sennosides) 8.6 Mg Tablet 17.2 Mg PO DAILY Ferrous Sulfate 325 Mg Tablet 325 Mg PO DAILY Acetaminophen 325 Mg Tablet 325 Mg PO PRN Q6HRS PRN Vitamin D3 (Cholecalciferol (Vitamin D3)) 1,000 Unit Tablet 1,000 Unit PO DAILY Miralax (Polyethylene Glycol 3350) 17 Gm Powd.pack 17 Gm PO BID Prednisolone Acetate 5 Ml Drops.susp 1 Drop EACHEYE DAILY Mucinex (Guaifenesin) 1,200 Mg Tbmp.12hr 1,200 Mg PO BID Fluticasone Propionate Nasal [place] (Fluticasone Propionate) 16 Gm [place].susp 2 Spr NS BID Preparation H (Hydrocortisone) 26 Gm Cream..g. 26 Gm TP PRN BID PRN Torsemide 20 Mg Tablet 40 Mg PO DAILY Allergies: Coded Allergies: Penicillins (Verified Allergy, Intermediate, 02/27/18) azithromycin (Verified Allergy, Intermediate, 02/27/18) erythromycin base (Verified Allergy, Intermediate, 02/27/18) I S O L A T I O N *CONTACT* (Verified Allergy, Unknown, 02/27/18) +MRSA urine 02/24/18 Review of System as per HPI General: Alert, Cooperative, No acute distress HEENT: Atraumatic, EOMI Lungs: Other (mildly decreased in bases bilaterally) Heart: Normal S1, Normal S2, Other (bradycardic, no gallops, clicks or rubs) Abdomen: Normal bowel sounds, Soft, No tenderness Extremities: No cyanosis, Other (+edema bilateral lower legs) Neuro: Normal speech Psych/Mental Status: Mood NL, Other (pleasantly confused) VITALS Vital Signs Date Time Temp Pulse Resp B/P (MAP) Pulse Ox O2 Delivery O2 Flow Rate FiO2 03/17/18 08:33 59 16 186/83 (117) 98 Nasal Cannula 2.0 03/17/18 05:20 97.8 Labs Laboratory Tests Test 03/16/18 22:00 03/16/18 22:01 03/17/18 05:35 Creatine Kinase 226 U/L (39-308) 237 U/L (39-308) Troponin I Quantitative 0.513 ng/mL (0-0.055) 0.574 ng/mL (0-0.055) Glucose (Fingerstick) 210 mg/dL (70-99) White Blood Count 4.4 x10^3/uL (4.0-11.0) Red Blood Count 2.72 x10^6/uL (4.30-5.70) Hemoglobin 9.3 g/dL (13.0-17.5) Hematocrit 27.4 % (39.0-53.0) Mean Corpuscular Volume 101 fL (79-100) Mean Corpuscular Hemoglobin 34 pg (25-35) Mean Corpuscular Hemoglobin Concent 34 g/dL (31-37) Red Cell Distribution Width 15.9 % (11.5-14.5) Platelet Count 179 x10^3/uL (140-400) Neutrophils (%) (Auto) 81 % (31-73) Lymphocytes (%) (Auto) 7 % (24-48) Monocytes (%) (Auto) 10 % (0-9) Eosinophils (%) (Auto) 2 % (0-3) Basophils (%) (Auto) 0 % (0-3) Neutrophils # (Auto) 3.5 x10^3uL (1.8-7.7) Lymphocytes # (Auto) 0.3 x10^3/uL (1.0-4.8) Monocytes # (Auto) 0.4 x10^3/uL (0.0-1.1) Eosinophils # (Auto) 0.1 x10^3/uL (0.0-0.7) Basophils # (Auto) 0.0 x10^3/uL (0.0-0.2) Sodium Level 137 mmol/L (136-145) Potassium Level 5.3 mmol/L (3.5-5.1) Chloride Level 102 mmol/L (98-107) Carbon Dioxide Level 32 mmol/L (21-32) Anion Gap 3 (6-14) Blood Urea Nitrogen 37 mg/dL (8-26) Creatinine 1.3 mg/dL (0.7-1.3) Estimated GFR (Cockcroft-Gault) 52.0 BUN/Creatinine Ratio 28 (6-20) Glucose Level 141 mg/dL (70-99) Calcium Level 8.1 mg/dL (8.5-10.1) Magnesium Level 2.6 mg/dL (1.8-2.4) Total Bilirubin 0.5 mg/dL (0.2-1.0) Aspartate Amino Transf (AST/SGOT) 24 U/L (15-37) Alanine Aminotransferase (ALT/SGPT) 23 U/L (16-63) Alkaline Phosphatase 63 U/L (46-116) Creatine Kinase MB (Mass) 4.1 ng/mL (0.0-3.6) Creatine Kinase MB Relative Index 1.7 % (0-4) Total Protein 7.1 g/dL (6.4-8.2) Albumin 2.4 g/dL (3.4-5.0) Albumin/Globulin Ratio 0.5 (1.0-1.7) Images EKG - right bundle branch block, bradycardia, low voltage p waves difficult to see, suspect 1st degree AVB, no acute st/t abnormalities Assessment/Plan 1. Elevated troponin c/w NSTEMI - likely in part demand related secondary to accelerated hypertension. Will check echo for LV function, agree with Imdur. Adjust antihypertensives for improved blood pressure control. Request records. Considering age, functional status and dementia, would recommend medical mgmt and supportive care at this time. 2. CAD/CABG status - request records. Check echo. 3. accelerated hypertension - add hydralazine. 4. bradycardia - hold beta blockers 5. dementia - per Psych/PCP MOON OLSON APRN Mar 17, 2018 09:20
[2018-03-17] MEDS ORDERED: hydrALAZINE 25 MG TABLET PO SCH (09:30)
--- NOTE | 2018-03-17 10:08 | RAD ---
Examination: Single frontal view of the chest. HISTORY: History of elevated troponin COMPARISON: 02/28/2018 FINDINGS: Low lung volumes and technique accentuates heart size and pulmonary vascularity. Mild cardiomegaly. Prominent appearing bilateral interstitial lung markings likely moderate congestive changes.Mild to moderate bilateral pleural effusions identified. IMPRESSION: Findings consistent with congestive changes with bilateral pleural effusions. Electronically signed by: Dimitri Zimmerman MD (03/17/2018 10:05 AM) [id number]
[2018-03-17] MEDS: TORSEMIDE 20 MG TABLET. PO SCH (10:17)
[2018-03-17] MEDS: hydrALAZINE 25 MG TABLET PO SCH ×2 (17:15→19:58)
--- NOTE | 2018-03-17 17:30 | HP ---
ADMIT DATE: 03/16/2018 HISTORY OF PRESENT ILLNESS: The patient is an 88-year-old male patient whom I have seen yesterday [facility] at the nursing staff's request as he apparently developed an episode of chest pain during which he became very pale and apparently the pain has responded to sublingual nitroglycerin. He stated that he carries it with him with his walker, although when we asked him, he said that he has never used it for over 2 years. Apparently the night before, his blood pressure was high and also complained of heartburn for which he was given Mylanta. By the time I saw him yesterday, he was participating with the game with other resident. Denied any further episode of chest pain or shortness of breath. He has had an EKG done, which showed that he was in AFib with right bundle branch block, which is not different from a recent EKG done a few days before. However, I did a set of troponin, which was high at 0.456, and therefore, a decision was made to transfer him down to ICU and to do 2 more sets of cardiac enzymes and to consult the cardiology team. PAST MEDICAL HISTORY: Significant for coronary artery disease, syncopal episode. He has episode of ventricular tachycardia, chronic obstructive pulmonary disease, type 2 diabetes, glaucoma, and senile macular degeneration. PAST SURGICAL HISTORY: Unremarkable. FAMILY HISTORY: Unremarkable. SOCIAL HISTORY: He apparently lives at the custodial. He does not smoke, drink alcohol, or use any recreational drugs. REVIEW OF SYSTEMS: When I saw him, he denied any further episode of chest pain. He did complain of shortness of breath, but said that this is usual as he has COPD and is on oxygen. ALLERGIES: He is allergic to PENICILLIN, AZITHROMYCIN, and ERYTHROMYCIN. MEDICATIONS: He was transferred down to the ICU on following medications: He is on Aricept 10 mg once a day, Flomax 0.4 mg daily, ferrous sulfate 325 mg once a day, atorvastatin calcium 40 mg daily, isosorbide mononitrate that I have increased from 15 to 30 mg. I cut down his carvedilol from 12.5 to 6.25 mg twice a day. He was also on BenGay Ultra Strength cream applied topically twice a day, also Tylenol 650 mg every 6 hours, mirtazapine 50 mg at bedtime, sertraline for Zoloft 25 mg daily, olanzapine 1.25 mg every 2 hours, potassium chloride 20 mEq once a day, furosemide 40 mg daily, guaifenesin 1200 mg twice a day, ganciclovir for Zirgan 5 grams applied topically 5 times a day, Flonase 2 sprays to each nostril twice a day, prednisolone acetate 1 drop to both eyes daily, polyethylene glycol 17 grams twice a day, senna 2 tablets daily, Protonix 40 mg daily, betamethasone for Diprolene 0.05% ointment applied topically twice a day, hydrocortisone or Preparation H topically p.r.n. b.i.d. He is on multivitamin 1 tablet once a day, cholecalciferol vitamin D 1000 International Unit once a day, finasteride 5 mg once a day. PHYSICAL EXAMINATION: GENERAL: On arrival to the ICU, he looked pale, but no jaundice, cyanosis, or thyromegaly. No jugular venous distention. Mild bilateral lower limb edema. VITAL SIGNS: His heart rate was 64, blood pressure was 177/79, temperature was 97.8, respiratory rate was 18, temperature was 98.1, oxygen saturation was 100% on 2 liters of oxygen. HEAD, EYES, EARS, NOSE, AND THROAT: Showed normocephalic, atraumatic. NECK: Supple. HEART: Showed normal first and second heart sounds with no gallop, rub, or murmur. CHEST: Clear to auscultation. No crepitation or rhonchi. ABDOMEN: Distended, soft, nontender. No guarding or rigidity. No organomegaly. Hernial orifice intact. Bowel sounds normal. NEUROLOGIC: He was very hard of hearing with bilateral hearing aids, but all other cranial nerves are intact. He moves upper extremities without difficulty. He is mostly bedbound, chair bound. LABORATORY DATA: His lab work showed a white cell count of 4400, hemoglobin 9.3, hematocrit 27.4, MCV 101, and platelet count of 179,000. Serum sodium was 137, potassium 5.3, chloride 102, bicarbonate 32, anion gap of 3, BUN 37, creatinine 1.3, estimated GFR was 52 mL per minute. His glucose was 141, calcium was 8.1, magnesium 2.8. Total bilirubin, AST, ALT, alkaline phosphatase were normal. CK was 237, CK-MB was 4.1, and troponin was 0.547. Total protein was 7.1, albumin was 2.4. His chest x-ray showed low lung volume and technique extenuated heart size and pulmonary vascularity, mild cardiomegaly, prominent appearing bilateral interstitial lung markings likely moderate congestive changes, mild to moderate bilateral pleural effusion identified. The findings are consistent with congestive changes with bilateral pleural effusion. We will basically consult the cardiology team. I have increased his isosorbide mononitrate to 30 mg. His EKG showed that he was in probably atrial fibrillation with slow ventricular response and right bundle branch block, not different from recent one done about 10 days ago. BEN HORTON MD DR: GEORGE/mechelle JOB#: [id number] / [id number]
[2018-03-17] MEDS: ATORVASTATIN CALCIUM 20 MG TABLET PO SCH (19:57)
[2018-03-17] MEDS: MIRTAZAPINE 15 MG TABLET PO SCH (19:57)
--- NOTE | 2018-03-17 20:31 | PDOC ---
Exam Note: Stevenson Note: Please also refer to the separate dictated note~for this date of service dictated separately.~Patient seen individually. Discussed the patient with Nursing staff reviewed the chart.~Reviewed interim history and current functioning. Reviewed vital signs,~Labs/ Radiology~and current medications noted below. Continue current treatment with the changes noted in the dictated addendum note Assessment: Vital Signs: Vital Signs Date Time Temp Pulse Resp B/P (MAP) Pulse Ox O2 Delivery O2 Flow Rate FiO2 03/17/18 20:02 97.4 59 16 125/58 (80) 100 Nasal Cannula 2.0 I&O Intake and Output 03/17/18 07:00 Intake Total 350 ml Output Total 625 ml Balance -275 ml Intake Oral 350 ml Output Urine Total 625 ml # Voids 1 # Bowel Movements 1 Labs: Laboratory Tests Test 03/16/18 22:00 03/16/18 22:01 03/17/18 05:35 03/17/18 12:16 Creatine Kinase 226 U/L (39-308) 237 U/L (39-308) Troponin I Quantitative 0.513 ng/mL (0-0.055) H 0.574 ng/mL (0-0.055) H Glucose (Fingerstick) 210 mg/dL (70-99) H 130 mg/dL (70-99) H White Blood Count 4.4 x10^3/uL (4.0-11.0) Red Blood Count 2.72 x10^6/uL (4.30-5.70) L Hemoglobin 9.3 g/dL (13.0-17.5) L Hematocrit 27.4 % (39.0-53.0) L Mean Corpuscular Volume 101 fL (79-100) H Mean Corpuscular Hemoglobin 34 pg (25-35) Mean Corpuscular Hemoglobin Concent 34 g/dL (31-37) Red Cell Distribution Width 15.9 % (11.5-14.5) H Platelet Count 179 x10^3/uL (140-400) Neutrophils (%) (Auto) 81 % (31-73) H Lymphocytes (%) (Auto) 7 % (24-48) L Monocytes (%) (Auto) 10 % (0-9) H Eosinophils (%) (Auto) 2 % (0-3) Basophils (%) (Auto) 0 % (0-3) Neutrophils # (Auto) 3.5 x10^3uL (1.8-7.7) Lymphocytes # (Auto) 0.3 x10^3/uL (1.0-4.8) L Monocytes # (Auto) 0.4 x10^3/uL (0.0-1.1) Eosinophils # (Auto) 0.1 x10^3/uL (0.0-0.7) Basophils # (Auto) 0.0 x10^3/uL (0.0-0.2) Sodium Level 137 mmol/L (136-145) Potassium Level 5.3 mmol/L (3.5-5.1) H Chloride Level 102 mmol/L (98-107) Carbon Dioxide Level 32 mmol/L (21-32) Anion Gap 3 (6-14) L Blood Urea Nitrogen 37 mg/dL (8-26) H Creatinine 1.3 mg/dL (0.7-1.3) Estimated GFR (Cockcroft-Gault) 52.0 BUN/Creatinine Ratio 28 (6-20) H Glucose Level 141 mg/dL (70-99) H Calcium Level 8.1 mg/dL (8.5-10.1) L Magnesium Level 2.6 mg/dL (1.8-2.4) H Total Bilirubin 0.5 mg/dL (0.2-1.0) Aspartate Amino Transferase (AST) 24 U/L (15-37) Alanine Aminotransferase (ALT) 23 U/L (16-63) Alkaline Phosphatase 63 U/L (46-116) Creatine Kinase MB (Mass) 4.1 ng/mL (0.0-3.6) H Creatine Kinase MB Relative Index 1.7 % (0-4) Total Protein 7.1 g/dL (6.4-8.2) Albumin 2.4 g/dL (3.4-5.0) L Albumin/Globulin Ratio 0.5 (1.0-1.7) L Triglycerides Level 37 mg/dL (0-150) Cholesterol Level 106 mg/dL (0-200) LDL Cholesterol, Calculated 48 mg/dL (0-100) VLDL Cholesterol, Calculated 7 mg/dL (0-40) Non-HDL Cholesterol Calculated 55 mg/dL (0-129) HDL Cholesterol 51 mg/dL (40-60) Cholesterol/HDL Ratio 2.0 Test 03/17/18 17:15 Glucose (Fingerstick) 122 mg/dL (70-99) H Current Medications: Meds: Current Medications Insulin Human Lispro (HumaLOG) 0-7 UNITS TIDWMEALS SQ ; Start 03/17/18 at 08:00 Dextrose 12.5 gm PRN Q15MIN PRN IV SEE COMMENTS; Start 03/16/18 at 18:45 Acetaminophen (Tylenol) 325 mg PRN Q6HRS PRN PO PAIN Last administered on at 21:13; Start 03/16/18 at 19:30 Betamethasone Dipropion Augmented (Diprolene-Af) 15 carley PRN BID PRN TP RASH; Start 03/16/18 at 19:30 Vitamin D (Vitamin D3) 1,000 unit DAILY PO Last administered on 03/17/18at 07:55 ; Start 03/17/18 at 09:00 Donepezil HCl (Aricept) 10 mg DAILY PO Last administered on 03/17/18at 07:55; Start 03/17/18 at 09:00 Ferrous Sulfate (Feosol) 325 mg DAILY PO Last administered on 03/17/18at 07:55; Start 03/17/18 at 09:00 Isosorbide Mononitrate (Imdur) 15 mg DAILY PO ; Start 03/17/18 at 09:00; Stop 03/17/18 at 09:00; Status DC Isosorbide Mononitrate (Imdur) 30 mg DAILY PO Last administered on 03/17/18at 07: 55; Start 03/17/18 at 09:00 Artificial Tears (Artificial Tears) 1 drop PRN QID PRN OU DRY EYE; Start at 19:30 Prednisolone Acetate (Pred Forte) 1 drop DAILY OU ; Start 03/17/18 at 09:00 Tamsulosin HCl (Flomax) 0.4 mg DAILY PO Last administered on 03/17/18at 07:55; Start 03/17/18 at 09:00 Atorvastatin Calcium (Lipitor) 40 mg QHS PO Last administered on 03/17/18at 19:57 ; Start 03/16/18 at 21:00 Carvedilol (Coreg) 6.25 mg BIDWMEALS PO ; Start 03/17/18 at 08:00; Stop 03/17/18 at 17:11; Status DC Non-Formulary Medication (Donepezil Hcl ) 10 mg DAILY PO ; Start 03/17/18 at 09: 00; Stop 03/17/18 at 09:00; Status DC Finasteride (Proscar) 5 mg DAILY PO Last administered on 03/17/18at 07:55; Start 03/17/18 at 09:00 Fluticasone Propionate (Flonase) 2 spray BID NS ; Start 03/17/18 at 09:00 Non-Formulary Medication (Ganciclovir (Zirgan)) 5 gm 5 time daily OP ; Start at 19:30; Status UNV Guaifenesin (Mucinex Er) 1,200 mg BID PO Last administered on 03/17/18at 07:55; Start 03/16/18 at 21:00 Phenyleph/Shark Oil/Min Oil/Petrol (Preparation H) 1 carley PRN BID PRN RC RECTAL PAIN; Start 03/16/18 at 20:00 Multi-Ingredient Ointment (Analgesic [place]) 1 carley PRN QID PRN TP MUSCLE PAIN; Start 03/16/18 at 20:00 Mirtazapine (Remeron) 15 mg QHS PO Last administered on 03/17/18at 19:57; Start 03/16/18 at 21:00 Olanzapine (ZyPREXA ZYDIS) 1.25 mg PRN Q2HR PRN PO AGITATION Last administered on 03/17/18at 18:18; Start 03/16/18 at 20:00 Pantoprazole Sodium (Protonix) 40 mg DAILYAC PO Last administered on 03/17/18at 07:55; Start 03/17/18 at 07:30 Polyethylene Glycol (miraLAX) 17 gm BID PO Last administered on 03/17/18at 19:57 ; Start 03/17/18 at 09:00 Potassium Chloride (Klor-Con) 20 meq DAILYWBKFT PO ; Start 03/17/18 at 08:00 Sennosides (Senna) 17.2 mg DAILY PO Last administered on 03/17/18at 07:54; Start 03/17/18 at 09:00 Sertraline HCl (Zoloft) 25 mg DAILY PO Last administered on 03/17/18at 07:54; Start 03/17/18 at 09:00 Torsemide (Demadex) 40 mg DAILY PO Last administered on 03/17/18at 10:17; Start 03/17/18 at 09:00 Non-Formulary Medication (Vit A/Cheng Ac/ Aloe V/Emu Oil (Skin Repair Lotion)) 1 carley Q1HR TP ; Start 03/16/18 at 20:00; Stop 03/16/18 at 20:00; Status DC Albuterol/ Ipratropium (Duoneb) 3 ml RTQID NEB Last administered on 03/17/18at 11 :43; Start 03/16/18 at 20:00 Non-Formulary Medication (Vit A/Cheng Ac/ Aloe V/Emu Oil (Skin Repair Lotion)) 1 carley PRN Q1HR PRN TP DRY SKIN/IRRITATION; Start 03/16/18 at 20:00; Stop at 20:00; Status DC Vitamin A/Vitamin D (Vitamin A & D Ointment) 1 carley PRN Q1HR PRN TP SKIN PROTECTION; Start 03/16/18 at 20:15 Hydralazine HCl (Apresoline) 25 mg BID PO Last administered on 03/17/18at 10:17; Start 03/17/18 at 09:30; Stop 03/17/18 at 17:12; Status DC Hydralazine HCl (Apresoline) 25 mg TID PO Last administered on 03/17/18at 19:58; Start 03/17/18 at 17:15 Active Scripts Active Reported Zyprexa (Olanzapine) 2.5 Mg Tablet 1.25 Mg PO Q2HR PRN MDD 7.5/24hrs Remeron (Mirtazapine) 15 Mg Tablet 15 Mg PO HS Skin Repair Lotion (Vit A/Cheng Ac/Aloe V/Emu Oil) 570 Ml Lotion 1 Carley TP Q1HR PRN [place] Ultra Strength Crm (Methyl Salicylate/Menth/Camph) 57 Gm Cream..g. 28 Gm TP QID PRN MUSCLE PAIN Isosorbide Mononitrate Er (Isosorbide Mononitrate) 30 Mg Tab.er.24h 30 Mg PO DAILY Donepezil Hcl 10 Mg Tablet 10 Mg PO DAILY Zirgan (Ganciclovir) 5 Gm Gel..gram. 5 Gm OP 5 TIME DAILY Carvedilol 6.25 Mg Tablet 6.25 Mg PO BIDWMEALS Diprolene 0.05% Ointment (Betamethasone/Propylene Glyc) 15 Gm Oint...g. 15 Gm TP PRN BID PRN Zoloft (Sertraline Hcl) 25 Mg Tablet 25 Mg PO DAILY Polyvinyl Alcohol 15 Ml Drops 1 Drop OP PRN QID PRN K-Tab ER (Potassium Chloride) 20 Meq Tablet.er 20 Meq PO DAILY Protonix (Pantoprazole Sodium) 40 Mg Tablet.dr 40 Mg PO DAILY Atorvastatin Calcium 40 Mg Tablet 40 Mg PO DAILY Tamsulosin Hcl 0.4 Mg Cap.er.24h 0.4 Mg PO DAILY Proscar (Finasteride) 5 Mg Tablet 5 Mg PO DAILY Senna Lax (Sennosides) 8.6 Mg Tablet 17.2 Mg PO DAILY Ferrous Sulfate 325 Mg Tablet 325 Mg PO DAILY Acetaminophen 325 Mg Tablet 325 Mg PO PRN Q6HRS PRN Vitamin D3 (Cholecalciferol (Vitamin D3)) 1,000 Unit Tablet 1,000 Unit PO DAILY Miralax (Polyethylene Glycol 3350) 17 Gm Powd.pack 17 Gm PO BID Prednisolone Acetate 5 Ml Drops.susp 1 Drop EACHEYE DAILY Mucinex (Guaifenesin) 1,200 Mg Tbmp.12hr 1,200 Mg PO BID Fluticasone Propionate Nasal [place] (Fluticasone Propionate) 16 Gm [place].susp 2 Spr NS BID Preparation H (Hydrocortisone) 26 Gm Cream..g. 26 Gm TP PRN BID PRN Torsemide 20 Mg Tablet 40 Mg PO DAILY I have reviewed the current psychotropics carefully including drug interactions. Risk benefit ratio favors no change other than as noted in my dictated progress note. 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
[2018-03-18] VITALS (16 sets, daily range): BP systolic 148–198; BP diastolic 59–89
--- NOTE | 2018-03-18 01:24 | PN ---
DATE: 03/17/2018 SUBJECTIVE: The patient is resting, slightly propped up in bed, in no apparent distress. He continues to complain of shortness of breath and cough with whitish sputum; however, denied any chest pain. PHYSICAL EXAMINATION: GENERAL: When I examined him, he looked pale, but no jaundice, cyanosis, or thyromegaly. No jugular venous distention. No limb edema. VITAL SIGNS: His heart rate was 58, blood pressure was 153/64, temperature was 97.6, respiratory rate was 16, and oxygen saturation 100% on 2 liters of oxygen. HEAD, EYES, EARS, NOSE AND THROAT: Showed normocephalic, atraumatic. NECK: Supple. HEART: Showed normal first and second heart sounds with no gallop, rub or murmur. CHEST: Clear to auscultation. No crepitation or rhonchi. ABDOMEN: Distended, soft, nontender. NEUROLOGIC: He is very hard of hearing, but all other cranial nerves are intact. He moves upper extremities to much good extent than lower extremities. He is mostly bedbound, chair bound. He has bilateral lower limb edema. LABORATORY DATA: Showed a white cell count 4400, hemoglobin 9, hematocrit 27, MCV 101, and platelet count of 179,000 with normal manual differential. His third troponin was high at 0.574. We did consult the cardiology team, who recommended doing an echocardiogram. Discontinue Coreg and add hydralazine to control his blood pressure and get the record from the other hospital. BEN HORTON MD DR: GEORGE/mechelle JOB#: [id number] / [id number]
[2018-03-18] MEDS: IPRATRPIUM/ALBUTEROL 0.5/2.5MG 3 ML NEBU. NEB SCH ×4 (05:40→21:10)
[2018-03-18 05:46] LABS: HEMATOCRIT 24.7 % (39.0-53.0); HEMOGLOBIN 8.4 g/dL (13.0-17.5); RED BLOOD COUNT 2.46 x10^6/uL (4.30-5.70); RED CELL DISTRIBUTION WIDTH 15.9 % (11.5-14.5); WHITE BLOOD COUNT 3.7 x10^3/uL (4.0-11.0)
[2018-03-18 05:52] LABS: ALBUMIN 2.2 g/dL (3.4-5.0); ALBUMIN/GLOBULIN RATIO 0.5 (1.0-1.7); CALCIUM 7.9 mg/dL (8.5-10.1); CREATININE 1.2 mg/dL (0.7-1.3); TOTAL BILIRUBIN 0.4 mg/dL (0.2-1.0); TOTAL PROTEIN 6.6 g/dL (6.4-8.2)
[2018-03-18] MEDS: ACETAMINOPHEN 325 MG TABLET PO PRN ×3 (06:08→19:43)
[2018-03-18] MEDS: POTASSIUM CHLORIDE 20 MEQ TABLET.ER. PO SCH (07:02)
[2018-03-18] MEDS ORDERED: BETAMETHASONE AUGMENTED 0.05% TP PRN (07:27)
[2018-03-18] MEDS: INSULIN LISPRO 300 UNITS/3 ML INSULN.PEN. SQ SCH ×3 (07:55→17:00)
[2018-03-18] MEDS: POLYETHYLENE GLYCOL 3350 17 GM PACKET. PO SCH ×2 (08:45→20:55)
[2018-03-18] MEDS: SENNOSIDES 8.6 MG TABLET PO SCH (08:45)
[2018-03-18] MEDS: FINASTERIDE 5 MG TABLET PO SCH (08:46)
[2018-03-18] MEDS: hydrALAZINE 25 MG TABLET PO SCH ×2 (08:46→13:32)
[2018-03-18] MEDS: PANTOPRAZOLE 40 MG TABLET. PO SCH (08:47)
[2018-03-18] MEDS: FERROUS SULFATE 325 MG TABLET. PO SCH (08:47)
[2018-03-18] MEDS: TAMSULOSIN 0.4 MG CAP.ER.24H. PO SCH (08:47)
[2018-03-18] MEDS: DONEPEZIL HCL 10 MG TABLET PO SCH (08:47)
[2018-03-18] MEDS: TORSEMIDE 20 MG TABLET. PO SCH (08:47)
[2018-03-18] MEDS: ISOSORBIDE MONONITRATE ER 30 MG TAB.ER.24H PO SCH (08:47)
[2018-03-18] MEDS: CHOLECALCIFEROL (VITAMIN D3) 1,000 UNIT TABLET PO SCH (08:47)
[2018-03-18] MEDS: SERTRALINE 25 MG TABLET. PO SCH (08:47)
[2018-03-18] MEDS: prednisoLONE ACETATE 1% OPHTH SUSPENSION 5ML BOTTLE. OU SCH (08:49)
[2018-03-18] MEDS: FLUTICASONE 50MCG/NASAL SPRAY 16GM BOTTLE. NS SCH ×2 (08:49→20:53)
[2018-03-18] MEDS ORDERED: ISOSORBIDE MONONITRATE ER 30 MG TAB.ER.24H PO ONE (14:00)
--- NOTE | 2018-03-18 17:10 | CARD ---
MR#: [id number] Date of Study: 03/17/2018 Ordering Physician: MOON OLSON, Referring Physician: BEN HORTON, Tech: TAMIKO Francis APPROVED REPORT EXAM: Two-dimensional and M-mode echocardiogram with Doppler and color Doppler. Other Information Quality : Fair INDICATION Non STEMI Elevated troponin 2D DIMENSIONS Left Atrium(2D)4.1 (1.6-4.0cm)IVSd1.8 (0.7-1.1cm) Aortic Root(2D)3.2 (2.0-3.7cm)LVDd4.0 (3.9-5.9cm) LVOT Diameter1.8 (1.8-2.4cm)PWd0.7 (0.7-1.1cm) FS (%) 18.0 %SV6.5 ml Aortic Valve AoV Peak Eddie.104.7cm/Flores Peak GR.4.4mmHg LVOT Peak Eddie.60.8cm/s Mitral Valve MV E Yhcqlqqk216.5cm/sMV DECEL [id number] MV A Xmarpjma94.1cm/sE/A Ratio2.1 Tricuspid Valve TR P. [id number]/sRAP [id number] TR Peak Gr.16dkMqGEGL81bvHg LEFT VENTRICLE The left ventricle is normal size. The Ejection Fraction is estimated at 50%. Basal inferior wall hyp okinesis. RIGHT VENTRICLE The right ventricle is normal size. There is normal right ventricular wall thickness. The right ventr icular systolic function is normal. ATRIA The left atrium is mildly dilated. The right atrium is mildly dilated. The interatrial septum is inta ct with no evidence for an atrial septal defect or patent foramen ovale as noted on 2-D or Doppler im aging. AORTIC VALVE The aortic valve is trileaflet. Doppler and Color Flow revealed trace to mild aortic regurgitation. T here is no significant aortic valvular stenosis. MITRAL VALVE The mitral valve leaflets are calcified. Mitral annular calcification is moderate. There is no mitral valve stenosis. Doppler and Color-flow revealed mild mitral regurgitation. TRICUSPID VALVE Doppler and Color Flow revealed mild tricuspid regurgitation. There is severe pulmonary hypertension. PASP is 86mmHg. PULMONIC VALVE The pulmonic valve is not well visualized. Doppler and Color Flow revealed trace to mild pulmonic ted vular regurgitation. There is no pulmonic valvular stenosis. GREAT VESSELS The aortic root is normal in size. The IVC collapses <50% with inspiration. PERICARDIAL EFFUSION There is large left pleural effusion. There is no evidence of significant pericardial effusion. Critical Notification Critical Value: No <Conclusion> Basal inferior wall hypokinesis. The Ejection Fraction is estimated at 50%. Trace to mild aortic regurgitation. Mild mitral regurgitation. Mild tricuspid regurgitation. There is severe pulmonary hypertension. PASP is 86mmHg. There is no evidence of significant pericardial effusion. Signed by : Carlos Manuel Barba, Electronically Approved : 03/18/2018 17:09:42
--- NOTE | 2018-03-18 18:15 | PDOC ---
Exam Note: Stevenson Note: Please also refer to the separate dictated note~for this date of service dictated separately.~Patient seen individually. Discussed the patient with Nursing staff reviewed the chart.~Reviewed interim history and current functioning. Reviewed vital signs,~Labs/ Radiology~and current medications noted below. Continue current treatment with the changes noted in the dictated addendum note Assessment: Vital Signs: Vital Signs Date Time Temp Pulse Resp B/P (MAP) Pulse Ox O2 Delivery O2 Flow Rate FiO2 03/18/18 16:29 98 Nasal Cannula 2.0 03/18/18 16:05 59 18 186/81 (116) 03/18/18 11:11 97.4 I&O Intake and Output 03/18/18 07:00 Intake Total 1840 ml Output Total 910 ml Balance 930 ml Intake Oral 1840 ml Output Urine Total 910 ml # Voids 1 # Bowel Movements 1 Labs: Laboratory Tests Test 03/18/18 05:05 03/18/18 07:52 03/18/18 11:55 03/18/18 16:57 White Blood Count 3.7 x10^3/uL (4.0-11.0) L Red Blood Count 2.46 x10^6/uL (4.30-5.70) L Hemoglobin 8.4 g/dL (13.0-17.5) L Hematocrit 24.7 % (39.0-53.0) L Mean Corpuscular Volume 100 fL (79-100) Mean Corpuscular Hemoglobin 34 pg (25-35) Mean Corpuscular Hemoglobin Concent 34 g/dL (31-37) Red Cell Distribution Width 15.9 % (11.5-14.5) H Platelet Count 162 x10^3/uL (140-400) Sodium Level 136 mmol/L (136-145) Potassium Level 5.0 mmol/L (3.5-5.1) Chloride Level 102 mmol/L (98-107) Carbon Dioxide Level 31 mmol/L (21-32) Anion Gap 3 (6-14) L Blood Urea Nitrogen 32 mg/dL (8-26) H Creatinine 1.2 mg/dL (0.7-1.3) Estimated GFR (Cockcroft-Gault) 57.0 BUN/Creatinine Ratio 27 (6-20) H Glucose Level 152 mg/dL (70-99) H Calcium Level 7.9 mg/dL (8.5-10.1) L Total Bilirubin 0.4 mg/dL (0.2-1.0) Aspartate Amino Transferase (AST) 21 U/L (15-37) Alanine Aminotransferase (ALT) 20 U/L (16-63) Alkaline Phosphatase 57 U/L (46-116) Total Protein 6.6 g/dL (6.4-8.2) Albumin 2.2 g/dL (3.4-5.0) L Albumin/Globulin Ratio 0.5 (1.0-1.7) L Glucose (Fingerstick) 140 mg/dL (70-99) H 175 mg/dL (70-99) H 111 mg/dL (70-99) H Current Medications: Meds: Current Medications Insulin Human Lispro (HumaLOG) 0-7 UNITS TIDWMEALS SQ Last administered on at 12:09; Start 03/17/18 at 08:00 Dextrose 12.5 gm PRN Q15MIN PRN IV SEE COMMENTS; Start 03/16/18 at 18:45 Acetaminophen (Tylenol) 325 mg PRN Q6HRS PRN PO PAIN Last administered on at 12:58; Start 03/16/18 at 19:30 Betamethasone Dipropion Augmented (Diprolene-Af) 15 carley PRN BID PRN TP RASH; Start 03/16/18 at 19:30; Stop 03/18/18 at 07:27; Status DC Vitamin D (Vitamin D3) 1,000 unit DAILY PO Last administered on 03/18/18at 08:47 ; Start 03/17/18 at 09:00 Donepezil HCl (Aricept) 10 mg DAILY PO Last administered on 03/18/18at 08:47; Start 03/17/18 at 09:00 Ferrous Sulfate (Feosol) 325 mg DAILY PO Last administered on 03/18/18at 08:47; Start 03/17/18 at 09:00 Isosorbide Mononitrate (Imdur) 15 mg DAILY PO ; Start 03/17/18 at 09:00; Stop 03/17/18 at 09:00; Status DC Isosorbide Mononitrate (Imdur) 30 mg DAILY PO Last administered on 03/18/18at 08: 47; Start 03/17/18 at 09:00; Stop 03/18/18 at 14:01; Status DC Artificial Tears (Artificial Tears) 1 drop PRN QID PRN OU DRY EYE; Start at 19:30 Prednisolone Acetate (Pred Forte) 1 drop DAILY OU ; Start 03/17/18 at 09:00 Tamsulosin HCl (Flomax) 0.4 mg DAILY PO Last administered on 03/18/18at 08:47; Start 03/17/18 at 09:00 Atorvastatin Calcium (Lipitor) 40 mg QHS PO Last administered on 03/17/18at 19:57 ; Start 03/16/18 at 21:00 Carvedilol (Coreg) 6.25 mg BIDWMEALS PO ; Start 03/17/18 at 08:00; Stop 03/17/18 at 17:11; Status DC Non-Formulary Medication (Donepezil Hcl ) 10 mg DAILY PO ; Start 03/17/18 at 09: 00; Stop 03/17/18 at 09:00; Status DC Finasteride (Proscar) 5 mg DAILY PO Last administered on 03/18/18at 08:46; Start 03/17/18 at 09:00 Fluticasone Propionate (Flonase) 2 spray BID NS ; Start 03/17/18 at 09:00 Non-Formulary Medication (Ganciclovir (Zirgan)) 5 gm 5 time daily OP ; Start at 19:30; Status UNV Guaifenesin (Mucinex Er) 1,200 mg BID PO Last administered on 03/18/18at 08:45; Start 03/16/18 at 21:00 Phenyleph/Shark Oil/Min Oil/Petrol (Preparation H) 1 carley PRN BID PRN RC RECTAL PAIN; Start 03/16/18 at 20:00 Multi-Ingredient Ointment (Analgesic [place]) 1 carley PRN QID PRN TP MUSCLE PAIN; Start 03/16/18 at 20:00 Mirtazapine (Remeron) 15 mg QHS PO Last administered on 03/17/18at 19:57; Start 03/16/18 at 21:00 Olanzapine (ZyPREXA ZYDIS) 1.25 mg PRN Q2HR PRN PO AGITATION Last administered on 03/18/18at 01:04; Start 03/16/18 at 20:00 Pantoprazole Sodium (Protonix) 40 mg DAILYAC PO Last administered on 03/18/18 08:47; Start 03/17/18 at 07:30 Polyethylene Glycol (miraLAX) 17 gm BID PO Last administered on 03/18/18at 08:45 ; Start 03/17/18 at 09:00 Potassium Chloride (Klor-Con) 20 meq DAILYWBKFT PO ; Start 03/17/18 at 08:00 Sennosides (Senna) 17.2 mg DAILY PO Last administered on 03/18/18 08:45; Start 03/17/18 at 09:00 Sertraline HCl (Zoloft) 25 mg DAILY PO Last administered on 03/18/18 08:47; Start 03/17/18 at 09:00; Stop 03/18/18 at 14:59; Status DC Torsemide (Demadex) 40 mg DAILY PO Last administered on 03/18/18at 08:47; Start 03/17/18 at 09:00 Non-Formulary Medication (Vit A/Cheng Ac/ Aloe V/Emu Oil (Skin Repair Lotion)) 1 carley Q1HR TP ; Start 03/16/18 at 20:00; Stop 03/16/18 at 20:00; Status DC Albuterol/ Ipratropium (Duoneb) 3 ml RTQID NEB Last administered on 03/18/18at 16 :28; Start 03/16/18 at 20:00 Non-Formulary Medication (Vit A/Cheng Ac/ Aloe V/Emu Oil (Skin Repair Lotion)) 1 carley PRN Q1HR PRN TP DRY SKIN/IRRITATION; Start 03/16/18 at 20:00; Stop at 20:00; Status DC Vitamin A/Vitamin D (Vitamin A & D Ointment) 1 carley PRN Q1HR PRN TP SKIN PROTECTION; Start 03/16/18 at 20:15 Hydralazine HCl (Apresoline) 25 mg BID PO Last administered on 03/17/18at 10:17; Start 03/17/18 at 09:30; Stop 03/17/18 at 17:12; Status DC Hydralazine HCl (Apresoline) 25 mg TID PO Last administered on 03/18/18at 13:32; Start 03/17/18 at 17:15; Stop 03/18/18 at 14:01; Status DC Betamethasone Dipropion Augmented (Diprolene-Af) 1 carley PRN BID PRN TP RASH; Start 03/18/18 at 07:27 Hydralazine HCl (Apresoline) 50 mg TID PO Last administered on 03/18/18at 15:18; Start 03/18/18 at 14:00 Isosorbide Mononitrate (Imdur) 60 mg DAILY PO ; Start 03/19/18 at 09:00 Isosorbide Mononitrate (Imdur) 30 mg 1X ONCE PO Last administered on 03/18/18at 14:28; Start 03/18/18 at 14:00; Stop 03/18/18 at 14:13; Status DC Sertraline HCl (Zoloft) 12.5 mg DAILY PO ; Start 03/19/18 at 09:00 Active Scripts Active Reported Zyprexa (Olanzapine) 2.5 Mg Tablet 1.25 Mg PO Q2HR PRN MDD 7.5/24hrs Remeron (Mirtazapine) 15 Mg Tablet 15 Mg PO HS Skin Repair Lotion (Vit A/Cheng Ac/Aloe V/Emu Oil) 570 Ml Lotion 1 Carley TP Q1HR PRN [place] Ultra Strength Crm (Methyl Salicylate/Menth/Camph) 57 Gm Cream..g. 28 Gm TP QID PRN MUSCLE PAIN Isosorbide Mononitrate Er (Isosorbide Mononitrate) 30 Mg Tab.er.24h 30 Mg PO DAILY Donepezil Hcl 10 Mg Tablet 10 Mg PO DAILY Zirgan (Ganciclovir) 5 Gm Gel..gram. 5 Gm OP 5 TIME DAILY Carvedilol 6.25 Mg Tablet 6.25 Mg PO BIDWMEALS Diprolene 0.05% Ointment (Betamethasone/Propylene Glyc) 15 Gm Oint...g. 15 Gm TP PRN BID PRN Zoloft (Sertraline Hcl) 25 Mg Tablet 25 Mg PO DAILY Polyvinyl Alcohol 15 Ml Drops 1 Drop OP PRN QID PRN K-Tab ER (Potassium Chloride) 20 Meq Tablet.er 20 Meq PO DAILY Protonix (Pantoprazole Sodium) 40 Mg Tablet.dr 40 Mg PO DAILY Atorvastatin Calcium 40 Mg Tablet 40 Mg PO DAILY Tamsulosin Hcl 0.4 Mg Cap.er.24h 0.4 Mg PO DAILY Proscar (Finasteride) 5 Mg Tablet 5 Mg PO DAILY Senna Lax (Sennosides) 8.6 Mg Tablet 17.2 Mg PO DAILY Ferrous Sulfate 325 Mg Tablet 325 Mg PO DAILY Acetaminophen 325 Mg Tablet 325 Mg PO PRN Q6HRS PRN Vitamin D3 (Cholecalciferol (Vitamin D3)) 1,000 Unit Tablet 1,000 Unit PO DAILY Miralax (Polyethylene Glycol 3350) 17 Gm Powd.pack 17 Gm PO BID Prednisolone Acetate 5 Ml Drops.susp 1 Drop EACHEYE DAILY Mucinex (Guaifenesin) 1,200 Mg Tbmp.12hr 1,200 Mg PO BID Fluticasone Propionate Nasal [place] (Fluticasone Propionate) 16 Gm [place].susp 2 Spr NS BID Preparation H (Hydrocortisone) 26 Gm Cream..g. 26 Gm TP PRN BID PRN Torsemide 20 Mg Tablet 40 Mg PO DAILY I have reviewed the current psychotropics carefully including drug interactions. Risk benefit ratio favors no change other than as noted in my dictated progress note. 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
[2018-03-18] MEDS: ATORVASTATIN CALCIUM 20 MG TABLET PO SCH (20:52)
[2018-03-18] MEDS: MIRTAZAPINE 15 MG TABLET PO SCH (20:53)
[2018-03-19] VITALS (10 sets, daily range): BP systolic 73–192; BP diastolic 33–80
--- NOTE | 2018-03-19 00:20 | PN ---
DATE: 03/18/2018 SUBJECTIVE: The patient is resting, slightly propped up in bed, in no apparent distress. On questioning him, he denied any chest pain, denied any shortness of breath. Nursing staff; however, stated that he continued to have episodes of bradycardia and his blood pressure is high as we discontinued his Coreg. His Imdur was increased to 30 mg the day before yesterday and his hydralazine was increased also. PHYSICAL EXAMINATION: GENERAL: When I examined him this afternoon, he was pale, but no jaundice or cyanosis. No lymphadenopathy, no thyromegaly. No jugular venous distention, but mild bilateral limb edema. VITAL SIGNS: His heart rate was 59, blood pressure was 183/79, temperature was 97.4, respiratory rate was 19, and oxygen saturation was 97% on 2 liters of oxygen. HEAD, EYES, EARS, NOSE AND THROAT: Showed normocephalic, atraumatic. NECK: Supple. HEART: Showed normal first and second heart sounds. No gallop, rub or murmur. CHEST: Clear to auscultation. No crepitation or rhonchi. ABDOMEN: Slightly distended, soft, nontender. NEUROLOGIC: He is very hard of hearing, but otherwise all his cranial nerves are intact. He moves his upper extremities to much good extent than lower extremities, he is mostly bed bound and chair bound. His intake over the last 24 hours was 350, output was 625. LABORATORY DATA: As of this morning, his white cell count was 3700, hemoglobin 8.4, hematocrit 24.7, MCV 100, and platelet count of 162,000. His serum sodium was 136, potassium 5, chloride 102, bicarbonate 31, anion gap of 3, BUN 32, creatinine 1.2, estimated GFR was 57 mL per minute. His glucose was 152, calcium was 7.9. Total bilirubin, AST, ALT, alkaline phosphatase were normal. His total protein was 6.6, albumin was 2.2. ASSESSMENT AND PLAN: 1. Elevated troponin consistent with non-ST segment elevation myocardial infarction, likely in part related to accelerated hypertension. He was seen by the Cardiology team and an echocardiogram was done, but is not read yet. His EKG showed that he has right bundle-branch block with bradycardia and first-degree heart block. 2. Coronary artery disease, status post coronary artery bypass grafting. 3. Accelerated hypertension. 4. Bradycardia and beta-kodi was held. As his blood pressure is high, I increased his hydralazine to 50 mg 3 times a day, also increased Imdur to 60 mg. BEN HORTON MD DR: GEORGE/mechelle JOB#: [id number] / [id number]
--- NOTE | 2018-03-19 00:55 | PN ---
DATE: 03/17/2018 This late entry 03/17/2018 covers elements not covered in my initial note 03/17/2018. I met with the patient in the evening. Overall, per nursing report, patient is doing much better. He is cognitively clearer. Past history reveals that he has had elevated troponin for a long period of time. He has been less agitated. REVIEW OF SYSTEMS: Hard of hearing. Impaired ambulation. No CV, , pulmonary, eye system symptoms on review. MENTAL STATUS EXAM: Oriented to himself and situation. Speech is coherent, has some latency. Abstraction fair, computation impaired, language function intact. Mood and affect improved. IMPRESSION: Major depressive disorder with psychotic features in partial remission; cognitive disorder, unspecified; anxiety disorder, unspecified. Rest unchanged. PLAN: No change from a psychiatric standpoint from what I have mentioned in my initial note. MAN Kunal BOND MD DR: CRISTY/mechelle JOB#: [id number] / [id number]
--- NOTE | 2018-03-19 01:13 | PN ---
DATE: 03/18/2018 PSYCHIATRIC PROGRESS NOTE This note covers elements, not covered in my initial note of 03/18/2018. SUBJECTIVE: The patient was seen individually evening of 03/18/2018 in ICU. Per nursing report, the patient was seen by Dr. Berumen, Cardiology, and Zoloft has been split during the day rather than giving it all together. Cognitively, he has been more awake, alert, cognitively intact. He does have some short-term memory deficits, but has not been agitated or aggressive. He is hard of hearing. REVIEW OF SYSTEMS: Impaired ambulation. No CV, , pulmonary system symptoms on review. MENTAL STATUS EXAM: The patient is reasonably oriented. Speech is coherent, abstraction fair, computation impaired, language function intact, attention span short. Mood and affect is improved. IMPRESSION: Unchanged from initial note. PLAN: No change from my initial note. MAN Kunal BOND MD DR: CRISTY/mechelle JOB#: [id number] / [id number]
[2018-03-19] MEDS: IPRATRPIUM/ALBUTEROL 0.5/2.5MG 3 ML NEBU. NEB SCH ×4 (05:44→20:57)
[2018-03-19 06:57] LABS: HEMATOCRIT 25.1 % (39.0-53.0); HEMOGLOBIN 8.6 g/dL (13.0-17.5)
[2018-03-19] MEDS: POTASSIUM CHLORIDE 20 MEQ TABLET.ER. PO SCH (08:00)
[2018-03-19] MEDS: INSULIN LISPRO 300 UNITS/3 ML INSULN.PEN. SQ SCH ×3 (08:00→16:55)
[2018-03-19] MEDS: ISOSORBIDE MONONITRATE ER 30 MG TAB.ER.24H PO SCH (08:12)
[2018-03-19] MEDS: PANTOPRAZOLE 40 MG TABLET. PO SCH (08:12)
[2018-03-19] MEDS: TAMSULOSIN 0.4 MG CAP.ER.24H. PO SCH (08:12)
[2018-03-19] MEDS: SENNOSIDES 8.6 MG TABLET PO SCH (08:13)
[2018-03-19] MEDS: FINASTERIDE 5 MG TABLET PO SCH (08:13)
[2018-03-19] MEDS: CHOLECALCIFEROL (VITAMIN D3) 1,000 UNIT TABLET PO SCH (08:14)
[2018-03-19] MEDS: SERTRALINE 25 MG TABLET. PO SCH (08:14)
[2018-03-19] MEDS: DONEPEZIL HCL 10 MG TABLET PO SCH (08:14)
[2018-03-19] MEDS: FERROUS SULFATE 325 MG TABLET. PO SCH (08:14)
[2018-03-19] MEDS: TORSEMIDE 20 MG TABLET. PO SCH (08:14)
[2018-03-19] MEDS: FLUTICASONE 50MCG/NASAL SPRAY 16GM BOTTLE. NS SCH ×2 (08:23→20:43)
[2018-03-19] MEDS: POLYETHYLENE GLYCOL 3350 17 GM PACKET. PO SCH ×2 (08:23→20:10)
[2018-03-19] MEDS: prednisoLONE ACETATE 1% OPHTH SUSPENSION 5ML BOTTLE. OU SCH (08:23)
--- NOTE | 2018-03-19 14:46 | PDOC ---
Exam Note: [place] Note: Please also refer to the separate dictated note~for this date of service dictated separately.~Patient seen individually. Discussed the patient with Nursing staff reviewed the chart.~Reviewed interim history and current functioning. Reviewed vital signs,~Labs/ Radiology~and current medications noted below. Continue current treatment with the changes noted in the dictated addendum note Assessment: Vital Signs: Vital Signs Date Time Temp Pulse Resp B/P (MAP) Pulse Ox O2 Delivery O2 Flow Rate FiO2 03/19/18 12:19 96.6 57 18 119/49 (72) 99 Nasal Cannula 3.0 I&O Intake and Output 03/19/18 07:00 Intake Total 1645 ml Output Total 300 ml Balance 1345 ml Intake Oral 1645 ml Output Urine Total 300 ml # Voids 3 # Bowel Movements 2 Labs: Laboratory Tests Test 03/18/18 16:57 03/18/18 21:14 03/19/18 06:09 03/19/18 07:45 Glucose (Fingerstick) 111 mg/dL (70-99) H 179 mg/dL (70-99) H 143 mg/dL (70-99) H Hemoglobin 8.6 g/dL (13.0-17.5) L Hematocrit 25.1 % (39.0-53.0) L Iron Level 39 ug/dL (65-175) L Total Iron Binding Capacity 158 ug/dL (250-450) L Iron Saturation 25 % (15-34) Ferritin 289 ng/mL (26-388) Test 03/19/18 11:44 Glucose (Fingerstick) 160 mg/dL (70-99) H Current Medications: Meds: Current Medications Insulin Human Lispro (HumaLOG) 0-7 UNITS TIDWMEALS SQ Last administered on at 12:00; Start 03/17/18 at 08:00 Dextrose 12.5 gm PRN Q15MIN PRN IV SEE COMMENTS; Start 03/16/18 at 18:45 Acetaminophen (Tylenol) 325 mg PRN Q6HRS PRN PO PAIN Last administered on at 19:43; Start 03/16/18 at 19:30 Betamethasone Dipropion Augmented (Diprolene-Af) 15 carley PRN BID PRN TP RASH; Start 03/16/18 at 19:30; Stop 03/18/18 at 07:27; Status DC Vitamin D (Vitamin D3) 1,000 unit DAILY PO Last administered on 03/19/18 08:14 ; Start 03/17/18 at 09:00 Donepezil HCl (Aricept) 10 mg DAILY PO Last administered on 03/19/18at 08:14; Start 03/17/18 at 09:00 Ferrous Sulfate (Feosol) 325 mg DAILY PO Last administered on 03/19/18 08:14; Start 03/17/18 at 09:00 Isosorbide Mononitrate (Imdur) 15 mg DAILY PO ; Start 03/17/18 at 09:00; Stop 03/17/18 at 09:00; Status DC Isosorbide Mononitrate (Imdur) 30 mg DAILY PO Last administered on 03/18/18at 08: 47; Start 03/17/18 at 09:00; Stop 03/18/18 at 14:01; Status DC Artificial Tears (Artificial Tears) 1 drop PRN QID PRN OU DRY EYE; Start at 19:30 Prednisolone Acetate (Pred Forte) 1 drop DAILY OU Last administered on 08:23; Start 03/17/18 at 09:00 Tamsulosin HCl (Flomax) 0.4 mg DAILY PO Last administered on 03/19/18 08:12; Start 03/17/18 at 09:00 Atorvastatin Calcium (Lipitor) 40 mg QHS PO Last administered on 03/18/18at 20:52 ; Start 03/16/18 at 21:00 Carvedilol (Coreg) 6.25 mg BIDWMEALS PO ; Start 03/17/18 at 08:00; Stop 03/17/18 at 17:11; Status DC Non-Formulary Medication (Donepezil Hcl ) 10 mg DAILY PO ; Start 03/17/18 at 09: 00; Stop 03/17/18 at 09:00; Status DC Finasteride (Proscar) 5 mg DAILY PO Last administered on 03/19/18at 08:13; Start 03/17/18 at 09:00 Fluticasone Propionate (Flonase) 2 spray BID NS Last administered on 03/19/18 08:23; Start 03/17/18 at 09:00 Non-Formulary Medication (Ganciclovir (Zirgan)) 5 gm 5 time daily OP ; Start at 19:30; Status UNV Guaifenesin (Mucinex Er) 1,200 mg BID PO Last administered on 03/19/18at 08:13; Start 03/16/18 at 21:00 Phenyleph/Shark Oil/Min Oil/Petrol (Preparation H) 1 carley PRN BID PRN RC RECTAL PAIN; Start 03/16/18 at 20:00 Multi-Ingredient Ointment (Analgesic [place]) 1 carley PRN QID PRN TP MUSCLE PAIN; Start 03/16/18 at 20:00 Mirtazapine (Remeron) 15 mg QHS PO Last administered on 03/18/18at 20:53; Start 03/16/18 at 21:00 Olanzapine (ZyPREXA ZYDIS) 1.25 mg PRN Q2HR PRN PO AGITATION Last administered on 03/18/18at 23:42; Start 03/16/18 at 20:00 Pantoprazole Sodium (Protonix) 40 mg DAILYAC PO Last administered on 03/19/18at 08:12; Start 03/17/18 at 07:30 Polyethylene Glycol (miraLAX) 17 gm BID PO Last administered on 03/18/18 08:45 ; Start 03/17/18 at 09:00 Potassium Chloride (Klor-Con) 20 meq DAILYWBKFT PO ; Start 03/17/18 at 08:00 Sennosides (Senna) 17.2 mg DAILY PO Last administered on 03/19/18 08:13; Start 03/17/18 at 09:00 Sertraline HCl (Zoloft) 25 mg DAILY PO Last administered on 03/18/18at 08:47; Start 03/17/18 at 09:00; Stop 03/18/18 at 14:59; Status DC Torsemide (Demadex) 40 mg DAILY PO Last administered on 03/19/18at 08:14; Start 03/17/18 at 09:00 Non-Formulary Medication (Vit A/Cheng Ac/ Aloe V/Emu Oil (Skin Repair Lotion)) 1 carley Q1HR TP ; Start 03/16/18 at 20:00; Stop 03/16/18 at 20:00; Status DC Albuterol/ Ipratropium (Duoneb) 3 ml RTQID NEB Last administered on 03/19/18at 10 :54; Start 03/16/18 at 20:00 Non-Formulary Medication (Vit A/Cheng Ac/ Aloe V/Emu Oil (Skin Repair Lotion)) 1 carley PRN Q1HR PRN TP DRY SKIN/IRRITATION; Start 03/16/18 at 20:00; Stop at 20:00; Status DC Vitamin A/Vitamin D (Vitamin A & D Ointment) 1 carley PRN Q1HR PRN TP SKIN PROTECTION; Start 03/16/18 at 20:15 Hydralazine HCl (Apresoline) 25 mg BID PO Last administered on 03/17/18at 10:17; Start 03/17/18 at 09:30; Stop 03/17/18 at 17:12; Status DC Hydralazine HCl (Apresoline) 25 mg TID PO Last administered on 03/18/18at 13:32; Start 03/17/18 at 17:15; Stop 03/18/18 at 14:01; Status DC Betamethasone Dipropion Augmented (Diprolene-Af) 1 carley PRN BID PRN TP RASH; Start 03/18/18 at 07:27 Hydralazine HCl (Apresoline) 50 mg TID PO Last administered on 03/19/18at 08:13; Start 03/18/18 at 14:00 Isosorbide Mononitrate (Imdur) 60 mg DAILY PO Last administered on 03/19/18at 08: 12; Start 03/19/18 at 09:00 Isosorbide Mononitrate (Imdur) 30 mg 1X ONCE PO Last administered on 03/18/18at 14:28; Start 03/18/18 at 14:00; Stop 03/18/18 at 14:13; Status DC Sertraline HCl (Zoloft) 12.5 mg DAILY PO Last administered on 03/19/18at 08:14; Start 03/19/18 at 09:00 Active Scripts Active Reported Zyprexa (Olanzapine) 2.5 Mg Tablet 1.25 Mg PO Q2HR PRN MDD 7.5/24hrs Remeron (Mirtazapine) 15 Mg Tablet 15 Mg PO HS Skin Repair Lotion (Vit A/Cheng Ac/Aloe V/Emu Oil) 570 Ml Lotion 1 Carley TP Q1HR PRN [place] Ultra Strength Crm (Methyl Salicylate/Menth/Camph) 57 Gm Cream..g. 28 Gm TP QID PRN MUSCLE PAIN Isosorbide Mononitrate Er (Isosorbide Mononitrate) 30 Mg Tab.er.24h 30 Mg PO DAILY Donepezil Hcl 10 Mg Tablet 10 Mg PO DAILY Zirgan (Ganciclovir) 5 Gm Gel..gram. 5 Gm OP 5 TIME DAILY Carvedilol 6.25 Mg Tablet 6.25 Mg PO BIDWMEALS Diprolene 0.05% Ointment (Betamethasone/Propylene Glyc) 15 Gm Oint...g. 15 Gm TP PRN BID PRN Zoloft (Sertraline Hcl) 25 Mg Tablet 25 Mg PO DAILY Polyvinyl Alcohol 15 Ml Drops 1 Drop OP PRN QID PRN K-Tab ER (Potassium Chloride) 20 Meq Tablet.er 20 Meq PO DAILY Protonix (Pantoprazole Sodium) 40 Mg Tablet.dr 40 Mg PO DAILY Atorvastatin Calcium 40 Mg Tablet 40 Mg PO DAILY Tamsulosin Hcl 0.4 Mg Cap.er.24h 0.4 Mg PO DAILY Proscar (Finasteride) 5 Mg Tablet 5 Mg PO DAILY Senna Lax (Sennosides) 8.6 Mg Tablet 17.2 Mg PO DAILY Ferrous Sulfate 325 Mg Tablet 325 Mg PO DAILY Acetaminophen 325 Mg Tablet 325 Mg PO PRN Q6HRS PRN Vitamin D3 (Cholecalciferol (Vitamin D3)) 1,000 Unit Tablet 1,000 Unit PO DAILY Miralax (Polyethylene Glycol 3350) 17 Gm Powd.pack 17 Gm PO BID Prednisolone Acetate 5 Ml Drops.susp 1 Drop EACHEYE DAILY Mucinex (Guaifenesin) 1,200 Mg Tbmp.12hr 1,200 Mg PO BID Fluticasone Propionate Nasal [place] (Fluticasone Propionate) 16 Gm [place].susp 2 Spr NS BID Preparation H (Hydrocortisone) 26 Gm Cream..g. 26 Gm TP PRN BID PRN Torsemide 20 Mg Tablet 40 Mg PO DAILY I have reviewed the current psychotropics carefully including drug interactions. Risk benefit ratio favors no change other than as noted in my dictated progress note. 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
[2018-03-19] MEDS: MIRTAZAPINE 15 MG TABLET PO SCH (20:10)
[2018-03-19] MEDS: ATORVASTATIN CALCIUM 20 MG TABLET PO SCH (20:10)
[2018-03-19] MEDS: ACETAMINOPHEN 325 MG TABLET PO PRN (20:10)
[2018-03-20 03:27] VITALS: BP 171/74
[2018-03-20] MEDS: IPRATRPIUM/ALBUTEROL 0.5/2.5MG 3 ML NEBU. NEB SCH ×4 (05:30→20:36)
[2018-03-20 06:36] LABS: HEMATOCRIT 24.2 % (39.0-53.0); HEMOGLOBIN 8.4 g/dL (13.0-17.5); RED BLOOD COUNT 2.39 x10^6/uL (4.30-5.70); RED CELL DISTRIBUTION WIDTH 15.9 % (11.5-14.5); WHITE BLOOD COUNT 3.7 x10^3/uL (4.0-11.0)
[2018-03-20 06:45] LABS: ALBUMIN 2.3 g/dL (3.4-5.0); ALBUMIN/GLOBULIN RATIO 0.5 (1.0-1.7); CALCIUM 8.3 mg/dL (8.5-10.1); CREATININE 1.6 mg/dL (0.7-1.3); GFR 40.9; POTASSIUM 5.3 mmol/L (3.5-5.1); TOTAL BILIRUBIN 0.5 mg/dL (0.2-1.0); TOTAL PROTEIN 6.7 g/dL (6.4-8.2)
[2018-03-20 07:15] VITALS: BP 133/55
[2018-03-20] MEDS: POTASSIUM CHLORIDE 20 MEQ TABLET.ER. PO SCH (08:00)
[2018-03-20] MEDS: FLUTICASONE 50MCG/NASAL SPRAY 16GM BOTTLE. NS SCH ×2 (09:00→22:09)
[2018-03-20] MEDS: prednisoLONE ACETATE 1% OPHTH SUSPENSION 5ML BOTTLE. OU SCH (09:00)
--- NOTE | 2018-03-20 09:23 | PDOC ---
PROGRESS NOTES Assessment 1. Elevated troponin c/w NSTEMI - History of chronically elevated trop at 0.5 during last couple admissions. Echo reveals normal LV function with EF at 50% which is improved from last echo. Inferior wall hypokinesis - unchanged from last echo. Continue medical mgmt. 2. CAD/CABG status - records reviewed. Medical mgmt with aspirin, nitrates. No beta blockers due to bradycardia. 3. accelerated hypertension - improved with current medications. Episodic hypotension with bradycardia. History of probable vasovagal episodes. May consider addition of midodrine or pyridostigmine if episodes continue. 4. bradycardia with history of PAF - no beta blockers due to bradycardia. No anticoagulants due to fall risk. 5. chronic systolic / diastolic heart failure - repeat CXR today. 6. PHTN - moderately severe 7. Anemia - hx of myleodysplastic syndrome - mgmt per PCP 8. dementia - per Psych/PCP Subjective Resting quietly, no complaints, nursing reports episodic hypotension and bradycardia without significant symptoms. Objective Echo - Basal inferior wall hypokinesis. The Ejection Fraction is estimated at 50%. Trace to mild aortic regurgitation. Mild mitral regurgitation. Mild tricuspid regurgitation. There is severe pulmonary hypertension. PASP is 86mmHg. There is no evidence of significant pericardial effusion. Vital Signs Date Time Temp Pulse Resp B/P (MAP) Pulse Ox O2 Delivery O2 Flow Rate FiO2 03/20/18 07:15 46 14 133/55 (81) 99 Nasal Cannula 2.0 03/20/18 03:27 97.5 Intake and Output 03/20/18 07:00 Intake Total 170 ml Output Total 1 ml Balance 169 ml Intake Oral 170 ml Stool Total 1 ml # Voids 1 # Bowel Movements 1 Abdomen: Normal bowel sounds, Soft Heart: Regular rate, Normal S1, Normal S2 Extremities: No cyanosis, No edema General: No acute distress HEENT: Other Lungs: Other (decreased bases) Neck: Other (increased JVP) Review of Relevant I have reviewed the following items danny (where applicable) has been applied. Labs Laboratory Tests Test 03/18/18 11:55 03/18/18 16:57 03/18/18 21:14 03/19/18 06:09 Glucose (Fingerstick) 175 mg/dL (70-99) 111 mg/dL (70-99) 179 mg/dL (70-99) Hemoglobin 8.6 g/dL (13.0-17.5) Hematocrit 25.1 % (39.0-53.0) Iron Level 39 ug/dL (65-175) Total Iron Binding Capacity 158 ug/dL (250-450) Iron Saturation 25 % (15-34) Ferritin 289 ng/mL (26-388) Test 03/19/18 07:45 03/19/18 11:44 03/19/18 16:53 03/19/18 20:22 Glucose (Fingerstick) 143 mg/dL (70-99) 160 mg/dL (70-99) 138 mg/dL (70-99) 217 mg/dL (70-99) Test 03/20/18 05:40 White Blood Count 3.7 x10^3/uL (4.0-11.0) Red Blood Count 2.39 x10^6/uL (4.30-5.70) Hemoglobin 8.4 g/dL (13.0-17.5) Hematocrit 24.2 % (39.0-53.0) Mean Corpuscular Volume 101 fL (79-100) Mean Corpuscular Hemoglobin 35 pg (25-35) Mean Corpuscular Hemoglobin Concent 35 g/dL (31-37) Red Cell Distribution Width 15.9 % (11.5-14.5) Platelet Count 155 x10^3/uL (140-400) Sodium Level 135 mmol/L (136-145) Potassium Level 5.3 mmol/L (3.5-5.1) Chloride Level 101 mmol/L (98-107) Carbon Dioxide Level 31 mmol/L (21-32) Anion Gap 3 (6-14) Blood Urea Nitrogen 35 mg/dL (8-26) Creatinine 1.6 mg/dL (0.7-1.3) Estimated GFR (Cockcroft-Gault) 40.9 BUN/Creatinine Ratio 22 (6-20) Glucose Level 173 mg/dL (70-99) Calcium Level 8.3 mg/dL (8.5-10.1) Total Bilirubin 0.5 mg/dL (0.2-1.0) Aspartate Amino Transf (AST/SGOT) 19 U/L (15-37) Alanine Aminotransferase (ALT/SGPT) 18 U/L (16-63) Alkaline Phosphatase 59 U/L (46-116) Total Protein 6.7 g/dL (6.4-8.2) Albumin 2.3 g/dL (3.4-5.0) Albumin/Globulin Ratio 0.5 (1.0-1.7) Medications Current Medications Insulin Human Lispro (HumaLOG) 0-7 UNITS TIDWMEALS SQ Last administered on 12:00; Start 03/17/18 at 08:00 Dextrose 12.5 gm PRN Q15MIN PRN IV SEE COMMENTS; Start 03/16/18 at 18:45 Acetaminophen (Tylenol) 325 mg PRN Q6HRS PRN PO PAIN Last administered on 20:10; Start 03/16/18 at 19:30 Betamethasone Dipropion Augmented (Diprolene-Af) 15 carley PRN BID PRN TP RASH; Start 03/16/18 at 19:30; Stop 03/18/18 at 07:27; Status DC Vitamin D (Vitamin D3) 1,000 unit DAILY PO Last administered on 03/19/18 08:14 ; Start 03/17/18 at 09:00 Donepezil HCl (Aricept) 10 mg DAILY PO Last administered on 03/19/18 08:14; Start 03/17/18 at 09:00 Ferrous Sulfate (Feosol) 325 mg DAILY PO Last administered on 03/19/18 08:14; Start 03/17/18 at 09:00 Isosorbide Mononitrate (Imdur) 15 mg DAILY PO ; Start 03/17/18 at 09:00; Stop 03/17/18 at 09:00; Status DC Isosorbide Mononitrate (Imdur) 30 mg DAILY PO Last administered on 03/18/18at 08: 47; Start 03/17/18 at 09:00; Stop 03/18/18 at 14:01; Status DC Artificial Tears (Artificial Tears) 1 drop PRN QID PRN OU DRY EYE; Start at 19:30 Prednisolone Acetate (Pred Forte) 1 drop DAILY OU Last administered on at 08:23; Start 03/17/18 at 09:00 Tamsulosin HCl (Flomax) 0.4 mg DAILY PO Last administered on 03/19/18at 08:12; Start 03/17/18 at 09:00 Atorvastatin Calcium (Lipitor) 40 mg QHS PO Last administered on 03/19/18 20:10 ; Start 03/16/18 at 21:00 Carvedilol (Coreg) 6.25 mg BIDWMEALS PO ; Start 03/17/18 at 08:00; Stop 03/17/18 at 17:11; Status DC Non-Formulary Medication (Donepezil Hcl ) 10 mg DAILY PO ; Start 03/17/18 at 09: 00; Stop 03/17/18 at 09:00; Status DC Finasteride (Proscar) 5 mg DAILY PO Last administered on 03/19/18at 08:13; Start 03/17/18 at 09:00 Fluticasone Propionate (Flonase) 2 spray BID NS Last administered on 03/19/18 08:23; Start 03/17/18 at 09:00 Non-Formulary Medication (Ganciclovir (Zirgan)) 5 gm 5 time daily OP ; Start at 19:30; Status UNV Guaifenesin (Mucinex Er) 1,200 mg BID PO Last administered on 03/19/18at 20:10; Start 03/16/18 at 21:00 Phenyleph/Shark Oil/Min Oil/Petrol (Preparation H) 1 carley PRN BID PRN RC RECTAL PAIN; Start 03/16/18 at 20:00 Multi-Ingredient Ointment (Analgesic [place]) 1 carley PRN QID PRN TP MUSCLE PAIN; Start 03/16/18 at 20:00 Mirtazapine (Remeron) 15 mg QHS PO Last administered on 03/19/18at 20:10; Start 03/16/18 at 21:00 Olanzapine (ZyPREXA ZYDIS) 1.25 mg PRN Q2HR PRN PO AGITATION Last administered on 03/20/18at 04:30; Start 03/16/18 at 20:00 Pantoprazole Sodium (Protonix) 40 mg DAILYAC PO Last administered on 03/19/18at 08:12; Start 03/17/18 at 07:30 Polyethylene Glycol (miraLAX) 17 gm BID PO Last administered on 03/18/18at 08:45 ; Start 03/17/18 at 09:00 Potassium Chloride (Klor-Con) 20 meq DAILYWBKFT PO ; Start 03/17/18 at 08:00 Sennosides (Senna) 17.2 mg DAILY PO Last administered on 03/19/18at 08:13; Start 03/17/18 at 09:00 Sertraline HCl (Zoloft) 25 mg DAILY PO Last administered on 03/18/18at 08:47; Start 03/17/18 at 09:00; Stop 03/18/18 at 14:59; Status DC Torsemide (Demadex) 40 mg DAILY PO Last administered on 03/19/18at 08:14; Start 03/17/18 at 09:00 Non-Formulary Medication (Vit A/Cheng Ac/ Aloe V/Emu Oil (Skin Repair Lotion)) 1 carley Q1HR TP ; Start 03/16/18 at 20:00; Stop 03/16/18 at 20:00; Status DC Albuterol/ Ipratropium (Duoneb) 3 ml RTQID NEB Last administered on 03/20/18at 05 :30; Start 03/16/18 at 20:00 Non-Formulary Medication (Vit A/Cheng Ac/ Aloe V/Emu Oil (Skin Repair Lotion)) 1 carley PRN Q1HR PRN TP DRY SKIN/IRRITATION; Start 03/16/18 at 20:00; Stop at 20:00; Status DC Vitamin A/Vitamin D (Vitamin A & D Ointment) 1 carley PRN Q1HR PRN TP SKIN PROTECTION; Start 03/16/18 at 20:15 Hydralazine HCl (Apresoline) 25 mg BID PO Last administered on 03/17/18at 10:17; Start 03/17/18 at 09:30; Stop 03/17/18 at 17:12; Status DC Hydralazine HCl (Apresoline) 25 mg TID PO Last administered on 03/18/18at 13:32; Start 03/17/18 at 17:15; Stop 03/18/18 at 14:01; Status DC Betamethasone Dipropion Augmented (Diprolene-Af) 1 carley PRN BID PRN TP RASH; Start 03/18/18 at 07:27 Hydralazine HCl (Apresoline) 50 mg TID PO Last administered on 03/19/18at 22:28; Start 03/18/18 at 14:00 Isosorbide Mononitrate (Imdur) 60 mg DAILY PO Last administered on 03/19/18at 08: 12; Start 03/19/18 at 09:00 Isosorbide Mononitrate (Imdur) 30 mg 1X ONCE PO Last administered on 03/18/18at 14:28; Start 03/18/18 at 14:00; Stop 03/18/18 at 14:13; Status DC Sertraline HCl (Zoloft) 12.5 mg DAILY PO Last administered on 03/19/18at 08:14; Start 03/19/18 at 09:00 Active Scripts Active Reported Zyprexa (Olanzapine) 2.5 Mg Tablet 1.25 Mg PO Q2HR PRN MDD 7.5/24hrs Remeron (Mirtazapine) 15 Mg Tablet 15 Mg PO HS Skin Repair Lotion (Vit A/Cheng Ac/Aloe V/Emu Oil) 570 Ml Lotion 1 Carley TP Q1HR PRN [place] Ultra Strength Crm (Methyl Salicylate/Menth/Camph) 57 Gm Cream..g. 28 Gm TP QID PRN MUSCLE PAIN Isosorbide Mononitrate Er (Isosorbide Mononitrate) 30 Mg Tab.er.24h 30 Mg PO DAILY Donepezil Hcl 10 Mg Tablet 10 Mg PO DAILY Zirgan (Ganciclovir) 5 Gm Gel..gram. 5 Gm OP 5 TIME DAILY Carvedilol 6.25 Mg Tablet 6.25 Mg PO BIDWMEALS Diprolene 0.05% Ointment (Betamethasone/Propylene Glyc) 15 Gm Oint...g. 15 Gm TP PRN BID PRN Zoloft (Sertraline Hcl) 25 Mg Tablet 25 Mg PO DAILY Polyvinyl Alcohol 15 Ml Drops 1 Drop OP PRN QID PRN K-Tab ER (Potassium Chloride) 20 Meq Tablet.er 20 Meq PO DAILY Protonix (Pantoprazole Sodium) 40 Mg Tablet.dr 40 Mg PO DAILY Atorvastatin Calcium 40 Mg Tablet 40 Mg PO DAILY Tamsulosin Hcl 0.4 Mg Cap.er.24h 0.4 Mg PO DAILY Proscar (Finasteride) 5 Mg Tablet 5 Mg PO DAILY Senna Lax (Sennosides) 8.6 Mg Tablet 17.2 Mg PO DAILY Ferrous Sulfate 325 Mg Tablet 325 Mg PO DAILY Acetaminophen 325 Mg Tablet 325 Mg PO PRN Q6HRS PRN Vitamin D3 (Cholecalciferol (Vitamin D3)) 1,000 Unit Tablet 1,000 Unit PO DAILY Miralax (Polyethylene Glycol 3350) 17 Gm Powd.pack 17 Gm PO BID Prednisolone Acetate 5 Ml Drops.susp 1 Drop EACHEYE DAILY Mucinex (Guaifenesin) 1,200 Mg Tbmp.12hr 1,200 Mg PO BID Fluticasone Propionate Nasal [place] (Fluticasone Propionate) 16 Gm [place].susp 2 Spr NS BID Preparation H (Hydrocortisone) 26 Gm Cream..g. 26 Gm TP PRN BID PRN Torsemide 20 Mg Tablet 40 Mg PO DAILY Vitals/I & O Vital Sign - Last 24 Hours 03/19/18 03/19/18 03/19/18 03/19/18 10:55 12:19 15:04 15:05 Temp 96.6 Pulse 57 74 Resp 18 18 B/P (MAP) 119/49 (72) 180/74 (109) 180/74 Pulse Ox 97 99 97 O2 Delivery Nasal Cannula Nasal Cannula Nasal Cannula O2 Flow Rate 2.0 3.0 2.0 03/19/18 03/19/18 03/19/18 03/19/18 16:26 17:15 17:31 20:43 Pulse 63 Resp 18 B/P (MAP) 73/35 (48) 101/46 (64) Pulse Ox 97 97 O2 Delivery Nasal Cannula Nasal Cannula Nasal Cannula Nasal Cannula O2 Flow Rate 2.0 2.0 2.0 03/19/18 03/19/18 03/19/18 03/19/18 21:00 21:28 22:28 23:15 Temp 97.5 Pulse 62 62 31 Resp 25 14 B/P (MAP) 141/59 (86) 141/59 84/33 (50) Pulse Ox 99 97 99 O2 Delivery Nasal Cannula Nasal Cannula Nasal Cannula O2 Flow Rate 2.0 2.0 2.0 03/19/18 03/20/18 03/20/18 03/20/18 23:18 03:27 05:30 07:15 Temp 97.5 Pulse 67 59 46 Resp 16 14 14 B/P (MAP) 154/65 (94) 171/74 (106) 133/55 (81) Pulse Ox 99 99 98 99 O2 Delivery Nasal Cannula Nasal Cannula Nasal Cannula Nasal Cannula O2 Flow Rate 2.0 2.0 2.0 2.0 Intake and Output 03/19/18 03/19/18 03/20/18 15:00 23:00 07:00 Intake Total 170 ml Output Total 1 ml Balance 170 ml -1 ml MOON OLSON APRN Mar 20, 2018 09:23
[2018-03-20] MEDS: TAMSULOSIN 0.4 MG CAP.ER.24H. PO SCH (10:28)
[2018-03-20] MEDS: INSULIN LISPRO 300 UNITS/3 ML INSULN.PEN. SQ SCH ×3 (10:28→17:47)
[2018-03-20] MEDS: TORSEMIDE 20 MG TABLET. PO SCH (10:28)
[2018-03-20] MEDS: POLYETHYLENE GLYCOL 3350 17 GM PACKET. PO SCH ×2 (10:28→21:03)
[2018-03-20 10:29] VITALS: BP 170/75
[2018-03-20] MEDS: FINASTERIDE 5 MG TABLET PO SCH (10:36)
[2018-03-20] MEDS: DONEPEZIL HCL 10 MG TABLET PO SCH (10:36)
[2018-03-20] MEDS: PANTOPRAZOLE 40 MG TABLET. PO SCH (10:36)
[2018-03-20] MEDS: CHOLECALCIFEROL (VITAMIN D3) 1,000 UNIT TABLET PO SCH (10:37)
[2018-03-20] MEDS: SENNOSIDES 8.6 MG TABLET PO SCH (10:37)
[2018-03-20] MEDS: FERROUS SULFATE 325 MG TABLET. PO SCH (10:38)
[2018-03-20] MEDS: ISOSORBIDE MONONITRATE ER 30 MG TAB.ER.24H PO SCH (10:40)
[2018-03-20] MEDS: SERTRALINE 25 MG TABLET. PO SCH (10:45)
--- NOTE | 2018-03-20 12:09 | RAD ---
Portable chest, 03/20/2018: HISTORY: Pleural effusion Comparison is made to a study from 03/17/2018. There has been a previous median sternotomy. There are ongoing moderate sized bilateral pleural effusions obscuring the cardiac margins. There is moderate underlying bibasilar atelectasis/infiltrate. The pulmonary vascularity in the upper lobes is slightly better defined than on the previous study. No new infiltrate is seen. IMPRESSION: Congestive heart failure has improved slightly although there are moderate ongoing bilateral pleural effusions and residual bibasilar atelectasis/infiltrate. Electronically signed by: Janes Hamm MD (03/20/2018 12:05 PM) [facility]
--- NOTE | 2018-03-20 12:36 | PN ---
DATE: 03/19/2018 SUBJECTIVE: The patient is resting, slightly propped up in bed, in no apparent respiratory distress. He denied any chest pain. Denied any shortness of breath. Nursing staff stated that he had generally uneventful night. He continued to be confused, but otherwise hemodynamically stable. He was seen yesterday by Dr. Berumen, who just decided to split his sertraline to twice a day. They did not recommend any further ischemic workup. PHYSICAL EXAMINATION: GENERAL: When I examined him this afternoon, he looked pale, but no jaundice or cyanosis. No lymphadenopathy, no thyromegaly. No jugular venous distention. No limb edema. VITAL SIGNS: His heart rate was 57, blood pressure was 119/49, temperature was 96.6, respiratory rate was 18 and oxygen saturation was 99% on 3 liters of oxygen by nasal cannula. HEAD, EYES, EARS, NOSE AND THROAT: Showed normocephalic, atraumatic. NECK: Supple. HEART: Showed normal first and second sounds. No gallop, rub or murmur. CHEST: Clear to auscultation. No crepitation or rhonchi. ABDOMEN: Distended, soft, nontender. NEUROLOGIC: He is very hard of hearing. Otherwise, his cranial nerves intact. He moves upper extremities to much good extent than his lower extremities. He is mostly bedbound, chair bound. His intake over the last 24 hours was 1840, output was 930. LABORATORY DATA: As of this morning showed that his serum sodium was 136, potassium 5, chloride 102, bicarbonate 31, anion gap of 3, BUN 32, creatinine 1.2, estimated GFR was 57 mL per minute. His glucose 152, calcium was 7.9. Total bilirubin, AST, ALT, alkaline phosphatase were normal. His hemoglobin was 8.6, hematocrit 25. He has 3 sets of cardiac enzymes, all of them showed troponin to be slightly elevated. Apparently, he has chronic elevation because of underlying kidney disease. ASSESSMENT AND PLAN: 1. Elevated troponin consistent with non-ST segment elevation myocardial infarction, likely in part related to accelerated hypertension. 2. He was seen by Cardiology team. An echocardiogram was done, which showed that his ejection fraction was 50%. He has basal inferior wall hypokinesis, trace of mild aortic regurgitation, mild mitral regurgitation, mild tricuspid regurgitation, severe pulmonary hypertension with pulmonary artery systolic pressure of 86 mmHg with no evidence of significant pericardial effusion. His EKG showed that he has right bundle branch block bradycardia and first-degree heart block. 3. Coronary artery disease status post coronary artery bypass graft surgery. 4. Accelerated hypertension for which we increased his hydralazine to 50 mg 3 times a day. I increased his Imdur to 60 mg and because of his severe bradycardia, his Coreg was discontinued. Apparently, he is not a candidate to go back to [facility] and will be discharged tomorrow to [facility]. BEN HORTON MD DR: GEORGE/mechelle JOB#: [id number] / [id number]
[2018-03-20 16:35] VITALS: BP 174/63
--- NOTE | 2018-03-20 17:17 | PDOC ---
Exam Note: [place] Note: Please also refer to the separate dictated note~for this date of service dictated separately.~Patient seen individually. Discussed the patient with Nursing staff reviewed the chart.~Reviewed interim history and current functioning. Reviewed vital signs,~Labs/ Radiology~and current medications noted below. Continue current treatment with the changes noted in the dictated addendum note Assessment: Vital Signs: Vital Signs Date Time Temp Pulse Resp B/P (MAP) Pulse Ox O2 Delivery O2 Flow Rate FiO2 03/20/18 16:50 99 Nasal Cannula 2.0 03/20/18 16:37 62 174/63 03/20/18 10:29 20 03/20/18 03:27 97.5 I&O Intake and Output 03/20/18 07:00 Intake Total 170 ml Output Total 1 ml Balance 169 ml Intake Oral 170 ml Stool Total 1 ml # Voids 1 # Bowel Movements 1 Labs: Laboratory Tests Test 03/19/18 20:22 03/20/18 05:40 03/20/18 17:05 Glucose (Fingerstick) 217 mg/dL (70-99) H 222 mg/dL (70-99) H White Blood Count 3.7 x10^3/uL (4.0-11.0) L Red Blood Count 2.39 x10^6/uL (4.30-5.70) L Hemoglobin 8.4 g/dL (13.0-17.5) L Hematocrit 24.2 % (39.0-53.0) L Mean Corpuscular Volume 101 fL (79-100) H Mean Corpuscular Hemoglobin 35 pg (25-35) Mean Corpuscular Hemoglobin Concent 35 g/dL (31-37) Red Cell Distribution Width 15.9 % (11.5-14.5) H Platelet Count 155 x10^3/uL (140-400) Sodium Level 135 mmol/L (136-145) L Potassium Level 5.3 mmol/L (3.5-5.1) H Chloride Level 101 mmol/L (98-107) Carbon Dioxide Level 31 mmol/L (21-32) Anion Gap 3 (6-14) L Blood Urea Nitrogen 35 mg/dL (8-26) H Creatinine 1.6 mg/dL (0.7-1.3) H Estimated GFR (Cockcroft-Gault) 40.9 BUN/Creatinine Ratio 22 (6-20) H Glucose Level 173 mg/dL (70-99) H Calcium Level 8.3 mg/dL (8.5-10.1) L Total Bilirubin 0.5 mg/dL (0.2-1.0) Aspartate Amino Transferase (AST) 19 U/L (15-37) Alanine Aminotransferase (ALT) 18 U/L (16-63) Alkaline Phosphatase 59 U/L (46-116) Total Protein 6.7 g/dL (6.4-8.2) Albumin 2.3 g/dL (3.4-5.0) L Albumin/Globulin Ratio 0.5 (1.0-1.7) L Current Medications: Meds: Current Medications Insulin Human Lispro (HumaLOG) 0-7 UNITS TIDWMEALS SQ Last administered on at 12:00; Start 03/17/18 at 08:00 Dextrose 12.5 gm PRN Q15MIN PRN IV SEE COMMENTS; Start 03/16/18 at 18:45 Acetaminophen (Tylenol) 325 mg PRN Q6HRS PRN PO PAIN Last administered on at 20:10; Start 03/16/18 at 19:30 Betamethasone Dipropion Augmented (Diprolene-Af) 15 carley PRN BID PRN TP RASH; Start 03/16/18 at 19:30; Stop 03/18/18 at 07:27; Status DC Vitamin D (Vitamin D3) 1,000 unit DAILY PO Last administered on 03/20/18at 10:37 ; Start 03/17/18 at 09:00 Donepezil HCl (Aricept) 10 mg DAILY PO Last administered on 03/20/18at 10:36; Start 03/17/18 at 09:00 Ferrous Sulfate (Feosol) 325 mg DAILY PO Last administered on 03/20/18at 10:38; Start 03/17/18 at 09:00 Isosorbide Mononitrate (Imdur) 15 mg DAILY PO ; Start 03/17/18 at 09:00; Stop 03/17/18 at 09:00; Status DC Isosorbide Mononitrate (Imdur) 30 mg DAILY PO Last administered on 03/18/18at 08: 47; Start 03/17/18 at 09:00; Stop 03/18/18 at 14:01; Status DC Artificial Tears (Artificial Tears) 1 drop PRN QID PRN OU DRY EYE; Start at 19:30 Prednisolone Acetate (Pred Forte) 1 drop DAILY OU Last administered on 08:23; Start 03/17/18 at 09:00 Tamsulosin HCl (Flomax) 0.4 mg DAILY PO Last administered on 03/20/18 10:28; Start 03/17/18 at 09:00 Atorvastatin Calcium (Lipitor) 40 mg QHS PO Last administered on 03/19/18 20:10 ; Start 03/16/18 at 21:00 Carvedilol (Coreg) 6.25 mg BIDWMEALS PO ; Start 03/17/18 at 08:00; Stop 03/17/18 at 17:11; Status DC Non-Formulary Medication (Donepezil Hcl ) 10 mg DAILY PO ; Start 03/17/18 at 09: 00; Stop 03/17/18 at 09:00; Status DC Finasteride (Proscar) 5 mg DAILY PO Last administered on 03/20/18at 10:36; Start 03/17/18 at 09:00 Fluticasone Propionate (Flonase) 2 spray BID NS Last administered on 03/19/18 08:23; Start 03/17/18 at 09:00 Non-Formulary Medication (Ganciclovir (Zirgan)) 5 gm 5 time daily OP ; Start at 19:30; Status UNV Guaifenesin (Mucinex Er) 1,200 mg BID PO Last administered on 03/19/18at 20:10; Start 03/16/18 at 21:00 Phenyleph/Shark Oil/Min Oil/Petrol (Preparation H) 1 carley PRN BID PRN RC RECTAL PAIN; Start 03/16/18 at 20:00 Multi-Ingredient Ointment (Analgesic [place]) 1 carley PRN QID PRN TP MUSCLE PAIN; Start 03/16/18 at 20:00 Mirtazapine (Remeron) 15 mg QHS PO Last administered on 03/19/18at 20:10; Start 03/16/18 at 21:00 Olanzapine (ZyPREXA ZYDIS) 1.25 mg PRN Q2HR PRN PO AGITATION Last administered on 03/20/18 04:30; Start 03/16/18 at 20:00 Pantoprazole Sodium (Protonix) 40 mg DAILYAC PO Last administered on 03/20/18 10:36; Start 03/17/18 at 07:30 Polyethylene Glycol (miraLAX) 17 gm BID PO Last administered on 03/20/18 10:28 ; Start 03/17/18 at 09:00 Potassium Chloride (Klor-Con) 20 meq DAILYWBKFT PO ; Start 03/17/18 at 08:00 Sennosides (Senna) 17.2 mg DAILY PO Last administered on 03/20/18 10:37; Start 03/17/18 at 09:00 Sertraline HCl (Zoloft) 25 mg DAILY PO Last administered on 03/18/18 08:47; Start 03/17/18 at 09:00; Stop 03/18/18 at 14:59; Status DC Torsemide (Demadex) 40 mg DAILY PO Last administered on 03/20/18 10:28; Start 03/17/18 at 09:00 Non-Formulary Medication (Vit A/Cheng Ac/ Aloe V/Emu Oil (Skin Repair Lotion)) 1 carley Q1HR TP ; Start 03/16/18 at 20:00; Stop 03/16/18 at 20:00; Status DC Albuterol/ Ipratropium (Duoneb) 3 ml RTQID NEB Last administered on 03/20/18at 16 :50; Start 03/16/18 at 20:00 Non-Formulary Medication (Vit A/Cheng Ac/ Aloe V/Emu Oil (Skin Repair Lotion)) 1 carley PRN Q1HR PRN TP DRY SKIN/IRRITATION; Start 03/16/18 at 20:00; Stop at 20:00; Status DC Vitamin A/Vitamin D (Vitamin A & D Ointment) 1 carley PRN Q1HR PRN TP SKIN PROTECTION; Start 03/16/18 at 20:15 Hydralazine HCl (Apresoline) 25 mg BID PO Last administered on 03/17/18at 10:17; Start 03/17/18 at 09:30; Stop 03/17/18 at 17:12; Status DC Hydralazine HCl (Apresoline) 25 mg TID PO Last administered on 03/18/18at 13:32; Start 03/17/18 at 17:15; Stop 03/18/18 at 14:01; Status DC Betamethasone Dipropion Augmented (Diprolene-Af) 1 carley PRN BID PRN TP RASH; Start 03/18/18 at 07:27 Hydralazine HCl (Apresoline) 50 mg TID PO Last administered on 03/20/18at 16:37; Start 03/18/18 at 14:00 Isosorbide Mononitrate (Imdur) 60 mg DAILY PO Last administered on 03/20/18at 10: 40; Start 03/19/18 at 09:00 Isosorbide Mononitrate (Imdur) 30 mg 1X ONCE PO Last administered on 03/18/18at 14:28; Start 03/18/18 at 14:00; Stop 03/18/18 at 14:13; Status DC Sertraline HCl (Zoloft) 12.5 mg DAILY PO Last administered on 03/20/18at 10:45; Start 03/19/18 at 09:00 Active Scripts Active Reported Zyprexa (Olanzapine) 2.5 Mg Tablet 1.25 Mg PO Q2HR PRN MDD 7.5/24hrs Remeron (Mirtazapine) 15 Mg Tablet 15 Mg PO HS Skin Repair Lotion (Vit A/Cheng Ac/Aloe V/Emu Oil) 570 Ml Lotion 1 Carley TP Q1HR PRN [place] Ultra Strength Crm (Methyl Salicylate/Menth/Camph) 57 Gm Cream..g. 28 Gm TP QID PRN MUSCLE PAIN Isosorbide Mononitrate Er (Isosorbide Mononitrate) 30 Mg Tab.er.24h 30 Mg PO DAILY Donepezil Hcl 10 Mg Tablet 10 Mg PO DAILY Zirgan (Ganciclovir) 5 Gm Gel..gram. 5 Gm OP 5 TIME DAILY Carvedilol 6.25 Mg Tablet 6.25 Mg PO BIDWMEALS Diprolene 0.05% Ointment (Betamethasone/Propylene Glyc) 15 Gm Oint...g. 15 Gm TP PRN BID PRN Zoloft (Sertraline Hcl) 25 Mg Tablet 25 Mg PO DAILY Polyvinyl Alcohol 15 Ml Drops 1 Drop OP PRN QID PRN K-Tab ER (Potassium Chloride) 20 Meq Tablet.er 20 Meq PO DAILY Protonix (Pantoprazole Sodium) 40 Mg Tablet.dr 40 Mg PO DAILY Atorvastatin Calcium 40 Mg Tablet 40 Mg PO DAILY Tamsulosin Hcl 0.4 Mg Cap.er.24h 0.4 Mg PO DAILY Proscar (Finasteride) 5 Mg Tablet 5 Mg PO DAILY Senna Lax (Sennosides) 8.6 Mg Tablet 17.2 Mg PO DAILY Ferrous Sulfate 325 Mg Tablet 325 Mg PO DAILY Acetaminophen 325 Mg Tablet 325 Mg PO PRN Q6HRS PRN Vitamin D3 (Cholecalciferol (Vitamin D3)) 1,000 Unit Tablet 1,000 Unit PO DAILY Miralax (Polyethylene Glycol 3350) 17 Gm Powd.pack 17 Gm PO BID Prednisolone Acetate 5 Ml Drops.susp 1 Drop EACHEYE DAILY Mucinex (Guaifenesin) 1,200 Mg Tbmp.12hr 1,200 Mg PO BID Fluticasone Propionate Nasal [place] (Fluticasone Propionate) 16 Gm [place].susp 2 Spr NS BID Preparation H (Hydrocortisone) 26 Gm Cream..g. 26 Gm TP PRN BID PRN Torsemide 20 Mg Tablet 40 Mg PO DAILY I have reviewed the current psychotropics carefully including drug interactions. Risk benefit ratio favors no change other than as noted in my dictated progress note. 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
[2018-03-20 19:00] VITALS: BP 118/50
[2018-03-20] MEDS: ATORVASTATIN CALCIUM 20 MG TABLET PO SCH (21:03)
--- NOTE | 2018-03-20 22:08 | PN ---
DATE: 03/19/2018 This note covers elements not covered in my initial note 03/19/2018. I met with the patient afternoon of 03/19/2018. Previously discussed with nursing staff [facility] and then the ICU. Medically, he appears more stable per Dr. Cole, can be transferred back to the [facility]. However, from a psychiatric standpoint, he is stable enough, not meeting criteria to come back to the [facility]. He may return to nursing facility when medically stable. REVIEW OF SYSTEMS: Hard of hearing. No CV, , pulmonary, eye system symptoms on review. MENTAL STATUS EXAM: Oriented to himself and situation. Speech coherent, has some latency, often responses monosyllabic. Abstraction fair, computation impaired, language function intact, attention span short. Mood and affect showing improvement. LABORATORY DATA: Reviewed. IMPRESSION: Unchanged from initial note. PLAN: No change from a psychiatric standpoint. ABELINO BOND MD DR: CRISTY/mechelle JOB#: [id number] / [id number]
[2018-03-20] MEDS: MIRTAZAPINE 15 MG TABLET PO SCH (22:15)
[2018-03-20 23:08] VITALS: BP 129/51
--- NOTE | 2018-03-21 03:18 | PN ---
DATE: 03/20/2018 SUBJECTIVE: The patient is resting, slightly propped up comfortably, in no apparent distress. continued to have cough with whitish sputum; however, he is afebrile. His white cell count is normal and his chest x-ray showed improvement in his congestive heart failure. The Cardiology team did not recommend any further ischemic workup given his age, comorbidities and abnormal kidney function, and therefore, we will basically transfer him back to alf facility as he is not a candidate to be in assisted living. PHYSICAL EXAMINATION: GENERAL: When I examined him, he looked pale, but no jaundice cyanosis, or thyromegaly. No jugular venous distension. Mild bilateral lower limb edema. VITAL SIGNS: His heart rate was 91, blood pressure 170/75, temperature was 98, respiratory rate was 20 and oxygen saturation was 97% on 2 liters of oxygen. HEAD, EYES, EARS, NOSE AND THROAT: Normocephalic, atraumatic. NECK: Supple. HEART: Showed normal first and second heart sounds with no gallop, rub or murmur. CHEST: Clear to auscultation. No crepitation or rhonchi. ABDOMEN: Distended, soft, nontender. No guarding or rigidity. No organomegaly. Hernial orifice intact. Bowel sounds normal. NEUROLOGIC: He is hard of hearing, but otherwise all cranial nerves intact. He moves his upper extremities to much good extent than lower extremities, mostly bed bound and chair bound. His intake over the last 24 hours was 1645, output was 300; however, he is incontinent. LABORATORY DATA: Showed a serum sodium 135, potassium 5.3, chloride 101, bicarbonate 31, anion gap of 3, BUN 35, creatinine 1.6. Estimated GFR was 41 mL per minute. His glucose 173, calcium was 8.3. Total bilirubin, AST, ALT, alkaline phosphatase were normal. Total protein 6.7, albumin 2.3. His white cell count was 3700, hemoglobin 8.4, hematocrit 24, MCV 101 and platelet count of 155,000. ASSESSMENT: 1. Elevated troponin consistent with non-ST segment elevation myocardial infarction, although likely in part related to accelerated hypertension. 2. Echocardiogram showed that his ejection fraction is 50%. He has basal inferior wall hypokinesis, trace to mild aortic regurgitation, mild mitral regurgitation, mild tricuspid regurgitation, severe pulmonary hypertension with pulmonary artery systolic pressure of 86 mmHg, with no evidence of significant pericardial effusion. 3. 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 4. Coronary artery disease status post coronary artery bypass graft surgery. 5. Accelerated hypertension for which he will increase his hydralazine to 50 mg 3 times a day and his Imdur to 60 mg and because of history of bradycardia, his Coreg was discontinued. 6. He apparently is not a candidate to go back to [facility] and he is not also a candidate to go to a alf facility and the assisted living facility. 7. Severe protein calorie malnutrition. 8. Acute kidney injury with creatinine has risen to 1.6 from the baseline of 1.3. Given his age, he probably has overflow incontinence. We will arrange for him to have a bladder scan. We might have to put a Mackey catheter if he is retaining urine. BEN HORTON MD DR: GEORGE/mechelle JOB#: [id number] / [id number]
[2018-03-21 04:00] VITALS: BP 152/59
[2018-03-21] MEDS: IPRATRPIUM/ALBUTEROL 0.5/2.5MG 3 ML NEBU. NEB SCH ×2 (04:24→09:19)
[2018-03-21 06:35] LABS: CALCIUM 8.4 mg/dL (8.5-10.1); CREATININE 1.6 mg/dL (0.7-1.3); GFR 40.9
[2018-03-21] MEDS ORDERED: POLYETHYLENE GLYCOL 3350 17 GM PACKET. PO PRN (07:45)
[2018-03-21] MEDS: INSULIN LISPRO 300 UNITS/3 ML INSULN.PEN. SQ SCH (08:00)
[2018-03-21] MEDS: POTASSIUM CHLORIDE 20 MEQ TABLET.ER. PO SCH (08:00)
[2018-03-21] MEDS: FINASTERIDE 5 MG TABLET PO SCH (08:21)
[2018-03-21] MEDS: TAMSULOSIN 0.4 MG CAP.ER.24H. PO SCH (08:21)
[2018-03-21] MEDS: TORSEMIDE 20 MG TABLET. PO SCH (08:21)
[2018-03-21] MEDS: ISOSORBIDE MONONITRATE ER 30 MG TAB.ER.24H PO SCH (08:21)
[2018-03-21] MEDS: FERROUS SULFATE 325 MG TABLET. PO SCH (08:21)
[2018-03-21] MEDS: SERTRALINE 25 MG TABLET. PO SCH (08:21)
[2018-03-21] MEDS: PANTOPRAZOLE 40 MG TABLET. PO SCH (08:21)
[2018-03-21] MEDS: DONEPEZIL HCL 10 MG TABLET PO SCH (08:22)
[2018-03-21] MEDS: CHOLECALCIFEROL (VITAMIN D3) 1,000 UNIT TABLET PO SCH (08:22)
[2018-03-21] MEDS: FLUTICASONE 50MCG/NASAL SPRAY 16GM BOTTLE. NS SCH (08:22)
[2018-03-21] MEDS: SENNOSIDES 8.6 MG TABLET PO SCH (08:23)
[2018-03-21 08:33] VITALS: BP 160/65
[2018-03-21] MEDS: prednisoLONE ACETATE 1% OPHTH SUSPENSION 5ML BOTTLE. OU SCH (09:00)
--- NOTE | 2018-03-21 09:16 | PDOC ---
PROGRESS NOTES Objective Vital Signs Date Time Temp Pulse Resp B/P (MAP) Pulse Ox O2 Delivery O2 Flow Rate FiO2 03/21/18 08:33 82 20 160/65 (96) 96 Nasal Cannula 2.0 03/21/18 05:54 98.2 Intake and Output 03/21/18 07:00 Intake Total 1310 ml Output Total 350 ml Balance 960 ml Intake Oral 1310 ml Output Urine Total 350 ml # Voids 2 # Bowel Movements 1 Review of Relevant I have reviewed the following items danny (where applicable) has been applied. Labs Laboratory Tests Test 03/19/18 11:44 03/19/18 16:53 03/19/18 20:22 03/20/18 05:40 Glucose (Fingerstick) 160 mg/dL (70-99) 138 mg/dL (70-99) 217 mg/dL (70-99) White Blood Count 3.7 x10^3/uL (4.0-11.0) Red Blood Count 2.39 x10^6/uL (4.30-5.70) Hemoglobin 8.4 g/dL (13.0-17.5) Hematocrit 24.2 % (39.0-53.0) Mean Corpuscular Volume 101 fL (79-100) Mean Corpuscular Hemoglobin 35 pg (25-35) Mean Corpuscular Hemoglobin Concent 35 g/dL (31-37) Red Cell Distribution Width 15.9 % (11.5-14.5) Platelet Count 155 x10^3/uL (140-400) Sodium Level 135 mmol/L (136-145) Potassium Level 5.3 mmol/L (3.5-5.1) Chloride Level 101 mmol/L (98-107) Carbon Dioxide Level 31 mmol/L (21-32) Anion Gap 3 (6-14) Blood Urea Nitrogen 35 mg/dL (8-26) Creatinine 1.6 mg/dL (0.7-1.3) Estimated GFR (Cockcroft-Gault) 40.9 BUN/Creatinine Ratio 22 (6-20) Glucose Level 173 mg/dL (70-99) Calcium Level 8.3 mg/dL (8.5-10.1) Total Bilirubin 0.5 mg/dL (0.2-1.0) Aspartate Amino Transf (AST/SGOT) 19 U/L (15-37) Alanine Aminotransferase (ALT/SGPT) 18 U/L (16-63) Alkaline Phosphatase 59 U/L (46-116) Total Protein 6.7 g/dL (6.4-8.2) Albumin 2.3 g/dL (3.4-5.0) Albumin/Globulin Ratio 0.5 (1.0-1.7) Test 03/20/18 17:05 03/20/18 21:22 03/21/18 00:43 03/21/18 05:40 Glucose (Fingerstick) 222 mg/dL (70-99) 69 mg/dL (70-99) 119 mg/dL (70-99) Sodium Level 137 mmol/L (136-145) Potassium Level 5.0 mmol/L (3.5-5.1) Chloride Level 101 mmol/L (98-107) Carbon Dioxide Level 31 mmol/L (21-32) Anion Gap 5 (6-14) Blood Urea Nitrogen 37 mg/dL (8-26) Creatinine 1.6 mg/dL (0.7-1.3) Estimated GFR (Cockcroft-Gault) 40.9 Glucose Level 129 mg/dL (70-99) Calcium Level 8.4 mg/dL (8.5-10.1) Medications Current Medications Insulin Human Lispro (HumaLOG) 0-7 UNITS TIDWMEALS SQ Last administered on at 17:47; Start 03/17/18 at 08:00 Dextrose 12.5 gm PRN Q15MIN PRN IV SEE COMMENTS; Start 03/16/18 at 18:45 Acetaminophen (Tylenol) 325 mg PRN Q6HRS PRN PO PAIN Last administered on at 20:10; Start 03/16/18 at 19:30 Betamethasone Dipropion Augmented (Diprolene-Af) 15 carley PRN BID PRN TP RASH; Start 03/16/18 at 19:30; Stop 03/18/18 at 07:27; Status DC Vitamin D (Vitamin D3) 1,000 unit DAILY PO Last administered on 03/21/18 08:22 ; Start 03/17/18 at 09:00 Donepezil HCl (Aricept) 10 mg DAILY PO Last administered on 03/21/18at 08:22; Start 03/17/18 at 09:00 Ferrous Sulfate (Feosol) 325 mg DAILY PO Last administered on 03/21/18at 08:21; Start 03/17/18 at 09:00 Isosorbide Mononitrate (Imdur) 15 mg DAILY PO ; Start 03/17/18 at 09:00; Stop 03/17/18 at 09:00; Status DC Isosorbide Mononitrate (Imdur) 30 mg DAILY PO Last administered on 03/18/18at 08: 47; Start 03/17/18 at 09:00; Stop 03/18/18 at 14:01; Status DC Artificial Tears (Artificial Tears) 1 drop PRN QID PRN OU DRY EYE; Start at 19:30 Prednisolone Acetate (Pred Forte) 1 drop DAILY OU Last administered on at 08:23; Start 03/17/18 at 09:00 Tamsulosin HCl (Flomax) 0.4 mg DAILY PO Last administered on 03/21/18at 08:21; Start 03/17/18 at 09:00 Atorvastatin Calcium (Lipitor) 40 mg QHS PO Last administered on 03/20/18at 21:03 ; Start 03/16/18 at 21:00 Carvedilol (Coreg) 6.25 mg BIDWMEALS PO ; Start 03/17/18 at 08:00; Stop 03/17/18 at 17:11; Status DC Non-Formulary Medication (Donepezil Hcl ) 10 mg DAILY PO ; Start 03/17/18 at 09: 00; Stop 03/17/18 at 09:00; Status DC Finasteride (Proscar) 5 mg DAILY PO Last administered on 03/21/18at 08:21; Start 03/17/18 at 09:00 Fluticasone Propionate (Flonase) 2 spray BID NS Last administered on 03/21/18at 08:22; Start 03/17/18 at 09:00 Non-Formulary Medication (Ganciclovir (Zirgan)) 5 gm 5 time daily OP ; Start at 19:30; Status UNV Guaifenesin (Mucinex Er) 1,200 mg BID PO Last administered on 03/21/18at 08:22; Start 03/16/18 at 21:00 Phenyleph/Shark Oil/Min Oil/Petrol (Preparation H) 1 carley PRN BID PRN RC RECTAL PAIN; Start 03/16/18 at 20:00 Multi-Ingredient Ointment (Analgesic [place]) 1 carley PRN QID PRN TP MUSCLE PAIN; Start 03/16/18 at 20:00 Mirtazapine (Remeron) 15 mg QHS PO Last administered on 03/20/18at 22:15; Start 03/16/18 at 21:00 Olanzapine (ZyPREXA ZYDIS) 1.25 mg PRN Q2HR PRN PO AGITATION Last administered on 03/20/18 04:30; Start 03/16/18 at 20:00 Pantoprazole Sodium (Protonix) 40 mg DAILYAC PO Last administered on 03/21/18 08:21; Start 03/17/18 at 07:30 Polyethylene Glycol (miraLAX) 17 gm BID PO Last administered on 03/20/18 21:03 ; Start 03/17/18 at 09:00; Stop 03/21/18 at 07:36; Status DC Potassium Chloride (Klor-Con) 20 meq DAILYWBKFT PO ; Start 03/17/18 at 08:00 Sennosides (Senna) 17.2 mg DAILY PO Last administered on 03/20/18at 10:37; Start 03/17/18 at 09:00 Sertraline HCl (Zoloft) 25 mg DAILY PO Last administered on 03/18/18at 08:47; Start 03/17/18 at 09:00; Stop 03/18/18 at 14:59; Status DC Torsemide (Demadex) 40 mg DAILY PO Last administered on 03/21/18at 08:21; Start 03/17/18 at 09:00 Non-Formulary Medication (Vit A/Cheng Ac/ Aloe V/Emu Oil (Skin Repair Lotion)) 1 carley Q1HR TP ; Start 03/16/18 at 20:00; Stop 03/16/18 at 20:00; Status DC Albuterol/ Ipratropium (Duoneb) 3 ml RTQID NEB Last administered on 03/21/18at 04 :24; Start 03/16/18 at 20:00 Non-Formulary Medication (Vit A/Cheng Ac/ Aloe V/Emu Oil (Skin Repair Lotion)) 1 carley PRN Q1HR PRN TP DRY SKIN/IRRITATION; Start 03/16/18 at 20:00; Stop at 20:00; Status DC Vitamin A/Vitamin D (Vitamin A & D Ointment) 1 carley PRN Q1HR PRN TP SKIN PROTECTION; Start 03/16/18 at 20:15 Hydralazine HCl (Apresoline) 25 mg BID PO Last administered on 03/17/18at 10:17; Start 03/17/18 at 09:30; Stop 03/17/18 at 17:12; Status DC Hydralazine HCl (Apresoline) 25 mg TID PO Last administered on 03/18/18at 13:32; Start 03/17/18 at 17:15; Stop 03/18/18 at 14:01; Status DC Betamethasone Dipropion Augmented (Diprolene-Af) 1 carley PRN BID PRN TP RASH; Start 03/18/18 at 07:27 Hydralazine HCl (Apresoline) 50 mg TID PO Last administered on 03/21/18at 08:22; Start 03/18/18 at 14:00 Isosorbide Mononitrate (Imdur) 60 mg DAILY PO Last administered on 03/21/18at 08: 21; Start 03/19/18 at 09:00 Isosorbide Mononitrate (Imdur) 30 mg 1X ONCE PO Last administered on 03/18/18at 14:28; Start 03/18/18 at 14:00; Stop 03/18/18 at 14:13; Status DC Sertraline HCl (Zoloft) 12.5 mg DAILY PO Last administered on 03/21/18at 08:21; Start 03/19/18 at 09:00 Polyethylene Glycol (miraLAX) 17 gm PRN DAILY PRN PO CONSTIPATION; Start at 07:45 Active Scripts Active Reported Zyprexa (Olanzapine) 2.5 Mg Tablet 1.25 Mg PO Q2HR PRN MDD 7.5/24hrs Remeron (Mirtazapine) 15 Mg Tablet 15 Mg PO HS Skin Repair Lotion (Vit A/Cheng Ac/Aloe V/Emu Oil) 570 Ml Lotion 1 Carley TP Q1HR PRN [place] Ultra Strength Crm (Methyl Salicylate/Menth/Camph) 57 Gm Cream..g. 28 Gm TP QID PRN MUSCLE PAIN Isosorbide Mononitrate Er (Isosorbide Mononitrate) 30 Mg Tab.er.24h 30 Mg PO DAILY Donepezil Hcl 10 Mg Tablet 10 Mg PO DAILY Zirgan (Ganciclovir) 5 Gm Gel..gram. 5 Gm OP 5 TIME DAILY Carvedilol 6.25 Mg Tablet 6.25 Mg PO BIDWMEALS Diprolene 0.05% Ointment (Betamethasone/Propylene Glyc) 15 Gm Oint...g. 15 Gm TP PRN BID PRN Zoloft (Sertraline Hcl) 25 Mg Tablet 25 Mg PO DAILY Polyvinyl Alcohol 15 Ml Drops 1 Drop OP PRN QID PRN K-Tab ER (Potassium Chloride) 20 Meq Tablet.er 20 Meq PO DAILY Protonix (Pantoprazole Sodium) 40 Mg Tablet.dr 40 Mg PO DAILY Atorvastatin Calcium 40 Mg Tablet 40 Mg PO DAILY Tamsulosin Hcl 0.4 Mg Cap.er.24h 0.4 Mg PO DAILY Proscar (Finasteride) 5 Mg Tablet 5 Mg PO DAILY Senna Lax (Sennosides) 8.6 Mg Tablet 17.2 Mg PO DAILY Ferrous Sulfate 325 Mg Tablet 325 Mg PO DAILY Acetaminophen 325 Mg Tablet 325 Mg PO PRN Q6HRS PRN Vitamin D3 (Cholecalciferol (Vitamin D3)) 1,000 Unit Tablet 1,000 Unit PO DAILY Miralax (Polyethylene Glycol 3350) 17 Gm Powd.pack 17 Gm PO BID Prednisolone Acetate 5 Ml Drops.susp 1 Drop EACHEYE DAILY Mucinex (Guaifenesin) 1,200 Mg Tbmp.12hr 1,200 Mg PO BID Fluticasone Propionate Nasal [place] (Fluticasone Propionate) 16 Gm [place].susp 2 Spr NS BID Preparation H (Hydrocortisone) 26 Gm Cream..g. 26 Gm TP PRN BID PRN Torsemide 20 Mg Tablet 40 Mg PO DAILY Vitals/I & O Vital Sign - Last 24 Hours 03/20/18 03/20/18 03/20/18 03/20/18 10:29 10:39 10:40 11:22 Pulse 66 91 91 Resp 20 B/P (MAP) 170/75 (106) 170/75 170/75 Pulse Ox 99 97 O2 Delivery Nasal Cannula Nasal Cannula O2 Flow Rate 2.0 2.0 03/20/18 03/20/18 03/20/18 03/20/18 16:35 16:37 16:50 19:00 Temp 97.7 Pulse 62 62 66 Resp 20 B/P (MAP) 174/63 (100) 174/63 118/50 (72) Pulse Ox 97 99 95 O2 Delivery Nasal Cannula Nasal Cannula Nasal Cannula O2 Flow Rate 2.0 2.0 2.0 03/20/18 03/20/18 03/20/18 03/20/18 19:50 20:37 21:03 23:08 Temp 98.1 Pulse 66 51 Resp 17 B/P (MAP) 118/50 129/51 (77) Pulse Ox 96 95 O2 Delivery Nasal Cannula Nasal Cannula Nasal Cannula O2 Flow Rate 2.0 2.0 2.0 03/21/18 03/21/18 03/21/18 03/21/18 04:00 04:25 05:54 08:21 Temp 98.2 Pulse 70 70 Resp 20 B/P (MAP) 152/59 (90) 160/65 Pulse Ox 96 96 O2 Delivery Nasal Cannula Nasal Cannula O2 Flow Rate 3.0 2.0 03/21/18 03/21/18 03/21/18 08:22 08:32 08:33 Pulse 70 82 Resp 20 B/P (MAP) 160/65 160/65 (96) Pulse Ox 96 O2 Delivery Nasal Cannula Nasal Cannula O2 Flow Rate 2.0 2.0 Intake and Output 03/20/18 03/20/18 03/21/18 15:00 23:00 07:00 Intake Total 700 ml 610 ml Output Total 250 ml 100 ml Balance 450 ml 510 ml [employer] Mar 21, 2018 09:16
[2018-03-21] MEDS ORDERED: HYDR-2869 PO (10:41)
[2018-03-21] MEDS ORDERED: CHOL10003 PO (10:41)
[2018-03-21] MEDS ORDERED: IPRA3AMP NEB (10:41)
[2018-03-21] MEDS ORDERED: INSU100C SQ (10:41)
--- NOTE | 2018-03-21 13:37 | DS ---
DATE OF DISCHARGE: 03/21/2018 HOSPITAL COURSE: The patient is an 88-year-old male patient who was transferred from [facility] on 03/17/2018, as he has been complaining of chest pain. His troponin was elevated and he was basically diagnosed with non-ST segment elevation myocardial infarction. He has also marked bradycardia. His Coreg was discontinued and as blood pressure was elevated, we increased his hydralazine and isosorbide mononitrate and it was felt that the patient will benefit from rehabilitation and therefore, the patient was transferred to the swing bed. PHYSICAL EXAMINATION: GENERAL: On examining him today, he looked well and was clearly in no apparent respiratory distress. He was pale. No jaundice, cyanosis, or thyromegaly. No jugular venous distension. No limb edema. VITAL SIGNS: His heart rate was 82, blood pressure was 160/65, temperature was 98.2, respiratory rate 20, and oxygen saturation was 96% on 2 liters of oxygen. HEAD, EYES, EARS, NOSE AND THROAT: Showed normocephalic, atraumatic. NECK: Supple. HEART: Showed normal first and second heart sounds. No gallop, rub or murmur. CHEST: Clear to auscultation. No crepitation or rhonchi. ABDOMEN: Distended, soft, and nontender. No guarding or rigidity. No organomegaly. Hernial orifices intact. Bowel sounds normal. NEUROLOGIC: He is very hard of hearing, otherwise, all other cranial nerves are intact. He moves upper extremities to much good extent than lower extremities, mostly bed bound and chair bound. His intake and output were incompletely recorded. LABORATORY DATA: As of this morning, his serum sodium was 137, potassium 5, chloride 101, bicarbonate 31, anion gap of 5, BUN 37, creatinine was 1.6, estimated GFR was 41 mL per minute. His glucose 129 and calcium was 8.4. His white cell count was 3700, hemoglobin 8.4, hematocrit 24, MCV 101, and platelet count of 155,000. DISCHARGE MEDICATIONS: He was discharged to continue on following medications: polyethylene glycol 17 grams ____, sertraline 12.5 mg once a day, isosorbide mononitrate 60 mg daily, hydralazine 50 mg 3 times a day, Diprolene one application b.i.d. p.r.n., furosemide 40 mg daily, senna 2 tablets once a day, ____, Flonase 2 sprays to each nostril twice a day, finasteride 5 mg daily, tamsulosin 0.4 mg daily, prednisolone acetate for Pred Forte one drop to both eyes daily, ferrous sulfate 325 mg daily, Aricept 10 mg daily, vitamin D 1000 international units daily. He is on Humalog insulin as insulin sliding scale before meals, Protonix 40 mg daily, mirtazapine 15 mg at bedtime, Mucinex 1200 mg twice a day, atorvastatin 40 mg at bedtime, albuterol and Atrovent 4 times a day, olanzapine 1.25 mg every 2 hours, artificial tears 1 drop q.i.d., Tylenol 650 mg every 6 hours. FINAL DISCHARGE DIAGNOSES: 1. Elevated troponin consistent with non-ST segment elevation myocardial infarction, likely in part related to accelerated hypertension. 2. Echocardiogram showed that his ejection fraction is 50%. He has basal inferior wall hypokinesis, trace to mild aortic regurgitation, mild mitral regurgitation, mild tricuspid regurgitation, severe pulmonary hypertension with pulmonary artery systolic pressure of 86 mmHg. No evidence of significant pericardial effusion. 3. His EKG showed that he has right bundle branch block and bradycardia with first-degree heart block. 4. Coronary artery disease status post coronary artery bypass graft surgery. 5. Accelerated hypertension. 6. Severe protein calorie malnutrition. 7. Acute on chronic kidney injury. 8. Bradycardia, Coreg was discontinued. BEN HORTON MD DR: GEORGE/mechelle JOB#: [id number] / [id number]
--- NOTE | 2018-03-22 00:48 | PN ---
DATE: 03/20/2018 This is a late entry for 03/20/2018 and covers elements not covered in my initial note of 03/20/2018. SUBJECTIVE: The patient seen individually in ICU bed 2 evening of 03/20/2018. Per nursing report, the patient has been fairly cooperative, reasonably cognitively intact. Less irritable. No clear psychotic symptoms. He has been feeding himself and otherwise reasonable. Ambulation impaired, hard of hearing. No CV, , pulmonary, eye system symptoms on review. MENTAL STATUS EXAM: Oriented to himself and situation. Speech is coherent, and I had to talk loudly into his ear. Abstraction fair, computation impaired, language function intact. Mood and affect showing improvement, and denied being depressed. IMPRESSION: Unchanged from initial note. PLAN: No change from a psychiatric standpoint. The patient may return back to the senior care once he is medically stable. MAN Kunal BOND MD DR: CRISTY/mechelle JOB#: [id number] / [id number]
== END 2018-03-21 11:06 | disposition swing bed (61) | DRG 280 ==
LOC: ICU 18:30
PROVIDERS: ADMIT Internal Medicine; ATTEND Internal Medicine
DX: I21.4 Non-ST elevation (NSTEMI) myocardial infarction (principal); E43 Unspecified severe protein-calorie malnutrition; N17.9 Acute kidney failure, unspecified; F33.3 Major depressive disorder, recurrent, severe with psychotic symptoms; I50.42 Chronic combined systolic (congestive) and diastolic (congestive) heart failure; E11.22 Type 2 diabetes mellitus with diabetic chronic kidney disease; I13.0 Hypertensive heart and chronic kidney disease with heart failure and stage 1 through stage 4 chronic kidney disease, or unspecified chronic kidney disease; G30.9 Alzheimer's disease, unspecified; F01.51 Vascular dementia, unspecified severity, with behavioral disturbance; I48.0 Paroxysmal atrial fibrillation; F02.81 Dementia in other diseases classified elsewhere, unspecified severity, with behavioral disturbance; D64.9 Anemia, unspecified; I45.10 Unspecified right bundle-branch block; N18.9 Chronic kidney disease, unspecified; I25.10 Atherosclerotic heart disease of native coronary artery without angina pectoris; H91.90 Unspecified hearing loss, unspecified ear; H40.9 Unspecified glaucoma; F41.9 Anxiety disorder, unspecified; E78.5 Hyperlipidemia, unspecified; F09 Unspecified mental disorder due to known physiological condition; F63.9 Impulse disorder, unspecified; H35.30 Unspecified macular degeneration; I44.0 Atrioventricular block, first degree; J44.9 Chronic obstructive pulmonary disease, unspecified; N40.0 Benign prostatic hyperplasia without lower urinary tract symptoms; Z79.899 Other long term (current) drug therapy; Z86.14 Personal history of Methicillin resistant Staphylococcus aureus infection; Z87.440 Personal history of urinary (tract) infections; Z88.1 Allergy status to other antibiotic agents; Z88.0 Allergy status to penicillin; Z68.24 Body mass index [BMI] 24.0-24.9, adult; Z95.1 Presence of aortocoronary bypass graft
CPT/HCPCS: 36415; 71045; 80048; 80053; 80061; 82550; 82553; 82728; 82947; 83540; 83550; 83735; 84484; 85014; 85018; 85025; 85027; 87641; 93306; 94640; J1815; J7620

== ENCOUNTER 2018-03-21 11:10 | Inpatient (IN) | payer MEDICARE ==
[~2018-03-21] VITALS: Ht 167.6 cm; Wt 66.8 kg
[~2018-03-21 11:10] MED LIST changes: +HYDR-2869 PO; +INSU100C SQ; +IPRA3AMP NEB
[2018-03-21] MEDS ORDERED: ALOE V TP PRN (11:45)
[2018-03-21] MEDS ORDERED: VIT A TP PRN (11:45)
[2018-03-21] MEDS ORDERED: VITE AC TP PRN (11:45)
[2018-03-21] MEDS ORDERED: EMU OIL TP PRN (11:45)
[2018-03-21] MEDS ORDERED: BETAMETHASONE AUGMENTED 0.05% TP PRN (11:45)
[2018-03-21] MEDS ORDERED: POLYVINYL ALCOHOL 1.4% OPHTH SOLUTION 15ML BOTTLE. OU PRN (11:45)
[2018-03-21] MEDS ORDERED: PHENYLEPH/MINERAL OIL/PETROLAT RECTAL OINTMENT 28GM TUBE. RC PRN (12:00)
[2018-03-21 12:01] VITALS: BP 127/49
[2018-03-21] MEDS ORDERED: METHYL SALICYLATE/MENTHOL TOPICAL OINTMENT 29GM TUBE. TP PRN (12:45)
[2018-03-21] MEDS: INSULIN LISPRO 300 UNITS/3 ML INSULN.PEN. SQ SCH ×2 (12:53→18:15)
[2018-03-21] MEDS ORDERED: VITS A & D/LANOLIN TOPICAL OINTMENT 56GM TUBE. TP PRN (13:00)
[2018-03-21] MEDS: IPRATRPIUM/ALBUTEROL 0.5/2.5MG 3 ML NEBU. NEB SCH ×3 (15:25→20:59)
[2018-03-21 19:20] VITALS: BP 161/81
[2018-03-21 20:25] VITALS: BP 146/65
[2018-03-21] MEDS: MIRTAZAPINE 15 MG TABLET PO SCH (20:31)
[2018-03-21] MEDS: FLUTICASONE 50MCG/NASAL SPRAY 16GM BOTTLE. NS SCH (20:32)
[2018-03-21] MEDS: ACETAMINOPHEN 325 MG TABLET PO PRN (20:35)
[2018-03-21 21:39] VITALS: BP 109/48
[2018-03-22 05:24] VITALS: BP 159/67
[2018-03-22] MEDS: IPRATRPIUM/ALBUTEROL 0.5/2.5MG 3 ML NEBU. NEB SCH ×4 (05:41→20:59)
[2018-03-22] MEDS: PANTOPRAZOLE 40 MG TABLET. PO SCH (08:56)
[2018-03-22] MEDS: TORSEMIDE 20 MG TABLET. PO SCH (08:57)
[2018-03-22] MEDS: ISOSORBIDE MONONITRATE ER 30 MG TAB.ER.24H PO SCH (08:57)
[2018-03-22] MEDS: CHOLECALCIFEROL (VITAMIN D3) 1,000 UNIT TABLET PO SCH (08:57)
[2018-03-22] MEDS: TAMSULOSIN 0.4 MG CAP.ER.24H. PO SCH (08:57)
[2018-03-22] MEDS: SENNOSIDES 8.6 MG TABLET PO SCH (08:57)
[2018-03-22] MEDS: ATORVASTATIN CALCIUM 20 MG TABLET PO SCH (08:57)
[2018-03-22] MEDS: FINASTERIDE 5 MG TABLET PO SCH (08:57)
[2018-03-22] MEDS: FERROUS SULFATE 325 MG TABLET. PO SCH (08:57)
[2018-03-22] MEDS: prednisoLONE ACETATE 1% OPHTH SUSPENSION 5ML BOTTLE. OU SCH (08:59)
[2018-03-22] MEDS: SERTRALINE 25 MG TABLET. PO SCH (08:59)
[2018-03-22] MEDS: DONEPEZIL HCL 10 MG TABLET PO SCH (08:59)
[2018-03-22] MEDS: FLUTICASONE 50MCG/NASAL SPRAY 16GM BOTTLE. NS SCH ×2 (09:00→21:22)
[2018-03-22] MEDS ORDERED: CHOLECALCIFEROL (VITAMIN D3) 1,000 UNIT TABLET PO SCH (09:00)
[2018-03-22] MEDS ORDERED: POLYETHYLENE GLYCOL 3350 17 GM PACKET. PO PRN (09:00)
[2018-03-22] MEDS: INSULIN LISPRO 300 UNITS/3 ML INSULN.PEN. SQ SCH ×3 (09:09→16:54)
[2018-03-22] MEDS ORDERED: ALBUTEROL SULFATE 2.5 MG/3 ML NEBU. NEB PRN (14:00)
[2018-03-22] MEDS: MIRTAZAPINE 15 MG TABLET PO SCH (21:21)
[2018-03-22] MEDS: OLANZapine 2.5 MG TABLET PO PRN (22:24)
[2018-03-23] MEDS: OLANZapine 2.5 MG TABLET PO PRN (03:53)
[2018-03-23] MEDS: IPRATRPIUM/ALBUTEROL 0.5/2.5MG 3 ML NEBU. NEB SCH ×4 (05:43→20:42)
[2018-03-23 06:00] VITALS: BP 154/79
[2018-03-23] MEDS: PANTOPRAZOLE 40 MG TABLET. PO SCH (07:41)
[2018-03-23] MEDS: ATORVASTATIN CALCIUM 20 MG TABLET PO SCH (07:42)
[2018-03-23] MEDS: TAMSULOSIN 0.4 MG CAP.ER.24H. PO SCH (07:42)
[2018-03-23] MEDS: FINASTERIDE 5 MG TABLET PO SCH (07:43)
[2018-03-23] MEDS: ISOSORBIDE MONONITRATE ER 30 MG TAB.ER.24H PO SCH (07:43)
[2018-03-23] MEDS: SERTRALINE 25 MG TABLET. PO SCH (07:43)
[2018-03-23] MEDS: DONEPEZIL HCL 10 MG TABLET PO SCH (07:44)
[2018-03-23] MEDS: FERROUS SULFATE 325 MG TABLET. PO SCH (07:44)
[2018-03-23] MEDS: CHOLECALCIFEROL (VITAMIN D3) 1,000 UNIT TABLET PO SCH (07:44)
[2018-03-23] MEDS: prednisoLONE ACETATE 1% OPHTH SUSPENSION 5ML BOTTLE. OU SCH (07:44)
[2018-03-23] MEDS: FLUTICASONE 50MCG/NASAL SPRAY 16GM BOTTLE. NS SCH ×2 (07:45→20:15)
[2018-03-23] MEDS: INSULIN LISPRO 300 UNITS/3 ML INSULN.PEN. SQ SCH ×3 (07:46→17:00)
[2018-03-23] MEDS: SENNOSIDES 8.6 MG TABLET PO SCH (07:47)
[2018-03-23] MEDS: TORSEMIDE 20 MG TABLET. PO SCH (07:51)
[2018-03-23 18:25] VITALS: BP 109/68
[2018-03-23] MEDS: MIRTAZAPINE 15 MG TABLET PO SCH (20:16)
[2018-03-24] MEDS: OLANZapine 2.5 MG TABLET PO PRN ×5 (01:09→20:18)
[2018-03-24] MEDS: ACETAMINOPHEN 325 MG TABLET PO PRN ×3 (05:15→20:18)
[2018-03-24 06:01] VITALS: BP 120/67
[2018-03-24] MEDS: IPRATRPIUM/ALBUTEROL 0.5/2.5MG 3 ML NEBU. NEB SCH ×4 (06:10→21:03)
[2018-03-24] MEDS: PANTOPRAZOLE 40 MG TABLET. PO SCH (07:51)
[2018-03-24] MEDS: prednisoLONE ACETATE 1% OPHTH SUSPENSION 5ML BOTTLE. OU SCH (08:59)
[2018-03-24] MEDS: FLUTICASONE 50MCG/NASAL SPRAY 16GM BOTTLE. NS SCH ×2 (08:59→20:20)
[2018-03-24] MEDS: DONEPEZIL HCL 10 MG TABLET PO SCH (09:00)
[2018-03-24] MEDS: TORSEMIDE 20 MG TABLET. PO SCH (09:01)
[2018-03-24] MEDS: ISOSORBIDE MONONITRATE ER 30 MG TAB.ER.24H PO SCH (09:01)
[2018-03-24] MEDS: FERROUS SULFATE 325 MG TABLET. PO SCH (09:01)
[2018-03-24] MEDS: TAMSULOSIN 0.4 MG CAP.ER.24H. PO SCH (09:01)
[2018-03-24] MEDS: ATORVASTATIN CALCIUM 20 MG TABLET PO SCH (09:02)
[2018-03-24] MEDS: SENNOSIDES 8.6 MG TABLET PO SCH (09:03)
[2018-03-24] MEDS: CHOLECALCIFEROL (VITAMIN D3) 1,000 UNIT TABLET PO SCH (09:03)
[2018-03-24] MEDS: SERTRALINE 25 MG TABLET. PO SCH (09:04)
[2018-03-24] MEDS: FINASTERIDE 5 MG TABLET PO SCH (09:04)
[2018-03-24] MEDS: INSULIN LISPRO 300 UNITS/3 ML INSULN.PEN. SQ SCH ×4 (09:17→17:00)
[2018-03-24 18:55] VITALS: BP 123/60
[2018-03-24] MEDS: MIRTAZAPINE 15 MG TABLET PO SCH (20:18)
[2018-03-25] MEDS: OLANZapine 2.5 MG TABLET PO PRN ×2 (01:22→21:07)
[2018-03-25] MEDS: IPRATRPIUM/ALBUTEROL 0.5/2.5MG 3 ML NEBU. NEB SCH ×4 (05:39→21:59)
[2018-03-25] MEDS: PANTOPRAZOLE 40 MG TABLET. PO SCH (07:30)
[2018-03-25] MEDS: INSULIN LISPRO 300 UNITS/3 ML INSULN.PEN. SQ SCH ×3 (08:00→17:00)
[2018-03-25] MEDS: ATORVASTATIN CALCIUM 20 MG TABLET PO SCH (09:00)
[2018-03-25] MEDS: FERROUS SULFATE 325 MG TABLET. PO SCH (09:00)
[2018-03-25] MEDS: prednisoLONE ACETATE 1% OPHTH SUSPENSION 5ML BOTTLE. OU SCH (09:00)
[2018-03-25] MEDS: TAMSULOSIN 0.4 MG CAP.ER.24H. PO SCH (09:00)
[2018-03-25] MEDS: FINASTERIDE 5 MG TABLET PO SCH (09:00)
[2018-03-25] MEDS: FLUTICASONE 50MCG/NASAL SPRAY 16GM BOTTLE. NS SCH ×2 (09:00→21:07)
[2018-03-25] MEDS: SENNOSIDES 8.6 MG TABLET PO SCH (09:00)
[2018-03-25] MEDS: TORSEMIDE 20 MG TABLET. PO SCH (09:00)
[2018-03-25] MEDS: SERTRALINE 25 MG TABLET. PO SCH (09:00)
[2018-03-25] MEDS: CHOLECALCIFEROL (VITAMIN D3) 1,000 UNIT TABLET PO SCH (09:00)
[2018-03-25] MEDS: ISOSORBIDE MONONITRATE ER 30 MG TAB.ER.24H PO SCH (09:00)
[2018-03-25] MEDS: DONEPEZIL HCL 10 MG TABLET PO SCH (09:00)
[2018-03-25 19:20] VITALS: BP 160/72
[2018-03-25] MEDS: MIRTAZAPINE 15 MG TABLET PO SCH (21:07)
[2018-03-26 06:04] VITALS: BP 160/65
[2018-03-26] MEDS: IPRATRPIUM/ALBUTEROL 0.5/2.5MG 3 ML NEBU. NEB SCH ×4 (06:30→21:23)
[2018-03-26] MEDS: INSULIN LISPRO 300 UNITS/3 ML INSULN.PEN. SQ SCH ×3 (08:00→17:00)
[2018-03-26] MEDS: FLUTICASONE 50MCG/NASAL SPRAY 16GM BOTTLE. NS SCH ×2 (09:25→21:55)
[2018-03-26] MEDS: PANTOPRAZOLE 40 MG TABLET. PO SCH (09:25)
[2018-03-26] MEDS: prednisoLONE ACETATE 1% OPHTH SUSPENSION 5ML BOTTLE. OU SCH (09:26)
[2018-03-26] MEDS: TORSEMIDE 20 MG TABLET. PO SCH (09:27)
[2018-03-26] MEDS: FERROUS SULFATE 325 MG TABLET. PO SCH (09:27)
[2018-03-26] MEDS: DONEPEZIL HCL 10 MG TABLET PO SCH (09:27)
[2018-03-26] MEDS: TAMSULOSIN 0.4 MG CAP.ER.24H. PO SCH (09:28)
[2018-03-26] MEDS: ATORVASTATIN CALCIUM 20 MG TABLET PO SCH (09:28)
[2018-03-26] MEDS: ISOSORBIDE MONONITRATE ER 30 MG TAB.ER.24H PO SCH (09:28)
[2018-03-26] MEDS: SERTRALINE 25 MG TABLET. PO SCH (09:29)
[2018-03-26] MEDS: FINASTERIDE 5 MG TABLET PO SCH (09:29)
[2018-03-26] MEDS: SENNOSIDES 8.6 MG TABLET PO SCH (09:29)
[2018-03-26] MEDS: CHOLECALCIFEROL (VITAMIN D3) 1,000 UNIT TABLET PO SCH (09:29)
[2018-03-26] MEDS: OLANZapine 2.5 MG TABLET PO PRN (11:45)
[2018-03-26 18:32] VITALS: BP 103/54
[2018-03-26] MEDS: MIRTAZAPINE 15 MG TABLET PO SCH (21:56)
[2018-03-27] MEDS: OLANZapine 2.5 MG TABLET PO PRN ×2 (00:02→19:36)
[2018-03-27 05:41] VITALS: BP 142/57
[2018-03-27] MEDS: IPRATRPIUM/ALBUTEROL 0.5/2.5MG 3 ML NEBU. NEB SCH ×4 (07:00→20:47)
[2018-03-27] MEDS: INSULIN LISPRO 300 UNITS/3 ML INSULN.PEN. SQ SCH ×3 (08:00→17:00)
[2018-03-27] MEDS: PANTOPRAZOLE 40 MG TABLET. PO SCH (08:50)
[2018-03-27] MEDS: FLUTICASONE 50MCG/NASAL SPRAY 16GM BOTTLE. NS SCH ×2 (08:50→19:35)
[2018-03-27] MEDS: prednisoLONE ACETATE 1% OPHTH SUSPENSION 5ML BOTTLE. OU SCH (08:50)
[2018-03-27] MEDS: FERROUS SULFATE 325 MG TABLET. PO SCH (08:51)
[2018-03-27] MEDS: TAMSULOSIN 0.4 MG CAP.ER.24H. PO SCH (08:51)
[2018-03-27] MEDS: TORSEMIDE 20 MG TABLET. PO SCH (08:51)
[2018-03-27] MEDS: DONEPEZIL HCL 10 MG TABLET PO SCH (08:51)
[2018-03-27] MEDS: SENNOSIDES 8.6 MG TABLET PO SCH (08:52)
[2018-03-27] MEDS: FINASTERIDE 5 MG TABLET PO SCH (08:52)
[2018-03-27] MEDS: ISOSORBIDE MONONITRATE ER 30 MG TAB.ER.24H PO SCH (08:52)
[2018-03-27] MEDS: ATORVASTATIN CALCIUM 20 MG TABLET PO SCH (08:52)
[2018-03-27] MEDS: CHOLECALCIFEROL (VITAMIN D3) 1,000 UNIT TABLET PO SCH (08:53)
[2018-03-27] MEDS: SERTRALINE 25 MG TABLET. PO SCH (08:54)
[2018-03-27 18:39] VITALS: BP 115/74
[2018-03-27] MEDS: MIRTAZAPINE 15 MG TABLET PO SCH (19:36)
[2018-03-28] MEDS: IPRATRPIUM/ALBUTEROL 0.5/2.5MG 3 ML NEBU. NEB SCH ×4 (04:54→20:50)
[2018-03-28 05:03] VITALS: BP 150/69
[2018-03-28] MEDS: prednisoLONE ACETATE 1% OPHTH SUSPENSION 5ML BOTTLE. OU SCH (08:15)
[2018-03-28] MEDS: FLUTICASONE 50MCG/NASAL SPRAY 16GM BOTTLE. NS SCH ×2 (08:16→21:09)
[2018-03-28] MEDS: PANTOPRAZOLE 40 MG TABLET. PO SCH (08:18)
[2018-03-28] MEDS: SERTRALINE 25 MG TABLET. PO SCH (08:18)
[2018-03-28] MEDS: TAMSULOSIN 0.4 MG CAP.ER.24H. PO SCH (08:18)
[2018-03-28] MEDS: TORSEMIDE 20 MG TABLET. PO SCH (08:18)
[2018-03-28] MEDS: ISOSORBIDE MONONITRATE ER 30 MG TAB.ER.24H PO SCH (08:19)
[2018-03-28] MEDS: SENNOSIDES 8.6 MG TABLET PO SCH (08:25)
[2018-03-28] MEDS: ATORVASTATIN CALCIUM 20 MG TABLET PO SCH (08:25)
[2018-03-28] MEDS: FERROUS SULFATE 325 MG TABLET. PO SCH (08:26)
[2018-03-28] MEDS: FINASTERIDE 5 MG TABLET PO SCH (08:26)
[2018-03-28] MEDS: DONEPEZIL HCL 10 MG TABLET PO SCH (08:26)
[2018-03-28] MEDS: INSULIN LISPRO 300 UNITS/3 ML INSULN.PEN. SQ SCH ×3 (08:47→17:06)
[2018-03-28] MEDS: CHOLECALCIFEROL (VITAMIN D3) 1,000 UNIT TABLET PO SCH (09:00)
[2018-03-28] MEDS: OLANZapine 2.5 MG TABLET PO PRN (11:58)
[2018-03-28 20:39] VITALS: BP 133/55
[2018-03-28] MEDS: MIRTAZAPINE 15 MG TABLET PO SCH (21:09)
[2018-03-28] MEDS: ACETAMINOPHEN 325 MG TABLET PO PRN (21:09)
[2018-03-29] MEDS: IPRATRPIUM/ALBUTEROL 0.5/2.5MG 3 ML NEBU. NEB SCH ×2 (05:43→11:03)
[2018-03-29 06:15] VITALS: BP 165/75
[2018-03-29] MEDS: INSULIN LISPRO 300 UNITS/3 ML INSULN.PEN. SQ SCH ×2 (08:00→12:24)
[2018-03-29] MEDS: ATORVASTATIN CALCIUM 20 MG TABLET PO SCH (08:25)
[2018-03-29] MEDS: CHOLECALCIFEROL (VITAMIN D3) 1,000 UNIT TABLET PO SCH (08:26)
[2018-03-29] MEDS: FERROUS SULFATE 325 MG TABLET. PO SCH (08:26)
[2018-03-29] MEDS: TORSEMIDE 20 MG TABLET. PO SCH (08:26)
[2018-03-29] MEDS: DONEPEZIL HCL 10 MG TABLET PO SCH (08:27)
[2018-03-29] MEDS: ISOSORBIDE MONONITRATE ER 30 MG TAB.ER.24H PO SCH (08:27)
[2018-03-29] MEDS: FINASTERIDE 5 MG TABLET PO SCH (08:27)
[2018-03-29] MEDS: SENNOSIDES 8.6 MG TABLET PO SCH (08:27)
[2018-03-29] MEDS: TAMSULOSIN 0.4 MG CAP.ER.24H. PO SCH (08:28)
[2018-03-29] MEDS: SERTRALINE 25 MG TABLET. PO SCH (08:28)
[2018-03-29] MEDS: PANTOPRAZOLE 40 MG TABLET. PO SCH (08:29)
[2018-03-29] MEDS: prednisoLONE ACETATE 1% OPHTH SUSPENSION 5ML BOTTLE. OU SCH (10:15)
[2018-03-29] MEDS: FLUTICASONE 50MCG/NASAL SPRAY 16GM BOTTLE. NS SCH (10:16)
[2018-03-29] MEDS: OLANZapine 2.5 MG TABLET PO PRN ×2 (12:22→14:44)
[2018-03-29 14:57] VITALS: BP 146/76
--- NOTE | 2018-04-10 14:52 | DS ---
DATE OF DISCHARGE: 03/29/2018 HOSPITAL COURSE: The patient is an 88-year-old male patient, who was transferred from [facility] to the ICU on 03/16/2018, as he developed an episode of chest pain during which he became very pale. Apparently, the pain has responded to sublingual nitroglycerin. His EKG showed that he was in atrial fibrillation, right bundle branch block, which is not different from a previous recent EKG done a few days ago; however, his cardiac enzymes were elevated at 0.456 and therefore a decision was made to transfer him down to the ICU to do 2 more sets of cardiac enzyme and consult the cardiology team. He was seen by the Cardiology team and recommendation that he has elevated troponin consistent with non-ST segment elevation myocardial infarction, likely related to accelerated hypertension; however, his echocardiogram showed that his ejection fraction is 50%. He has had basal inferior wall hypokinesis, trace to mild aortic regurgitation, mild mitral regurgitation, mild tricuspid regurgitation and severe pulmonary hypertension with pulmonary artery pressure of 86 mmHg. No evidence of significant pericardial effusion. His EKG continued to show right bundle branch block and bradycardia with first-degree heart block and given his debility a decision was made to transfer him to swing bed where he did well. He has had no further episode of chest pain. He has chronic shortness of breath. He has been chair bound. He does participate in physical therapy and decision was made to transfer him to a group home facility to continue the process of rehabilitation and perhaps long-term care there. PHYSICAL EXAMINATION: GENERAL: On the day of discharge, he looked well and was clearly in no apparent respiratory distress, pale, but no jaundice, cyanosis, or thyromegaly. No jugular venous distention. No limb edema. VITAL SIGNS: His heart rate was 84, blood pressure 146/76, temperature was 97.4, respiratory rate was 18 and oxygen saturation was 99% on 2 liters of oxygen. HEAD, EYES, EARS, NOSE AND THROAT: Showed normocephalic, atraumatic. NECK: Supple. HEART: Showed normal first and second sounds. No gallop, rub or murmur. CHEST: Shows central trachea, equally reduced expansion, reduced air entry, vesicular sounds. I could not appreciate any crepitation or rhonchi. ABDOMEN: Slightly distended, soft, nontender. NEUROLOGIC: He is somewhat confused, but otherwise all his cranial nerves are intact. He moves extremities without difficulty. LABORATORY DATA: His most recent lab work available showed that his white cell count was 3700, hemoglobin 8.4, hematocrit 24, MCV 101 and platelet count of 155,000. His chemistry showed a serum sodium 137, potassium 5, chloride 101, bicarbonate 31, anion gap of 5, BUN 37, creatinine 1.6, estimated GFR was 40 mL per minute, glucose 129, and calcium 8.5. FINAL DISCHARGE DIAGNOSES: Elevated troponin consistent with non-ST segment elevation myocardial infarction, likely in part related to accelerated hypertension, coronary artery disease, status post coronary artery bypass graft surgery, accelerated hypertension resolved, severe protein-calorie malnutrition, acute on chronic kidney injury stable, bradycardia. Coreg was discontinued. His echocardiogram showed ejection fraction 50%. An EKG showed that he has right bundle branch block with bradycardia and first-degree heart block. BEN HORTON MD DR: GEORGE/mechelle JOB#: [id number] / [id number]
== END 2018-03-29 16:00 | DRG 280 ==
LOC: 1 SOUTH 11:10 → LND 03-22 13:00
PROVIDERS: ADMIT Internal Medicine; ATTEND Internal Medicine
DX: I21.4 Non-ST elevation (NSTEMI) myocardial infarction (principal); E43 Unspecified severe protein-calorie malnutrition; N17.9 Acute kidney failure, unspecified; R53.1 Weakness; I25.10 Atherosclerotic heart disease of native coronary artery without angina pectoris; I48.91 Unspecified atrial fibrillation; E11.9 Type 2 diabetes mellitus without complications; H40.9 Unspecified glaucoma; H35.30 Unspecified macular degeneration; G30.9 Alzheimer's disease, unspecified; F02.80 Dementia in other diseases classified elsewhere, unspecified severity, without behavioral disturbance, psychotic disturbance, mood disturbance, and anxiety; J44.9 Chronic obstructive pulmonary disease, unspecified; I44.0 Atrioventricular block, first degree; I45.10 Unspecified right bundle-branch block; Z95.1 Presence of aortocoronary bypass graft; N18.9 Chronic kidney disease, unspecified; I12.9 Hypertensive chronic kidney disease with stage 1 through stage 4 chronic kidney disease, or unspecified chronic kidney disease
CPT/HCPCS: 82947; 94640; J7620; 97110; 97530; 97535